=== PATIENT | male | born 1995 | race Caucasian/White ===

== ENCOUNTER 2017-05-26 16:02 | Inpatient (IN) | payer BC, OTHER ==
[~2017-05-26] VITALS: Ht 188 cm; Wt 101.8 kg
[2017-05-26] MEDS ORDERED: ADENOSINE 6 MG/2 ML (ADENOCARD) VIAL IV ONE ×6 (16:09→16:30)
--- OUTSIDE RECORDS SUMMARY | 2017-05-26 16:11 | XMS REPORT | Clinical Summary ---
Author Author Admin, JONA Organization [facility] Address Unknown Phone Unavailable Allergies, Adverse Reactions, Alerts Allergy Name Reaction Description Start Date Severity Status Provider CEPHALOSPORINS Critical Active Dyllan Timmons DO AMOXICILLIN Critical Active Dyllan Timmons DO Conditions or Problems Problem Name Problem Code Onset Date Status Entry Date Provider Comment Standard Description Annotate FOOT PAIN, RIGHT 729.5 Resolved Katie Martell MD PhD Pain in limb PAIN IN JOINT, ANKLE AND FOOT 719.47 Resolved Katie Martell MD PhD Pain in joint involving ankle and foot Sports physical V70.3 Active Dyllan Timmons DO Other general medical examination for administrative purposes Hip pain, left 719.45 Resolved Katie Martell MD PhD Pain in joint involving pelvic region and thigh Elevated blood pressure reading without diagnosis of hypertension 796.2 02/01 Active Dyllan Timmons DO Elevated blood pressure reading without diagnosis of hypertension Pharyngitis-Acute 462 Resolved Katie Martell MD PhD Acute pharyngitis Dyspnea 786.05 Active Katie Martell MD PhD Shortness of breath Cough 786.2 Active Katie Martell MD PhD Cough Bronchitis, acute 466.0 Active Katie Martell MD PhD Acute bronchitis Lumbar strain, acute 847.2 Active Dyllan Timmons DO Lumbar sprain FOOT PAIN, RIGHT ICD-729.5 Inactive Katie Martell MD PhD PAIN IN JOINT, ANKLE AND FOOT ICD-719.47 Inactive Katie Martell MD PhD Hip pain, left ICD-719.45 Inactive Katie Martell MD PhD Pharyngitis-Acute ICD-462 Inactive Katie Martell MD PhD Medication List Medication Instructions Start Date Stop Date Generic Name NDC Status Provider Patient Instruction CYCLOBENZAPRINE HCL 10 MG TABS 1 tablet by mouth at bedtime for back spasm CYCLOBENZAPRINE HCL 57150757710 Active Dyllan Timmons DO Active LEVAQUIN 500 MG TAB 1 tablet by mouth daily LEVOFLOXACIN 65909216891 Active Katie Martell MD PhD Active Immunizations Vaccine Administration Date Value Standard Description dT (Diphtheria and Tetanus) booster given Boostrix Tdap Td(adult ) unspecified formulation DPT immunization #5 DTaP oral polio vaccine (OPV) #4 IPV poliovirus vaccine, unspecified formulation MMR (measles, mumps, rubella) virus immunization #2 MMR DPT immunization #4 DTaP hepatitis B vaccine #3 Historical hepatitis B vaccine, unspecified formulation Hemophilus influenza B immunization #2 Historical Haemophilus influenzae type b vaccine, conjugate unspecified formulation oral polio vaccine (OPV) #3 IPV poliovirus vaccine, unspecified formulation MMR (measles, mumps, rubella) virus immunization #1 MMR DPT immunization #3 DTaP DPT immunization #2 DTaP oral polio vaccine (OPV) #2 IPV poliovirus vaccine, unspecified formulation hepatitis B vaccine #2 given Historical hepatitis B vaccine, unspecified formulation hepatitis B vaccine #1 given Historical hepatitis B vaccine, unspecified formulation DPT immunization #1 DTaP Hemophilus influenza B immunization #1 Historical Haemophilus influenzae type b vaccine, conjugate unspecified formulation oral polio vaccine (OPV) #1 IPV poliovirus vaccine, unspecified formulation Vital Signs Date Name Value Unit Range Description blood pressure, diastolic - 8462-4 66 mm[Hg] BP dimas blood pressure, systolic - 8480-6 113 mm[Hg] BP sys pulse rate E&M - 8867-4 69 /min Heart rate temperature E&M 97.9 [degF] Body temperature weight E&M - 3141-9 220.0 [lb_av] Weight Measured blood pressure, diastolic - 8462-4 68 mm[Hg] BP dimas blood pressure, systolic - 8480-6 121 mm[Hg] BP sys pulse rate E&M - 8867-4 66 /min Heart rate temperature E&M 98.5 [degF] Body temperature weight E&M - 3141-9 220 [lb_av] Weight Measured blood pressure, diastolic - 8462-4 81 mm[Hg] BP dimas blood pressure, systolic - 8480-6 139 mm[Hg] BP sys pulse rate E&M - 8867-4 60 /min Heart rate temperature E&M 98 [degF] Body temperature weight E&M - 3141-9 223 [lb_av] Weight Measured Diagnostic Results Date Name Value Unit Range Description Lab Report: RapidStrep Rflx/Cx - Lab Microbial identification kit, rapid strep method Negative-Throat Culture to Follow Negative Encounters Code Encounter Date Provider Facility CPT-84148 Level 3 Est. Patient 17:12:26 CDT Dyllan Timmons [facility] CPT-13272 Level 3 Est. Patient 10:50:38 CDT Katie Martell MD PhD [facility] CPT-72358 Level 3 Est. Patient 11:01:01 [employer] Dyllan Timmons [facility] CPT-97859 Level 3 Est. Patient 19:21:41 CDT Dyllan Timmons [facility] CPT-30100 Level 2 Est. Patient 08:39:56 [employer] Dyllan Timmons [facility] CPT-32253 Level 3 Est. Patient 22:53:20 CDT Dyllan Timmons [facility] CPT-91526 Level 3 Est. Patient 17:12:13 CDT Dyllan Timmons [facility] Procedures Code Procedure Name Date Entry Date Standard Description CPT-76989 LS spine comp w obliq 17:16:12 CDT CPT-47535 Chest 2V Frontal and Lat 10:23:04 CDT CPT-42342 Foot comp min 3V 17:12:13 CDT
--- OUTSIDE RECORDS SUMMARY | 2017-05-26 16:11 | XMS REPORT | Clinical Summary ---
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 Dyllan Timmons DO Temporomandibular joint disorders, unspecified Palpitations 785.1 Active Butch Felix MD Palpitations Acid reflux 530.81 Active Prisca Burton APRN Esophageal reflux Allergic rhinitis 477.9 Active Prisca Burton APRN Allergic rhinitis, cause unspecified Chest wall pain 786.52 Active Chel Uriostegui [employer]ING [employer] Painful respiration Anxiety 300.00 Active Chel Uriostegui APRN Anxiety state, unspecified Leg pain, bilateral 729.5 Active Butch Felix MD Pain in limb Nerve pain 729.2 Active Alissa Johnson APRN Neuralgia, neuritis, and radiculitis, unspecified Inguinal lymphadenopathy, right 785.6 Active Alissa Johnson [employer]ING [employer] Enlargement of lymph nodes Dysuria 788.1 Active Butch Felix MD Dysuria FOOT PAIN, RIGHT ICD-729.5 Inactive Katie Martell MD PhD PAIN IN JOINT, ANKLE AND FOOT ICD-719.47 Inactive Katie Martell MD PhD Hip pain, left ICD-719.45 Inactive Katie Martell MD PhD Pharyngitis-Acute ICD-462 Inactive Katie Martell MD PhD Cough ICD-786.2 Inactive Butch Felix MD Bronchitis, acute ICD-466.0 Inactive Butch Felix MD Lumbar strain, acute ICD-847.2 Inactive Butch Felix MD Ankle pain, left ICD-719.47 Inactive Butch Felix MD Medication List Medication Instructions Start Date Stop Date Generic Name NDC Status Provider Patient Instruction FLUTICASONE PROPIONATE 50 MCG/ACT SUSP 2 sprays each nostril daily FLUTICASONE PROPIONATE 03457367569 No Longer Active Butch Felix MD Active OMEPRAZOLE 20 MG CPDR 1 tablet by mouth daily OMEPRAZOLE 01400801161 No Longer Active Butch Felix MD Active ALBUTEROL SULFATE (2.5 MG/3ML) 0.083% NEBU 1 in nebulizer four times a day as needed for cough ALBUTEROL SULFATE 08629737171 No Longer Active Prisca Burton APRN Active ASPIRIN 325 MG TAB Take 1 tab p.o. PRN for pain ASPIRIN 39358262265 Active Chel Uriostegui APRN Active MELOXICAM 15 MG TABS 1 po q day for pain with food MELOXICAM 51277610505 No Longer Active Butch Felix MD Active IBUPROFEN 400 MG TAB 1 tab po tid with food, prn IBUPROFEN 89178427537 No Longer Active Butch Felix MD Active CYCLOBENZAPRINE HCL 10 MG TABS 1 tablet by mouth at bedtime for back spasm CYCLOBENZAPRINE HCL 53679885278 No Longer Active Roland Ellis APRN Active LEVAQUIN 500 MG TAB 1 tablet by mouth daily LEVOFLOXACIN 06253408657 No Longer Active Roland Ellis APRN Active LEVAQUIN 500 MG TAB 1 tablet by mouth daily LEVAQUIN 500 MG TAB 334717 LEVOFLOXACIN Inactive CYCLOBENZAPRINE HCL 10 MG TABS 1 tablet by mouth at bedtime for back spasm CYCLOBENZAPRINE HCL 10 MG TABS 444666 CYCLOBENZAPRINE HCL Inactive IBUPROFEN 400 MG TAB 1 tab po tid with food, prn IBUPROFEN 400 MG TAB 074004 IBUPROFEN Inactive MELOXICAM 15 MG TABS 1 po q day for pain with food MELOXICAM 15 MG TABS 562647 MELOXICAM Inactive ALBUTEROL SULFATE (2.5 MG/3ML) 0.083% NEBU 1 in nebulizer four times a day as needed for cough ALBUTEROL SULFATE (2.5 MG/3ML) 0.083% NEBU 594665 ALBUTEROL SULFATE Inactive OMEPRAZOLE 20 MG CPDR 1 tablet by mouth daily OMEPRAZOLE 20 MG CPDR 842636 OMEPRAZOLE Inactive FLUTICASONE PROPIONATE 50 MCG/ACT SUSP 2 sprays each nostril daily FLUTICASONE PROPIONATE 50 MCG/ACT SUSP 860003 FLUTICASONE PROPIONATE Inactive Immunizations Vaccine Administration Date Value Standard Description dT (Diphtheria and Tetanus) booster given Boostrix Tdap Td(adult ) unspecified formulation DPT immunization #5 DTaP oral polio vaccine (OPV) #4 IPV poliovirus vaccine, unspecified formulation MMR (measles, mumps, rubella) virus immunization #2 MMR DPT immunization #4 DTaP Hemophilus influenza B immunization #2 Historical Haemophilus influenzae type b vaccine, conjugate unspecified formulation oral polio vaccine (OPV) #3 IPV poliovirus vaccine, unspecified formulation MMR (measles, mumps, rubella) virus immunization #1 MMR hepatitis B vaccine #3 Historical hepatitis B vaccine, unspecified formulation DPT immunization #3 DTaP oral polio vaccine (OPV) #2 IPV poliovirus vaccine, unspecified formulation DPT immunization #2 DTaP hepatitis B vaccine #2 given Historical hepatitis B vaccine, unspecified formulation Hemophilus influenza B immunization #1 Historical Haemophilus influenzae type b vaccine, conjugate unspecified formulation oral polio vaccine (OPV) #1 IPV poliovirus vaccine, unspecified formulation DPT immunization #1 DTaP hepatitis B vaccine #1 given Historical hepatitis B vaccine, unspecified formulation Vital Signs Date Name Value Unit Range Description blood pressure, diastolic - 8462-4 78 mm[Hg] BP dimas blood pressure, systolic - 8480-6 134 mm[Hg] BP sys pulse rate E&M - 8867-4 82 /min Heart rate temperature E&M 98.3 [degF] Body temperature weight E&M - 3141-9 207 [lb_av] Weight Measured blood pressure, diastolic - 8462-4 82 mm[Hg] BP dimas blood pressure, systolic - 8480-6 143 mm[Hg] BP sys pulse rate E&M - 8867-4 76 /min Heart rate temperature E&M 97.9 [degF] Body temperature weight E&M - 3141-9 205 [lb_av] Weight Measured blood pressure, diastolic - 8462-4 75 mm[Hg] BP dimas blood pressure, systolic - 8480-6 137 mm[Hg] BP sys height E&M - 8302-2 74 [in_us] Bdy height pulse rate E&M - 8867-4 61 /min Heart rate temperature E&M 98.3 [degF] Body temperature weight E&M - 3141-9 203.5 [lb_av] Weight Measured blood pressure, diastolic - 8462-4 73 mm[Hg] BP dimas blood pressure, systolic - 8480-6 136 mm[Hg] BP sys pulse rate E&M - 8867-4 53 /min Heart rate temperature E&M 98.8 [degF] Body temperature weight E&M - 3141-9 210 [lb_av] Weight Measured blood pressure, diastolic - 8462-4 82 mm[Hg] BP dimas blood pressure, systolic - 8480-6 145 mm[Hg] BP sys pulse rate E&M - 8867-4 64 /min Heart rate temperature E&M 97.1 [degF] Body temperature weight E&M - 3141-9 212 [lb_av] Weight Measured blood pressure, diastolic - 8462-4 64 mm[Hg] BP dimas blood pressure, systolic - 8480-6 127 mm[Hg] BP sys pulse rate E&M - 8867-4 57 /min Heart rate temperature E&M 96.7 [degF] Body temperature weight E&M - 3141-9 210 [lb_av] Weight Measured blood pressure, diastolic - 8462-4 81 mm[Hg] BP dimas blood pressure, systolic - 8480-6 133 mm[Hg] BP sys pulse rate E&M - 8867-4 58 /min Heart rate temperature E&M 95.6 [degF] Body temperature weight E&M - 3141-9 211 [lb_av] Weight Measured blood pressure, diastolic - 8462-4 54 mm[Hg] BP dimas blood pressure, systolic - 8480-6 134 mm[Hg] BP sys pulse rate E&M - 8867-4 62 /min Heart rate temperature E&M 98.2 [degF] Body temperature weight E&M - 3141-9 215.6 [lb_av] Weight Measured blood pressure, diastolic - 8462-4 69 mm[Hg] BP dimas blood pressure, systolic - 8480-6 130 mm[Hg] BP sys pulse rate E&M - 8867-4 63 /min Heart rate temperature E&M 97.5 [degF] Body temperature weight E&M - 3141-9 219.50 [lb_av] Weight Measured blood pressure, diastolic - 8462-4 66 mm[Hg] BP dimas blood pressure, systolic - 8480-6 113 mm[Hg] BP sys pulse rate E&M - 8867-4 69 /min Heart rate temperature E&M 97.9 [degF] Body temperature weight E&M - 3141-9 220.0 [lb_av] Weight Measured Diagnostic Results Date Name Value Unit Range Description Lab Report: CBC, Comp. Metabolic Panel - Chemistry sodium, serum 141 mmol/L 288-401 7752/04/05 carbon dioxide, venous blood 31.5 mmol/L 21.0-32.0 potassium, serum 4.5 mmol/L 3.5-5.2 chloride, serum 102 mmol/L 98-107 blood glucose 74 mg/dL 65-110 urea nitrogen, blood 8 mg/dL 7-18 creatinine, serum 0.93 mg/dL 0.55-1.30 alanine aminotransferase (SGPT), serum 30 U/L 12-78 aspartate aminotransferase (SGOT), serum 23 U/L 15-37 calcium, serum 9.3 mg/dL 8.5-10.1 bilirubin, serum, total 0.40 mg/dL 0.00-1.00 Lab Report: CBC, Comp. Metabolic Panel - Hematology leukocyte count, blood 8.7 10^3/MM^3 10*3/mm3 4.6-10.2 erythrocyte (RBC) count 5.46 10^6/MM^3 10*6/mm3 4.69-6.13 hemoglobin, blood 15.3 g/dL 13.5-17.5 hematocrit, blood 44.2 % 41.0-53.0 mean corpuscular volume, RBC 81 fL 80-97 mean corpuscular hemoglobin, RBC 28.0 pg 27.0-31.2 mean corpuscular hemoglobin concentration, RBC 34.6 G/DL % 31.8- 35.4 red blood cell distribution width 14.1 % 11.6-14.8 platelet count 242 10^3/MM^3 10*3/mm3 142-424 Lab Report: Thyroid Stimulating Hormone (L), Basic Metabolic Panel - Chemistry TSH 1.58 m[iU]/mL 0.36-3.74 sodium, serum 140 mmol/L 340-644 3600/03/09 potassium, serum 4.4 mmol/L 3.5-5.2 chloride, serum 102 mmol/L 98-107 carbon dioxide, venous blood 27.3 mmol/L 21.0-32.0 blood glucose 81 mg/dL 65-110 calcium, serum 9.4 mg/dL 8.5-10.1 urea nitrogen, blood 10 mg/dL 7-18 creatinine, serum 1.00 mg/dL 0.55-1.30 Lab Report: Thyroid Stimulating Hormone (L), Basic Metabolic Panel - Hematology leukocyte count, blood 11.4 10^3/MM^3 10*3/mm3 4.6-10.2 neutrophils as percent of blood leukocytes 70.1 % 42.2-75.2 monocytes as percent of blood leukocytes 4.7 % 1.7-9.3 lymphocytes as percent of blood leukocytes 21.0 % 20.5-51.1 erythrocyte (RBC) count 5.62 10^6/MM^3 10*6/mm3 4.69-6.13 hemoglobin, blood 15.8 g/dL 13.5-17.5 hematocrit, blood 45.7 % 41.0-53.0 mean corpuscular volume, RBC 81 fL 80-97 mean corpuscular hemoglobin, RBC 28.2 pg 27.0-31.2 mean corpuscular hemoglobin concentration, RBC 34.6 G/DL % 31.8- 35.4 red blood cell distribution width 14.4 % 11.6-14.8 platelet count 269 10^3/MM^3 10*3/mm3 142-424 Lab Report: UADIP W/MICRO, AUTO - Chemistry protein, total urine random Negative mg/dL Negative RBC, urine, dipstick Negative Negative Lab Report: UADIP W/MICRO, AUTO - Urinalysis urobilinogen, urine, semiquantitative (dipstick) 0.2 Normal leukocyte esterase, urine, by dipstick Negative Negative nitrite, urine, semiquantitative Negative Negative urate crystals, amorphous, urine, semiquantitative Few None seen glucose, urine, semiquantitative Negative Negative ketones, urine, by test strip Negative Negative bilirubin, urine Negative Negative urine color Yellow Colorless;Lightyellow;Straw;Yellow appearance, urine Clear Clear specific gravity, urine <=1.005 1.000-1.030 pH, urine, semiquantitative 7.0 5.0-8.5 Encounters Code Encounter Date Provider Facility CPT-78572 Level 3 Est. Patient 16:34:51 CDT Butch Felix MD [facility] CPT-48103 Level 3 Est. Patient 11:07:07 CDT Alissa Johnson [facility] CPT-34570 Level 3 Est. Patient 09:56:03 CDT Butch Felix MD [facility] CPT-38564 Level 3 Est. Patient 10:09:51 CDT Butch Felix MD [facility] CPT-42900 Level 3 Est. Patient 10:33:59 CDT Chel Uriostegui [facility] CPT-50265 Level 3 Est. Patient 16:17:38 CDT Prisca Burton [facility] CPT-37709 Level 3 Est. Patient 11:06:35 [employer]FORMER [employer] Butch Felix MD [facility] CPT-85396 Level 3 Est. Patient 18:22:20 [employer]ANSFORMER TE[employer] Dyllan Timmons DO [facility] CPT-92828 Level 3 Est. Patient 17:12:26 CDT Dyllan Timmons [facility] CPT-11759 Level 3 Est. Patient 10:50:38 CDT Katie Martell MD PhD [facility] CPT-04271 Level 3 Est. Patient 11:01:01 [employer]FORMER [employer] Dyllan Timmons [facility] CPT-96886 Level 3 Est. Patient 19:21:41 CDT Dyllan Kami Timmons [facility] CPT-52134 Level 2 Est. Patient 08:39:56 [employer]ANSFORMER [employer] Dyllan Mcclure [facility] CPT-89890 Level 3 Est. Patient 22:53:20 CDT Dyllan Kami [facility] CPT-63880 Level 3 Est. Patient 17:12:13 CDT Dyllan Kami [facility] Procedures Code Procedure Name Date Entry Date Standard Description CPT-79203 Event Monitor - [employer] 14:58:02 [employer]ANSFORMER TE[employer] CPT-40283 EKG Trac and Interp 10:58:25 [employer]ANSFORMER TE[employer] CPT-99506 Chest 2V Frontal and Lat 10:58:25 [employer]ANSFORMER TE[employer] CPT-34341 LS spine comp w obliq 17:16:12 CDT CPT-40997 Chest 2V Frontal and Lat 10:23:04 CDT CPT-97311 Foot comp min 3V 17:12:13 CDT
--- OUTSIDE RECORDS SUMMARY | 2017-05-26 16:12 | XMS REPORT | Clinical Summary ---
Author Author Admin, QIE Organization [facility] Address Unknown Phone Unavailable Allergies, Adverse Reactions, Alerts Allergy Name Reaction Description Start Date Severity Status Provider IODINE Mild Active Dyllan Timmons DO CEPHALOSPORINS Critical Active Dyllan Timmons DO AMOXICILLIN [...] Temporomandibular joint disorders, unspecified Palpitations 785.1 Active Buthc Felix MD Palpitations Acid reflux 530.81 Active Prisca Burton APRN Esophageal reflux Allergic rhinitis 477.9 Active Prisca Burton APRN Allergic rhinitis, cause unspecified Chest wall pain 786.52 Active Chel Uriostegui APRN Painful respiration Anxiety 300.00 Active Chel Uriostegui APRN Anxiety state, unspecified Leg pain, bilateral 729.5 Active Butch Felix MD Pain in limb Nerve pain 729.2 Active Alissaeverett Johnson APRN Neuralgia, neuritis, and radiculitis, unspecified Inguinal lymphadenopathy, right 785.6 Active Alissa Johnson APRN Enlargement of lymph nodes Dysuria 788.1 Active Butch Felix MD Dysuria High blood pressure 401.9 Active Dyllan Timmons DO Unspecified essential hypertension Elevated liver enzymes 790.6 Active Dyllan Timmons DO Other abnormal blood chemistry School student exam V70.5 Active Dyllan Timmons DO Health examination of defined subpopulations FOOT PAIN, RIGHT ICD-729.5 Inactive Katie Martell [...] Generic Name NDC Status Provider Patient Instruction PROPRANOLOL HCL 10 MG TAB 1 tablet by mouth twice daily PROPRANOLOL HCL 54045437783 Active Dyllan Timmons DO Active ASPIRIN 325 MG TAB Take 1 tab p.o. PRN for pain ASPIRIN 49623244105 No Longer Active Dyllan Timmons DO Active FLUOXETINE HCL 20 MG CAPS 1 cap by mouth daily FLUOXETINE HCL 02137251749 No Longer Active Dyllan Timmons DO Active FLUTICASONE PROPIONATE 50 MCG/ACT SUSP 2 sprays each nostril daily FLUTICASONE PROPIONATE 55679678093 No Longer Active Butch Felix MD Active OMEPRAZOLE 20 MG CPDR 1 tablet by mouth daily OMEPRAZOLE 79592416647 No Longer Active Butch Felix MD Active ALBUTEROL SULFATE (2.5 MG/3ML) 0.083% NEBU 1 in nebulizer four times a day as needed for cough ALBUTEROL SULFATE 92557930516 No Longer Active Prisca Burton APRN Active MELOXICAM 15 MG TABS 1 po q day for pain with food MELOXICAM 37958016202 No Longer Active Butch Felix MD Active IBUPROFEN 400 MG TAB 1 tab po tid with food, prn IBUPROFEN 75639548649 No Longer Active Butch Felix MD Active CYCLOBENZAPRINE HCL 10 MG TABS 1 tablet by mouth at bedtime for back spasm CYCLOBENZAPRINE HCL 37312114282 No Longer Active Roland Ellis APRN Active LEVAQUIN 500 MG TAB 1 tablet by mouth daily LEVOFLOXACIN 06429026005 No Longer Active Roland Ellis RESEARCH AND DEVELOPMENT DIRECTOR Active LEVAQUIN 500 MG TAB 1 tablet by mouth daily LEVAQUIN 500 MG TAB 354186 LEVOFLOXACIN Inactive CYCLOBENZAPRINE HCL 10 MG TABS 1 tablet by mouth at bedtime for back spasm CYCLOBENZAPRINE HCL 10 MG TABS 038341 CYCLOBENZAPRINE HCL Inactive IBUPROFEN 400 MG TAB 1 tab po tid with food, prn IBUPROFEN 400 MG TAB 177667 IBUPROFEN Inactive MELOXICAM 15 MG TABS 1 po q day for pain with food MELOXICAM 15 MG TABS 997439 MELOXICAM Inactive ALBUTEROL SULFATE (2.5 MG/3ML) 0.083% NEBU 1 in nebulizer four times a day as needed for cough ALBUTEROL SULFATE (2.5 MG/3ML) 0.083% NEBU 147613 ALBUTEROL SULFATE Inactive OMEPRAZOLE 20 MG CPDR 1 tablet by mouth daily OMEPRAZOLE 20 MG CPDR 229414 OMEPRAZOLE Inactive FLUTICASONE PROPIONATE 50 MCG/ACT SUSP 2 sprays each nostril daily FLUTICASONE PROPIONATE 50 MCG/ACT SUSP 0287102 FLUTICASONE PROPIONATE Inactive FLUOXETINE HCL 20 MG CAPS 1 cap by mouth daily FLUOXETINE HCL 20 MG CAPS 980615 FLUOXETINE HCL Inactive ASPIRIN 325 MG TAB Take 1 tab p.o. PRN for pain ASPIRIN 325 MG TAB 316878 ASPIRIN Inactive Immunizations Vaccine Administration Date Value Standard [...] Value Unit Range Description blood pressure, diastolic 85 mm[Hg] BP dimas blood pressure, systolic 153 mm[Hg] BP sys height E&M 74 [in_us] Bdy height pulse rate E&M 70 /min Heart rate temperature E&M 98.2 [degF] Body temperature weight E&M 223.06 [lb_av] Weight Measured Diagnostic Results Date Name Value Unit Range Description Lab Report: Comp. Metabolic Panel - Chemistry sodium, serum 140 mmol/L 648-423 3265/07/06 carbon dioxide, venous blood 29.4 mmol/L 21.0-32.0 potassium, serum 4.4 mmol/L 3.5-5.2 chloride, serum 105 mmol/L 98-107 blood glucose 82 mg/dL 65-110 urea nitrogen, blood 9 mg/dL 7-18 creatinine, serum 1.30 mg/dL 0.60-1.30 alanine aminotransferase (SGPT), serum 53 U/L 12-78 aspartate aminotransferase (SGOT), serum 23 U/L 15-37 calcium, serum 8.9 mg/dL 8.5-10.1 bilirubin, serum, total 0.40 mg/dL 0.00-1.00 Encounters Code Encounter Date Provider Facility CPT-00494 Level 3 Est. Patient 13:07:09 CDT Dyllan Kami Iain [facility] CPT-31592 Level 3 Est. Patient 09:01:12 CDT Dyllan Timmons [facility] CPT-03678 Level 3 Est. Patient 08:29:00 CDT Dyllan Kami [facility] CPT-37561 Level 3 Est. Patient 16:34:51 CDT Butch Felix MD [facility] CPT-31390 Level 3 Est. Patient 11:07:07 CDT Alissa Johnson [facility] CPT-01449 Level 3 Est. Patient 09:56:03 CDT Butch Felix MD [facility] CPT-29365 Level 3 Est. Patient 10:09:51 CDT Butch Felix MD [facility] CPT-67086 Level 3 Est. Patient 10:33:59 CDT Chel Uriostegui [facility] CPT-59074 Level 3 Est. Patient 16:17:38 CDT Prisca Burton [facility] CPT-72017 Level 3 Est. Patient 11:06:35 NETWORK CONTROL SUPERVISOR Butch Felix MD [facility] CPT-68270 Level 3 Est. Patient 18:22:20 NETWORK CONTROL SUPERVISOR Dyllan Timmons [facility] CPT-81452 Level 3 Est. Patient 17:12:26 CDT Dyllan Timmons [facility] CPT-40362 Level 3 Est. Patient 10:50:38 CDT Katie Martell MD PhD [facility] CPT-32943 Level 3 Est. Patient 11:01:01 NETWORK CONTROL SUPERVISOR Dyllan Timmons [facility] CPT-72558 Level 3 Est. Patient 19:21:41 CDT Dyllan Timmons [facility] CPT-16903 Level 2 Est. Patient 08:39:56 NETWORK CONTROL SUPERVISOR Dyllan Timmons [facility] CPT-68261 Level 3 Est. Patient 22:53:20 CDT Dyllan Mcclure [facility] CPT-32194 Level 3 Est. Patient 17:12:13 CDT Dyllan Timmons [facility] Procedures Code Procedure Name Date Entry Date Standard Description CPT-77232 Addl Vx - Ix admin via ID IM or jet injects without counseling by physician 10:39:15 CDT CPT-20755 Gardasil 9 Intramuscular Suspension 10:39:15 CDT 04/15 CPT-15370 First Vx - Ix admin via ID IM or jet injects without counseling by physician 10:39:15 CDT CPT-93738 Havrix Intramuscular Suspension 720 EL U/0.5ML 10:39:15 CDT CPT-64700 Addl Vx - Ix admin via ID IM or jet injects without counseling by physician 14:02:27 CDT CPT-46777 Meningococcal B, recombinant vaccine 14:02:27 CDT 03/27 CPT-14586 First Vx - Ix admin via ID IM or jet injects without counseling by physician 14:02:27 CDT CPT-11586 Menveo Intramuscular Solution Reconstituted 14:02:27 CDT [id number] Event Monitor - MC review and interp 16:30:59 NETWORK CONTROL SUPERVISOR CPT-47812 EKG Trac and Interp - XRAY USE ONLY 10:18:23 CDT 04/10 CPT-57283 Event Monitor - Commercial Ins 14:58:02 NETWORK CONTROL SUPERVISOR CPT-45337 EKG Trac and Interp 10:58:25 NETWORK CONTROL SUPERVISOR CPT-07216 Chest 2V Frontal and Lat 10:58:25 NETWORK CONTROL SUPERVISOR CPT-47302 LS spine comp w obliq 17:16:12 CDT CPT-58856 Chest 2V Frontal and Lat 10:23:04 CDT CPT-26780 Foot comp min 3V 17:12:13 CDT
--- OUTSIDE RECORDS SUMMARY | 2017-05-26 16:12 | XMS REPORT | Clinical Summary ---
Author Author Admin, JONA Organization [facility] Address Unknown Phone Unavailable Allergies, Adverse Reactions, [...] Active Butch Felix MD Pain in limb FOOT PAIN, RIGHT ICD-729.5 Inactive Katie Martell [...] Instructions Start Date Stop Date Generic Name ND Status Provider Patient Instruction FLUTICASONE PROPIONATE 50 MCG/ACT SUSP 2 sprays each nostril daily FLUTICASONE PROPIONATE 16267721084 No Longer Active Butch Felix MD Active OMEPRAZOLE 20 MG CPDR 1 tablet by mouth daily OMEPRAZOLE 74617805336 No Longer Active Butch Felix MD Active ALBUTEROL SULFATE (2.5 MG/3ML) 0.083% NEBU 1 in nebulizer four times a day as needed for cough ALBUTEROL SULFATE 20364359157 No Longer Active Prisca Burton APRN Active ASPIRIN 325 MG TAB Take 1 tab p.o. PRN for pain ASPIRIN 04232374911 Active Chel Uriostegui ANA PAULA Active MELOXICAM 15 MG TABS 1 po q day for pain with food MELOXICAM 46133778797 No Longer Active Butch Felix MD Active IBUPROFEN 400 MG TAB 1 tab po tid with food, prn IBUPROFEN 07410262586 No Longer Active Butch Felix MD Active CYCLOBENZAPRINE HCL 10 MG TABS 1 tablet by mouth at bedtime for back spasm CYCLOBENZAPRINE HCL 65411469565 No Longer Active Jillina Rhonda GOSS Active LEVAQUIN 500 MG TAB 1 tablet by mouth daily LEVOFLOXACIN 88817413809 No Longer Active Jillina Frazell CLICKER OPERATOR Active LEVAQUIN 500 MG TAB 1 tablet by mouth daily LEVAQUIN 500 MG TAB 920745 LEVOFLOXACIN Inactive CYCLOBENZAPRINE HCL 10 MG TABS 1 tablet by mouth at bedtime for back spasm CYCLOBENZAPRINE HCL 10 MG TABS 995972 CYCLOBENZAPRINE HCL Inactive IBUPROFEN 400 MG TAB 1 tab po tid with food, prn IBUPROFEN 400 MG TAB 189375 IBUPROFEN Inactive MELOXICAM 15 MG TABS 1 po q day for pain with food MELOXICAM 15 MG TABS 560632 MELOXICAM Inactive ALBUTEROL SULFATE (2.5 MG/3ML) 0.083% NEBU 1 in nebulizer four times a day as needed for cough ALBUTEROL SULFATE (2.5 MG/3ML) 0.083% NEBU 037160 ALBUTEROL SULFATE Inactive OMEPRAZOLE 20 MG CPDR 1 tablet by mouth daily OMEPRAZOLE 20 MG CPDR 325763 OMEPRAZOLE Inactive FLUTICASONE PROPIONATE 50 MCG/ACT SUSP 2 sprays each nostril daily FLUTICASONE PROPIONATE 50 MCG/ACT SUSP 350453 FLUTICASONE PROPIONATE Inactive Immunizations Vaccine Administration Date [...] Range Description blood pressure, diastolic - 8462-4 75 mm[Hg] [...] Panel - Chemistry sodium, serum 141 mmol/L 943-605 5812/04/05 carbon dioxide, venous blood 31.5 mmol/L 21.0-32.0 [...] 1.58 m[iU]/mL 0.36-3.74 sodium, serum 140 mmol/L 720-113 0087/03/09 potassium, serum 4.4 mmol/L 3.5-5.2 chloride, serum [...] 11.6-14.8 platelet count 269 10^3/MM^3 10*3/mm3 142-424 Encounters Code Encounter Date Provider Facility CPT-10049 Level 3 Est. Patient 09:56:03 CDT Butch Felix MD [facility] CPT-96690 Level 3 Est. Patient 10:09:51 CDT Butch Felix MD [facility] CPT-03242 Level 3 Est. Patient 10:33:59 CDT Chel Uriostegui [facility]-09268 Level 3 Est. Patient 16:17:38 CDT Prisca Burton [facility] CPT-14344 Level 3 Est. Patient 11:06:35 SURVEY COMPILER Butch Felix MD [facility] CPT-06457 Level 3 Est. Patient 18:22:20 SURVEY COMPILER Dyllan Timmons [facility] CPT-73147 Level 3 Est. Patient 17:12:26 CDT Dyllan Timmons [facility] CPT-72294 Level 3 Est. Patient 10:50:38 CDT Katie Martell MD PhD [facility] CPT-91858 Level 3 Est. Patient 11:01:01 SURVEY COMPILER Dyllan Timmons [facility] CPT-39378 Level 3 Est. Patient 19:21:41 CDT Dyllan Timmons [facility] CPT-68788 Level 2 Est. Patient 08:39:56 SURVEY COMPILER Dyllan Timmons [facility] CPT-96976 Level 3 Est. Patient 22:53:20 CDT Dyllan Timmons [facility] CPT-55110 Level 3 Est. Patient 17:12:13 CDT Dyllan Timmons DO [facility] Procedures Code Procedure Name Date Entry Date Standard Description CPT-63564 Event Monitor - Commercial Ins 14:58:02 SURVEY COMPILER CPT-81861 EKG Trac and Interp 10:58:25 SURVEY COMPILER CPT-45357 Chest 2V Frontal and Lat 10:58:25 SURVEY COMPILER CPT-74479 LS spine comp w obliq 17:16:12 CDT CPT-97858 Chest 2V Frontal and Lat 10:23:04 CDT CPT-94003 Foot comp min 3V 17:12:13 CDT
--- OUTSIDE RECORDS SUMMARY | 2017-05-26 16:12 | XMS REPORT | Clinical Summary ---
Author Author Admin, QIE Organization [facility] Address Unknown Phone Unavailable Allergies, Adverse [...] unspecified Chest wall pain 786.52 Active Chel Uriosetgui APRN Painful respiration Anxiety 300.00 Active Chel [...] Generic Name NDC Status Provider Patient Instruction FLUOXETINE HCL 20 MG CAPS 1 cap by mouth daily FLUOXETINE HCL 93281189044 Active Dyllan Timmons DO Active FLUTICASONE PROPIONATE 50 MCG/ACT SUSP 2 sprays each nostril daily FLUTICASONE PROPIONATE 36053516230 No Longer Active Butch Felix MD Active OMEPRAZOLE 20 MG CPDR 1 tablet by mouth daily OMEPRAZOLE 10912259983 No Longer Active Butch Felix MD Active ALBUTEROL SULFATE (2.5 MG/3ML) 0.083% NEBU 1 in nebulizer four times a day as needed for cough ALBUTEROL SULFATE 92219400226 No Longer Active Prisca Burton APRN Active ASPIRIN 325 MG TAB Take 1 tab p.o. PRN for pain ASPIRIN 59409010414 Active Chel Uriostegui APRN Active MELOXICAM 15 MG TABS 1 po q day for pain with food MELOXICAM 83086776322 No Longer Active Butch Felix MD Active IBUPROFEN 400 MG TAB 1 tab po tid with food, prn IBUPROFEN 39232319328 No Longer Active Butch Felix MD Active CYCLOBENZAPRINE HCL 10 MG TABS 1 tablet by mouth at bedtime for back spasm CYCLOBENZAPRINE HCL 14556773517 No Longer Active Roland Ellis APRN Active LEVAQUIN 500 MG TAB 1 tablet by mouth daily LEVOFLOXACIN 34010297830 No Longer Active Jillina Frazell COMPUTER EDUCATION PROFESSOR Active LEVAQUIN 500 MG TAB 1 tablet by mouth daily LEVAQUIN 500 MG TAB 222625 LEVOFLOXACIN Inactive CYCLOBENZAPRINE HCL 10 MG TABS 1 tablet by mouth at bedtime for back spasm CYCLOBENZAPRINE HCL 10 MG TABS 371937 CYCLOBENZAPRINE HCL Inactive IBUPROFEN 400 MG TAB 1 tab po tid with food, prn IBUPROFEN 400 MG TAB 865842 IBUPROFEN Inactive MELOXICAM 15 MG TABS 1 po q day for pain with food MELOXICAM 15 MG TABS 665778 MELOXICAM Inactive ALBUTEROL SULFATE (2.5 MG/3ML) 0.083% NEBU 1 in nebulizer four times a day as needed for cough ALBUTEROL SULFATE (2.5 MG/3ML) 0.083% NEBU 892768 ALBUTEROL SULFATE Inactive OMEPRAZOLE 20 MG CPDR 1 tablet by mouth daily OMEPRAZOLE 20 MG CPDR 116194 OMEPRAZOLE Inactive FLUTICASONE PROPIONATE 50 MCG/ACT SUSP 2 sprays each nostril daily FLUTICASONE PROPIONATE 50 MCG/ACT SUSP 630704 FLUTICASONE PROPIONATE Inactive Immunizations Vaccine Administration Date [...] BP dimas blood pressure, systolic - 8480-6 135 mm[Hg] BP sys pulse rate E&M - 8867-4 62 /min Heart rate temperature E&M 95.8 [degF] Body temperature weight E&M - 3141-9 208 [lb_av] Weight Measured blood pressure, diastolic - 8462-4 78 mm[Hg] [...] Panel - Chemistry sodium, serum 141 mmol/L 851-017 3647/04/05 carbon dioxide, venous blood 31.5 mmol/L 21.0-32.0 [...] 1.58 m[iU]/mL 0.36-3.74 sodium, serum 140 mmol/L 342-219 9822/03/09 potassium, serum 4.4 mmol/L 3.5-5.2 chloride, serum [...] 5.0-8.5 Encounters Code Encounter Date Provider Facility CPT-39396 Level 3 Est. Patient 08:29:00 CDT Dyllan Timmons DO [facility] CPT-43369 Level 3 Est. Patient 16:34:51 CDT Butch Felix MD [facility] CPT-83976 Level 3 Est. Patient 11:07:07 CDT Alissa Johnson APRN [facility] CPT-67910 Level 3 Est. Patient 09:56:03 CDT Butch Felix MD [facility] CPT-48798 Level 3 Est. Patient 10:09:51 CDT Butch Felix MD [facility] CPT-59532 Level 3 Est. Patient 10:33:59 CDT Chel Uriostegui [facility] CPT-68024 Level 3 Est. Patient 16:17:38 CDT Priscaalejandra Burton [facility] CPT-74278 Level 3 Est. Patient 11:06:35 MANAGER ASSET MANAGEMENT Butch Felix MD [facility] CPT-47020 Level 3 Est. Patient 18:22:20 MANAGER ASSET MANAGEMENT Dyllan Timmons [facility] CPT-00441 Level 3 Est. Patient 17:12:26 CDT Dyllan Timmons [facility] CPT-71943 Level 3 Est. Patient 10:50:38 CDT Katie Martell MD PhD [facility] CPT-15262 Level 3 Est. Patient 11:01:01 MANAGER ASSET MANAGEMENT Dyllan Timmons [facility] CPT-51877 Level 3 Est. Patient 19:21:41 CDT Dyllan Timmons [facility] CPT-57209 Level 2 Est. Patient 08:39:56 MANAGER ASSET MANAGEMENT Dyllan Timmons [facility] CPT-88608 Level 3 Est. Patient 22:53:20 CDT Dyllan Timmons [facility] CPT-34034 Level 3 Est. Patient 17:12:13 CDT Dyllan Timmons [facility] Procedures Code Procedure Name Date Entry Date Standard Description CPT-07125 Event Monitor - Commercial Ins 14:58:02 MANAGER ASSET MANAGEMENT CPT-09208 EKG Trac and Interp 10:58:25 MANAGER ASSET MANAGEMENT CPT-43850 Chest 2V Frontal and Lat 10:58:25 MANAGER ASSET MANAGEMENT CPT-32046 LS spine comp w obliq 17:16:12 CDT CPT-20825 Chest 2V Frontal and Lat 10:23:04 CDT CPT-67713 Foot comp min 3V 17:12:13 CDT
--- OUTSIDE RECORDS SUMMARY | 2017-05-26 16:13 | XMS REPORT | Clinical Summary ---
Author Author Admin, JONA Organization [employer] Address Unknown Phone Unavailable Allergies, Adverse Reactions, [...] Chest wall pain 786.52 Active Chel Uriostegui WORKERS COMPENSATION CLAIMS ADJUSTER Painful respiration Anxiety 300.00 Active Chel Uriostegui APRN Anxiety state, unspecified Leg pain, bilateral 729.5 Active Butch Felix MD Pain in limb Nerve pain 729.2 Active Alissa Johnson APRN Neuralgia, neuritis, and radiculitis, unspecified Inguinal lymphadenopathy, right 785.6 Active Alissa Johnson WORKERS COMPENSATION CLAIMS ADJUSTER Enlargement of lymph nodes Dysuria 788.1 Active [...] 2 sprays each nostril daily FLUTICASONE PROPIONATE 62210357059 No Longer Active Butch Felix MD Active OMEPRAZOLE 20 MG CPDR 1 tablet by mouth daily OMEPRAZOLE 61707552796 No Longer Active Butch Felix MD Active ALBUTEROL SULFATE (2.5 MG/3ML) 0.083% NEBU 1 in nebulizer four times a day as needed for cough ALBUTEROL SULFATE 73792882692 No Longer Active Prisca Burton APRN Active ASPIRIN 325 MG TAB Take 1 tab p.o. PRN for pain ASPIRIN 26685944733 Active Chel Uriostegui APRN Active MELOXICAM 15 MG TABS 1 po q day for pain with food MELOXICAM 93879545275 No Longer Active Butch Felix MD Active IBUPROFEN 400 MG TAB 1 tab po tid with food, prn IBUPROFEN 54655480076 No Longer Active Butch Felix MD Active CYCLOBENZAPRINE HCL 10 MG TABS 1 tablet by mouth at bedtime for back spasm CYCLOBENZAPRINE HCL 22729363386 No Longer Active Roland Ellis APRN Active LEVAQUIN 500 MG TAB 1 tablet by mouth daily LEVOFLOXACIN 20680110442 No Longer Active Roland Ellis APRN Active LEVAQUIN 500 MG TAB 1 tablet by mouth daily LEVAQUIN 500 MG TAB 029342 LEVOFLOXACIN Inactive CYCLOBENZAPRINE HCL 10 MG TABS 1 tablet by mouth at bedtime for back spasm CYCLOBENZAPRINE HCL 10 MG TABS 665102 CYCLOBENZAPRINE HCL Inactive IBUPROFEN 400 MG TAB 1 tab po tid with food, prn IBUPROFEN 400 MG TAB 990691 IBUPROFEN Inactive MELOXICAM 15 MG TABS 1 po q day for pain with food MELOXICAM 15 MG TABS 836973 MELOXICAM Inactive ALBUTEROL SULFATE (2.5 MG/3ML) 0.083% NEBU 1 in nebulizer four times a day as needed for cough ALBUTEROL SULFATE (2.5 MG/3ML) 0.083% NEBU 160097 ALBUTEROL SULFATE Inactive OMEPRAZOLE 20 MG CPDR 1 tablet by mouth daily OMEPRAZOLE 20 MG CPDR 425142 OMEPRAZOLE Inactive FLUTICASONE PROPIONATE 50 MCG/ACT SUSP 2 sprays each nostril daily FLUTICASONE PROPIONATE 50 MCG/ACT SUSP 410057 FLUTICASONE PROPIONATE Inactive Immunizations Vaccine Administration Date [...] Range Description blood pressure, diastolic - 8462-4 82 mm[Hg] [...] Panel - Chemistry sodium, serum 141 mmol/L 652-246 1378/04/05 carbon dioxide, venous blood 31.5 mmol/L 21.0-32.0 [...] 1.58 m[iU]/mL 0.36-3.74 sodium, serum 140 mmol/L 157-608 4659/03/09 potassium, serum 4.4 mmol/L 3.5-5.2 chloride, serum [...] 5.0-8.5 Encounters Code Encounter Date Provider Facility CPT-02149 Level 3 Est. Patient 16:34:51 CDT Butch Felix MD [facility]-32926 Level 3 Est. Patient 11:07:07 CDT Alissa Johnson [facility]-44627 Level 3 Est. Patient 09:56:03 CDT Butch Felix MD [facility]-79888 Level 3 Est. Patient 10:09:51 CDT Butch Felix MD [facility]-08878 Level 3 Est. Patient 10:33:59 CDT Chel Uriostegui [facility]-24829 Level 3 Est. Patient 16:17:38 CDT Prisca Burton [facility] CPT-22727 Level 3 Est. Patient 11:06:35 RELEASE COORDINATOR Butch Felix MD [facility]-38296 Level 3 Est. Patient 18:22:20 RELEASE COORDINATOR Dyllan Timmons [facility]-49572 Level 3 Est. Patient 17:12:26 CDT Dyllan Timmons [facility] CPT-26286 Level 3 Est. Patient 10:50:38 CDT Katie Martell MD PhD [facility] CPT-22539 Level 3 Est. Patient 11:01:01 RELEASE COORDINATOR Dyllan Timmons [facility] CPT-23137 Level 3 Est. Patient 19:21:41 CDT Dyllan Mcclure [facility] CPT-39280 Level 2 Est. Patient 08:39:56 RELEASE COORDINATOR Dyllan Timmons [facility] CPT-42293 Level 3 Est. Patient 22:53:20 CDT Dyllan Mcclure [facility] CPT-27587 Level 3 Est. Patient 17:12:13 CDT Dyllan Mcclure [facility] Procedures Code Procedure Name Date Entry Date Standard Description CPT-89209 Event Monitor - Commercial Ins 14:58:02 RELEASE COORDINATOR CPT-27575 EKG Trac and Interp 10:58:25 RELEASE COORDINATOR CPT-32709 Chest 2V Frontal and Lat 10:58:25 RELEASE COORDINATOR CPT-39640 LS spine comp w obliq 17:16:12 CDT CPT-25154 Chest 2V Frontal and Lat 10:23:04 CDT CPT-72494 Foot comp min 3V 17:12:13 CDT
--- OUTSIDE RECORDS SUMMARY | 2017-05-26 16:13 | XMS REPORT | Clinical Summary ---
Author Author Admin, JONA Organization [employer] Address Unknown Phone Unavailable Allergies, Adverse Reactions, [...] Esophageal reflux Allergic rhinitis 477.9 Active Prisca Butron APRN Allergic rhinitis, cause unspecified Chest wall pain 786.52 Active Chel Uriostegui LAW TUTOR Painful respiration Anxiety 300.00 Active Chel Uriostegui APRN Anxiety state, unspecified Leg pain, bilateral 729.5 Active Butch Felix MD Pain in limb Nerve pain 729.2 Active Alissa Johnson APRN Neuralgia, neuritis, and radiculitis, unspecified Inguinal lymphadenopathy, right 785.6 Active Alissa Johnson LAW TUTOR Enlargement of lymph nodes Dysuria 788.1 Active [...] 2 sprays each nostril daily FLUTICASONE PROPIONATE 22245305420 No Longer Active Butch Felix MD Active OMEPRAZOLE 20 MG CPDR 1 tablet by mouth daily OMEPRAZOLE 36569559257 No Longer Active Butch Felix MD Active ALBUTEROL SULFATE (2.5 MG/3ML) 0.083% NEBU 1 in nebulizer four times a day as needed for cough ALBUTEROL SULFATE 94345450910 No Longer Active Prisca Burton APRN Active ASPIRIN 325 MG TAB Take 1 tab p.o. PRN for pain ASPIRIN 47395913678 Active Chel Uriostegui APRN Active MELOXICAM 15 MG TABS 1 po q day for pain with food MELOXICAM 63955250322 No Longer Active Butch Felix MD Active IBUPROFEN 400 MG TAB 1 tab po tid with food, prn IBUPROFEN 91551323766 No Longer Active Butch Felix MD Active CYCLOBENZAPRINE HCL 10 MG TABS 1 tablet by mouth at bedtime for back spasm CYCLOBENZAPRINE HCL 43502485257 No Longer Active Roland Ellis APRN Active LEVAQUIN 500 MG TAB 1 tablet by mouth daily LEVOFLOXACIN 80006318565 No Longer Active Roland Ellis APRN Active LEVAQUIN 500 MG TAB 1 tablet by mouth daily LEVAQUIN 500 MG TAB 920488 LEVOFLOXACIN Inactive CYCLOBENZAPRINE HCL 10 MG TABS 1 tablet by mouth at bedtime for back spasm CYCLOBENZAPRINE HCL 10 MG TABS 576473 CYCLOBENZAPRINE HCL Inactive IBUPROFEN 400 MG TAB 1 tab po tid with food, prn IBUPROFEN 400 MG TAB 664578 IBUPROFEN Inactive MELOXICAM 15 MG TABS 1 po q day for pain with food MELOXICAM 15 MG TABS 893783 MELOXICAM Inactive ALBUTEROL SULFATE (2.5 MG/3ML) 0.083% NEBU 1 in nebulizer four times a day as needed for cough ALBUTEROL SULFATE (2.5 MG/3ML) 0.083% NEBU 652728 ALBUTEROL SULFATE Inactive OMEPRAZOLE 20 MG CPDR 1 tablet by mouth daily OMEPRAZOLE 20 MG CPDR 230032 OMEPRAZOLE Inactive FLUTICASONE PROPIONATE 50 MCG/ACT SUSP 2 sprays each nostril daily FLUTICASONE PROPIONATE 50 MCG/ACT SUSP 849586 FLUTICASONE PROPIONATE Inactive Immunizations Vaccine Administration Date [...] Panel - Chemistry sodium, serum 141 mmol/L 657-877 5998/04/05 carbon dioxide, venous blood 31.5 mmol/L 21.0-32.0 [...] 1.58 m[iU]/mL 0.36-3.74 sodium, serum 140 mmol/L 929-910 3469/03/09 potassium, serum 4.4 mmol/L 3.5-5.2 chloride, serum [...] 5.0-8.5 Encounters Code Encounter Date Provider Facility CPT-17238 Level 3 Est. Patient 16:34:51 CDT Butch Felix MD [facility]-47697 Level 3 Est. Patient 11:07:07 CDT Alissa Johnson [facility]-40862 Level 3 Est. Patient 09:56:03 CDT Butch Felix MD [facility]-23806 Level 3 Est. Patient 10:09:51 CDT Butch Felix MD [facility]-08526 Level 3 Est. Patient 10:33:59 CDT Chel Uriostegui [facility]-63976 Level 3 Est. Patient 16:17:38 CDT Prisca Burton [facility] CPT-09338 Level 3 Est. Patient 11:06:35 METAL BUFFER Butch Felix MD [facility]-43814 Level 3 Est. Patient 18:22:20 METAL BUFFER Dyllan Timmons [facility]-90508 Level 3 Est. Patient 17:12:26 CDT Dyllan Timmons [facility] CPT-28457 Level 3 Est. Patient 10:50:38 CDT Katie Martell MD [facility] CPT-77140 Level 3 Est. Patient 11:01:01 METAL BUFFER Dyllan Timmons [facility] CPT-99860 Level 3 Est. Patient 19:21:41 CDT Dyllan Mcclure [facility] CPT-21326 Level 2 Est. Patient 08:39:56 METAL BUFFER Dyllan Timmons [facility] CPT-46700 Level 3 Est. Patient 22:53:20 CDT Dyllan Mcclure [facility] CPT-00867 Level 3 Est. Patient 17:12:13 CDT Dyllan Mcclure [facility] Procedures Code Procedure Name Date Entry Date Standard Description CPT-24829 Event Monitor - Commercial Ins 14:58:02 METAL BUFFER CPT-67429 EKG Trac and Interp 10:58:25 METAL BUFFER CPT-43706 Chest 2V Frontal and Lat 10:58:25 METAL BUFFER CPT-88813 LS spine comp w obliq 17:16:12 CDT CPT-48873 Chest 2V Frontal and Lat 10:23:04 CDT CPT-82539 Foot comp min 3V 17:12:13 CDT
--- OUTSIDE RECORDS SUMMARY | 2017-05-26 16:14 | XMS REPORT | Clinical Summary ---
Author Author Admin, JONA Organization [employer] Address Unknown Phone Unavailable Allergies, Adverse Reactions, [...] JOINT, ANKLE AND FOOT 719.47 Resolved Katie Mratell MD PhD Pain in joint involving ankle [...] Palpitations 785.1 Active Butch Felix MD Palpitations FOOT PAIN, RIGHT ICD-729.5 Inactive Katie Martell [...] Generic Name NDC Status Provider Patient Instruction ALBUTEROL SULFATE (2.5 MG/3ML) 0.083% NEBU 1 in nebulizer four times a day as needed for cough ALBUTEROL SULFATE 53675961048 Active Butch Felix MD Active MELOXICAM 15 MG TABS 1 po q day for pain with food MELOXICAM 10593182601 No Longer Active Butch Felix MD Active IBUPROFEN 400 MG TAB 1 tab po tid with food, prn IBUPROFEN 52060666999 No Longer Active Butch Felix MD Active CYCLOBENZAPRINE HCL 10 MG TABS 1 tablet by mouth at bedtime for back spasm CYCLOBENZAPRINE HCL 11042679781 No Longer Active Roland Ellis APRN Active LEVAQUIN 500 MG TAB 1 tablet by mouth daily LEVOFLOXACIN 37708345487 No Longer Active Roland Ellis LABORER STEEL HANDLING Active LEVAQUIN 500 MG TAB 1 tablet by mouth daily LEVAQUIN 500 MG TAB 592396 LEVOFLOXACIN Inactive CYCLOBENZAPRINE HCL 10 MG TABS 1 tablet by mouth at bedtime for back spasm CYCLOBENZAPRINE HCL 10 MG TABS 335506 CYCLOBENZAPRINE HCL Inactive IBUPROFEN 400 MG TAB 1 tab po tid with food, prn IBUPROFEN 400 MG TAB 457292 IBUPROFEN Inactive MELOXICAM 15 MG TABS 1 po q day for pain with food MELOXICAM 15 MG TABS 968228 MELOXICAM Inactive Immunizations Vaccine Administration Date Value Standard [...] Range Description blood pressure, diastolic - 8462-4 81 mm[Hg] [...] E&M - 3141-9 220 [lb_av] Weight Measured Diagnostic Results Date Name Value Unit Range Description Lab Report: Thyroid Stimulating Hormone (L), Basic Metabolic Panel - Chemistry TSH 1.58 m[iU]/mL 0.36-3.74 sodium, serum 140 mmol/L 198-509 6010/03/09 potassium, serum 4.4 mmol/L 3.5-5.2 chloride, serum [...] 142-424 Encounters Code Encounter Date Provider Facility CPT-33828 Level 3 Est. Patient 11:06:35 WEED SCIENCE RESEARCH TECHNICIAN Butch Felix MD [facility] CPT-08081 Level 3 Est. Patient 18:22:20 WEED SCIENCE RESEARCH TECHNICIAN Dyllan Mcclure [facility] CPT-17464 Level 3 Est. Patient 17:12:26 CDT Dyllan Mcclure [facility] CPT-06327 Level 3 Est. Patient 10:50:38 CDT Katie Martell MD PhD [facility] CPT-78214 Level 3 Est. Patient 11:01:01 WEED SCIENCE RESEARCH TECHNICIAN Dyllan Kami [facility] CPT-47277 Level 3 Est. Patient 19:21:41 CDT Dyllan Mcclure [facility] CPT-98958 Level 2 Est. Patient 08:39:56 WEED SCIENCE RESEARCH TECHNICIAN Dyllan Mcclure [facility] CPT-72818 Level 3 Est. Patient 22:53:20 CDT Dyllan Mcclure [facility] CPT-55059 Level 3 Est. Patient 17:12:13 CDT Dyllan Mcclure [facility] Procedures Code Procedure Name Date Entry Date Standard Description CPT-21181 Event Monitor - Commercial Ins 14:58:02 WEED SCIENCE RESEARCH TECHNICIAN CPT-94797 EKG Trac and Interp 10:58:25 WEED SCIENCE RESEARCH TECHNICIAN CPT-95187 Chest 2V Frontal and Lat 10:58:25 WEED SCIENCE RESEARCH TECHNICIAN CPT-68975 LS spine comp w obliq 17:16:12 CDT CPT-47409 Chest 2V Frontal and Lat 10:23:04 CDT CPT-47635 Foot comp min 3V 17:12:13 CDT
--- OUTSIDE RECORDS SUMMARY | 2017-05-26 16:14 | XMS REPORT | Clinical Summary ---
Author Author Admin, JONA Organization [facility] Address Unknown Phone Unavailable Allergies, Adverse [...] Active Katie Martell MD PhD Acute bronchitis FOOT PAIN, RIGHT ICD-729.5 Inactive Katie Martell MD PhD PAIN IN JOINT, ANKLE AND FOOT ICD-719.47 Inactive Katie Martell MD PhD Hip pain, left ICD-719.45 Inactive Katie Martell MD PhD Pharyngitis-Acute ICD-462 Inactive Katie Martell MD PhD Medication List Medication Instructions Start Date Stop Date Generic Name NDC Status Provider Patient Instruction LEVAQUIN 500 MG TAB 1 tablet by mouth daily LEVOFLOXACIN 22525572188 Active Katie Martell MD PhD Active Immunizations [...] Range Description blood pressure, diastolic - 8462-4 68 mm[Hg] BP dimsa blood pressure, systolic - 8480-6 121 mm[Hg] [...] E&M - 3141-9 223 [lb_av] Weight Measured blood pressure, diastolic - 8462-4 73 mm[Hg] BP dimas blood pressure, systolic - 8480-6 150 mm[Hg] BP sys height E&M - 8302-2 73 [in_us] Bdy height pulse rate E&M - 8867-4 55 /min Heart rate temperature E&M 97.3 [degF] Body temperature weight E&M - 3141-9 202.25 [lb_av] Weight Measured Diagnostic Results Date Name Value Unit Range Description Lab Report: RapidStrep Rflx/Cx - Lab Microbial identification kit, rapid strep method Negative-Throat Culture to Follow Negative Encounters Code Encounter Date Provider Facility CPT-97765 Level 3 Est. Patient 10:50:38 CDT Katie Martell MD PhD [facility] CPT-90547 Level 3 Est. Patient 11:01:01 HAZMAT TECHNICIAN Dyllan Timmons [facility] CPT-18327 Level 3 Est. Patient 19:21:41 CDT Dyllan Timmons [facility] CPT-87759 Level 2 Est. Patient 08:39:56 HAZMAT TECHNICIAN Dyllan Timmons [facility] CPT-25382 Level 3 Est. Patient 22:53:20 CDT Dyllan Timmons [facility] CPT-06485 Level 3 Est. Patient 17:12:13 CDYolanda Timmons [facility] Procedures Code Procedure Name Date Entry Date Standard Description CPT-58398 Chest 2V Frontal and Lat 10:23:04 CDT CPT-12454 Foot comp min 3V 17:12:13 CDT
--- OUTSIDE RECORDS SUMMARY | 2017-05-26 16:14 | XMS REPORT | Clinical Summary ---
Author Author Admin, JONA Organization [employer] Address Unknown Phone Unavailable Allergies, Adverse Reactions, [...] Generic Name NDC Status Provider Patient Instruction ASPIRIN 325 MG TAB Take 1 tab p.o. PRN for pain ASPIRIN 21318525572 Active Chel Uriostegui APRN Active ALBUTEROL SULFATE (2.5 MG/3ML) 0.083% NEBU 1 in nebulizer four times a day as needed for cough ALBUTEROL SULFATE 98766256872 Active Butch Felix MD Active MELOXICAM 15 MG TABS 1 po q day for pain with food MELOXICAM 67853386090 No Longer Active Butch Felix MD Active IBUPROFEN 400 MG TAB 1 tab po tid with food, prn IBUPROFEN 91202307309 No Longer Active Butch Felix MD Active CYCLOBENZAPRINE HCL 10 MG TABS 1 tablet by mouth at bedtime for back spasm CYCLOBENZAPRINE HCL 83218496142 No Longer Active Roland Ellis NAPHTHA WASHING SYSTEM OPERATOR Active LEVAQUIN 500 MG TAB 1 tablet by mouth daily LEVOFLOXACIN 66090397870 No Longer Active Roland Mcfaddenl NAPHTHA WASHING SYSTEM OPERATOR Active LEVAQUIN 500 MG TAB 1 tablet by mouth daily LEVAQUIN 500 MG TAB 479814 LEVOFLOXACIN Inactive CYCLOBENZAPRINE HCL 10 MG TABS 1 tablet by mouth at bedtime for back spasm CYCLOBENZAPRINE HCL 10 MG TABS 017609 CYCLOBENZAPRINE HCL Inactive IBUPROFEN 400 MG TAB 1 tab po tid with food, prn IBUPROFEN 400 MG TAB 391011 IBUPROFEN Inactive MELOXICAM 15 MG TABS 1 po q day for pain with food MELOXICAM 15 MG TABS 724181 MELOXICAM Inactive Immunizations Vaccine Administration Date Value [...] 1.58 m[iU]/mL 0.36-3.74 sodium, serum 140 mmol/L 818-480 8617/03/09 potassium, serum 4.4 mmol/L 3.5-5.2 chloride, serum [...] 142-424 Encounters Code Encounter Date Provider Facility CPT-91666 Level 3 Est. Patient 11:06:35 PACKAGING MANAGER Butch Felix MD [facility] CPT-62243 Level 3 Est. Patient 18:22:20 PACKAGING MANAGER Dyllan Mcclure [facility] CPT-11814 Level 3 Est. Patient 17:12:26 CDT Dyllan Kami [facility] CPT-30331 Level 3 Est. Patient 10:50:38 CDT Katie Martell MD PhD [facility] CPT-65943 Level 3 Est. Patient 11:01:01 PACKAGING MANAGER Dyllan Mcclure [facility] CPT-32713 Level 3 Est. Patient 19:21:41 CDT Dyllan Mcclure [facility] CPT-15100 Level 2 Est. Patient 08:39:56 PACKAGING MANAGER Dyllan Mcclure [facility] CPT-30050 Level 3 Est. Patient 22:53:20 CDT Dyllan Kami [facility] CPT-32380 Level 3 Est. Patient 17:12:13 CDT Dyllan Mcclure [facility] Procedures Code Procedure Name Date Entry Date Standard Description CPT-83262 Event Monitor - Commercial Ins 14:58:02 PACKAGING MANAGER CPT-47527 EKG Trac and Interp 10:58:25 PACKAGING MANAGER CPT-14265 Chest 2V Frontal and Lat 10:58:25 PACKAGING MANAGER CPT-15370 LS spine comp w obliq 17:16:12 CDT CPT-91092 Chest 2V Frontal and Lat 10:23:04 CDT CPT-61571 Foot comp min 3V 17:12:13 CDT
--- OUTSIDE RECORDS SUMMARY | 2017-05-26 16:14 | XMS REPORT | Clinical Summary ---
Author Author Admin, JONA Organization [facility] Address Unknown Phone Unavailable Allergies, Adverse [...] purposes Hip pain, left 719.45 Resolved Katie Mratell MD PhD Pain in joint involving pelvic [...] TAB 1 tablet by mouth daily LEVOFLOXACIN 67530029623 Active Katie Martell MD PhD Active Immunizations [...] Negative Encounters Code Encounter Date Provider Facility CPT-65001 Level 3 Est. Patient 10:50:38 CDT Katie Martell MD PhD [facility] CPT-80181 Level 3 Est. Patient 11:01:01 WORKFORCE DEVELOPMENT ASSISTANT Dyllan Timmons [facility] CPT-14680 Level 3 Est. Patient 19:21:41 CDT Dyllan Timmons [facility] CPT-40755 Level 2 Est. Patient 08:39:56 WORKFORCE DEVELOPMENT ASSISTANT Dyllan Timmons [facility] CPT-24216 Level 3 Est. Patient 22:53:20 CDT Dyllan Timmons [facility] CPT-28797 Level 3 Est. Patient 17:12:13 CDYolanda Timmons [facility] Procedures Code Procedure Name Date Entry Date Standard Description CPT-79399 Chest 2V Frontal and Lat 10:23:04 CDT CPT-88785 Foot comp min 3V 17:12:13 CDT
--- OUTSIDE RECORDS SUMMARY | 2017-05-26 16:15 | XMS REPORT | Clinical Summary ---
Author Author Admin, JONA Organization [employer] Address Unknown Phone Unavailable Allergies, Adverse Reactions, [...] day as needed for cough ALBUTEROL SULFATE 65057897126 Active Butch Felix MD Active MELOXICAM 15 MG TABS 1 po q day for pain with food MELOXICAM 25557484902 No Longer Active Butch Felix MD Active IBUPROFEN 400 MG TAB 1 tab po tid with food, prn IBUPROFEN 64492096302 No Longer Active Butch Felix MD Active CYCLOBENZAPRINE HCL 10 MG TABS 1 tablet by mouth at bedtime for back spasm CYCLOBENZAPRINE HCL 05056277225 No Longer Active Roland Ellis APRN Active LEVAQUIN 500 MG TAB 1 tablet by mouth daily LEVOFLOXACIN 55589959305 No Longer Active Roland Ellis CERT OCCUPATIONAL THERAPY ASST Active LEVAQUIN 500 MG TAB 1 tablet by mouth daily LEVAQUIN 500 MG TAB 948112 LEVOFLOXACIN Inactive CYCLOBENZAPRINE HCL 10 MG TABS 1 tablet by mouth at bedtime for back spasm CYCLOBENZAPRINE HCL 10 MG TABS 445292 CYCLOBENZAPRINE HCL Inactive IBUPROFEN 400 MG TAB 1 tab po tid with food, prn IBUPROFEN 400 MG TAB 537607 IBUPROFEN Inactive MELOXICAM 15 MG TABS 1 po q day for pain with food MELOXICAM 15 MG TABS 393045 MELOXICAM Inactive Immunizations Vaccine Administration Date Value [...] 1.58 m[iU]/mL 0.36-3.74 sodium, serum 140 mmol/L 423-422 5775/03/09 potassium, serum 4.4 mmol/L 3.5-5.2 chloride, serum [...] 142-424 Encounters Code Encounter Date Provider Facility CPT-99688 Level 3 Est. Patient 11:06:35 CLASS C TRUCK DRIVER Butch Felix MD [facility] CPT-92738 Level 3 Est. Patient 18:22:20 CLASS C TRUCK DRIVER Dyllan Mcclure [facility] CPT-44066 Level 3 Est. Patient 17:12:26 CDT Dyllan Mcclure [facility] CPT-86383 Level 3 Est. Patient 10:50:38 CDT Katie Martell MD PhD [facility] CPT-83085 Level 3 Est. Patient 11:01:01 CLASS C TRUCK DRIVER Dyllan Kami [facility] CPT-78586 Level 3 Est. Patient 19:21:41 CDT Dyllan Mcclure [facility] CPT-99172 Level 2 Est. Patient 08:39:56 CLASS C TRUCK DRIVER Dyllan Mcclure [facility] CPT-26198 Level 3 Est. Patient 22:53:20 CDT Dyllan Mcclure [facility] CPT-35890 Level 3 Est. Patient 17:12:13 CDT Dyllan Mcclure [facility] Procedures Code Procedure Name Date Entry Date Standard Description CPT-94958 Event Monitor - Commercial Ins 14:58:02 CLASS C TRUCK DRIVER CPT-63212 EKG Trac and Interp 10:58:25 CLASS C TRUCK DRIVER CPT-38513 Chest 2V Frontal and Lat 10:58:25 CLASS C TRUCK DRIVER CPT-70693 LS spine comp w obliq 17:16:12 CDT CPT-37312 Chest 2V Frontal and Lat 10:23:04 CDT CPT-88805 Foot comp min 3V 17:12:13 CDT
--- OUTSIDE RECORDS SUMMARY | 2017-05-26 16:15 | XMS REPORT | Clinical Summary ---
Author Author Admin, JONA Organization [employer] Address Unknown Phone Unavailable Allergies, Adverse Reactions, [...] day as needed for cough ALBUTEROL SULFATE 87874587893 Active Butch Felix MD Active MELOXICAM 15 MG TABS 1 po q day for pain with food MELOXICAM 59958651089 No Longer Active Butch Felix MD Active IBUPROFEN 400 MG TAB 1 tab po tid with food, prn IBUPROFEN 18446741342 No Longer Active Butch Felix MD Active CYCLOBENZAPRINE HCL 10 MG TABS 1 tablet by mouth at bedtime for back spasm CYCLOBENZAPRINE HCL 19712948686 No Longer Active Roland Ellis APRN Active LEVAQUIN 500 MG TAB 1 tablet by mouth daily LEVOFLOXACIN 35702291581 No Longer Active Roland Ellis SAMPLE WORKER Active LEVAQUIN 500 MG TAB 1 tablet by mouth daily LEVAQUIN 500 MG TAB 424271 LEVOFLOXACIN Inactive CYCLOBENZAPRINE HCL 10 MG TABS 1 tablet by mouth at bedtime for back spasm CYCLOBENZAPRINE HCL 10 MG TABS 519688 CYCLOBENZAPRINE HCL Inactive IBUPROFEN 400 MG TAB 1 tab po tid with food, prn IBUPROFEN 400 MG TAB 606507 IBUPROFEN Inactive MELOXICAM 15 MG TABS 1 po q day for pain with food MELOXICAM 15 MG TABS 505130 MELOXICAM Inactive Immunizations Vaccine Administration Date Value [...] 1.58 m[iU]/mL 0.36-3.74 sodium, serum 140 mmol/L 538-744 5238/03/09 potassium, serum 4.4 mmol/L 3.5-5.2 chloride, serum [...] 142-424 Encounters Code Encounter Date Provider Facility CPT-18214 Level 3 Est. Patient 11:06:35 EQUIPMENT CLEANER Butch Felix MD [facility] CPT-19371 Level 3 Est. Patient 18:22:20 EQUIPMENT CLEANER Dyllan Mcclure [facility] CPT-74957 Level 3 Est. Patient 17:12:26 CDT Dyllan Mcclure [facility] CPT-66813 Level 3 Est. Patient 10:50:38 CDT Katie Martell MD PhD [facility] CPT-20292 Level 3 Est. Patient 11:01:01 EQUIPMENT CLEANER Dyllan Kami [facility] CPT-28219 Level 3 Est. Patient 19:21:41 CDT Dyllan Mcclure [facility] CPT-90564 Level 2 Est. Patient 08:39:56 EQUIPMENT CLEANER Dyllan Mcclure [facility] CPT-15670 Level 3 Est. Patient 22:53:20 CDT Dyllan Mcclure [facility] CPT-68175 Level 3 Est. Patient 17:12:13 CDT Dyllan Mcclure [facility] Procedures Code Procedure Name Date Entry Date Standard Description CPT-08831 Event Monitor - Commercial Ins 14:58:02 EQUIPMENT CLEANER CPT-94418 EKG Trac and Interp 10:58:25 EQUIPMENT CLEANER CPT-42687 Chest 2V Frontal and Lat 10:58:25 EQUIPMENT CLEANER CPT-85394 LS spine comp w obliq 17:16:12 CDT CPT-10563 Chest 2V Frontal and Lat 10:23:04 CDT CPT-34841 Foot comp min 3V 17:12:13 CDT
--- OUTSIDE RECORDS SUMMARY | 2017-05-26 16:15 | XMS REPORT | Clinical Summary ---
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 Dyllan Timmons DO Temporomandibular joint disorders, unspecified FOOT PAIN, RIGHT ICD-729.5 Inactive Katie Martell MD PhD PAIN IN JOINT, ANKLE AND FOOT ICD-719.47 Inactive Katie Martell MD PhD Hip pain, left ICD-719.45 Inactive Katie Martell MD PhD Pharyngitis-Acute ICD-462 Inactive Katie Martell MD PhD Medication List Medication Instructions Start Date Stop Date Generic Name NDC Status Provider Patient Instruction MELOXICAM 15 MG TABS 1 po q day for pain with food MELOXICAM 75383058595 Active Dyllan Timmons DO Active IBUPROFEN 400 MG TAB 1 tab po tid with food, prn IBUPROFEN 21087711153 Active Jillina Frazell ENVELOPE MAKER Active CYCLOBENZAPRINE HCL 10 MG TABS 1 tablet by mouth at bedtime for back spasm CYCLOBENZAPRINE HCL 12587872015 No Longer Active Jillina Frazell ENVELOPE MAKER Active LEVAQUIN 500 MG TAB 1 tablet by mouth daily LEVOFLOXACIN 81567296118 No Longer Active Jillina Frazell ENVELOPE MAKER Active LEVAQUIN 500 MG TAB 1 tablet by mouth daily LEVAQUIN 500 MG TAB 096960 LEVOFLOXACIN Inactive CYCLOBENZAPRINE HCL 10 MG TABS 1 tablet by mouth at bedtime for back spasm CYCLOBENZAPRINE HCL 10 MG TABS 930573 CYCLOBENZAPRINE HCL Inactive Immunizations Vaccine Administration Date Value Standard [...] Range Description blood pressure, diastolic - 8462-4 54 mm[Hg] [...] E&M - 3141-9 220 [lb_av] Weight Measured Encounters Code Encounter Date Provider Facility CPT-87538 Level 3 Est. Patient 18:22:20 TITLE I ASSISTANT Dyllan Timmons [facility] CPT-42108 Level 3 Est. Patient 17:12:26 CDT Dyllan Mcclure [facility] CPT-36121 Level 3 Est. Patient 10:50:38 CDT Katie Martell MD PhD [facility] CPT-44952 Level 3 Est. Patient 11:01:01 TITLE I ASSISTANT Dyllan Mcclure [facility] CPT-96862 Level 3 Est. Patient 19:21:41 CDT Dyllan Mcclure [facility] CPT-89780 Level 2 Est. Patient 08:39:56 TITLE I ASSISTANT Dyllan Mcclure [facility] CPT-75274 Level 3 Est. Patient 22:53:20 CDT Dyllan Mcclure [facility] CPT-45979 Level 3 Est. Patient 17:12:13 CDT Dyllan Mcclure [facility] Procedures Code Procedure Name Date Entry Date Standard Description CPT-92086 LS spine comp w obliq 17:16:12 CDT CPT-99130 Chest 2V Frontal and Lat 10:23:04 CDT CPT-28466 Foot comp min 3V 17:12:13 CDT
--- OUTSIDE RECORDS SUMMARY | 2017-05-26 16:15 | XMS REPORT | Clinical Summary ---
Author Author Admin, JONA Organization [employer] Address Unknown Phone Unavailable Allergies, Adverse Reactions, [...] PhD Acute pharyngitis Dyspnea 786.05 Active Katie Mratell MD PhD Shortness of breath Cough 786.2 [...] 2 sprays each nostril daily FLUTICASONE PROPIONATE 44462292711 No Longer Active Butch Felix MD Active OMEPRAZOLE 20 MG CPDR 1 tablet by mouth daily OMEPRAZOLE 51854595350 No Longer Active Butch Felix MD Active ALBUTEROL SULFATE (2.5 MG/3ML) 0.083% NEBU 1 in nebulizer four times a day as needed for cough ALBUTEROL SULFATE 53997507293 No Longer Active Prisca Burton APRN Active ASPIRIN 325 MG TAB Take 1 tab p.o. PRN for pain ASPIRIN 26936656657 Active Chel Uriostegui ANA PAULA Active MELOXICAM 15 MG TABS 1 po q day for pain with food MELOXICAM 42679643354 No Longer Active Butch Felix MD Active IBUPROFEN 400 MG TAB 1 tab po tid with food, prn IBUPROFEN 67842988755 No Longer Active Butch Felix MD Active CYCLOBENZAPRINE HCL 10 MG TABS 1 tablet by mouth at bedtime for back spasm CYCLOBENZAPRINE HCL 62934765323 No Longer Active Jillina Rhonda GOSS Active LEVAQUIN 500 MG TAB 1 tablet by mouth daily LEVOFLOXACIN 77038922740 No Longer Active Jillina Frazell CLAIMS EXAMINER Active LEVAQUIN 500 MG TAB 1 tablet by mouth daily LEVAQUIN 500 MG TAB 008656 LEVOFLOXACIN Inactive CYCLOBENZAPRINE HCL 10 MG TABS 1 tablet by mouth at bedtime for back spasm CYCLOBENZAPRINE HCL 10 MG TABS 553865 CYCLOBENZAPRINE HCL Inactive IBUPROFEN 400 MG TAB 1 tab po tid with food, prn IBUPROFEN 400 MG TAB 554934 IBUPROFEN Inactive MELOXICAM 15 MG TABS 1 po q day for pain with food MELOXICAM 15 MG TABS 440813 MELOXICAM Inactive ALBUTEROL SULFATE (2.5 MG/3ML) 0.083% NEBU 1 in nebulizer four times a day as needed for cough ALBUTEROL SULFATE (2.5 MG/3ML) 0.083% NEBU 771965 ALBUTEROL SULFATE Inactive OMEPRAZOLE 20 MG CPDR 1 tablet by mouth daily OMEPRAZOLE 20 MG CPDR 196570 OMEPRAZOLE Inactive FLUTICASONE PROPIONATE 50 MCG/ACT SUSP 2 sprays each nostril daily FLUTICASONE PROPIONATE 50 MCG/ACT SUSP 964837 FLUTICASONE PROPIONATE Inactive Immunizations Vaccine Administration Date [...] Panel - Chemistry sodium, serum 141 mmol/L 654-798 4697/04/05 carbon dioxide, venous blood 31.5 mmol/L 21.0-32.0 [...] 1.58 m[iU]/mL 0.36-3.74 sodium, serum 140 mmol/L 043-847 4987/03/09 potassium, serum 4.4 mmol/L 3.5-5.2 chloride, serum [...] 142-424 Encounters Code Encounter Date Provider Facility CPT-58109 Level 3 Est. Patient 10:09:51 CDT Butch Felix MD [facility] CPT-77744 Level 3 Est. Patient 10:33:59 CDT Chel Uriostegui [facility] CPT-32085 Level 3 Est. Patient 16:17:38 CDT Prisca Burton [facility] CPT-51924 Level 3 Est. Patient 11:06:35 TRANSPORTATION AIDE Butch Felix MD [facility] CPT-99232 Level 3 Est. Patient 18:22:20 TRANSPORTATION AIDE Dyllan Timmons [facility] CPT-47940 Level 3 Est. Patient 17:12:26 CDT Dyllan Mcclure [facility] CPT-22936 Level 3 Est. Patient 10:50:38 CDT Katie Martell MD [facility] CPT-38359 Level 3 Est. Patient 11:01:01 TRANSPORTATION AIDE Dyllan Mcclure [facility] CPT-05828 Level 3 Est. Patient 19:21:41 CDT Dyllan Mcclure [facility] CPT-50349 Level 2 Est. Patient 08:39:56 TRANSPORTATION AIDE Dyllan Timmons [facility] CPT-24542 Level 3 Est. Patient 22:53:20 CDT Dyllan Kami [facility] CPT-84159 Level 3 Est. Patient 17:12:13 CDT Dyllan Mcclure [facility] Procedures Code Procedure Name Date Entry Date Standard Description CPT-77554 Event Monitor - Commercial Ins 14:58:02 TRANSPORTATION AIDE CPT-48186 EKG Trac and Interp 10:58:25 TRANSPORTATION AIDE CPT-74730 Chest 2V Frontal and Lat 10:58:25 TRANSPORTATION AIDE CPT-60895 LS spine comp w obliq 17:16:12 CDT CPT-29756 Chest 2V Frontal and Lat 10:23:04 CDT CPT-63458 Foot comp min 3V 17:12:13 CDT
[2017-05-26] MEDS ORDERED: NS IV 1000 ML 1,000 ML ONE (16:16)
--- OUTSIDE RECORDS SUMMARY | 2017-05-26 16:16 | XMS REPORT | Clinical Summary ---
Author Author Admin, JONA Organization [employer] Address Unknown Phone Unavailable Allergies, Adverse Reactions, [...] PhD Hip pain, left ICD-719.45 Inactive Katie aMrtell MD PhD Pharyngitis-Acute ICD-462 Inactive Katie Martell [...] 2 sprays each nostril daily FLUTICASONE PROPIONATE 27569967470 No Longer Active Butch Felix MD Active OMEPRAZOLE 20 MG CPDR 1 tablet by mouth daily OMEPRAZOLE 86808358684 No Longer Active Butch Felix MD Active ALBUTEROL SULFATE (2.5 MG/3ML) 0.083% NEBU 1 in nebulizer four times a day as needed for cough ALBUTEROL SULFATE 01200281152 No Longer Active Prisca Burton APRN Active ASPIRIN 325 MG TAB Take 1 tab p.o. PRN for pain ASPIRIN 17596827824 Active Chel Uriostegui ANA PAULA Active MELOXICAM 15 MG TABS 1 po q day for pain with food MELOXICAM 81555215815 No Longer Active Butch Felix MD Active IBUPROFEN 400 MG TAB 1 tab po tid with food, prn IBUPROFEN 52251179801 No Longer Active Butch Felix MD Active CYCLOBENZAPRINE HCL 10 MG TABS 1 tablet by mouth at bedtime for back spasm CYCLOBENZAPRINE HCL 93043912362 No Longer Active Jillina Rhonda GOSS Active LEVAQUIN 500 MG TAB 1 tablet by mouth daily LEVOFLOXACIN 66252407979 No Longer Active Jillina Frazell DIGITAL PHOTOGRAPHIC PRINTER Active LEVAQUIN 500 MG TAB 1 tablet by mouth daily LEVAQUIN 500 MG TAB 715548 LEVOFLOXACIN Inactive CYCLOBENZAPRINE HCL 10 MG TABS 1 tablet by mouth at bedtime for back spasm CYCLOBENZAPRINE HCL 10 MG TABS 590676 CYCLOBENZAPRINE HCL Inactive IBUPROFEN 400 MG TAB 1 tab po tid with food, prn IBUPROFEN 400 MG TAB 756531 IBUPROFEN Inactive MELOXICAM 15 MG TABS 1 po q day for pain with food MELOXICAM 15 MG TABS 877981 MELOXICAM Inactive ALBUTEROL SULFATE (2.5 MG/3ML) 0.083% NEBU 1 in nebulizer four times a day as needed for cough ALBUTEROL SULFATE (2.5 MG/3ML) 0.083% NEBU 953765 ALBUTEROL SULFATE Inactive OMEPRAZOLE 20 MG CPDR 1 tablet by mouth daily OMEPRAZOLE 20 MG CPDR 889762 OMEPRAZOLE Inactive FLUTICASONE PROPIONATE 50 MCG/ACT SUSP 2 sprays each nostril daily FLUTICASONE PROPIONATE 50 MCG/ACT SUSP 279906 FLUTICASONE PROPIONATE Inactive Immunizations Vaccine Administration Date [...] Panel - Chemistry sodium, serum 141 mmol/L 005-934 9036/04/05 carbon dioxide, venous blood 31.5 mmol/L 21.0-32.0 [...] 1.58 m[iU]/mL 0.36-3.74 sodium, serum 140 mmol/L 951-795 6482/03/09 potassium, serum 4.4 mmol/L 3.5-5.2 chloride, serum [...] 142-424 Encounters Code Encounter Date Provider Facility CPT-48986 Level 3 Est. Patient 09:56:03 CDT Butch Felix MD [facility] CPT-05127 Level 3 Est. Patient 10:09:51 CDT Butch Felix MD [facility] CPT-85163 Level 3 Est. Patient 10:33:59 CDT Chel Uriostegui [facility]-52528 Level 3 Est. Patient 16:17:38 CDT Prisca Burton [facility] CPT-57375 Level 3 Est. Patient 11:06:35 OIL PIT ATTENDANT Butch Felix MD [facility] CPT-56565 Level 3 Est. Patient 18:22:20 OIL PIT ATTENDANT Dyllan Timmons [facility] CPT-78304 Level 3 Est. Patient 17:12:26 CDT Dyllan Timmons [facility] CPT-08062 Level 3 Est. Patient 10:50:38 CDT Katie Martell MD PhD [facility] CPT-04850 Level 3 Est. Patient 11:01:01 OIL PIT ATTENDANT Dyllan Timmons [facility] CPT-19594 Level 3 Est. Patient 19:21:41 CDT Dyllan Timmons [facility] CPT-66482 Level 2 Est. Patient 08:39:56 OIL PIT ATTENDANT Dyllan Timmons [facility] CPT-45333 Level 3 Est. Patient 22:53:20 CDT Dyllan Timmons [facility] CPT-17488 Level 3 Est. Patient 17:12:13 CDT Dyllan Timmons DO [facility] Procedures Code Procedure Name Date Entry Date Standard Description CPT-54912 Event Monitor - Commercial Ins 14:58:02 OIL PIT ATTENDANT CPT-44753 EKG Trac and Interp 10:58:25 OIL PIT ATTENDANT CPT-71339 Chest 2V Frontal and Lat 10:58:25 OIL PIT ATTENDANT CPT-17366 LS spine comp w obliq 17:16:12 CDT CPT-92338 Chest 2V Frontal and Lat 10:23:04 CDT CPT-28246 Foot comp min 3V 17:12:13 CDT
--- OUTSIDE RECORDS SUMMARY | 2017-05-26 16:16 | XMS REPORT ---
Author Author [facility] Medical Staff Organization [facility] [employer] [facility] Address [address] [id number] Phone [phone] Care Team Providers Care Gravel Truck Driver Name Role Phone CARROLL DO ITZEL PP [phone] Summary purpose TRANSITION OF CARE AUTO GENERATION Chief Complaint and Reason for Visit Admit Diagnosis 1 PHYSICAL THERAPY NEC Problem list No authorized problems tracked for continuity of care are available for this visit. Encounters No authorized problems tracked for encounter diagnoses are available for this visit. Medications No medications recorded for this patient visit Allergies, adverse reactions, alerts No allergy information is available for this patient. Immunizations No immunizations recorded for this patient visit Relevant diagnostic tests and/or laboratory data No authorized results are available for this patient visit History of procedures No procedures recorded for this patient visit. Functional status No functional or cognitive status observations are available for this visit. Vital signs No authorized vital signs are available for this visit. Social history No Social History or smoking status observations were recorded for this visit. ( Unknown if ever smoked.) Treatment Plan No treatment plan text is available for this visit. Hospital discharge instructions No discharge instruction text is available for this visit.
--- OUTSIDE RECORDS SUMMARY | 2017-05-26 16:16 | XMS REPORT | Referral Summary ---
Author Author [facility] Organization [facility] Address Unknown Phone Unavailable Care Team Providers Care Casting Cleaner Name Role Phone Butch Felix PCP Unavailable Encounter [facility] [id number] Date(s): 01/15/16 - 01/15/16 [facility] [address] [place], [place] [address] Discharge Disposition: 01-Home or Self Care Attending Physician: Demetria Serrano MD Admitting Physician: Demetria Serrano MD Vital Signs No data available for this section Problem List No data available for this section Allergies, Adverse Reactions, Alerts No data available for this section Medications No data available for this section Results No data available for this section Immunizations No data available for this section Procedures No data available for this section Social History No data available for this section Assessment and Plan No data available for this section
--- OUTSIDE RECORDS SUMMARY | 2017-05-26 16:16 | XMS REPORT | Clinical Summary ---
Author Author Admin, JONA Organization [employer] Address Unknown Phone Unavailable Allergies, Adverse Reactions, [...] day as needed for cough ALBUTEROL SULFATE 35546532066 Active Butch Felix MD Active MELOXICAM 15 MG TABS 1 po q day for pain with food MELOXICAM 31116684762 No Longer Active Butch Felix MD Active IBUPROFEN 400 MG TAB 1 tab po tid with food, prn IBUPROFEN 56346633139 No Longer Active Butch Felix MD Active CYCLOBENZAPRINE HCL 10 MG TABS 1 tablet by mouth at bedtime for back spasm CYCLOBENZAPRINE HCL 65373899954 No Longer Active Roland Ellis APRN Active LEVAQUIN 500 MG TAB 1 tablet by mouth daily LEVOFLOXACIN 91844381170 No Longer Active Roland Ellis FOOT ROENTGENOLOGIST Active LEVAQUIN 500 MG TAB 1 tablet by mouth daily LEVAQUIN 500 MG TAB 364028 LEVOFLOXACIN Inactive CYCLOBENZAPRINE HCL 10 MG TABS 1 tablet by mouth at bedtime for back spasm CYCLOBENZAPRINE HCL 10 MG TABS 984693 CYCLOBENZAPRINE HCL Inactive IBUPROFEN 400 MG TAB 1 tab po tid with food, prn IBUPROFEN 400 MG TAB 018281 IBUPROFEN Inactive MELOXICAM 15 MG TABS 1 po q day for pain with food MELOXICAM 15 MG TABS 295806 MELOXICAM Inactive Immunizations Vaccine Administration Date Value [...] 1.58 m[iU]/mL 0.36-3.74 sodium, serum 140 mmol/L 541-886 8914/03/09 potassium, serum 4.4 mmol/L 3.5-5.2 chloride, serum [...] 142-424 Encounters Code Encounter Date Provider Facility CPT-82580 Level 3 Est. Patient 11:06:35 EGG FACTORY WORKER Butch Felix MD [facility] CPT-49713 Level 3 Est. Patient 18:22:20 EGG FACTORY WORKER Dyllan Mcclure [facility] CPT-46738 Level 3 Est. Patient 17:12:26 CDT Dyllan Mcclure [facility] CPT-41091 Level 3 Est. Patient 10:50:38 CDT Katie Martell MD PhD [facility] CPT-73665 Level 3 Est. Patient 11:01:01 EGG FACTORY WORKER Dyllan Kami [facility] CPT-09762 Level 3 Est. Patient 19:21:41 CDT Dyllan Mcclure [facility] CPT-95432 Level 2 Est. Patient 08:39:56 EGG FACTORY WORKER Dyllan Mcclure [facility] CPT-89900 Level 3 Est. Patient 22:53:20 CDT Dyllan Mcclure [facility] CPT-49694 Level 3 Est. Patient 17:12:13 CDT Dyllan Mcclure [facility] Procedures Code Procedure Name Date Entry Date Standard Description CPT-64508 Event Monitor - Commercial Ins 14:58:02 EGG FACTORY WORKER CPT-40749 EKG Trac and Interp 10:58:25 EGG FACTORY WORKER CPT-88207 Chest 2V Frontal and Lat 10:58:25 EGG FACTORY WORKER CPT-90053 LS spine comp w obliq 17:16:12 CDT CPT-81465 Chest 2V Frontal and Lat 10:23:04 CDT CPT-57249 Foot comp min 3V 17:12:13 CDT
--- OUTSIDE RECORDS SUMMARY | 2017-05-26 16:16 | XMS REPORT ---
Author Author [facility] [employer] [facility] Medical Staff Organization [facility] [employer] [facility] Address [address] [id number] Phone [phone] Care Team Providers Care Day Care Worker Name Role Phone ITZEL HODGES DO PP [phone] Summary purpose TRANSITION OF CARE AUTO GENERATION [...] for this patient visit History of procedures Procedure Code Code Type Description Date Performed Performing Physician 55092 CPT-4 THERAPEUTIC EXERCISES 05-10-2015 ITZEL HODGES 76427 CPT-4 PT EVALUATION 05-10-2015 ITZEL HODGES 90955 CPT-4 THERAPEUTIC EXERCISES 05-17-2015 ITZEL HODGES Functional status No functional or cognitive status [...]
--- OUTSIDE RECORDS SUMMARY | 2017-05-26 16:16 | XMS REPORT | Clinical Summary ---
Author Author Admin, JONA Organization [facility] Address Unknown Phone Unavailable Allergies, Adverse [...] TAB 1 tablet by mouth daily LEVOFLOXACIN 25694792941 Active Katie Martell MD PhD Active Immunizations [...] Negative Encounters Code Encounter Date Provider Facility CPT-88112 Level 3 Est. Patient 10:50:38 CDT Katie Martell MD PhD [facility] CPT-27821 Level 3 Est. Patient 11:01:01 SERVICE PLUMBER Dyllan Timmons [facility] CPT-70364 Level 3 Est. Patient 19:21:41 CDT Dyllan Timmons [facility] CPT-31724 Level 2 Est. Patient 08:39:56 SERVICE PLUMBER Dyllan Timmons [facility] CPT-29163 Level 3 Est. Patient 22:53:20 CDT Dyllan Timmons [facility] CPT-61168 Level 3 Est. Patient 17:12:13 CDYolanda Timmons [facility] Procedures Code Procedure Name Date Entry Date Standard Description CPT-61533 Chest 2V Frontal and Lat 10:23:04 CDT CPT-81154 Foot comp min 3V 17:12:13 CDT
--- OUTSIDE RECORDS SUMMARY | 2017-05-26 16:17 | XMS REPORT | Clinical Summary ---
Author Author Admin, JONA Organization [employer] Address Unknown Phone Unavailable Allergies, Adverse Reactions, [...] day as needed for cough ALBUTEROL SULFATE 45968622885 Active Butch Felix MD Active MELOXICAM 15 MG TABS 1 po q day for pain with food MELOXICAM 08942777659 No Longer Active Butch Felix MD Active IBUPROFEN 400 MG TAB 1 tab po tid with food, prn IBUPROFEN 04889446732 No Longer Active Butch Felix MD Active CYCLOBENZAPRINE HCL 10 MG TABS 1 tablet by mouth at bedtime for back spasm CYCLOBENZAPRINE HCL 90955590247 No Longer Active Roland Ellis APRN Active LEVAQUIN 500 MG TAB 1 tablet by mouth daily LEVOFLOXACIN 73940423806 No Longer Active Roland Ellis DRAWING PRESS OPERATOR Active LEVAQUIN 500 MG TAB 1 tablet by mouth daily LEVAQUIN 500 MG TAB 387064 LEVOFLOXACIN Inactive CYCLOBENZAPRINE HCL 10 MG TABS 1 tablet by mouth at bedtime for back spasm CYCLOBENZAPRINE HCL 10 MG TABS 817269 CYCLOBENZAPRINE HCL Inactive IBUPROFEN 400 MG TAB 1 tab po tid with food, prn IBUPROFEN 400 MG TAB 523120 IBUPROFEN Inactive MELOXICAM 15 MG TABS 1 po q day for pain with food MELOXICAM 15 MG TABS 514787 MELOXICAM Inactive Immunizations Vaccine Administration Date Value [...] pressure, diastolic - 8462-4 66 mm[Hg] BP dimsa blood pressure, systolic - 8480-6 113 mm[Hg] [...] 1.58 m[iU]/mL 0.36-3.74 sodium, serum 140 mmol/L 229-673 8086/03/09 potassium, serum 4.4 mmol/L 3.5-5.2 chloride, serum [...] 142-424 Encounters Code Encounter Date Provider Facility CPT-66683 Level 3 Est. Patient 11:06:35 MANAGER INSTRUMENTATION Butch Felix MD [facility] CPT-26896 Level 3 Est. Patient 18:22:20 MANAGER INSTRUMENTATION Dyllan Mcclure [facility] CPT-77874 Level 3 Est. Patient 17:12:26 CDT Dyllan Mcclure [facility] CPT-12142 Level 3 Est. Patient 10:50:38 CDT Katie Martell MD PhD [facility] CPT-35847 Level 3 Est. Patient 11:01:01 MANAGER INSTRUMENTATION Dyllan Kami [facility] CPT-47101 Level 3 Est. Patient 19:21:41 CDT Dyllan Mcclure [facility] CPT-42340 Level 2 Est. Patient 08:39:56 MANAGER INSTRUMENTATION Dlylan Mcclure [facility] CPT-10415 Level 3 Est. Patient 22:53:20 CDT Dyllan Mcclure [facility] CPT-17520 Level 3 Est. Patient 17:12:13 CDT Dyllan Mcclure [facility] Procedures Code Procedure Name Date Entry Date Standard Description CPT-41201 Event Monitor - [employer] Ins 14:58:02 MANAGER INSTRUMENTATION CPT-06689 EKG Trac and Interp 10:58:25 MANAGER INSTRUMENTATION CPT-03934 Chest 2V Frontal and Lat 10:58:25 MANAGER INSTRUMENTATION CPT-79054 LS spine comp w obliq 17:16:12 CDT CPT-54680 Chest 2V Frontal and Lat 10:23:04 CDT CPT-20427 Foot comp min 3V 17:12:13 CDT
--- OUTSIDE RECORDS SUMMARY | 2017-05-26 16:17 | XMS REPORT | Clinical Summary ---
Author Author Admin, JONA Organization [employer] Address Unknown Phone Unavailable Allergies, Adverse Reactions, [...] day as needed for cough ALBUTEROL SULFATE 74285167170 Active Butch Felix MD Active MELOXICAM 15 MG TABS 1 po q day for pain with food MELOXICAM 43227049247 No Longer Active Butch Felix MD Active IBUPROFEN 400 MG TAB 1 tab po tid with food, prn IBUPROFEN 14329426601 No Longer Active Butch Felix MD Active CYCLOBENZAPRINE HCL 10 MG TABS 1 tablet by mouth at bedtime for back spasm CYCLOBENZAPRINE HCL 15200378442 No Longer Active Roland Ellis APRN Active LEVAQUIN 500 MG TAB 1 tablet by mouth daily LEVOFLOXACIN 36465089547 No Longer Active Roland Ellis IVORY CARVER Active LEVAQUIN 500 MG TAB 1 tablet by mouth daily LEVAQUIN 500 MG TAB 230831 LEVOFLOXACIN Inactive CYCLOBENZAPRINE HCL 10 MG TABS 1 tablet by mouth at bedtime for back spasm CYCLOBENZAPRINE HCL 10 MG TABS 987853 CYCLOBENZAPRINE HCL Inactive IBUPROFEN 400 MG TAB 1 tab po tid with food, prn IBUPROFEN 400 MG TAB 780479 IBUPROFEN Inactive MELOXICAM 15 MG TABS 1 po q day for pain with food MELOXICAM 15 MG TABS 257470 MELOXICAM Inactive Immunizations Vaccine Administration Date Value [...] 1.58 m[iU]/mL 0.36-3.74 sodium, serum 140 mmol/L 521-336 1767/03/09 potassium, serum 4.4 mmol/L 3.5-5.2 chloride, serum [...] 142-424 Encounters Code Encounter Date Provider Facility CPT-01123 Level 3 Est. Patient 11:06:35 RN CRITICAL CARE Butch Felix MD [facility] CPT-81286 Level 3 Est. Patient 18:22:20 RN CRITICAL CARE Dyllan Mcclure [facility] CPT-89090 Level 3 Est. Patient 17:12:26 CDT Dyllan Mcclure [facility] CPT-72447 Level 3 Est. Patient 10:50:38 CDT Katie Martell MD PhD [facility] CPT-07510 Level 3 Est. Patient 11:01:01 RN CRITICAL CARE Dyllan Kami [facility] CPT-47375 Level 3 Est. Patient 19:21:41 CDT Dyllan Mcclure [facility] CPT-21798 Level 2 Est. Patient 08:39:56 RN CRITICAL CARE Dyllan Mcclure [facility] CPT-48395 Level 3 Est. Patient 22:53:20 CDT Dyllan Mcclure [facility] CPT-67034 Level 3 Est. Patient 17:12:13 CDT Dyllan Mcclure [facility] Procedures Code Procedure Name Date Entry Date Standard Description CPT-45057 Event Monitor - [employer] Ins 14:58:02 RN CRITICAL CARE CPT-36227 EKG Trac and Interp 10:58:25 RN CRITICAL CARE CPT-22701 Chest 2V Frontal and Lat 10:58:25 RN CRITICAL CARE CPT-81234 LS spine comp w obliq 17:16:12 CDT CPT-94531 Chest 2V Frontal and Lat 10:23:04 CDT CPT-17029 Foot comp min 3V 17:12:13 CDT
--- OUTSIDE RECORDS SUMMARY | 2017-05-26 16:17 | XMS REPORT | Clinical Summary ---
Author Author Admin, QIE Organization [facility] Address Unknown Phone Unavailable Allergies, Adverse [...] MD Palpitations Acid reflux 530.81 Active Prisca Butron APRN Esophageal reflux Allergic rhinitis 477.9 Active [...] tablet by mouth twice daily PROPRANOLOL HCL 80693349149 Active Dyllan Timmons DO Active ASPIRIN 325 MG TAB Take 1 tab p.o. PRN for pain ASPIRIN 66609420715 No Longer Active Dyllan Timmons DO Active FLUOXETINE HCL 20 MG CAPS 1 cap by mouth daily FLUOXETINE HCL 28456638754 No Longer Active Dyllan Timmons DO Active FLUTICASONE PROPIONATE 50 MCG/ACT SUSP 2 sprays each nostril daily FLUTICASONE PROPIONATE 60111103308 No Longer Active Butch Felix MD Active OMEPRAZOLE 20 MG CPDR 1 tablet by mouth daily OMEPRAZOLE 04464902787 No Longer Active Butch Felix MD Active ALBUTEROL SULFATE (2.5 MG/3ML) 0.083% NEBU 1 in nebulizer four times a day as needed for cough ALBUTEROL SULFATE 62462599644 No Longer Active Prisca Burton APRN Active MELOXICAM 15 MG TABS 1 po q day for pain with food MELOXICAM 32721628472 No Longer Active Butch Felix MD Active IBUPROFEN 400 MG TAB 1 tab po tid with food, prn IBUPROFEN 90936220240 No Longer Active Butch Felix MD Active CYCLOBENZAPRINE HCL 10 MG TABS 1 tablet by mouth at bedtime for back spasm CYCLOBENZAPRINE HCL 84373763213 No Longer Active Roland Ellis APRN Active LEVAQUIN 500 MG TAB 1 tablet by mouth daily LEVOFLOXACIN 00700460758 No Longer Active Roland Ellis COOK CHIEF Active LEVAQUIN 500 MG TAB 1 tablet by mouth daily LEVAQUIN 500 MG TAB 547295 LEVOFLOXACIN Inactive CYCLOBENZAPRINE HCL 10 MG TABS 1 tablet by mouth at bedtime for back spasm CYCLOBENZAPRINE HCL 10 MG TABS 343486 CYCLOBENZAPRINE HCL Inactive IBUPROFEN 400 MG TAB 1 tab po tid with food, prn IBUPROFEN 400 MG TAB 908584 IBUPROFEN Inactive MELOXICAM 15 MG TABS 1 po q day for pain with food MELOXICAM 15 MG TABS 949206 MELOXICAM Inactive ALBUTEROL SULFATE (2.5 MG/3ML) 0.083% NEBU 1 in nebulizer four times a day as needed for cough ALBUTEROL SULFATE (2.5 MG/3ML) 0.083% NEBU 313056 ALBUTEROL SULFATE Inactive OMEPRAZOLE 20 MG CPDR 1 tablet by mouth daily OMEPRAZOLE 20 MG CPDR 540029 OMEPRAZOLE Inactive FLUTICASONE PROPIONATE 50 MCG/ACT SUSP 2 sprays each nostril daily FLUTICASONE PROPIONATE 50 MCG/ACT SUSP 7666621 FLUTICASONE PROPIONATE Inactive FLUOXETINE HCL 20 MG CAPS 1 cap by mouth daily FLUOXETINE HCL 20 MG CAPS 515433 FLUOXETINE HCL Inactive ASPIRIN 325 MG TAB Take 1 tab p.o. PRN for pain ASPIRIN 325 MG TAB 220753 ASPIRIN Inactive Immunizations Vaccine Administration Date Value [...] temperature weight E&M 223.06 [lb_av] Weight Measured blood pressure, diastolic 77 mm[Hg] BP dimas blood pressure, systolic 141 mm[Hg] BP sys pulse rate E&M 66 /min Heart rate temperature E&M 96.9 [degF] Body temperature weight E&M 214.5 [lb_av] Weight Measured Diagnostic Results Date Name Value Unit Range Description Lab Report: Comp. Metabolic Panel - Chemistry sodium, serum 140 mmol/L 158-937 2869/07/06 carbon dioxide, venous blood 29.4 mmol/L 21.0-32.0 [...] 0.00-1.00 Encounters Code Encounter Date Provider Facility CPT-06083 Level 3 Est. Patient 13:07:09 CDT Dyllan Timmons [facility] CPT-44716 Level 3 Est. Patient 09:01:12 CDT Dyllan Timmons [facility] CPT-11868 Level 3 Est. Patient 08:29:00 CDT Dyllan Timmons [facility] CPT-10392 Level 3 Est. Patient 16:34:51 CDT Butch Felix MD [facility] CPT-66024 Level 3 Est. Patient 11:07:07 CDT Alissa Johnson [facility]-42283 Level 3 Est. Patient 09:56:03 CDT Butch Felix MD [facility] CPT-35866 Level 3 Est. Patient 10:09:51 CDT Butch Felix MD [facility] CPT-24774 Level 3 Est. Patient 10:33:59 CDT Chel Uriostegui [facility] CPT-18908 Level 3 Est. Patient 16:17:38 CDT Prisca Burton [facility] CPT-91482 Level 3 Est. Patient 11:06:35 RECORDIST Butch Felix MD [facility] CPT-65117 Level 3 Est. Patient 18:22:20 RECORDIST Dyllan Timmons [facility] CPT-68608 Level 3 Est. Patient 17:12:26 CDT Dyllan Timmons [facility] CPT-99831 Level 3 Est. Patient 10:50:38 CDT Katie Martell MD PhD [facility] CPT-86883 Level 3 Est. Patient 11:01:01 RECORDIST Dyllan Timmons [facility] CPT-35627 Level 3 Est. Patient 19:21:41 CDT Dyllan Timmons [facility] CPT-04063 Level 2 Est. Patient 08:39:56 RECORDIST Dyllan Timmons [facility] CPT-49249 Level 3 Est. Patient 22:53:20 CDT Dyllan Timmons [facility] CPT-70203 Level 3 Est. Patient 17:12:13 CDT Dyllan Mcclure [facility] Procedures Code Procedure Name Date Entry Date Standard Description CPT-80936 Addl Vx - Ix admin via ID IM or jet injects without counseling by physician 10:39:15 CDT CPT-38893 Gardasil 9 Intramuscular Suspension 10:39:15 CDT 04/15 CPT-92970 First Vx - Ix admin via ID IM or jet injects without counseling by physician 10:39:15 CDT CPT-95769 Havrix Intramuscular Suspension 720 EL U/0.5ML 10:39:15 CDT CPT-13868 Addl Vx - Ix admin via ID IM or jet injects without counseling by physician 14:02:27 CDT CPT-29514 Meningococcal B, recombinant vaccine 14:02:27 CDT 03/27 CPT-23888 First Vx - Ix admin via ID IM or jet injects without counseling by physician 14:02:27 CDT CPT-69974 Menveo Intramuscular Solution Reconstituted 14:02:27 CDT [id number] Event Monitor - MC review and interp 16:30:59 RECORDIST CPT-88952 EKG Trac and Interp - XRAY USE ONLY 10:18:23 CDT 04/10 CPT-68282 Event Monitor - Commercial Ins 14:58:02 RECORDIST CPT-37307 EKG Trac and Interp 10:58:25 RECORDIST CPT-09376 Chest 2V Frontal and Lat 10:58:25 RECORDIST CPT-03823 LS spine comp w obliq 17:16:12 CDT CPT-22296 Chest 2V Frontal and Lat 10:23:04 CDT CPT-41802 Foot comp min 3V 17:12:13 CDT
--- OUTSIDE RECORDS SUMMARY | 2017-05-26 16:18 | XMS REPORT | Clinical Summary ---
Author Author Admin, JONA Organization [facility] Address Unknown Phone Unavailable Allergies, Adverse Reactions, [...] tablet by mouth twice daily PROPRANOLOL HCL 82419852692 Active Dyllan Timmons DO Active ASPIRIN 325 MG TAB Take 1 tab p.o. PRN for pain ASPIRIN 31748547088 No Longer Active Dyllan Timmons DO Active FLUOXETINE HCL 20 MG CAPS 1 cap by mouth daily FLUOXETINE HCL 81122233282 No Longer Active Dyllan Timmons DO Active FLUTICASONE PROPIONATE 50 MCG/ACT SUSP 2 sprays each nostril daily FLUTICASONE PROPIONATE 52603088695 No Longer Active Butch Felix MD Active OMEPRAZOLE 20 MG CPDR 1 tablet by mouth daily OMEPRAZOLE 70105005774 No Longer Active Butch Felix MD Active ALBUTEROL SULFATE (2.5 MG/3ML) 0.083% NEBU 1 in nebulizer four times a day as needed for cough ALBUTEROL SULFATE 14166891109 No Longer Active Prisca Burton APRN Active MELOXICAM 15 MG TABS 1 po q day for pain with food MELOXICAM 92849298892 No Longer Active Butch Felix MD Active IBUPROFEN 400 MG TAB 1 tab po tid with food, prn IBUPROFEN 56360263493 No Longer Active Butch Felix MD Active CYCLOBENZAPRINE HCL 10 MG TABS 1 tablet by mouth at bedtime for back spasm CYCLOBENZAPRINE HCL 01814339190 No Longer Active Roland Ellis APRN Active LEVAQUIN 500 MG TAB 1 tablet by mouth daily LEVOFLOXACIN 11816713229 No Longer Active Roland Ellis HAND EDGER Active LEVAQUIN 500 MG TAB 1 tablet by mouth daily LEVAQUIN 500 MG TAB 800120 LEVOFLOXACIN Inactive CYCLOBENZAPRINE HCL 10 MG TABS 1 tablet by mouth at bedtime for back spasm CYCLOBENZAPRINE HCL 10 MG TABS 405195 CYCLOBENZAPRINE HCL Inactive IBUPROFEN 400 MG TAB 1 tab po tid with food, prn IBUPROFEN 400 MG TAB 466621 IBUPROFEN Inactive MELOXICAM 15 MG TABS 1 po q day for pain with food MELOXICAM 15 MG TABS 440583 MELOXICAM Inactive ALBUTEROL SULFATE (2.5 MG/3ML) 0.083% NEBU 1 in nebulizer four times a day as needed for cough ALBUTEROL SULFATE (2.5 MG/3ML) 0.083% NEBU 641977 ALBUTEROL SULFATE Inactive OMEPRAZOLE 20 MG CPDR 1 tablet by mouth daily OMEPRAZOLE 20 MG CPDR 800386 OMEPRAZOLE Inactive FLUTICASONE PROPIONATE 50 MCG/ACT SUSP 2 sprays each nostril daily FLUTICASONE PROPIONATE 50 MCG/ACT SUSP 7134177 FLUTICASONE PROPIONATE Inactive FLUOXETINE HCL 20 MG CAPS 1 cap by mouth daily FLUOXETINE HCL 20 MG CAPS 945145 FLUOXETINE HCL Inactive ASPIRIN 325 MG TAB Take 1 tab p.o. PRN for pain ASPIRIN 325 MG TAB 070341 ASPIRIN Inactive Immunizations Vaccine Administration Date Value [...] Range Description blood pressure, diastolic - 8462-4 77 mm[Hg] BP dimas blood pressure, systolic - 8480-6 141 mm[Hg] BP sys pulse rate E&M - 8867-4 66 /min Heart rate temperature E&M 96.9 [degF] Body temperature weight E&M - 3141-9 214.5 [lb_av] Weight Measured Encounters Code Encounter Date Provider Facility CPT-38218 Level 3 Est. Patient 13:07:09 CDT Dyllan Timmons [facility] CPT-86543 Level 3 Est. Patient 09:01:12 CDT Dyllan Timmons [facility] CPT-21401 Level 3 Est. Patient 08:29:00 CDT Dyllan Timmons DO [facility] CPT-66779 Level 3 Est. Patient 16:34:51 CDT Butch Felix MD [facility] CPT-60389 Level 3 Est. Patient 11:07:07 CDT Alissa Johnson APRN [facility] CPT-80657 Level 3 Est. Patient 09:56:03 CDT Butch Felix MD [facility] CPT-51260 Level 3 Est. Patient 10:09:51 CDT Butch Felix MD [facility] CPT-40936 Level 3 Est. Patient 10:33:59 CDT Chel Uriostegui [facility] CPT-07781 Level 3 Est. Patient 16:17:38 CDT Priscaalejandra Burton [facility] CPT-59667 Level 3 Est. Patient 11:06:35 DOCUMENT EXAMINER Butch Felix MD [facility] CPT-19848 Level 3 Est. Patient 18:22:20 DOCUMENT EXAMINER Dyllan Timmons [facility] CPT-40281 Level 3 Est. Patient 17:12:26 CDT Dyllan Timmons [facility] CPT-33465 Level 3 Est. Patient 10:50:38 CDT Katie Martell MD PhD [facility] CPT-29193 Level 3 Est. Patient 11:01:01 DOCUMENT EXAMINER Dyllan Timmons [facility] CPT-83484 Level 3 Est. Patient 19:21:41 CDT Dyllan Timmons [facility] CPT-36725 Level 2 Est. Patient 08:39:56 DOCUMENT EXAMINER Dyllan Timmons [facility] CPT-00029 Level 3 Est. Patient 22:53:20 CDT Dyllan Timmons [facility] CPT-28976 Level 3 Est. Patient 17:12:13 CDT Dyllan Timmons [facility] Procedures Code Procedure Name Date Entry Date Standard Description CPT-72683 Addl Vx - Ix admin via ID IM or jet injects without counseling by physician 14:02:27 CDT CPT-74847 Meningococcal B, recombinant vaccine 14:02:27 CDT 03/27 CPT-29697 First Vx - Ix admin via ID IM or jet injects without counseling by physician 14:02:27 CDT CPT-54221 Menveo Intramuscular Solution Reconstituted 14:02:27 CDT [id number] Event Monitor - MC review and interp 16:30:59 DOCUMENT EXAMINER CPT-24601 EKG Trac and Interp - XRAY USE ONLY 10:18:23 CDT 04/10 CPT-81944 Event Monitor - Commercial Ins 14:58:02 DOCUMENT EXAMINER CPT-70820 EKG Trac and Interp 10:58:25 DOCUMENT EXAMINER CPT-24758 Chest 2V Frontal and Lat 10:58:25 DOCUMENT EXAMINER CPT-41801 LS spine comp w obliq 17:16:12 CDT CPT-49229 Chest 2V Frontal and Lat 10:23:04 CDT CPT-35645 Foot comp min 3V 17:12:13 CDT
--- OUTSIDE RECORDS SUMMARY | 2017-05-26 16:18 | XMS REPORT | Clinical Summary ---
Author Author Admin, JONA Organization [facility] Address Unknown Phone Unavailable Allergies, Adverse Reactions, [...] Active Chel Uriostegui APRN Anxiety state, unspecified FOOT PAIN, RIGHT ICD-729.5 Inactive Katie [...] Generic Name NDC Status Provider Patient Instruction OMEPRAZOLE 20 MG CPDR 1 tablet by mouth daily OMEPRAZOLE 25590350339 Active Prisca Burton APRN Active FLUTICASONE PROPIONATE 50 MCG/ACT SUSP 2 sprays each nostril daily FLUTICASONE PROPIONATE 32996191284 Active Prisca Burton APRN Active ALBUTEROL SULFATE (2.5 MG/3ML) 0.083% NEBU 1 in nebulizer four times a day as needed for cough ALBUTEROL SULFATE 13957801729 No Longer Active Prisca Burton GAMBLING MONITOR Active ASPIRIN 325 MG TAB Take 1 tab p.o. PRN for pain ASPIRIN 67445138704 Active Chel Uriostegui GAMBLING MONITOR Active MELOXICAM 15 MG TABS 1 po q day for pain with food MELOXICAM 70558950385 No Longer Active Butch Felix MD Active IBUPROFEN 400 MG TAB 1 tab po tid with food, prn IBUPROFEN 89283847229 No Longer Active Butch Felix MD Active CYCLOBENZAPRINE HCL 10 MG TABS 1 tablet by mouth at bedtime for back spasm CYCLOBENZAPRINE HCL 81517346853 No Longer Active Jillina Frazell GAMBLING MONITOR Active LEVAQUIN 500 MG TAB 1 tablet by mouth daily LEVOFLOXACIN 98761344183 No Longer Active Jillina Frazell GAMBLING MONITOR Active LEVAQUIN 500 MG TAB 1 tablet by mouth daily LEVAQUIN 500 MG TAB 605642 LEVOFLOXACIN Inactive CYCLOBENZAPRINE HCL 10 MG TABS 1 tablet by mouth at bedtime for back spasm CYCLOBENZAPRINE HCL 10 MG TABS 401681 CYCLOBENZAPRINE HCL Inactive IBUPROFEN 400 MG TAB 1 tab po tid with food, prn IBUPROFEN 400 MG TAB 973022 IBUPROFEN Inactive MELOXICAM 15 MG TABS 1 po q day for pain with food MELOXICAM 15 MG TABS 417218 MELOXICAM Inactive ALBUTEROL SULFATE (2.5 MG/3ML) 0.083% NEBU 1 in nebulizer four times a day as needed for cough ALBUTEROL SULFATE (2.5 MG/3ML) 0.083% NEBU 691331 ALBUTEROL SULFATE Inactive Immunizations Vaccine Administration Date Value Standard [...] 1.58 m[iU]/mL 0.36-3.74 sodium, serum 140 mmol/L 741-754 1978/03/09 potassium, serum 4.4 mmol/L 3.5-5.2 chloride, serum [...] 142-424 Encounters Code Encounter Date Provider Facility CPT-83522 Level 3 Est. Patient 10:33:59 CDT Chel Seanrosalind [facility] CPT-10976 Level 3 Est. Patient 16:17:38 CDT Prisca Burton [facility] CPT-51613 Level 3 Est. Patient 11:06:35 PLUG MAKER Butch Felix MD [facility] CPT-08549 Level 3 Est. Patient 18:22:20 PLUG MAKER Dyllan Timmons [facility] CPT-42203 Level 3 Est. Patient 17:12:26 CDT Dyllan Timmons [facility] CPT-13385 Level 3 Est. Patient 10:50:38 CDT Katie Martell MD PhD [facility] CPT-66394 Level 3 Est. Patient 11:01:01 PLUG MAKER Dyllan Timmons [facility] CPT-71284 Level 3 Est. Patient 19:21:41 CDT Dyllan Timmons [facility] CPT-16110 Level 2 Est. Patient 08:39:56 PLUG MAKER Dyllan Mcclure [facility] CPT-23235 Level 3 Est. Patient 22:53:20 CDT Dyllan Mcclure [facility] CPT-16597 Level 3 Est. Patient 17:12:13 CDT Dyllan Mcclure [facility] Procedures Code Procedure Name Date Entry Date Standard Description CPT-53807 Event Monitor - Commercial Ins 14:58:02 PLUG MAKER CPT-76944 EKG Trac and Interp 10:58:25 PLUG MAKER CPT-87531 Chest 2V Frontal and Lat 10:58:25 PLUG MAKER CPT-74533 LS spine comp w obliq 17:16:12 CDT CPT-33152 Chest 2V Frontal and Lat 10:23:04 CDT CPT-67524 Foot comp min 3V 17:12:13 CDT
--- OUTSIDE RECORDS SUMMARY | 2017-05-26 16:18 | XMS REPORT | Clinical Summary ---
Author Author Admin, JONA Organization [facility] Address Unknown Phone Unavailable Allergies, Adverse Reactions, [...] IN JOINT, ANKLE AND FOOT ICD-719.47 Inactive Ktaie Martell MD PhD Hip pain, left ICD-719.45 [...] 1 tab p.o. PRN for pain ASPIRIN 03146774331 Active Chel Uriostegui APRN Active ALBUTEROL SULFATE (2.5 MG/3ML) 0.083% NEBU 1 in nebulizer four times a day as needed for cough ALBUTEROL SULFATE 03572004635 Active Butch Felix MD Active MELOXICAM 15 MG TABS 1 po q day for pain with food MELOXICAM 33735362554 No Longer Active Butch Felix MD Active IBUPROFEN 400 MG TAB 1 tab po tid with food, prn IBUPROFEN 67822595888 No Longer Active Butch Felix MD Active CYCLOBENZAPRINE HCL 10 MG TABS 1 tablet by mouth at bedtime for back spasm CYCLOBENZAPRINE HCL 07824735557 No Longer Active Roland Ellis ERRAND RUNNER Active LEVAQUIN 500 MG TAB 1 tablet by mouth daily LEVOFLOXACIN 14942891607 No Longer Active Roland Mcafddenl ERRAND RUNNER Active LEVAQUIN 500 MG TAB 1 tablet by mouth daily LEVAQUIN 500 MG TAB 084355 LEVOFLOXACIN Inactive CYCLOBENZAPRINE HCL 10 MG TABS 1 tablet by mouth at bedtime for back spasm CYCLOBENZAPRINE HCL 10 MG TABS 512922 CYCLOBENZAPRINE HCL Inactive IBUPROFEN 400 MG TAB 1 tab po tid with food, prn IBUPROFEN 400 MG TAB 310580 IBUPROFEN Inactive MELOXICAM 15 MG TABS 1 po q day for pain with food MELOXICAM 15 MG TABS 499552 MELOXICAM Inactive Immunizations Vaccine Administration Date Value [...] 1.58 m[iU]/mL 0.36-3.74 sodium, serum 140 mmol/L 959-783 2165/03/09 potassium, serum 4.4 mmol/L 3.5-5.2 chloride, serum [...] 142-424 Encounters Code Encounter Date Provider Facility CPT-44234 Level 3 Est. Patient 11:06:35 E/M ENGINEER Butch Felix MD [facility] CPT-69741 Level 3 Est. Patient 18:22:20 E/M ENGINEER Dyllan Mcclure [facility] CPT-38670 Level 3 Est. Patient 17:12:26 CDT Dyllan Kami [facility] CPT-91050 Level 3 Est. Patient 10:50:38 CDT Katie Martell MD PhD [facility] CPT-68919 Level 3 Est. Patient 11:01:01 E/M ENGINEER Dyllan Mcclure [facility] CPT-41016 Level 3 Est. Patient 19:21:41 CDT Dyllan Mcclure [facility] CPT-08626 Level 2 Est. Patient 08:39:56 E/M ENGINEER Dyllan Mcclure [facility] CPT-70069 Level 3 Est. Patient 22:53:20 CDT Dyllan Kami [facility] CPT-68268 Level 3 Est. Patient 17:12:13 CDT Dyllan Mcclure [facility] Procedures Code Procedure Name Date Entry Date Standard Description CPT-18192 Event Monitor - Commercial Ins 14:58:02 E/M ENGINEER CPT-57295 EKG Trac and Interp 10:58:25 E/M ENGINEER CPT-68020 Chest 2V Frontal and Lat 10:58:25 E/M ENGINEER CPT-22900 LS spine comp w obliq 17:16:12 CDT CPT-85069 Chest 2V Frontal and Lat 10:23:04 CDT CPT-50502 Foot comp min 3V 17:12:13 CDT
--- OUTSIDE RECORDS SUMMARY | 2017-05-26 16:19 | XMS REPORT | Clinical Summary ---
Author Author Admin, JONA Organization [employer] Address Unknown Phone Unavailable Allergies, Adverse Reactions, [...] Palpitations Acid reflux 530.81 Active Prisca Burton RADIATION THERAPY TECHNOLOGIST Esophageal reflux Allergic rhinitis 477.9 Active Prisca Burton APRN Allergic rhinitis, cause unspecified Chest wall pain 786.52 Active Chel Uriostegui RADIATION THERAPY TECHNOLOGIST Painful respiration Anxiety 300.00 Active Chel Uriostegui RADIATION THERAPY TECHNOLOGIST Anxiety state, unspecified Leg pain, bilateral 729.5 [...] Generic Name ND Status Provider Patient Instruction FLUOXETINE HCL 20 MG CAPS 1 cap by mouth daily FLUOXETINE HCL 21923895871 Active Dyllan Timmons DO Active FLUTICASONE PROPIONATE 50 MCG/ACT SUSP 2 sprays each nostril daily FLUTICASONE PROPIONATE 45347961593 No Longer Active Butch Felix MD Active OMEPRAZOLE 20 MG CPDR 1 tablet by mouth daily OMEPRAZOLE 94684721073 No Longer Active Butch Felix MD Active ALBUTEROL SULFATE (2.5 MG/3ML) 0.083% NEBU 1 in nebulizer four times a day as needed for cough ALBUTEROL SULFATE 25601619482 No Longer Active Prisca Burton APRN Active ASPIRIN 325 MG TAB Take 1 tab p.o. PRN for pain ASPIRIN 73945623057 Active Chel Uriostegui APRN Active MELOXICAM 15 MG TABS 1 po q day for pain with food MELOXICAM 95117339452 No Longer Active Butch Felix MD Active IBUPROFEN 400 MG TAB 1 tab po tid with food, prn IBUPROFEN 35591354972 No Longer Active Butch Felix MD Active CYCLOBENZAPRINE HCL 10 MG TABS 1 tablet by mouth at bedtime for back spasm CYCLOBENZAPRINE HCL 89758854371 No Longer Active Roland Ellis APRN Active LEVAQUIN 500 MG TAB 1 tablet by mouth daily LEVOFLOXACIN 26654230241 No Longer Active Jillina Marquitazell RADIATION THERAPY TECHNOLOGIST Active LEVAQUIN 500 MG TAB 1 tablet by mouth daily LEVAQUIN 500 MG TAB 335382 LEVOFLOXACIN Inactive CYCLOBENZAPRINE HCL 10 MG TABS 1 tablet by mouth at bedtime for back spasm CYCLOBENZAPRINE HCL 10 MG TABS 161067 CYCLOBENZAPRINE HCL Inactive IBUPROFEN 400 MG TAB 1 tab po tid with food, prn IBUPROFEN 400 MG TAB 566144 IBUPROFEN Inactive MELOXICAM 15 MG TABS 1 po q day for pain with food MELOXICAM 15 MG TABS 219044 MELOXICAM Inactive ALBUTEROL SULFATE (2.5 MG/3ML) 0.083% NEBU 1 in nebulizer four times a day as needed for cough ALBUTEROL SULFATE (2.5 MG/3ML) 0.083% NEBU 921389 ALBUTEROL SULFATE Inactive OMEPRAZOLE 20 MG CPDR 1 tablet by mouth daily OMEPRAZOLE 20 MG CPDR 184657 OMEPRAZOLE Inactive FLUTICASONE PROPIONATE 50 MCG/ACT SUSP 2 sprays each nostril daily FLUTICASONE PROPIONATE 50 MCG/ACT SUSP 590872 FLUTICASONE PROPIONATE Inactive Immunizations Vaccine Administration Date [...] Panel - Chemistry sodium, serum 141 mmol/L 431-627 3373/04/05 carbon dioxide, venous blood 31.5 mmol/L 21.0-32.0 [...] 1.58 m[iU]/mL 0.36-3.74 sodium, serum 140 mmol/L 375-772 3233/03/09 potassium, serum 4.4 mmol/L 3.5-5.2 chloride, serum [...] 5.0-8.5 Encounters Code Encounter Date Provider Facility CPT-26168 Level 3 Est. Patient 08:29:00 CDT Dyllan Timmons DO [facility] CPT-10982 Level 3 Est. Patient 16:34:51 CDT Butch Felix MD [facility] CPT-22522 Level 3 Est. Patient 11:07:07 CDT Alissa Johnson APRN [facility] CPT-76186 Level 3 Est. Patient 09:56:03 CDT Butch Felix MD [facility] CPT-81520 Level 3 Est. Patient 10:09:51 CDT Butch Felix MD [facility] CPT-72498 Level 3 Est. Patient 10:33:59 CDT Chel Uriostegui [facility] CPT-87111 Level 3 Est. Patient 16:17:38 CDT Prisca Burton [facility] CPT-69780 Level 3 Est. Patient 11:06:35 BATCH RECORDS CLERK Butch Felix MD [facility] CPT-89141 Level 3 Est. Patient 18:22:20 BATCH RECORDS CLERK Dyllan Timmons [facility] CPT-68199 Level 3 Est. Patient 17:12:26 CDT Dyllan Timmons [facility] CPT-53979 Level 3 Est. Patient 10:50:38 CDT Katie Martell MD PhD [facility] CPT-63828 Level 3 Est. Patient 11:01:01 BATCH RECORDS CLERK Dyllan Timmons [facility] CPT-04499 Level 3 Est. Patient 19:21:41 CDT Dyllan Timmons [facility] CPT-13212 Level 2 Est. Patient 08:39:56 BATCH RECORDS CLERK Dyllan Timmons [facility] CPT-82178 Level 3 Est. Patient 22:53:20 CDT Dyllan Timmons [facility] CPT-75399 Level 3 Est. Patient 17:12:13 CDT Dyllan Timmons [facility] Procedures Code Procedure Name Date Entry Date Standard Description CPT-92413 EKG Trac and Interp - XRAY USE ONLY 10:18:23 CDT 04/10 CPT-51091 Event Monitor - Commercial Ins 14:58:02 BATCH RECORDS CLERK CPT-33145 EKG Trac and Interp 10:58:25 BATCH RECORDS CLERK CPT-14554 Chest 2V Frontal and Lat 10:58:25 BATCH RECORDS CLERK CPT-67630 LS spine comp w obliq 17:16:12 CDT CPT-17462 Chest 2V Frontal and Lat 10:23:04 CDT CPT-86842 Foot comp min 3V 17:12:13 CDT
--- OUTSIDE RECORDS SUMMARY | 2017-05-26 16:19 | XMS REPORT | Clinical Summary ---
Author Author Admin, JONA Organization [facility] Address Unknown Phone Unavailable Allergies, Adverse Reactions, [...] day as needed for cough ALBUTEROL SULFATE 88861138087 Active Butch Felix MD Active MELOXICAM 15 MG TABS 1 po q day for pain with food MELOXICAM 26553643297 No Longer Active Butch Felix MD Active IBUPROFEN 400 MG TAB 1 tab po tid with food, prn IBUPROFEN 80163233614 No Longer Active Butch Felix MD Active CYCLOBENZAPRINE HCL 10 MG TABS 1 tablet by mouth at bedtime for back spasm CYCLOBENZAPRINE HCL 19634944727 No Longer Active Roland Ellis APRN Active LEVAQUIN 500 MG TAB 1 tablet by mouth daily LEVOFLOXACIN 36551262167 No Longer Active Roland Ellis GENERAL INTERNAL MEDICINE PHYSICIAN Active LEVAQUIN 500 MG TAB 1 tablet by mouth daily LEVAQUIN 500 MG TAB 705928 LEVOFLOXACIN Inactive CYCLOBENZAPRINE HCL 10 MG TABS 1 tablet by mouth at bedtime for back spasm CYCLOBENZAPRINE HCL 10 MG TABS 887783 CYCLOBENZAPRINE HCL Inactive IBUPROFEN 400 MG TAB 1 tab po tid with food, prn IBUPROFEN 400 MG TAB 144355 IBUPROFEN Inactive MELOXICAM 15 MG TABS 1 po q day for pain with food MELOXICAM 15 MG TABS 861810 MELOXICAM Inactive Immunizations Vaccine Administration Date Value [...] 1.58 m[iU]/mL 0.36-3.74 sodium, serum 140 mmol/L 573-148 2003/03/09 potassium, serum 4.4 mmol/L 3.5-5.2 chloride, serum [...] 142-424 Encounters Code Encounter Date Provider Facility CPT-14986 Level 3 Est. Patient 11:06:35 BUSINESS INTELLIGENCE MANAGER Butch Felix MD [facility] CPT-75355 Level 3 Est. Patient 18:22:20 BUSINESS INTELLIGENCE MANAGER Dyllan Mcclure [facility] CPT-44263 Level 3 Est. Patient 17:12:26 CDT Dyllan Mcclure [facility] CPT-09412 Level 3 Est. Patient 10:50:38 CDT Katie Martell MD PhD [facility] CPT-60112 Level 3 Est. Patient 11:01:01 BUSINESS INTELLIGENCE MANAGER Dyllan Kami [facility] CPT-45096 Level 3 Est. Patient 19:21:41 CDT Dyllan Mcclure [facility] CPT-26798 Level 2 Est. Patient 08:39:56 BUSINESS INTELLIGENCE MANAGER Dyllan Mcclure [facility] CPT-75046 Level 3 Est. Patient 22:53:20 CDT Dyllan Mcclure [facility] CPT-94996 Level 3 Est. Patient 17:12:13 CDT Dyllan Mcclure [facility] Procedures Code Procedure Name Date Entry Date Standard Description CPT-68595 Event Monitor - Commercial Ins 14:58:02 BUSINESS INTELLIGENCE MANAGER CPT-72787 EKG Trac and Interp 10:58:25 BUSINESS INTELLIGENCE MANAGER CPT-07896 Chest 2V Frontal and Lat 10:58:25 BUSINESS INTELLIGENCE MANAGER CPT-44187 LS spine comp w obliq 17:16:12 CDT CPT-50224 Chest 2V Frontal and Lat 10:23:04 CDT CPT-11753 Foot comp min 3V 17:12:13 CDT
--- OUTSIDE RECORDS SUMMARY | 2017-05-26 16:19 | XMS REPORT | Clinical Summary ---
Author Author Admin, QIE Organization [facility] Address Unknown Phone Unavailable Allergies, Adverse [...] tablet by mouth twice daily PROPRANOLOL HCL 28236398872 Active Dyllan Timmons DO Active ASPIRIN 325 MG TAB Take 1 tab p.o. PRN for pain ASPIRIN 72768574000 No Longer Active Dyllan Timmons DO Active FLUOXETINE HCL 20 MG CAPS 1 cap by mouth daily FLUOXETINE HCL 56572218461 No Longer Active Dyllan Timmons DO Active FLUTICASONE PROPIONATE 50 MCG/ACT SUSP 2 sprays each nostril daily FLUTICASONE PROPIONATE 44206769648 No Longer Active Butch Felix MD Active OMEPRAZOLE 20 MG CPDR 1 tablet by mouth daily OMEPRAZOLE 94133688174 No Longer Active Butch Felix MD Active ALBUTEROL SULFATE (2.5 MG/3ML) 0.083% NEBU 1 in nebulizer four times a day as needed for cough ALBUTEROL SULFATE 57680171919 No Longer Active Prisca Burton APRN Active MELOXICAM 15 MG TABS 1 po q day for pain with food MELOXICAM 98993707972 No Longer Active Butch Felix MD Active IBUPROFEN 400 MG TAB 1 tab po tid with food, prn IBUPROFEN 69491463354 No Longer Active Butch Felix MD Active CYCLOBENZAPRINE HCL 10 MG TABS 1 tablet by mouth at bedtime for back spasm CYCLOBENZAPRINE HCL 05774400327 No Longer Active Roland Ellis APRN Active LEVAQUIN 500 MG TAB 1 tablet by mouth daily LEVOFLOXACIN 25602958290 No Longer Active Roland Ellis INTEGRATED LOGISTICS PROGRAMS DIRECTOR Active LEVAQUIN 500 MG TAB 1 tablet by mouth daily LEVAQUIN 500 MG TAB 764535 LEVOFLOXACIN Inactive CYCLOBENZAPRINE HCL 10 MG TABS 1 tablet by mouth at bedtime for back spasm CYCLOBENZAPRINE HCL 10 MG TABS 346064 CYCLOBENZAPRINE HCL Inactive IBUPROFEN 400 MG TAB 1 tab po tid with food, prn IBUPROFEN 400 MG TAB 712912 IBUPROFEN Inactive MELOXICAM 15 MG TABS 1 po q day for pain with food MELOXICAM 15 MG TABS 274181 MELOXICAM Inactive ALBUTEROL SULFATE (2.5 MG/3ML) 0.083% NEBU 1 in nebulizer four times a day as needed for cough ALBUTEROL SULFATE (2.5 MG/3ML) 0.083% NEBU 850705 ALBUTEROL SULFATE Inactive OMEPRAZOLE 20 MG CPDR 1 tablet by mouth daily OMEPRAZOLE 20 MG CPDR 606222 OMEPRAZOLE Inactive FLUTICASONE PROPIONATE 50 MCG/ACT SUSP 2 sprays each nostril daily FLUTICASONE PROPIONATE 50 MCG/ACT SUSP 7858034 FLUTICASONE PROPIONATE Inactive FLUOXETINE HCL 20 MG CAPS 1 cap by mouth daily FLUOXETINE HCL 20 MG CAPS 454271 FLUOXETINE HCL Inactive ASPIRIN 325 MG TAB Take 1 tab p.o. PRN for pain ASPIRIN 325 MG TAB 489324 ASPIRIN Inactive Immunizations Vaccine Administration Date Value [...] Range Description blood pressure, diastolic - 8462-4 85 mm[Hg] BP dimas blood pressure, systolic - 8480-6 153 mm[Hg] BP sys height E&M - 8302-2 74 [in_us] Bdy height pulse rate E&M - 8867-4 70 /min Heart rate temperature E&M 98.2 [degF] Body temperature weight E&M - 3141-9 223.06 [lb_av] Weight Measured blood pressure, diastolic - 8462-4 77 mm[Hg] BP dimas blood pressure, systolic - 8480-6 141 mm[Hg] BP sys pulse rate E&M - 8867-4 66 /min Heart rate temperature E&M 96.9 [degF] Body temperature weight E&M - 3141-9 214.5 [lb_av] Weight Measured Encounters Code Encounter Date Provider Facility CPT-92281 Level 3 Est. Patient 13:07:09 CDT Dyllan Timmons DO [facility] CPT-57482 Level 3 Est. Patient 09:01:12 CDT Dyllan Timmons [facility] CPT-51155 Level 3 Est. Patient 08:29:00 CDT Dyllan Timmons [facility] CPT-50608 Level 3 Est. Patient 16:34:51 CDT Butch Felix MD [facility] CPT-97495 Level 3 Est. Patient 11:07:07 CDT Alissa Johnson [facility] CPT-25647 Level 3 Est. Patient 09:56:03 CDT Butch Felix MD [facility] CPT-67028 Level 3 Est. Patient 10:09:51 CDT Butch Felix MD [facility] CPT-00360 Level 3 Est. Patient 10:33:59 CDT Chel Uriostegui [facility] CPT-49721 Level 3 Est. Patient 16:17:38 CDT Prisca Burton [facility] CPT-59789 Level 3 Est. Patient 11:06:35 PHARMACIST MANAGER Butch Felix MD [facility] CPT-16851 Level 3 Est. Patient 18:22:20 PHARMACIST MANAGER Dyllan Timmons [facility] CPT-95033 Level 3 Est. Patient 17:12:26 CDT Dyllan Timmons [facility] CPT-26477 Level 3 Est. Patient 10:50:38 CDT Katie Martell MD PhD [facility] CPT-09241 Level 3 Est. Patient 11:01:01 PHARMACIST MANAGER Dyllan Timmons [facility] CPT-91967 Level 3 Est. Patient 19:21:41 CDT Dyllan Timmons [facility] CPT-04047 Level 2 Est. Patient 08:39:56 PHARMACIST MANAGER Dyllan Timmons [facility] CPT-82984 Level 3 Est. Patient 22:53:20 CDT Dyllan Timmons [facility] CPT-50883 Level 3 Est. Patient 17:12:13 CDT Dyllan Timmons DO [facility] Procedures Code Procedure Name Date Entry Date Standard Description CPT-10734 Addl Vx - Ix admin via ID IM or jet injects without counseling by physician 14:02:27 CDT CPT-68235 Meningococcal B, recombinant vaccine 14:02:27 CDT 03/27 CPT-08822 First Vx - Ix admin via ID IM or jet injects without counseling by physician 14:02:27 CDT CPT-88563 Menveo Intramuscular Solution Reconstituted 14:02:27 CDT [id number] Event Monitor - MC review and interp 16:30:59 PHARMACIST MANAGER CPT-06231 EKG Trac and Interp - XRAY USE ONLY 10:18:23 CDT 04/10 CPT-96833 Event Monitor - Commercial Ins 14:58:02 PHARMACIST MANAGER CPT-90183 EKG Trac and Interp 10:58:25 PHARMACIST MANAGER CPT-18967 Chest 2V Frontal and Lat 10:58:25 PHARMACIST MANAGER CPT-80713 LS spine comp w obliq 17:16:12 CDT CPT-39815 Chest 2V Frontal and Lat 10:23:04 CDT CPT-84015 Foot comp min 3V 17:12:13 CDT
--- OUTSIDE RECORDS SUMMARY | 2017-05-26 16:19 | XMS REPORT ---
Author Author [facility] Medical Staff Organization [facility] Address [address] [id number] Phone [phone] Summary purpose TRANSITION OF CARE AUTO GENERATION Chief Complaint and Reason for Visit No authorized Reason for Visit (Admitting Diagnosis) is available for this visit. Problem list No authorized problems tracked for continuity of care are available for this visit. Encounters No authorized problems tracked for encounter diagnoses are available for this visit. Medications No medications recorded for this patient visit Allergies, adverse reactions, alerts No allergy information is available for this patient. Immunizations No immunizations recorded for this patient visit Relevant diagnostic tests and/or laboratory data RESULTS Reference Lab (Sendout) [id number]:04:00 Result Normal Range Units D-Dimer < 100 0-400 ng/ml History of procedures Procedure Code Code Type Description Date Performed Performing Physician 42421 CPT-4 FIBRIN DEGRADATION QUANT 12-26-2015 FREEMAN LYNNE Functional status No functional or cognitive status [...]
--- OUTSIDE RECORDS SUMMARY | 2017-05-26 16:19 | XMS REPORT ---
Author Author [facility] Medical Staff Organization [email or web address] Address [address] [id number] Phone [phone] Care Team Providers Care Billing Representative Name Role Phone ITZEL HODGES DO PP [phone] Summary purpose TRANSITION OF CARE AUTO GENERATION [...] Code Type Description Date Performed Performing Physician 83965 CPT-4 THERAPEUTIC EXERCISES 05-10-2015 ITZEL HODGES 32473 CPT-4 PT EVALUATION 05-10-2015 ITZEL HODGES 98037 CPT-4 THERAPEUTIC EXERCISES 05-17-2015 ITZEL HODGES Functional [...]
--- OUTSIDE RECORDS SUMMARY | 2017-05-26 16:20 | XMS REPORT | Clinical Summary ---
Author Author Admin, JONA Organization [facility] Address Unknown Phone Unavailable Allergies, Adverse [...] at bedtime for back spasm CYCLOBENZAPRINE HCL 07602703972 Active Dyllan Timmons DO Active LEVAQUIN 500 MG TAB 1 tablet by mouth daily LEVOFLOXACIN 97957731286 Active Katie Martell MD PhD Active Immunizations [...] Negative Encounters Code Encounter Date Provider Facility CPT-20867 Level 3 Est. Patient 17:12:26 CDT Dyllan Timmons [facility] CPT-57161 Level 3 Est. Patient 10:50:38 CDT Katie Martell MD PhD [facility] CPT-40715 Level 3 Est. Patient 11:01:01 SUPERVISOR COATING Dyllan Timmons [facility] CPT-11633 Level 3 Est. Patient 19:21:41 CDT Dyllan Timmons [facility] CPT-59094 Level 2 Est. Patient 08:39:56 SUPERVISOR COATING Dyllan Timmons [facility] CPT-74359 Level 3 Est. Patient 22:53:20 CDT Dyllan Timmons [facility] CPT-44974 Level 3 Est. Patient 17:12:13 CDT Dyllan Timmons [facility] Procedures Code Procedure Name Date Entry Date Standard Description CPT-99906 LS spine comp w obliq 17:16:12 CDT CPT-40369 Chest 2V Frontal and Lat 10:23:04 CDT CPT-83315 Foot comp min 3V 17:12:13 CDT
--- OUTSIDE RECORDS SUMMARY | 2017-05-26 16:20 | XMS REPORT | Clinical Summary ---
Author Author Admin, JONA Organization [facility] Address Unknown Phone Unavailable Allergies, Adverse Reactions, [...] MD PhD Acute pharyngitis Dyspnea 786.05 Active Kaite Martell MD PhD Shortness of breath Cough [...] TAB 1 tablet by mouth daily LEVOFLOXACIN 95377166071 Active Katie Martell MD PhD Active Immunizations [...] Negative Encounters Code Encounter Date Provider Facility CPT-60554 Level 3 Est. Patient 10:50:38 CDT Katie Martell MD PhD [facility] CPT-74518 Level 3 Est. Patient 11:01:01 TREE THINNER Dyllan Timmons [facility] CPT-05551 Level 3 Est. Patient 19:21:41 CDT Dlylan Timmons [facility] CPT-10883 Level 2 Est. Patient 08:39:56 TREE THINNER Dyllan Timmons [facility] CPT-99161 Level 3 Est. Patient 22:53:20 CDT Dyllan Timmons [facility] CPT-48601 Level 3 Est. Patient 17:12:13 CDYolanda Timmons [facility] Procedures Code Procedure Name Date Entry Date Standard Description CPT-00241 Chest 2V Frontal and Lat 10:23:04 CDT CPT-27969 Foot comp min 3V 17:12:13 CDT
--- OUTSIDE RECORDS SUMMARY | 2017-05-26 16:20 | XMS REPORT | Clinical Summary ---
Author Author Admin, JONA Organization [facility] Address Unknown Phone Unavailable Allergies, Adverse Reactions, [...] at bedtime for back spasm CYCLOBENZAPRINE HCL 47638942366 Active Dyllan Timmons DO Active LEVAQUIN 500 MG TAB 1 tablet by mouth daily LEVOFLOXACIN 00057066067 Active Katie Martell MD PhD Active Immunizations [...] Negative Encounters Code Encounter Date Provider Facility CPT-04893 Level 3 Est. Patient 17:12:26 CDT Dyllan Timmons [facility] CPT-07390 Level 3 Est. Patient 10:50:38 CDT Katie Martell MD PhD [facility] CPT-81601 Level 3 Est. Patient 11:01:01 SPECIAL MACHINE STITCHER Dyllan Timmons [facility] CPT-86550 Level 3 Est. Patient 19:21:41 CDT Dyllan Timmons [facility] CPT-34907 Level 2 Est. Patient 08:39:56 SPECIAL MACHINE STITCHER Dyllan Timmons [facility] CPT-29415 Level 3 Est. Patient 22:53:20 CDT Dyllan Timmons [facility] CPT-92929 Level 3 Est. Patient 17:12:13 CDT Dyllan Timmons [facility] Procedures Code Procedure Name Date Entry Date Standard Description CPT-33344 LS spine comp w obliq 17:16:12 CDT CPT-85580 Chest 2V Frontal and Lat 10:23:04 CDT CPT-02468 Foot comp min 3V 17:12:13 CDT
--- OUTSIDE RECORDS SUMMARY | 2017-05-26 16:20 | XMS REPORT | Clinical Summary ---
Author Author Admin, JONA Organization [employer] Address Unknown Phone Unavailable Allergies, Adverse Reactions, Alerts Allergy Name Reaction Description Start Date Severity Status Provider CEPHALOSPORINS Critical Active yDllan Timmons DO AMOXICILLIN Critical Active Dyllan Timmons [...] 2 sprays each nostril daily FLUTICASONE PROPIONATE 79387306406 No Longer Active Butch Felix MD Active OMEPRAZOLE 20 MG CPDR 1 tablet by mouth daily OMEPRAZOLE 31186052930 No Longer Active Butch Felix MD Active ALBUTEROL SULFATE (2.5 MG/3ML) 0.083% NEBU 1 in nebulizer four times a day as needed for cough ALBUTEROL SULFATE 43250530955 No Longer Active Prisca Burton APRN Active ASPIRIN 325 MG TAB Take 1 tab p.o. PRN for pain ASPIRIN 31033164105 Active Chel Uriostegui [facility]ULA Active MELOXICAM 15 MG TABS 1 po q day for pain with food MELOXICAM 40492512609 No Longer Active Butch Felix MD Active IBUPROFEN 400 MG TAB 1 tab po tid with food, prn IBUPROFEN 10239647282 No Longer Active Butch Felix MD Active CYCLOBENZAPRINE HCL 10 MG TABS 1 tablet by mouth at bedtime for back spasm CYCLOBENZAPRINE HCL 79665949269 No Longer Active Jillina Rhonda GOSS Active LEVAQUIN 500 MG TAB 1 tablet by mouth daily LEVOFLOXACIN 49688792438 No Longer Active Jillina Frazell FORMS DESIGNER Active LEVAQUIN 500 MG TAB 1 tablet by mouth daily LEVAQUIN 500 MG TAB 796666 LEVOFLOXACIN Inactive CYCLOBENZAPRINE HCL 10 MG TABS 1 tablet by mouth at bedtime for back spasm CYCLOBENZAPRINE HCL 10 MG TABS 129717 CYCLOBENZAPRINE HCL Inactive IBUPROFEN 400 MG TAB 1 tab po tid with food, prn IBUPROFEN 400 MG TAB 998434 IBUPROFEN Inactive MELOXICAM 15 MG TABS 1 po q day for pain with food MELOXICAM 15 MG TABS 122212 MELOXICAM Inactive ALBUTEROL SULFATE (2.5 MG/3ML) 0.083% NEBU 1 in nebulizer four times a day as needed for cough ALBUTEROL SULFATE (2.5 MG/3ML) 0.083% NEBU 430968 ALBUTEROL SULFATE Inactive OMEPRAZOLE 20 MG CPDR 1 tablet by mouth daily OMEPRAZOLE 20 MG CPDR 491737 OMEPRAZOLE Inactive FLUTICASONE PROPIONATE 50 MCG/ACT SUSP 2 sprays each nostril daily FLUTICASONE PROPIONATE 50 MCG/ACT SUSP 290095 FLUTICASONE PROPIONATE Inactive Immunizations Vaccine Administration Date [...] Panel - Chemistry sodium, serum 141 mmol/L 876-973 2180/04/05 carbon dioxide, venous blood 31.5 mmol/L 21.0-32.0 [...] 1.58 m[iU]/mL 0.36-3.74 sodium, serum 140 mmol/L 630-099 5298/03/09 potassium, serum 4.4 mmol/L 3.5-5.2 chloride, serum [...] 142-424 Encounters Code Encounter Date Provider Facility CPT-93463 Level 3 Est. Patient 10:09:51 CDT Butch Felix MD [facility] CPT-09774 Level 3 Est. Patient 10:33:59 CDT Chel Uriostegui [facility] CPT-15274 Level 3 Est. Patient 16:17:38 CDT Prisca Burton [facility] CPT-33940 Level 3 Est. Patient 11:06:35 DREDGING INSPECTOR Butch Felix MD [facility] CPT-44688 Level 3 Est. Patient 18:22:20 DREDGING INSPECTOR Dyllan Timmons [facility] CPT-56297 Level 3 Est. Patient 17:12:26 CDT Dyllan Mcclure [facility] CPT-34437 Level 3 Est. Patient 10:50:38 CDT Katie Martell MD [facility] CPT-93027 Level 3 Est. Patient 11:01:01 DREDGING INSPECTOR Dyllan Timmons [facility] CPT-54705 Level 3 Est. Patient 19:21:41 CDT Dyllan Mcclure [facility] CPT-88299 Level 2 Est. Patient 08:39:56 DREDGING INSPECTOR Dyllan Timmons [facility] CPT-66965 Level 3 Est. Patient 22:53:20 CDT Dyllan Mcclure [facility] CPT-10444 Level 3 Est. Patient 17:12:13 CDT Dyllan Mcclure [facility] Procedures Code Procedure Name Date Entry Date Standard Description CPT-57761 Event Monitor - Commercial Ins 14:58:02 DREDGING INSPECTOR CPT-46162 EKG Trac and Interp 10:58:25 DREDGING INSPECTOR CPT-70046 Chest 2V Frontal and Lat 10:58:25 DREDGING INSPECTOR CPT-92417 LS spine comp w obliq 17:16:12 CDT CPT-86493 Chest 2V Frontal and Lat 10:23:04 CDT CPT-42466 Foot comp min 3V 17:12:13 CDT
--- OUTSIDE RECORDS SUMMARY | 2017-05-26 16:21 | XMS REPORT | Clinical Summary ---
Author Author Admin, JONA Organization [facility] Address Unknown Phone Unavailable Allergies, Adverse Reactions, [...] administrative purposes Hip pain, left 719.45 Resolved Ktaie Martell MD PhD Pain in joint involving [...] day as needed for cough ALBUTEROL SULFATE 73633920870 Active Butch Felix MD Active MELOXICAM 15 MG TABS 1 po q day for pain with food MELOXICAM 44302636295 No Longer Active Butch Felix MD Active IBUPROFEN 400 MG TAB 1 tab po tid with food, prn IBUPROFEN 75439610452 No Longer Active Butch Felix MD Active CYCLOBENZAPRINE HCL 10 MG TABS 1 tablet by mouth at bedtime for back spasm CYCLOBENZAPRINE HCL 84000755185 No Longer Active Roland Ellis APRN Active LEVAQUIN 500 MG TAB 1 tablet by mouth daily LEVOFLOXACIN 40977812664 No Longer Active Roland Ellis LEAF BINNER Active LEVAQUIN 500 MG TAB 1 tablet by mouth daily LEVAQUIN 500 MG TAB 340529 LEVOFLOXACIN Inactive CYCLOBENZAPRINE HCL 10 MG TABS 1 tablet by mouth at bedtime for back spasm CYCLOBENZAPRINE HCL 10 MG TABS 123754 CYCLOBENZAPRINE HCL Inactive IBUPROFEN 400 MG TAB 1 tab po tid with food, prn IBUPROFEN 400 MG TAB 688951 IBUPROFEN Inactive MELOXICAM 15 MG TABS 1 po q day for pain with food MELOXICAM 15 MG TABS 894314 MELOXICAM Inactive Immunizations Vaccine Administration Date Value [...] 1.58 m[iU]/mL 0.36-3.74 sodium, serum 140 mmol/L 635-118 4107/03/09 potassium, serum 4.4 mmol/L 3.5-5.2 chloride, serum [...] 142-424 Encounters Code Encounter Date Provider Facility CPT-42624 Level 3 Est. Patient 11:06:35 BUSINESS SYSTEMS ADMINISTRATOR Butch Felix MD [facility] CPT-10619 Level 3 Est. Patient 18:22:20 BUSINESS SYSTEMS ADMINISTRATOR Dyllan Mcclure [facility] CPT-12024 Level 3 Est. Patient 17:12:26 CDT Dyllan Mcclure [facility] CPT-33860 Level 3 Est. Patient 10:50:38 CDT Katie Martell MD PhD [facility] CPT-84889 Level 3 Est. Patient 11:01:01 BUSINESS SYSTEMS ADMINISTRATOR Dyllan Kami [facility] CPT-42188 Level 3 Est. Patient 19:21:41 CDT Dyllan Mcclure [facility] CPT-14980 Level 2 Est. Patient 08:39:56 BUSINESS SYSTEMS ADMINISTRATOR Dyllan Mcclure [facility] CPT-67976 Level 3 Est. Patient 22:53:20 CDT Dyllan Mcclure [facility] CPT-08784 Level 3 Est. Patient 17:12:13 CDT Dyllan Mcclure [facility] Procedures Code Procedure Name Date Entry Date Standard Description CPT-74218 Event Monitor - Commercial Ins 14:58:02 BUSINESS SYSTEMS ADMINISTRATOR CPT-82293 EKG Trac and Interp 10:58:25 BUSINESS SYSTEMS ADMINISTRATOR CPT-53544 Chest 2V Frontal and Lat 10:58:25 BUSINESS SYSTEMS ADMINISTRATOR CPT-27137 LS spine comp w obliq 17:16:12 CDT CPT-02058 Chest 2V Frontal and Lat 10:23:04 CDT CPT-23887 Foot comp min 3V 17:12:13 CDT
--- OUTSIDE RECORDS SUMMARY | 2017-05-26 16:21 | XMS REPORT | Clinical Summary ---
Author Author Admin, JONA Organization [employer] Address Unknown Phone Unavailable Allergies, Adverse Reactions, [...] Chest wall pain 786.52 Active Chel Uriostegui HUMAN INTELLIGENCE Painful respiration Anxiety 300.00 Active Chel Uriostegui APRN Anxiety state, unspecified Leg pain, bilateral 729.5 Active Butch Felix MD Pain in limb Nerve pain 729.2 Active Alissa Johnson APRN Neuralgia, neuritis, and radiculitis, unspecified Inguinal lymphadenopathy, right 785.6 Active Alissa Johnson HUMAN INTELLIGENCE Enlargement of lymph nodes Dysuria 788.1 Active Butch Felix MD Dysuria FOOT PAIN, RIGHT ICD-729.5 Inactive Katie Martell MD PhD PAIN IN JOINT, ANKLE AND FOOT ICD-719.47 Inactive Katie Martell MD PhD Hip pain, left ICD-719.45 Inactive Katie Martell MD PhD Pharyngitis-Acute ICD-462 Inactive Katie Maretll MD PhD Cough ICD-786.2 Inactive Butch Felix MD Bronchitis, acute ICD-466.0 Inactive Butch Felix MD Lumbar strain, acute ICD-847.2 Inactive Butch Felix MD Ankle pain, left ICD-719.47 Inactive Butch Felix MD Medication List Medication Instructions Start Date Stop Date Generic Name NDC Status Provider Patient Instruction FLUTICASONE PROPIONATE 50 MCG/ACT SUSP 2 sprays each nostril daily FLUTICASONE PROPIONATE 05354811897 No Longer Active Butch Felix MD Active OMEPRAZOLE 20 MG CPDR 1 tablet by mouth daily OMEPRAZOLE 33091689101 No Longer Active Butch Felix MD Active ALBUTEROL SULFATE (2.5 MG/3ML) 0.083% NEBU 1 in nebulizer four times a day as needed for cough ALBUTEROL SULFATE 39460883377 No Longer Active Prisca Burton APRN Active ASPIRIN 325 MG TAB Take 1 tab p.o. PRN for pain ASPIRIN 73760067173 Active Chel Uriostegui APRN Active MELOXICAM 15 MG TABS 1 po q day for pain with food MELOXICAM 00104303612 No Longer Active Butch Felix MD Active IBUPROFEN 400 MG TAB 1 tab po tid with food, prn IBUPROFEN 48651373193 No Longer Active Butch Felix MD Active CYCLOBENZAPRINE HCL 10 MG TABS 1 tablet by mouth at bedtime for back spasm CYCLOBENZAPRINE HCL 00004988353 No Longer Active Roland Ellis APRN Active LEVAQUIN 500 MG TAB 1 tablet by mouth daily LEVOFLOXACIN 18910741420 No Longer Active Roland Ellis APRN Active LEVAQUIN 500 MG TAB 1 tablet by mouth daily LEVAQUIN 500 MG TAB 213306 LEVOFLOXACIN Inactive CYCLOBENZAPRINE HCL 10 MG TABS 1 tablet by mouth at bedtime for back spasm CYCLOBENZAPRINE HCL 10 MG TABS 731370 CYCLOBENZAPRINE HCL Inactive IBUPROFEN 400 MG TAB 1 tab po tid with food, prn IBUPROFEN 400 MG TAB 158302 IBUPROFEN Inactive MELOXICAM 15 MG TABS 1 po q day for pain with food MELOXICAM 15 MG TABS 062561 MELOXICAM Inactive ALBUTEROL SULFATE (2.5 MG/3ML) 0.083% NEBU 1 in nebulizer four times a day as needed for cough ALBUTEROL SULFATE (2.5 MG/3ML) 0.083% NEBU 705439 ALBUTEROL SULFATE Inactive OMEPRAZOLE 20 MG CPDR 1 tablet by mouth daily OMEPRAZOLE 20 MG CPDR 307467 OMEPRAZOLE Inactive FLUTICASONE PROPIONATE 50 MCG/ACT SUSP 2 sprays each nostril daily FLUTICASONE PROPIONATE 50 MCG/ACT SUSP 814622 FLUTICASONE PROPIONATE Inactive Immunizations Vaccine Administration Date [...] Panel - Chemistry sodium, serum 141 mmol/L 700-444 9936/04/05 carbon dioxide, venous blood 31.5 mmol/L 21.0-32.0 [...] 1.58 m[iU]/mL 0.36-3.74 sodium, serum 140 mmol/L 793-633 0827/03/09 potassium, serum 4.4 mmol/L 3.5-5.2 chloride, serum [...] 5.0-8.5 Encounters Code Encounter Date Provider Facility CPT-68088 Level 3 Est. Patient 16:34:51 CDT Butch Felix MD [facility]-88897 Level 3 Est. Patient 11:07:07 CDT Alissa Johnson [facility]-88077 Level 3 Est. Patient 09:56:03 CDT Butch Felix MD [facility]-52189 Level 3 Est. Patient 10:09:51 CDT Butch Felix MD [facility]-35484 Level 3 Est. Patient 10:33:59 CDT Chel Uriostegui [facility]-61848 Level 3 Est. Patient 16:17:38 CDT Prisca Burton [facility] CPT-32835 Level 3 Est. Patient 11:06:35 EMERGENCY DEPARTMENT DIRECTOR Butch Felix MD [facility]-32451 Level 3 Est. Patient 18:22:20 EMERGENCY DEPARTMENT DIRECTOR Dyllan Timmons [facility]-36033 Level 3 Est. Patient 17:12:26 CDT Dyllan Timmons [facility] CPT-68022 Level 3 Est. Patient 10:50:38 CDT Katie Martell MD PhD [facility] CPT-96668 Level 3 Est. Patient 11:01:01 EMERGENCY DEPARTMENT DIRECTOR Dyllan Timmons [facility] CPT-55613 Level 3 Est. Patient 19:21:41 CDT Dyllan Mcclure [facility] CPT-54939 Level 2 Est. Patient 08:39:56 EMERGENCY DEPARTMENT DIRECTOR Dyllan Timmons [facility] CPT-10629 Level 3 Est. Patient 22:53:20 CDT Dyllan Mcclure [facility] CPT-41088 Level 3 Est. Patient 17:12:13 CDT Dyllan Mcclure [facility] Procedures Code Procedure Name Date Entry Date Standard Description CPT-61110 Event Monitor - Commercial Ins 14:58:02 EMERGENCY DEPARTMENT DIRECTOR CPT-96719 EKG Trac and Interp 10:58:25 EMERGENCY DEPARTMENT DIRECTOR CPT-36157 Chest 2V Frontal and Lat 10:58:25 EMERGENCY DEPARTMENT DIRECTOR CPT-89549 LS spine comp w obliq 17:16:12 CDT CPT-11257 Chest 2V Frontal and Lat 10:23:04 CDT CPT-21532 Foot comp min 3V 17:12:13 CDT
--- OUTSIDE RECORDS SUMMARY | 2017-05-26 16:21 | XMS REPORT | Clinical Summary ---
Author Author Admin, QIE Organization [facility] Address Unknown Phone Unavailable Allergies, Adverse Reactions, [...] Chest wall pain 786.52 Active Chel Uriostegui GEOTHERMAL OPERATIONS ENGINEER Painful respiration Anxiety 300.00 Active Chel [...] Instructions Start Date Stop Date Generic Name [facility] Status Provider Patient Instruction FLUTICASONE PROPIONATE 50 MCG/ACT SUSP 2 sprays each nostril daily FLUTICASONE PROPIONATE 02668158001 No Longer Active Butch Felix MD Active OMEPRAZOLE 20 MG CPDR 1 tablet by mouth daily OMEPRAZOLE 99529692864 No Longer Active Butch Felix MD Active ALBUTEROL SULFATE (2.5 MG/3ML) 0.083% NEBU 1 in nebulizer four times a day as needed for cough ALBUTEROL SULFATE 28850291129 No Longer Active Prisca Burton APRN Active ASPIRIN 325 MG TAB Take 1 tab p.o. PRN for pain ASPIRIN 95862257339 Active Chel Uriostegui APRN Active MELOXICAM 15 MG TABS 1 po q day for pain with food MELOXICAM 06843946571 No Longer Active Butch Felix MD Active IBUPROFEN 400 MG TAB 1 tab po tid with food, prn IBUPROFEN 61962566772 No Longer Active Butch Felix MD Active CYCLOBENZAPRINE HCL 10 MG TABS 1 tablet by mouth at bedtime for back spasm CYCLOBENZAPRINE HCL 65461175194 No Longer Active Roland Ellis APRN Active LEVAQUIN 500 MG TAB 1 tablet by mouth daily LEVOFLOXACIN 96743803176 No Longer Active Roland Ellis APRN Active LEVAQUIN 500 MG TAB 1 tablet by mouth daily LEVAQUIN 500 MG TAB 606478 LEVOFLOXACIN Inactive CYCLOBENZAPRINE HCL 10 MG TABS 1 tablet by mouth at bedtime for back spasm CYCLOBENZAPRINE HCL 10 MG TABS 674033 CYCLOBENZAPRINE HCL Inactive IBUPROFEN 400 MG TAB 1 tab po tid with food, prn IBUPROFEN 400 MG TAB 142511 IBUPROFEN Inactive MELOXICAM 15 MG TABS 1 po q day for pain with food MELOXICAM 15 MG TABS 666054 MELOXICAM Inactive ALBUTEROL SULFATE (2.5 MG/3ML) 0.083% NEBU 1 in nebulizer four times a day as needed for cough ALBUTEROL SULFATE (2.5 MG/3ML) 0.083% NEBU 219805 ALBUTEROL SULFATE Inactive OMEPRAZOLE 20 MG CPDR 1 tablet by mouth daily OMEPRAZOLE 20 MG CPDR 100498 OMEPRAZOLE Inactive FLUTICASONE PROPIONATE 50 MCG/ACT SUSP 2 sprays each nostril daily FLUTICASONE PROPIONATE 50 MCG/ACT SUSP 480904 FLUTICASONE PROPIONATE Inactive Immunizations Vaccine Administration Date [...] Panel - Chemistry sodium, serum 141 mmol/L 128-171 8953/04/05 carbon dioxide, venous blood 31.5 mmol/L 21.0-32.0 [...] 1.58 m[iU]/mL 0.36-3.74 sodium, serum 140 mmol/L 437-682 5657/03/09 potassium, serum 4.4 mmol/L 3.5-5.2 chloride, serum [...] 5.0-8.5 Encounters Code Encounter Date Provider Facility CPT-33983 Level 3 Est. Patient 16:34:51 CDT Butch Felix MD [facility]-79541 Level 3 Est. Patient 11:07:07 CDT Alissa Johnson [facility]-74283 Level 3 Est. Patient 09:56:03 CDT Butch Felix MD [facility]-75909 Level 3 Est. Patient 10:09:51 CDT Butch Felix MD [facility]-31812 Level 3 Est. Patient 10:33:59 CDT Chel Uriostegui [facility]-00662 Level 3 Est. Patient 16:17:38 CDT Prisca Burton [facility]-60691 Level 3 Est. Patient 11:06:35 ELEVATOR ERECTOR HELPER Butch Felix MD [facility]-15016 Level 3 Est. Patient 18:22:20 ELEVATOR ERECTOR HELPER Dyllan Timmons [facility]-40348 Level 3 Est. Patient 17:12:26 CDT Dyllan Timmons [facility] CPT-88116 Level 3 Est. Patient 10:50:38 CDT Katie Martell MD PhD [facility] CPT-43224 Level 3 Est. Patient 11:01:01 ELEVATOR ERECTOR HELPER Dyllan Timmons [facility] CPT-07636 Level 3 Est. Patient 19:21:41 CDT Dyllan Mcclure [facility] CPT-15731 Level 2 Est. Patient 08:39:56 ELEVATOR ERECTOR HELPER Dyllan Mcclure [facility] CPT-84522 Level 3 Est. Patient 22:53:20 CDT Dyllan Mcclure [facility] CPT-35252 Level 3 Est. Patient 17:12:13 CDT Dyllan Mcclure [facility] Procedures Code Procedure Name Date Entry Date Standard Description CPT-99518 Event Monitor - Commercial Ins 14:58:02 ELEVATOR ERECTOR HELPER CPT-22571 EKG Trac and Interp 10:58:25 ELEVATOR ERECTOR HELPER CPT-80150 Chest 2V Frontal and Lat 10:58:25 ELEVATOR ERECTOR HELPER CPT-82774 LS spine comp w obliq 17:16:12 CDT CPT-12501 Chest 2V Frontal and Lat 10:23:04 CDT CPT-46100 Foot comp min 3V 17:12:13 CDT
[2017-05-26] MEDS ORDERED: DILTIAZEM 25 MG/5 ML INJ (CARDIZEM) VIAL ONE (16:22)
--- OUTSIDE RECORDS SUMMARY | 2017-05-26 16:22 | XMS REPORT | Clinical Summary ---
Author Author Admin, JONA Organization [employer] Address Unknown Phone Unavailable Allergies, Adverse Reactions, [...] Timmons DO Health examination of defined subpopulations PAIN IN JOINT, ANKLE AND FOOT ICD-719.47 Inactive Katie Martell MD PhD Hip pain, left ICD-719.45 Inactive Katie Martell MD PhD Pharyngitis-Acute ICD-462 Inactive Katie Martell MD PhD Cough ICD-786.2 Inactive Butch Felix MD Bronchitis, acute ICD-466.0 Inactive Butch Felix MD Lumbar strain, acute ICD-847.2 Inactive Butch Felix MD Ankle pain, left ICD-719.47 Inactive Butch Felix MD FOOT PAIN, RIGHT ICD-729.5 Inactive Katie Martell MD PhD Medication List Medication Instructions Start Date Stop Date Generic Name NDC Status Provider Patient Instruction PROPRANOLOL HCL 10 MG TAB 1 tablet by mouth twice daily PROPRANOLOL HCL 23795570552 Active Dyllan Timmons DO Active ASPIRIN 325 MG TAB Take 1 tab p.o. PRN for pain ASPIRIN 17378365872 No Longer Active Dyllan Timmons DO Active FLUOXETINE HCL 20 MG CAPS 1 cap by mouth daily FLUOXETINE HCL 88931500248 No Longer Active Dyllan Timmons DO Active FLUTICASONE PROPIONATE 50 MCG/ACT SUSP 2 sprays each nostril daily FLUTICASONE PROPIONATE 48125418561 No Longer Active Butch Felix MD Active OMEPRAZOLE 20 MG CPDR 1 tablet by mouth daily OMEPRAZOLE 69940271661 No Longer Active Butch Felix MD Active ALBUTEROL SULFATE (2.5 MG/3ML) 0.083% NEBU 1 in nebulizer four times a day as needed for cough ALBUTEROL SULFATE 59291332442 No Longer Active Prisca Burton APRN Active MELOXICAM 15 MG TABS 1 po q day for pain with food MELOXICAM 77884772336 No Longer Active Butch Felix MD Active IBUPROFEN 400 MG TAB 1 tab po tid with food, prn IBUPROFEN 61652588300 No Longer Active Butch Felix MD Active CYCLOBENZAPRINE HCL 10 MG TABS 1 tablet by mouth at bedtime for back spasm CYCLOBENZAPRINE HCL 11527948663 No Longer Active Roland Ellis APRN Active LEVAQUIN 500 MG TAB 1 tablet by mouth daily LEVOFLOXACIN 58608640316 No Longer Active Roland Ellis IMPORT CUSTOMER SERVICE MANAGER Active LEVAQUIN 500 MG TAB 1 tablet by mouth daily LEVAQUIN 500 MG TAB 134758 LEVOFLOXACIN Inactive CYCLOBENZAPRINE HCL 10 MG TABS 1 tablet by mouth at bedtime for back spasm CYCLOBENZAPRINE HCL 10 MG TABS 185184 CYCLOBENZAPRINE HCL Inactive IBUPROFEN 400 MG TAB 1 tab po tid with food, prn IBUPROFEN 400 MG TAB 539181 IBUPROFEN Inactive MELOXICAM 15 MG TABS 1 po q day for pain with food MELOXICAM 15 MG TABS 203209 MELOXICAM Inactive ALBUTEROL SULFATE (2.5 MG/3ML) 0.083% NEBU 1 in nebulizer four times a day as needed for cough ALBUTEROL SULFATE (2.5 MG/3ML) 0.083% NEBU 396270 ALBUTEROL SULFATE Inactive OMEPRAZOLE 20 MG CPDR 1 tablet by mouth daily OMEPRAZOLE 20 MG CPDR 012887 OMEPRAZOLE Inactive FLUTICASONE PROPIONATE 50 MCG/ACT SUSP 2 sprays each nostril daily FLUTICASONE PROPIONATE 50 MCG/ACT SUSP 6116035 FLUTICASONE PROPIONATE Inactive FLUOXETINE HCL 20 MG CAPS 1 cap by mouth daily FLUOXETINE HCL 20 MG CAPS 056996 FLUOXETINE HCL Inactive ASPIRIN 325 MG TAB Take 1 tab p.o. PRN for pain ASPIRIN 325 MG TAB 036629 ASPIRIN Inactive Immunizations Vaccine Administration Date Value [...] Panel - Chemistry sodium, serum 140 mmol/L 456-198 7427/07/06 carbon dioxide, venous blood 29.4 mmol/L 21.0-32.0 [...] 0.00-1.00 Encounters Code Encounter Date Provider Facility CPT-38773 Level 3 Est. Patient 13:07:09 CDT Dyllan Timmons [facility] CPT-39882 Level 3 Est. Patient 09:01:12 CDT Dyllan Timmons [facility] CPT-70370 Level 3 Est. Patient 08:29:00 CDT Dyllan Timmons [facility] CPT-63555 Level 3 Est. Patient 16:34:51 CDT Butch Felix MD [facility] CPT-73926 Level 3 Est. Patient 11:07:07 CDT Alissa Johnson [facility] CPT-96069 Level 3 Est. Patient 09:56:03 CDT Butch Felix MD [facility] CPT-16058 Level 3 Est. Patient 10:09:51 CDT Butch Felix MD [facility] CPT-12814 Level 3 Est. Patient 10:33:59 CDT Chel Uriostegui [facility] CPT-21226 Level 3 Est. Patient 16:17:38 CDT Prisca Burton [facility] CPT-29934 Level 3 Est. Patient 11:06:35 SALES ASSISTANTS AND SALESPERSONS Butch Felix MD [facility] CPT-48754 Level 3 Est. Patient 18:22:20 SALES ASSISTANTS AND SALESPERSONS Dyllan Timmons [facility] CPT-48220 Level 3 Est. Patient 17:12:26 CDT Dyllan Timmons [facility] CPT-51461 Level 3 Est. Patient 10:50:38 CDT Katie Martell MD PhD [facility] CPT-62165 Level 3 Est. Patient 11:01:01 SALES ASSISTANTS AND SALESPERSONS Dyllan Timmons [facility] CPT-21186 Level 3 Est. Patient 19:21:41 CDT Dyllan Timmons [facility] CPT-27781 Level 2 Est. Patient 08:39:56 SALES ASSISTANTS AND SALESPERSONS Dyllan Timmons [facility] CPT-56552 Level 3 Est. Patient 22:53:20 CDT Dyllan Timmons [facility] CPT-92569 Level 3 Est. Patient 17:12:13 CDT Dyllan Mcclure [facility] Procedures Code Procedure Name Date Entry Date Standard Description CPT-99147 Addl Vx - Ix admin via ID IM or jet injects without counseling by physician 10:39:15 CDT CPT-95730 Gardasil 9 Intramuscular Suspension 10:39:15 CDT 04/15 CPT-45229 First Vx - Ix admin via ID IM or jet injects without counseling by physician 10:39:15 CDT CPT-53181 Havrix Intramuscular Suspension 720 EL U/0.5ML 10:39:15 CDT CPT-03315 Addl Vx - Ix admin via ID IM or jet injects without counseling by physician 14:02:27 CDT CPT-83714 Meningococcal B, recombinant vaccine 14:02:27 CDT 03/27 CPT-57733 First Vx - Ix admin via ID IM or jet injects without counseling by physician 14:02:27 CDT CPT-12857 Menveo Intramuscular Solution Reconstituted 14:02:27 CDT [id number] Event Monitor - MC review and interp 16:30:59 SALES ASSISTANTS AND SALESPERSONS CPT-16152 EKG Trac and Interp - XRAY USE ONLY 10:18:23 CDT 04/10 CPT-02347 Event Monitor - Commercial Ins 14:58:02 SALES ASSISTANTS AND SALESPERSONS CPT-02728 EKG Trac and Interp 10:58:25 SALES ASSISTANTS AND SALESPERSONS CPT-96701 Chest 2V Frontal and Lat 10:58:25 SALES ASSISTANTS AND SALESPERSONS CPT-59439 LS spine comp w obliq 17:16:12 CDT CPT-43377 Chest 2V Frontal and Lat 10:23:04 CDT CPT-85109 Foot comp min 3V 17:12:13 CDT
--- OUTSIDE RECORDS SUMMARY | 2017-05-26 16:22 | XMS REPORT | Clinical Summary ---
Author Author Admin, QIE Organization [facility] Address Unknown Phone Unavailable Allergies, Adverse Reactions, [...] bronchitis Lumbar strain, acute 847.2 Resolved Butch Feilx MD Lumbar sprain Ankle pain, left 719.47 [...] 1 cap by mouth daily FLUOXETINE HCL 18715531068 Active Dyllan Timmons DO Active FLUTICASONE PROPIONATE 50 MCG/ACT SUSP 2 sprays each nostril daily FLUTICASONE PROPIONATE 86622180578 No Longer Active Butch Felix MD Active OMEPRAZOLE 20 MG CPDR 1 tablet by mouth daily OMEPRAZOLE 17146425712 No Longer Active Butch Felix MD Active ALBUTEROL SULFATE (2.5 MG/3ML) 0.083% NEBU 1 in nebulizer four times a day as needed for cough ALBUTEROL SULFATE 66153791538 No Longer Active Prisca Burton APRN Active ASPIRIN 325 MG TAB Take 1 tab p.o. PRN for pain ASPIRIN 87674995187 Active Chel Uriostegui APRN Active MELOXICAM 15 MG TABS 1 po q day for pain with food MELOXICAM 68561253711 No Longer Active Butch Felix MD Active IBUPROFEN 400 MG TAB 1 tab po tid with food, prn IBUPROFEN 42452581990 No Longer Active Butch Felix MD Active CYCLOBENZAPRINE HCL 10 MG TABS 1 tablet by mouth at bedtime for back spasm CYCLOBENZAPRINE HCL 55214067974 No Longer Active Roland Ellis APRN Active LEVAQUIN 500 MG TAB 1 tablet by mouth daily LEVOFLOXACIN 68644792497 No Longer Active Jillina Frazell CLINICAL ENGINEERING MANAGER Active LEVAQUIN 500 MG TAB 1 tablet by mouth daily LEVAQUIN 500 MG TAB 617198 LEVOFLOXACIN Inactive CYCLOBENZAPRINE HCL 10 MG TABS 1 tablet by mouth at bedtime for back spasm CYCLOBENZAPRINE HCL 10 MG TABS 834432 CYCLOBENZAPRINE HCL Inactive IBUPROFEN 400 MG TAB 1 tab po tid with food, prn IBUPROFEN 400 MG TAB 932535 IBUPROFEN Inactive MELOXICAM 15 MG TABS 1 po q day for pain with food MELOXICAM 15 MG TABS 348497 MELOXICAM Inactive ALBUTEROL SULFATE (2.5 MG/3ML) 0.083% NEBU 1 in nebulizer four times a day as needed for cough ALBUTEROL SULFATE (2.5 MG/3ML) 0.083% NEBU 862235 ALBUTEROL SULFATE Inactive OMEPRAZOLE 20 MG CPDR 1 tablet by mouth daily OMEPRAZOLE 20 MG CPDR 618839 OMEPRAZOLE Inactive FLUTICASONE PROPIONATE 50 MCG/ACT SUSP 2 sprays each nostril daily FLUTICASONE PROPIONATE 50 MCG/ACT SUSP 039323 FLUTICASONE PROPIONATE Inactive Immunizations Vaccine Administration Date [...] E&M - 3141-9 214.5 [lb_av] Weight Measured blood pressure, diastolic - [...] E&M - 3141-9 219.50 [lb_av] Weight Measured Diagnostic Results Date Name Value Unit Range Description Lab Report: CBC, Comp. Metabolic Panel - Chemistry sodium, serum 141 mmol/L 290-780 9069/04/05 carbon dioxide, venous blood 31.5 mmol/L 21.0-32.0 [...] 1.58 m[iU]/mL 0.36-3.74 sodium, serum 140 mmol/L 182-884 7931/03/09 potassium, serum 4.4 mmol/L 3.5-5.2 chloride, serum [...] 5.0-8.5 Encounters Code Encounter Date Provider Facility CPT-02704 Level 3 Est. Patient 09:01:12 CDT Dyllan Timmons [facility] CPT-56897 Level 3 Est. Patient 08:29:00 CDT Dyllan Timmons [facility] CPT-71969 Level 3 Est. Patient 16:34:51 CDT Butch Felix MD [facility] CPT-97556 Level 3 Est. Patient 11:07:07 CDT [facility] CPT-87579 Level 3 Est. Patient 09:56:03 CDT Butch Felix MD [facility] CPT-87574 Level 3 Est. Patient 10:09:51 CDT Butch Felix MD [facility] CPT-06015 Level 3 Est. Patient 10:33:59 CDT Chel Uriostegui [facility] CPT-97122 Level 3 Est. Patient 16:17:38 CDT Prisca Micheal [facility] CPT-77455 Level 3 Est. Patient 11:06:35 LOWER SCHOOL SPANISH TEACHER Butch Felix MD [facility] CPT-72994 Level 3 Est. Patient 18:22:20 LOWER SCHOOL SPANISH TEACHER Dyllan Timmons [facility] CPT-53655 Level 3 Est. Patient 17:12:26 CDT Dyllan Timmons [facility] CPT-54322 Level 3 Est. Patient 10:50:38 CDT Katie Martell MD PhD [facility] CPT-68314 Level 3 Est. Patient 11:01:01 LOWER SCHOOL SPANISH TEACHER Dyllan Timmons [facility] CPT-84940 Level 3 Est. Patient 19:21:41 CDT Dyllan Timmons [facility] CPT-75492 Level 2 Est. Patient 08:39:56 LOWER SCHOOL SPANISH TEACHER Dyllan Timmons [facility] CPT-89637 Level 3 Est. Patient 22:53:20 CDT Dyllan Timmons [facility] CPT-18265 Level 3 Est. Patient 17:12:13 CDT Dyllan Timmons [facility] Procedures Code Procedure Name Date Entry Date Standard Description [id number] Event Monitor - MC review and interp 16:30:59 LOWER SCHOOL SPANISH TEACHER CPT-96248 EKG Trac and Interp - XRAY USE ONLY 10:18:23 CDT 04/10 CPT-84679 Event Monitor - Commercial Ins 14:58:02 LOWER SCHOOL SPANISH TEACHER CPT-86680 EKG Trac and Interp 10:58:25 LOWER SCHOOL SPANISH TEACHER CPT-30793 Chest 2V Frontal and Lat 10:58:25 LOWER SCHOOL SPANISH TEACHER CPT-45712 LS spine comp w obliq 17:16:12 CDT CPT-58712 Chest 2V Frontal and Lat 10:23:04 CDT CPT-97287 Foot comp min 3V 17:12:13 CDT
--- OUTSIDE RECORDS SUMMARY | 2017-05-26 16:23 | XMS REPORT | Clinical Summary ---
Author Author Admin, JONA Organization [employer] Address Unknown Phone Unavailable Allergies, Adverse Reactions, [...] day as needed for cough ALBUTEROL SULFATE 98992454260 Active Butch Felix MD Active MELOXICAM 15 MG TABS 1 po q day for pain with food MELOXICAM 09913738213 No Longer Active Butch Felix MD Active IBUPROFEN 400 MG TAB 1 tab po tid with food, prn IBUPROFEN 11032505750 No Longer Active Butch Felix MD Active CYCLOBENZAPRINE HCL 10 MG TABS 1 tablet by mouth at bedtime for back spasm CYCLOBENZAPRINE HCL 19409641811 No Longer Active Roland Ellis APRN Active LEVAQUIN 500 MG TAB 1 tablet by mouth daily LEVOFLOXACIN 68063200433 No Longer Active Roland Ellis PROGRAM ASSISTANT Active LEVAQUIN 500 MG TAB 1 tablet by mouth daily LEVAQUIN 500 MG TAB 441668 LEVOFLOXACIN Inactive CYCLOBENZAPRINE HCL 10 MG TABS 1 tablet by mouth at bedtime for back spasm CYCLOBENZAPRINE HCL 10 MG TABS 379326 CYCLOBENZAPRINE HCL Inactive IBUPROFEN 400 MG TAB 1 tab po tid with food, prn IBUPROFEN 400 MG TAB 630747 IBUPROFEN Inactive MELOXICAM 15 MG TABS 1 po q day for pain with food MELOXICAM 15 MG TABS 872966 MELOXICAM Inactive Immunizations Vaccine Administration Date Value [...] 1.58 m[iU]/mL 0.36-3.74 sodium, serum 140 mmol/L 970-188 0355/03/09 potassium, serum 4.4 mmol/L 3.5-5.2 chloride, serum [...] 142-424 Encounters Code Encounter Date Provider Facility CPT-63251 Level 3 Est. Patient 11:06:35 REPORTER ANCHOR Butch Felix MD [facility] CPT-91982 Level 3 Est. Patient 18:22:20 REPORTER ANCHOR Dyllan Mcclure [facility] CPT-98719 Level 3 Est. Patient 17:12:26 CDT Dyllan Mcclure [facility] CPT-62555 Level 3 Est. Patient 10:50:38 CDT Katie Martell MD PhD [facility] CPT-09551 Level 3 Est. Patient 11:01:01 REPORTER ANCHOR Dyllan Kami [facility] CPT-68000 Level 3 Est. Patient 19:21:41 CDT Dyllan Mcclure [facility] CPT-97130 Level 2 Est. Patient 08:39:56 REPORTER ANCHOR Dyllan Mcclure [facility] CPT-62824 Level 3 Est. Patient 22:53:20 CDT Dyllan Mcclure [facility] CPT-13073 Level 3 Est. Patient 17:12:13 CDT Dyllan Mcclure [facility] Procedures Code Procedure Name Date Entry Date Standard Description CPT-05498 Event Monitor - Commercial Ins 14:58:02 REPORTER ANCHOR CPT-34502 EKG Trac and Interp 10:58:25 REPORTER ANCHOR CPT-96496 Chest 2V Frontal and Lat 10:58:25 REPORTER ANCHOR CPT-36010 LS spine comp w obliq 17:16:12 CDT CPT-63480 Chest 2V Frontal and Lat 10:23:04 CDT CPT-26933 Foot comp min 3V 17:12:13 CDT
--- OUTSIDE RECORDS SUMMARY | 2017-05-26 16:23 | XMS REPORT | Clinical Summary ---
Author Author Admin, JONA Organization [employer] Address Unknown Phone Unavailable Allergies, Adverse Reactions, [...] day as needed for cough ALBUTEROL SULFATE 21264041621 Active Butch Felix MD Active MELOXICAM 15 MG TABS 1 po q day for pain with food MELOXICAM 30528491556 No Longer Active Butch Felix MD Active IBUPROFEN 400 MG TAB 1 tab po tid with food, prn IBUPROFEN 95356870225 No Longer Active Butch Felix MD Active CYCLOBENZAPRINE HCL 10 MG TABS 1 tablet by mouth at bedtime for back spasm CYCLOBENZAPRINE HCL 39415764865 No Longer Active Roland Ellis APRN Active LEVAQUIN 500 MG TAB 1 tablet by mouth daily LEVOFLOXACIN 54163839921 No Longer Active Roland Ellis MANAGING BROKER Active LEVAQUIN 500 MG TAB 1 tablet by mouth daily LEVAQUIN 500 MG TAB 812900 LEVOFLOXACIN Inactive CYCLOBENZAPRINE HCL 10 MG TABS 1 tablet by mouth at bedtime for back spasm CYCLOBENZAPRINE HCL 10 MG TABS 166318 CYCLOBENZAPRINE HCL Inactive IBUPROFEN 400 MG TAB 1 tab po tid with food, prn IBUPROFEN 400 MG TAB 881359 IBUPROFEN Inactive MELOXICAM 15 MG TABS 1 po q day for pain with food MELOXICAM 15 MG TABS 040977 MELOXICAM Inactive Immunizations Vaccine Administration Date Value [...] 1.58 m[iU]/mL 0.36-3.74 sodium, serum 140 mmol/L 720-864 6174/03/09 potassium, serum 4.4 mmol/L 3.5-5.2 chloride, serum [...] 142-424 Encounters Code Encounter Date Provider Facility CPT-38648 Level 3 Est. Patient 11:06:35 TECHNICAL PLANNER Butch Felix MD [facility] CPT-40519 Level 3 Est. Patient 18:22:20 TECHNICAL PLANNER Dyllan Mcclure [facility] CPT-63393 Level 3 Est. Patient 17:12:26 CDT Dyllan Mcclure [facility] CPT-55721 Level 3 Est. Patient 10:50:38 CDT Katie Martell MD PhD [facility] CPT-28091 Level 3 Est. Patient 11:01:01 TECHNICAL PLANNER Dyllan Kami [facility] CPT-50161 Level 3 Est. Patient 19:21:41 CDT Dyllan Mcclure [facility] CPT-41495 Level 2 Est. Patient 08:39:56 TECHNICAL PLANNER Dyllan Mcclure [facility] CPT-66846 Level 3 Est. Patient 22:53:20 CDT Dyllan Mcclure [facility] CPT-70562 Level 3 Est. Patient 17:12:13 CDT Dyllan Mcclure [facility] Procedures Code Procedure Name Date Entry Date Standard Description CPT-17553 Event Monitor - Commercial Ins 14:58:02 TECHNICAL PLANNER CPT-35139 EKG Trac and Interp 10:58:25 TECHNICAL PLANNER CPT-30623 Chest 2V Frontal and Lat 10:58:25 TECHNICAL PLANNER CPT-00634 LS spine comp w obliq 17:16:12 CDT CPT-27439 Chest 2V Frontal and Lat 10:23:04 CDT CPT-42225 Foot comp min 3V 17:12:13 CDT
--- OUTSIDE RECORDS SUMMARY | 2017-05-26 16:23 | XMS REPORT | Clinical Summary ---
Author Author Admin, QIE Organization [facility] Address Unknown Phone Unavailable Allergies, Adverse [...] 1 cap by mouth daily FLUOXETINE HCL 21149345176 Active Dyllan Timmons DO Active FLUTICASONE PROPIONATE 50 MCG/ACT SUSP 2 sprays each nostril daily FLUTICASONE PROPIONATE 94425679455 No Longer Active Butch Felix MD Active OMEPRAZOLE 20 MG CPDR 1 tablet by mouth daily OMEPRAZOLE 79081700159 No Longer Active Butch Felix MD Active ALBUTEROL SULFATE (2.5 MG/3ML) 0.083% NEBU 1 in nebulizer four times a day as needed for cough ALBUTEROL SULFATE 70253672490 No Longer Active Prisca Burton APRN Active ASPIRIN 325 MG TAB Take 1 tab p.o. PRN for pain ASPIRIN 63868912882 Active Chel Uriostegui APRN Active MELOXICAM 15 MG TABS 1 po q day for pain with food MELOXICAM 13393241278 No Longer Active Butch Felix MD Active IBUPROFEN 400 MG TAB 1 tab po tid with food, prn IBUPROFEN 11510072766 No Longer Active Butch Felix MD Active CYCLOBENZAPRINE HCL 10 MG TABS 1 tablet by mouth at bedtime for back spasm CYCLOBENZAPRINE HCL 78013600599 No Longer Active Roland Ellis APRN Active LEVAQUIN 500 MG TAB 1 tablet by mouth daily LEVOFLOXACIN 53748853387 No Longer Active Jillina Frazell ECHO TECHNICIAN Active LEVAQUIN 500 MG TAB 1 tablet by mouth daily LEVAQUIN 500 MG TAB 383436 LEVOFLOXACIN Inactive CYCLOBENZAPRINE HCL 10 MG TABS 1 tablet by mouth at bedtime for back spasm CYCLOBENZAPRINE HCL 10 MG TABS 749836 CYCLOBENZAPRINE HCL Inactive IBUPROFEN 400 MG TAB 1 tab po tid with food, prn IBUPROFEN 400 MG TAB 035524 IBUPROFEN Inactive MELOXICAM 15 MG TABS 1 po q day for pain with food MELOXICAM 15 MG TABS 004105 MELOXICAM Inactive ALBUTEROL SULFATE (2.5 MG/3ML) 0.083% NEBU 1 in nebulizer four times a day as needed for cough ALBUTEROL SULFATE (2.5 MG/3ML) 0.083% NEBU 609532 ALBUTEROL SULFATE Inactive OMEPRAZOLE 20 MG CPDR 1 tablet by mouth daily OMEPRAZOLE 20 MG CPDR 751471 OMEPRAZOLE Inactive FLUTICASONE PROPIONATE 50 MCG/ACT SUSP 2 sprays each nostril daily FLUTICASONE PROPIONATE 50 MCG/ACT SUSP 3009531 FLUTICASONE PROPIONATE Inactive Immunizations Vaccine Administration Date [...] Panel - Chemistry sodium, serum 141 mmol/L 846-990 7692/04/05 carbon dioxide, venous blood 31.5 mmol/L 21.0-32.0 [...] Hormone (L), Basic Metabolic Panel - Chemistry carbon dioxide, venous blood 27.3 mmol/L 21.0-32.0 chloride, serum 102 mmol/L 98-107 potassium, serum 4.4 mmol/L 3.5-5.2 sodium, serum 140 mmol/L 105-434 1766/03/09 TSH 1.58 m[iU]/mL 0.36-3.74 blood glucose 81 mg/dL 65-110 calcium, serum [...] 5.0-8.5 Encounters Code Encounter Date Provider Facility CPT-01161 Level 3 Est. Patient 09:01:12 CDT Dyllan Timmons [facility] CPT-70434 Level 3 Est. Patient 08:29:00 CDT Dyllan Timmons [facility] CPT-23080 Level 3 Est. Patient 16:34:51 CDT Butch Felix MD [facility] CPT-43024 Level 3 Est. Patient 11:07:07 CDT Alissa Elizabeth [facility] CPT-31552 Level 3 Est. Patient 09:56:03 CDT Butch Felix MD [facility] CPT-45691 Level 3 Est. Patient 10:09:51 CDT Butch Felix MD [facility] CPT-88962 Level 3 Est. Patient 10:33:59 CDT Chel Uriostegui [facility] CPT-71684 Level 3 Est. Patient 16:17:38 CDT Prisca Micheal [facility] CPT-39175 Level 3 Est. Patient 11:06:35 MANAGER OF RECRUITING Butch Felix MD [facility] CPT-01577 Level 3 Est. Patient 18:22:20 MANAGER OF RECRUITING Dyllan Timmons [facility] CPT-05433 Level 3 Est. Patient 17:12:26 CDT Dyllan Timmons [facility] CPT-66302 Level 3 Est. Patient 10:50:38 CDT Katie Martell MD PhD [facility] CPT-21877 Level 3 Est. Patient 11:01:01 MANAGER OF RECRUITING Dyllan Timmons [facility] CPT-07630 Level 3 Est. Patient 19:21:41 CDT Dyllan Timmons [facility] CPT-56439 Level 2 Est. Patient 08:39:56 MANAGER OF RECRUITING Dyllan Timmons [facility] CPT-24788 Level 3 Est. Patient 22:53:20 CDT Dyllan Timmons [facility] CPT-20449 Level 3 Est. Patient 17:12:13 CDT Dyllan Timmons [facility] Procedures Code Procedure Name Date Entry Date Standard Description [id number] Event Monitor - MC review and interp 16:30:59 MANAGER OF RECRUITING CPT-47032 EKG Trac and Interp - XRAY USE ONLY 10:18:23 CDT 04/10 CPT-28470 Event Monitor - Commercial Ins 14:58:02 MANAGER OF RECRUITING CPT-42213 EKG Trac and Interp 10:58:25 MANAGER OF RECRUITING CPT-86292 Chest 2V Frontal and Lat 10:58:25 MANAGER OF RECRUITING CPT-09546 LS spine comp w obliq 17:16:12 CDT CPT-74193 Chest 2V Frontal and Lat 10:23:04 CDT CPT-67010 Foot comp min 3V 17:12:13 CDT
--- OUTSIDE RECORDS SUMMARY | 2017-05-26 16:24 | XMS REPORT | Clinical Summary ---
Author Author Admin, JONA Organization [employer] Address Unknown Phone Unavailable Allergies, Adverse Reactions, [...] Palpitations Acid reflux 530.81 Active Prisca Burton CLIMATE CHANGE ANALYST Esophageal reflux Allergic rhinitis 477.9 Active Prisca Burton APRN Allergic rhinitis, cause unspecified Chest wall pain 786.52 Active Chel Uriostegui CLIMATE CHANGE ANALYST Painful respiration Anxiety 300.00 Active Chel Uriostegui CLIMATE CHANGE ANALYST Anxiety state, unspecified Leg pain, bilateral 729.5 Active Butch Felix MD Pain in limb Nerve pain 729.2 Active Alissa Johnson CLIMATE CHANGE ANALYST Neuralgia, neuritis, and radiculitis, unspecified Inguinal lymphadenopathy, right 785.6 Active Alissa Johnson CLIMATE CHANGE ANALYST Enlargement of lymph nodes FOOT PAIN, RIGHT ICD-729.5 Inactive Katie Martell [...] 2 sprays each nostril daily FLUTICASONE PROPIONATE 55875241561 No Longer Active Butch Felix MD Active OMEPRAZOLE 20 MG CPDR 1 tablet by mouth daily OMEPRAZOLE 70451677155 No Longer Active Butch Felix MD Active ALBUTEROL SULFATE (2.5 MG/3ML) 0.083% NEBU 1 in nebulizer four times a day as needed for cough ALBUTEROL SULFATE 50297090334 No Longer Active Prisca Burton APRN Active ASPIRIN 325 MG TAB Take 1 tab p.o. PRN for pain ASPIRIN 01663666322 Active Chel Uriostegui APRN Active MELOXICAM 15 MG TABS 1 po q day for pain with food MELOXICAM 51634375745 No Longer Active Butch Felix MD Active IBUPROFEN 400 MG TAB 1 tab po tid with food, prn IBUPROFEN 60378975172 No Longer Active Butch Felix MD Active CYCLOBENZAPRINE HCL 10 MG TABS 1 tablet by mouth at bedtime for back spasm CYCLOBENZAPRINE HCL 53241969175 No Longer Active Jileonel Ellis APRN Active LEVAQUIN 500 MG TAB 1 tablet by mouth daily LEVOFLOXACIN 99221382312 No Longer Active Jillina Marquitazelselena GOSS Active LEVAQUIN 500 MG TAB 1 tablet by mouth daily LEVAQUIN 500 MG TAB 516902 LEVOFLOXACIN Inactive CYCLOBENZAPRINE HCL 10 MG TABS 1 tablet by mouth at bedtime for back spasm CYCLOBENZAPRINE HCL 10 MG TABS 898891 CYCLOBENZAPRINE HCL Inactive IBUPROFEN 400 MG TAB 1 tab po tid with food, prn IBUPROFEN 400 MG TAB 766068 IBUPROFEN Inactive MELOXICAM 15 MG TABS 1 po q day for pain with food MELOXICAM 15 MG TABS 207139 MELOXICAM Inactive ALBUTEROL SULFATE (2.5 MG/3ML) 0.083% NEBU 1 in nebulizer four times a day as needed for cough ALBUTEROL SULFATE (2.5 MG/3ML) 0.083% NEBU 736664 ALBUTEROL SULFATE Inactive OMEPRAZOLE 20 MG CPDR 1 tablet by mouth daily OMEPRAZOLE 20 MG CPDR 161541 OMEPRAZOLE Inactive FLUTICASONE PROPIONATE 50 MCG/ACT SUSP 2 sprays each nostril daily FLUTICASONE PROPIONATE 50 MCG/ACT SUSP 587728 FLUTICASONE PROPIONATE Inactive Immunizations Vaccine Administration Date [...] Panel - Chemistry sodium, serum 141 mmol/L 373-107 6367/04/05 carbon dioxide, venous blood 31.5 mmol/L 21.0-32.0 [...] 1.58 m[iU]/mL 0.36-3.74 sodium, serum 140 mmol/L 379-711 3181/03/09 potassium, serum 4.4 mmol/L 3.5-5.2 chloride, serum [...] 142-424 Encounters Code Encounter Date Provider Facility CPT-93176 Level 3 Est. Patient 11:07:07 CDT Alissa Johnson APRN [facility] CPT-77274 Level 3 Est. Patient 09:56:03 CDT Butch Felix MD [facility] CPT-30824 Level 3 Est. Patient 10:09:51 CDT Butch Felix MD [facility] CPT-79366 Level 3 Est. Patient 10:33:59 CDT Chel Yokum [facility] CPT-75861 Level 3 Est. Patient 16:17:38 CDT Priscaalejandra Burton [facility] CPT-43104 Level 3 Est. Patient 11:06:35 SUPERINTENDENT PIPELINES Butch Felix MD [facility] CPT-87054 Level 3 Est. Patient 18:22:20 SUPERINTENDENT PIPELINES Dyllan Mcclure [facility] CPT-58390 Level 3 Est. Patient 17:12:26 CDT Dyllan Kami [facility] CPT-83238 Level 3 Est. Patient 10:50:38 CDT Katie Martell MD PhD [facility] CPT-63218 Level 3 Est. Patient 11:01:01 SUPERINTENDENT PIPELINES Dyllan Mcclure [facility] CPT-37850 Level 3 Est. Patient 19:21:41 CDT Dyllan Mcclure [facility] CPT-41111 Level 2 Est. Patient 08:39:56 SUPERINTENDENT PIPELINES Dyllan Kami [facility] CPT-31335 Level 3 Est. Patient 22:53:20 CDT Dyllan Mcclure [facility] CPT-10876 Level 3 Est. Patient 17:12:13 CDT Dyllan Kami [facility] Procedures Code Procedure Name Date Entry Date Standard Description CPT-52328 Event Monitor - Commercial Ins 14:58:02 SUPERINTENDENT PIPELINES CPT-29802 EKG Trac and Interp 10:58:25 SUPERINTENDENT PIPELINES CPT-27027 Chest 2V Frontal and Lat 10:58:25 SUPERINTENDENT PIPELINES CPT-31063 LS spine comp w obliq 17:16:12 CDT CPT-46282 Chest 2V Frontal and Lat 10:23:04 CDT CPT-95406 Foot comp min 3V 17:12:13 CDT
--- OUTSIDE RECORDS SUMMARY | 2017-05-26 16:24 | XMS REPORT | Clinical Summary ---
Author Author Admin, JONA Organization [facility] Address Unknown Phone Unavailable Allergies, Adverse [...] at bedtime for back spasm CYCLOBENZAPRINE HCL 23696401317 Active Dyllan Timmons DO Active LEVAQUIN 500 MG TAB 1 tablet by mouth daily LEVOFLOXACIN 11191396274 Active Katie Martell MD PhD Active Immunizations [...] Negative Encounters Code Encounter Date Provider Facility CPT-05207 Level 3 Est. Patient 17:12:26 CDT Dyllan Timmons [facility] CPT-36135 Level 3 Est. Patient 10:50:38 CDT Katie Martell MD PhD [facility] CPT-01713 Level 3 Est. Patient 11:01:01 REPRODUCER Dyllan Timmons [facility] CPT-61526 Level 3 Est. Patient 19:21:41 CDT Dyllan Timmons [facility] CPT-44755 Level 2 Est. Patient 08:39:56 REPRODUCER Dyllan Timmons [facility] CPT-35729 Level 3 Est. Patient 22:53:20 CDT Dyllan Timmons [facility] CPT-79106 Level 3 Est. Patient 17:12:13 CDT Dyllan Timmons [facility] Procedures Code Procedure Name Date Entry Date Standard Description CPT-16889 LS spine comp w obliq 17:16:12 CDT CPT-66112 Chest 2V Frontal and Lat 10:23:04 CDT CPT-64666 Foot comp min 3V 17:12:13 CDT
--- OUTSIDE RECORDS SUMMARY | 2017-05-26 16:24 | XMS REPORT | Clinical Summary ---
Author Author Admin, JONA Organization [employer] Address Unknown Phone Unavailable Allergies, Adverse Reactions, Alerts Allergy Name Reaction Description Start Date Severity Status Provider CEPHALOSPORINS Critical Active Dyllan Timmosn DO AMOXICILLIN Critical Active Dyllan Timmons DO [...] 1 tab p.o. PRN for pain ASPIRIN 32075136288 Active Chel Uriostegui APRN Active ALBUTEROL SULFATE (2.5 MG/3ML) 0.083% NEBU 1 in nebulizer four times a day as needed for cough ALBUTEROL SULFATE 25333769200 Active Butch Felix MD Active MELOXICAM 15 MG TABS 1 po q day for pain with food MELOXICAM 79354294639 No Longer Active Butch Felix MD Active IBUPROFEN 400 MG TAB 1 tab po tid with food, prn IBUPROFEN 73818285063 No Longer Active Butch Felix MD Active CYCLOBENZAPRINE HCL 10 MG TABS 1 tablet by mouth at bedtime for back spasm CYCLOBENZAPRINE HCL 67901635030 No Longer Active Roland Ellis FUR SORTER Active LEVAQUIN 500 MG TAB 1 tablet by mouth daily LEVOFLOXACIN 61669407864 No Longer Active Roland Mcfaddenl FUR SORTER Active LEVAQUIN 500 MG TAB 1 tablet by mouth daily LEVAQUIN 500 MG TAB 842739 LEVOFLOXACIN Inactive CYCLOBENZAPRINE HCL 10 MG TABS 1 tablet by mouth at bedtime for back spasm CYCLOBENZAPRINE HCL 10 MG TABS 589108 CYCLOBENZAPRINE HCL Inactive IBUPROFEN 400 MG TAB 1 tab po tid with food, prn IBUPROFEN 400 MG TAB 842758 IBUPROFEN Inactive MELOXICAM 15 MG TABS 1 po q day for pain with food MELOXICAM 15 MG TABS 235553 MELOXICAM Inactive Immunizations Vaccine Administration Date Value [...] 1.58 m[iU]/mL 0.36-3.74 sodium, serum 140 mmol/L 345-349 0736/03/09 potassium, serum 4.4 mmol/L 3.5-5.2 chloride, serum [...] 142-424 Encounters Code Encounter Date Provider Facility CPT-25377 Level 3 Est. Patient 11:06:35 MANUAL LATHE MACHINIST Butch Felix MD [facility] CPT-64625 Level 3 Est. Patient 18:22:20 MANUAL LATHE MACHINIST Dyllan Mcclure [facility] CPT-82686 Level 3 Est. Patient 17:12:26 CDT Dyllan Kami [facility] CPT-93311 Level 3 Est. Patient 10:50:38 CDT Katie Martell MD PhD [facility] CPT-72079 Level 3 Est. Patient 11:01:01 MANUAL LATHE MACHINIST Dyllan Mcclure [facility] CPT-90857 Level 3 Est. Patient 19:21:41 CDT Dyllan Mcclure [facility] CPT-94374 Level 2 Est. Patient 08:39:56 MANUAL LATHE MACHINIST Dyllan Mcclure [facility] CPT-66631 Level 3 Est. Patient 22:53:20 CDT Dyllan Kami [facility] CPT-38587 Level 3 Est. Patient 17:12:13 CDT Dyllan Mcclure [facility] Procedures Code Procedure Name Date Entry Date Standard Description CPT-21838 Event Monitor - Commercial Ins 14:58:02 MANUAL LATHE MACHINIST CPT-71334 EKG Trac and Interp 10:58:25 MANUAL LATHE MACHINIST CPT-43359 Chest 2V Frontal and Lat 10:58:25 MANUAL LATHE MACHINIST CPT-38846 LS spine comp w obliq 17:16:12 CDT CPT-74957 Chest 2V Frontal and Lat 10:23:04 CDT CPT-75389 Foot comp min 3V 17:12:13 CDT
[2017-05-26] MEDS ORDERED: DILTIAZEM 100 MG/VIAL (CARDIZEM) ADD-VANTAGE IV ONE (16:25)
--- OUTSIDE RECORDS SUMMARY | 2017-05-26 16:25 | XMS REPORT | Clinical Summary ---
Author Author Admin, JONA Organization [employer] Address Unknown Phone Unavailable Allergies, Adverse Reactions, [...] day as needed for cough ALBUTEROL SULFATE 35131765345 Active Butch Felix MD Active MELOXICAM 15 MG TABS 1 po q day for pain with food MELOXICAM 24168665272 No Longer Active Butch Felix MD Active IBUPROFEN 400 MG TAB 1 tab po tid with food, prn IBUPROFEN 40950601656 No Longer Active Butch Felix MD Active CYCLOBENZAPRINE HCL 10 MG TABS 1 tablet by mouth at bedtime for back spasm CYCLOBENZAPRINE HCL 27219772224 No Longer Active Roland Ellis APRN Active LEVAQUIN 500 MG TAB 1 tablet by mouth daily LEVOFLOXACIN 52089857269 No Longer Active Roland Ellis STAGE SETTINGS PAINTER Active LEVAQUIN 500 MG TAB 1 tablet by mouth daily LEVAQUIN 500 MG TAB 358912 LEVOFLOXACIN Inactive CYCLOBENZAPRINE HCL 10 MG TABS 1 tablet by mouth at bedtime for back spasm CYCLOBENZAPRINE HCL 10 MG TABS 541354 CYCLOBENZAPRINE HCL Inactive IBUPROFEN 400 MG TAB 1 tab po tid with food, prn IBUPROFEN 400 MG TAB 757269 IBUPROFEN Inactive MELOXICAM 15 MG TABS 1 po q day for pain with food MELOXICAM 15 MG TABS 933133 MELOXICAM Inactive Immunizations Vaccine Administration Date Value [...] 1.58 m[iU]/mL 0.36-3.74 sodium, serum 140 mmol/L 161-101 5489/03/09 potassium, serum 4.4 mmol/L 3.5-5.2 chloride, serum [...] 142-424 Encounters Code Encounter Date Provider Facility CPT-64452 Level 3 Est. Patient 11:06:35 PARAPROFESSIONAL AIDE Butch Felix MD [facility] CPT-46092 Level 3 Est. Patient 18:22:20 PARAPROFESSIONAL AIDE Dyllan Mcclure [facility] CPT-57867 Level 3 Est. Patient 17:12:26 CDT Dyllan Mcclure [facility] CPT-26259 Level 3 Est. Patient 10:50:38 CDT Katie Martell MD PhD [facility] CPT-57568 Level 3 Est. Patient 11:01:01 PARAPROFESSIONAL AIDE Dyllan Kami [facility] CPT-59241 Level 3 Est. Patient 19:21:41 CDT Dyllan Mcclure [facility] CPT-29107 Level 2 Est. Patient 08:39:56 PARAPROFESSIONAL AIDE Dyllan Mcclure [facility] CPT-46756 Level 3 Est. Patient 22:53:20 CDT Dyllan Mcclure [facility] CPT-02866 Level 3 Est. Patient 17:12:13 CDT Dyllan Mcclure [facility] Procedures Code Procedure Name Date Entry Date Standard Description CPT-02086 Event Monitor - Commercial Ins 14:58:02 PARAPROFESSIONAL AIDE CPT-55151 EKG Trac and Interp 10:58:25 PARAPROFESSIONAL AIDE CPT-09620 Chest 2V Frontal and Lat 10:58:25 PARAPROFESSIONAL AIDE CPT-81116 LS spine comp w obliq 17:16:12 CDT CPT-57858 Chest 2V Frontal and Lat 10:23:04 CDT CPT-80958 Foot comp min 3V 17:12:13 CDT
--- OUTSIDE RECORDS SUMMARY | 2017-05-26 16:25 | XMS REPORT | Clinical Summary ---
Author Author Admin, QIE Organization [facility] Address Unknown Phone Unavailable Allergies, Adverse Reactions, [...] tablet by mouth twice daily PROPRANOLOL HCL 57547039605 Active Dyllan Timmons DO Active ASPIRIN 325 MG TAB Take 1 tab p.o. PRN for pain ASPIRIN 55142602064 No Longer Active Dyllan Timmons DO Active FLUOXETINE HCL 20 MG CAPS 1 cap by mouth daily FLUOXETINE HCL 02994348254 No Longer Active Dyllan Timmons DO Active FLUTICASONE PROPIONATE 50 MCG/ACT SUSP 2 sprays each nostril daily FLUTICASONE PROPIONATE 08906986886 No Longer Active Butch Felix MD Active OMEPRAZOLE 20 MG CPDR 1 tablet by mouth daily OMEPRAZOLE 61107008429 No Longer Active Butch Felix MD Active ALBUTEROL SULFATE (2.5 MG/3ML) 0.083% NEBU 1 in nebulizer four times a day as needed for cough ALBUTEROL SULFATE 60373275305 No Longer Active Prisca Burton APRN Active MELOXICAM 15 MG TABS 1 po q day for pain with food MELOXICAM 89226145760 No Longer Active Butch Felix MD Active IBUPROFEN 400 MG TAB 1 tab po tid with food, prn IBUPROFEN 59795539371 No Longer Active Butch Felix MD Active CYCLOBENZAPRINE HCL 10 MG TABS 1 tablet by mouth at bedtime for back spasm CYCLOBENZAPRINE HCL 58856586648 No Longer Active Roland Ellis APRN Active LEVAQUIN 500 MG TAB 1 tablet by mouth daily LEVOFLOXACIN 03992545690 No Longer Active Roland Ellis MANAGER CHINESE Active LEVAQUIN 500 MG TAB 1 tablet by mouth daily LEVAQUIN 500 MG TAB 384945 LEVOFLOXACIN Inactive CYCLOBENZAPRINE HCL 10 MG TABS 1 tablet by mouth at bedtime for back spasm CYCLOBENZAPRINE HCL 10 MG TABS 853954 CYCLOBENZAPRINE HCL Inactive IBUPROFEN 400 MG TAB 1 tab po tid with food, prn IBUPROFEN 400 MG TAB 448088 IBUPROFEN Inactive MELOXICAM 15 MG TABS 1 po q day for pain with food MELOXICAM 15 MG TABS 889275 MELOXICAM Inactive ALBUTEROL SULFATE (2.5 MG/3ML) 0.083% NEBU 1 in nebulizer four times a day as needed for cough ALBUTEROL SULFATE (2.5 MG/3ML) 0.083% NEBU 712773 ALBUTEROL SULFATE Inactive OMEPRAZOLE 20 MG CPDR 1 tablet by mouth daily OMEPRAZOLE 20 MG CPDR 021663 OMEPRAZOLE Inactive FLUTICASONE PROPIONATE 50 MCG/ACT SUSP 2 sprays each nostril daily FLUTICASONE PROPIONATE 50 MCG/ACT SUSP 7383916 FLUTICASONE PROPIONATE Inactive FLUOXETINE HCL 20 MG CAPS 1 cap by mouth daily FLUOXETINE HCL 20 MG CAPS 355248 FLUOXETINE HCL Inactive ASPIRIN 325 MG TAB Take 1 tab p.o. PRN for pain ASPIRIN 325 MG TAB 521143 ASPIRIN Inactive Immunizations Vaccine Administration Date Value [...] E&M - 3141-9 214.5 [lb_av] Weight Measured Diagnostic Results Date Name Value Unit Range Description Lab Report: Comp. Metabolic Panel - Chemistry sodium, serum 140 mmol/L 840-254 1996/07/06 carbon dioxide, venous blood 29.4 mmol/L 21.0-32.0 [...] 0.00-1.00 Encounters Code Encounter Date Provider Facility CPT-12174 Level 3 Est. Patient 13:07:09 CDT Dyllan Timmons [facility] CPT-48578 Level 3 Est. Patient 09:01:12 CDT Dyllan Timmons [facility] CPT-70947 Level 3 Est. Patient 08:29:00 CDT Dyllan Mcclure [facility] CPT-81450 Level 3 Est. Patient 16:34:51 CDT Butch Felix MD [facility] CPT-03239 Level 3 Est. Patient 11:07:07 CDT Alissa Johnson [facility] CPT-91939 Level 3 Est. Patient 09:56:03 CDT Butch Felix MD [facility] CPT-82938 Level 3 Est. Patient 10:09:51 CDT Butch Felix MD [facility] CPT-09813 Level 3 Est. Patient 10:33:59 CDT Chel Uriostegui [facility] CPT-87755 Level 3 Est. Patient 16:17:38 CDT Prisca Burton [facility] CPT-28559 Level 3 Est. Patient 11:06:35 SMALL BUSINESS REPRESENTATIVE Butch Felix MD [facility] CPT-44267 Level 3 Est. Patient 18:22:20 SMALL BUSINESS REPRESENTATIVE Dyllan Timmons [facility] CPT-55748 Level 3 Est. Patient 17:12:26 CDT Dyllan Timmons [facility] CPT-23789 Level 3 Est. Patient 10:50:38 CDT Katie Martell MD [facility] CPT-19103 Level 3 Est. Patient 11:01:01 SMALL BUSINESS REPRESENTATIVE Dyllan Timmons [facility] CPT-90599 Level 3 Est. Patient 19:21:41 CDT Dyllan Mcclure [facility] CPT-29754 Level 2 Est. Patient 08:39:56 SMALL BUSINESS REPRESENTATIVE Dyllan Timmons [facility] CPT-48487 Level 3 Est. Patient 22:53:20 CDT Dyllan Mcclure [facility] CPT-95369 Level 3 Est. Patient 17:12:13 CDT Dyllan Mcclure [facility] Procedures Code Procedure Name Date Entry Date Standard Description CPT-28038 Addl Vx - Ix admin via ID IM or jet injects without counseling by physician 14:02:27 CDT CPT-05400 Meningococcal B, recombinant vaccine 14:02:27 CDT 03/27 CPT-96045 First Vx - Ix admin via ID IM or jet injects without counseling by physician 14:02:27 CDT CPT-91423 Menveo Intramuscular Solution Reconstituted 14:02:27 CDT [id number] Event Monitor - MC review and interp 16:30:59 SMALL BUSINESS REPRESENTATIVE CPT-99632 EKG Trac and Interp - XRAY USE ONLY 10:18:23 CDT 04/10 CPT-27335 Event Monitor - Commercial Ins 14:58:02 SMALL BUSINESS REPRESENTATIVE CPT-64910 EKG Trac and Interp 10:58:25 SMALL BUSINESS REPRESENTATIVE CPT-12946 Chest 2V Frontal and Lat 10:58:25 SMALL BUSINESS REPRESENTATIVE CPT-33062 LS spine comp w obliq 17:16:12 CDT CPT-24633 Chest 2V Frontal and Lat 10:23:04 CDT CPT-02721 Foot comp min 3V 17:12:13 CDT
--- OUTSIDE RECORDS SUMMARY | 2017-05-26 16:25 | XMS REPORT | Clinical Summary ---
Author Author Admin, JONA Organization [employer] Address Unknown Phone Unavailable Allergies, Adverse Reactions, [...] JOINT, ANKLE AND FOOT 719.47 Resolved Katie Matrell MD PhD Pain in joint involving ankle [...] 2 sprays each nostril daily FLUTICASONE PROPIONATE 39469455453 No Longer Active Butch Felix MD Active OMEPRAZOLE 20 MG CPDR 1 tablet by mouth daily OMEPRAZOLE 44177969278 No Longer Active Butch Felix MD Active ALBUTEROL SULFATE (2.5 MG/3ML) 0.083% NEBU 1 in nebulizer four times a day as needed for cough ALBUTEROL SULFATE 03651210388 No Longer Active Prisca Burton APRN Active ASPIRIN 325 MG TAB Take 1 tab p.o. PRN for pain ASPIRIN 45933639642 Active Chel Uriostegui [facility] Active MELOXICAM 15 MG TABS 1 po q day for pain with food MELOXICAM 30878840047 No Longer Active Butch Felix MD Active IBUPROFEN 400 MG TAB 1 tab po tid with food, prn IBUPROFEN 12481906775 No Longer Active Butch Felix MD Active CYCLOBENZAPRINE HCL 10 MG TABS 1 tablet by mouth at bedtime for back spasm CYCLOBENZAPRINE HCL 52073662366 No Longer Active Jillina Rhonda GOSS Active LEVAQUIN 500 MG TAB 1 tablet by mouth daily LEVOFLOXACIN 59569308406 No Longer Active Jillina Frazell NON DESTRUCTIVE TESTER Active LEVAQUIN 500 MG TAB 1 tablet by mouth daily LEVAQUIN 500 MG TAB 188490 LEVOFLOXACIN Inactive CYCLOBENZAPRINE HCL 10 MG TABS 1 tablet by mouth at bedtime for back spasm CYCLOBENZAPRINE HCL 10 MG TABS 589778 CYCLOBENZAPRINE HCL Inactive IBUPROFEN 400 MG TAB 1 tab po tid with food, prn IBUPROFEN 400 MG TAB 061820 IBUPROFEN Inactive MELOXICAM 15 MG TABS 1 po q day for pain with food MELOXICAM 15 MG TABS 887292 MELOXICAM Inactive ALBUTEROL SULFATE (2.5 MG/3ML) 0.083% NEBU 1 in nebulizer four times a day as needed for cough ALBUTEROL SULFATE (2.5 MG/3ML) 0.083% NEBU 695223 ALBUTEROL SULFATE Inactive OMEPRAZOLE 20 MG CPDR 1 tablet by mouth daily OMEPRAZOLE 20 MG CPDR 497083 OMEPRAZOLE Inactive FLUTICASONE PROPIONATE 50 MCG/ACT SUSP 2 sprays each nostril daily FLUTICASONE PROPIONATE 50 MCG/ACT SUSP 326104 FLUTICASONE PROPIONATE Inactive Immunizations Vaccine Administration Date [...] Range Description blood pressure, diastolic - 8462-4 64 mm[Hg] [...] Panel - Chemistry sodium, serum 141 mmol/L 453-870 6337/04/05 carbon dioxide, venous blood 31.5 mmol/L 21.0-32.0 [...] 4.4 mmol/L 3.5-5.2 sodium, serum 140 mmol/L 047-773 7755/03/09 TSH 1.58 m[iU]/mL 0.36-3.74 blood glucose 81 [...] 142-424 Encounters Code Encounter Date Provider Facility CPT-57863 Level 3 Est. Patient 10:09:51 CDT Butch Felix MD [facility] CPT-07013 Level 3 Est. Patient 10:33:59 CDT Chel [facility] CPT-96891 Level 3 Est. Patient 16:17:38 CDT Prisca Burton [facility] CPT-43527 Level 3 Est. Patient 11:06:35 VETERINARY MEDICINE DOCTOR Butch Felix MD [facility] CPT-20064 Level 3 Est. Patient 18:22:20 VETERINARY MEDICINE DOCTOR Dyllan Timmons [facility] CPT-44113 Level 3 Est. Patient 17:12:26 CDT Dyllan Mcclure [facility] CPT-91575 Level 3 Est. Patient 10:50:38 CDT Katie Martell MD [facility] CPT-51019 Level 3 Est. Patient 11:01:01 VETERINARY MEDICINE DOCTOR Dyllan Mcclure Iain [facility] CPT-17275 Level 3 Est. Patient 19:21:41 CDT Dyllan Mcclure [facility] CPT-81214 Level 2 Est. Patient 08:39:56 VETERINARY MEDICINE DOCTOR Dyllan Timmons [facility] CPT-92894 Level 3 Est. Patient 22:53:20 CDT Dyllan Kami [facility] CPT-69482 Level 3 Est. Patient 17:12:13 CDT Dyllna Mcclure [facility] Procedures Code Procedure Name Date Entry Date Standard Description CPT-50728 Event Monitor - Commercial Ins 14:58:02 VETERINARY MEDICINE DOCTOR CPT-96940 EKG Trac and Interp 10:58:25 VETERINARY MEDICINE DOCTOR CPT-38008 Chest 2V Frontal and Lat 10:58:25 VETERINARY MEDICINE DOCTOR CPT-54565 LS spine comp w obliq 17:16:12 CDT CPT-28171 Chest 2V Frontal and Lat 10:23:04 CDT CPT-77935 Foot comp min 3V 17:12:13 CDT
[2017-05-26] MEDS ORDERED: SODIUM CHLORIDE (ADD-VANTAGE) 100 ML IV ONE (16:26)
--- OUTSIDE RECORDS SUMMARY | 2017-05-26 16:26 | XMS REPORT | Clinical Summary ---
Author Author Admin, JONA Organization [employer] Address Unknown Phone Unavailable Allergies, Adverse Reactions, [...] JOINT, ANKLE AND FOOT 719.47 Resolved Katie aMrtell MD PhD Pain in joint involving ankle [...] day as needed for cough ALBUTEROL SULFATE 62500319311 Active Butch Felix MD Active MELOXICAM 15 MG TABS 1 po q day for pain with food MELOXICAM 09649339948 No Longer Active Butch Felix MD Active IBUPROFEN 400 MG TAB 1 tab po tid with food, prn IBUPROFEN 95574167884 No Longer Active Butch Felix MD Active CYCLOBENZAPRINE HCL 10 MG TABS 1 tablet by mouth at bedtime for back spasm CYCLOBENZAPRINE HCL 25668496586 No Longer Active Roland Ellis APRN Active LEVAQUIN 500 MG TAB 1 tablet by mouth daily LEVOFLOXACIN 64576409526 No Longer Active Roland Ellis ASSISTANT CENTER DIRECTOR Active LEVAQUIN 500 MG TAB 1 tablet by mouth daily LEVAQUIN 500 MG TAB 988729 LEVOFLOXACIN Inactive CYCLOBENZAPRINE HCL 10 MG TABS 1 tablet by mouth at bedtime for back spasm CYCLOBENZAPRINE HCL 10 MG TABS 788507 CYCLOBENZAPRINE HCL Inactive IBUPROFEN 400 MG TAB 1 tab po tid with food, prn IBUPROFEN 400 MG TAB 691377 IBUPROFEN Inactive MELOXICAM 15 MG TABS 1 po q day for pain with food MELOXICAM 15 MG TABS 834027 MELOXICAM Inactive Immunizations Vaccine Administration Date Value [...] 1.58 m[iU]/mL 0.36-3.74 sodium, serum 140 mmol/L 209-509 5906/03/09 potassium, serum 4.4 mmol/L 3.5-5.2 chloride, serum [...] 142-424 Encounters Code Encounter Date Provider Facility CPT-01401 Level 3 Est. Patient 11:06:35 ADZING AND BORING MACHINE HELPER Butch Felix MD [facility] CPT-29882 Level 3 Est. Patient 18:22:20 ADZING AND BORING MACHINE HELPER Dyllan Mcclure [facility] CPT-72150 Level 3 Est. Patient 17:12:26 CDT Dyllan Mcclure [facility] CPT-01387 Level 3 Est. Patient 10:50:38 CDT Katie Martell MD PhD [facility] CPT-26383 Level 3 Est. Patient 11:01:01 ADZING AND BORING MACHINE HELPER Dyllan Kami [facility] CPT-18036 Level 3 Est. Patient 19:21:41 CDT Dyllan Mcclure [facility] CPT-29422 Level 2 Est. Patient 08:39:56 ADZING AND BORING MACHINE HELPER Dyllan Mcclure [facility] CPT-78260 Level 3 Est. Patient 22:53:20 CDT Dyllan Mcclure [facility] CPT-97816 Level 3 Est. Patient 17:12:13 CDT Dyllan Mcclure [facility] Procedures Code Procedure Name Date Entry Date Standard Description CPT-03081 Event Monitor - Commercial Ins 14:58:02 ADZING AND BORING MACHINE HELPER CPT-60334 EKG Trac and Interp 10:58:25 ADZING AND BORING MACHINE HELPER CPT-81666 Chest 2V Frontal and Lat 10:58:25 ADZING AND BORING MACHINE HELPER CPT-92369 LS spine comp w obliq 17:16:12 CDT CPT-74063 Chest 2V Frontal and Lat 10:23:04 CDT CPT-70560 Foot comp min 3V 17:12:13 CDT
--- OUTSIDE RECORDS SUMMARY | 2017-05-26 16:26 | XMS REPORT | Clinical Summary ---
Author Author Admin, JONA Organization [employer] Address Unknown Phone Unavailable Allergies, Adverse Reactions, [...] 2 sprays each nostril daily FLUTICASONE PROPIONATE 08629559096 No Longer Active Butch Felix MD Active OMEPRAZOLE 20 MG CPDR 1 tablet by mouth daily OMEPRAZOLE 03828517189 No Longer Active Butch Felix MD Active ALBUTEROL SULFATE (2.5 MG/3ML) 0.083% NEBU 1 in nebulizer four times a day as needed for cough ALBUTEROL SULFATE 66464453015 No Longer Active Prisca Burton APRN Active ASPIRIN 325 MG TAB Take 1 tab p.o. PRN for pain ASPIRIN 61843204446 Active Chel Uriostegui ANA PAULA Active MELOXICAM 15 MG TABS 1 po q day for pain with food MELOXICAM 28168063515 No Longer Active Butch Felix MD Active IBUPROFEN 400 MG TAB 1 tab po tid with food, prn IBUPROFEN 67870225774 No Longer Active Butch Felix MD Active CYCLOBENZAPRINE HCL 10 MG TABS 1 tablet by mouth at bedtime for back spasm CYCLOBENZAPRINE HCL 84339756312 No Longer Active Jillina Rhonda GOSS Active LEVAQUIN 500 MG TAB 1 tablet by mouth daily LEVOFLOXACIN 70689652493 No Longer Active Jillina Frazell COVER OPERATOR Active LEVAQUIN 500 MG TAB 1 tablet by mouth daily LEVAQUIN 500 MG TAB 932012 LEVOFLOXACIN Inactive CYCLOBENZAPRINE HCL 10 MG TABS 1 tablet by mouth at bedtime for back spasm CYCLOBENZAPRINE HCL 10 MG TABS 352828 CYCLOBENZAPRINE HCL Inactive IBUPROFEN 400 MG TAB 1 tab po tid with food, prn IBUPROFEN 400 MG TAB 569682 IBUPROFEN Inactive MELOXICAM 15 MG TABS 1 po q day for pain with food MELOXICAM 15 MG TABS 328370 MELOXICAM Inactive ALBUTEROL SULFATE (2.5 MG/3ML) 0.083% NEBU 1 in nebulizer four times a day as needed for cough ALBUTEROL SULFATE (2.5 MG/3ML) 0.083% NEBU 403376 ALBUTEROL SULFATE Inactive OMEPRAZOLE 20 MG CPDR 1 tablet by mouth daily OMEPRAZOLE 20 MG CPDR 688219 OMEPRAZOLE Inactive FLUTICASONE PROPIONATE 50 MCG/ACT SUSP 2 sprays each nostril daily FLUTICASONE PROPIONATE 50 MCG/ACT SUSP 906417 FLUTICASONE PROPIONATE Inactive Immunizations Vaccine Administration Date [...] pressure, diastolic - 8462-4 81 mm[Hg] BP idmas blood pressure, systolic - 8480-6 133 mm[Hg] [...] Panel - Chemistry sodium, serum 141 mmol/L 779-929 2053/04/05 carbon dioxide, venous blood 31.5 mmol/L 21.0-32.0 [...] 1.58 m[iU]/mL 0.36-3.74 sodium, serum 140 mmol/L 764-992 1820/03/09 potassium, serum 4.4 mmol/L 3.5-5.2 chloride, serum [...] 142-424 Encounters Code Encounter Date Provider Facility CPT-74320 Level 3 Est. Patient 09:56:03 CDT Butch Felix MD [facility] CPT-19978 Level 3 Est. Patient 10:09:51 CDT Butch Felix MD [facility] CPT-87420 Level 3 Est. Patient 10:33:59 CDT Chel Uriostegui [facility]-32789 Level 3 Est. Patient 16:17:38 CDT Prisca Burton [facility] CPT-65855 Level 3 Est. Patient 11:06:35 DIRECTOR LOAN Butch Felix MD [facility] CPT-45496 Level 3 Est. Patient 18:22:20 DIRECTOR LOAN Dyllan Timmons [facility] CPT-86405 Level 3 Est. Patient 17:12:26 CDT Dyllan Timmons [facility] CPT-23139 Level 3 Est. Patient 10:50:38 CDT Katie Martell MD PhD [facility] CPT-87327 Level 3 Est. Patient 11:01:01 DIRECTOR LOAN Dyllan Timmons [facility] CPT-76734 Level 3 Est. Patient 19:21:41 CDT Dyllan Timmons [facility] CPT-41608 Level 2 Est. Patient 08:39:56 DIRECTOR LOAN Dyllan Timmons [facility] CPT-23137 Level 3 Est. Patient 22:53:20 CDT Dyllan Timmons [facility] CPT-76498 Level 3 Est. Patient 17:12:13 CDT Dyllan Timmons DO [facility] Procedures Code Procedure Name Date Entry Date Standard Description CPT-18747 Event Monitor - Commercial Ins 14:58:02 DIRECTOR LOAN CPT-27225 EKG Trac and Interp 10:58:25 DIRECTOR LOAN CPT-09568 Chest 2V Frontal and Lat 10:58:25 DIRECTOR LOAN CPT-57050 LS spine comp w obliq 17:16:12 CDT CPT-53350 Chest 2V Frontal and Lat 10:23:04 CDT CPT-72589 Foot comp min 3V 17:12:13 CDT
--- OUTSIDE RECORDS SUMMARY | 2017-05-26 16:26 | XMS REPORT | Clinical Summary ---
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 Dyllan Timmons DO Temporomandibular joint disorders, unspecified Palpitations 785.1 Active Butch Felix MD Palpitations Acid reflux 530.81 Active Prisca Burton BANK CASHIER Esophageal reflux Allergic rhinitis 477.9 Active Prisca Burton APRN Allergic rhinitis, cause unspecified Chest wall pain 786.52 Active Chel Uriostegui BANK CASHIER Painful respiration Anxiety 300.00 Active Chel Uriostegui BANK CASHIER Anxiety state, unspecified Leg pain, bilateral 729.5 Active Butch Felix MD Pain in limb Nerve pain 729.2 Active Alissa Johnson BANK CASHIER Neuralgia, neuritis, and radiculitis, unspecified Inguinal lymphadenopathy, right 785.6 Active Alissa Johnson BANK CASHIER Enlargement of lymph nodes FOOT PAIN, RIGHT ICD-729.5 Inactive Katie Martell MD PhD PAIN IN JOINT, ANKLE AND FOOT ICD-719.47 Inactive Katie Martell MD PhD Hip pain, left ICD-719.45 Inactive Katie Martell MD PhD Pharyngitis-Acute ICD-462 Inactive Katie Martell MD PhD Cough ICD-786.2 Inactive Butch Felix MD Bronchitis, acute ICD-466.0 Inactive Btuch Felix MD Lumbar strain, acute ICD-847.2 Inactive Butch Felix MD Ankle pain, left ICD-719.47 Inactive Butch Felix MD Medication List Medication Instructions Start Date Stop Date Generic Name NDC Status Provider Patient Instruction FLUTICASONE PROPIONATE 50 MCG/ACT SUSP 2 sprays each nostril daily FLUTICASONE PROPIONATE 64646969262 No Longer Active Butch Felix MD Active OMEPRAZOLE 20 MG CPDR 1 tablet by mouth daily OMEPRAZOLE 53886409461 No Longer Active Butch Felix MD Active ALBUTEROL SULFATE (2.5 MG/3ML) 0.083% NEBU 1 in nebulizer four times a day as needed for cough ALBUTEROL SULFATE 98749038717 No Longer Active Prisca Burton APRN Active ASPIRIN 325 MG TAB Take 1 tab p.o. PRN for pain ASPIRIN 47530509987 Active Chel Uriostegui APRN Active MELOXICAM 15 MG TABS 1 po q day for pain with food MELOXICAM 18169851641 No Longer Active Butch Felix MD Active IBUPROFEN 400 MG TAB 1 tab po tid with food, prn IBUPROFEN 28426006068 No Longer Active Butch Felix MD Active CYCLOBENZAPRINE HCL 10 MG TABS 1 tablet by mouth at bedtime for back spasm CYCLOBENZAPRINE HCL 82294969824 No Longer Active Jileonel Ellis APRN Active LEVAQUIN 500 MG TAB 1 tablet by mouth daily LEVOFLOXACIN 70185709971 No Longer Active Jillina Marquitazelselena GOSS Active LEVAQUIN 500 MG TAB 1 tablet by mouth daily LEVAQUIN 500 MG TAB 040757 LEVOFLOXACIN Inactive CYCLOBENZAPRINE HCL 10 MG TABS 1 tablet by mouth at bedtime for back spasm CYCLOBENZAPRINE HCL 10 MG TABS 789567 CYCLOBENZAPRINE HCL Inactive IBUPROFEN 400 MG TAB 1 tab po tid with food, prn IBUPROFEN 400 MG TAB 857601 IBUPROFEN Inactive MELOXICAM 15 MG TABS 1 po q day for pain with food MELOXICAM 15 MG TABS 511163 MELOXICAM Inactive ALBUTEROL SULFATE (2.5 MG/3ML) 0.083% NEBU 1 in nebulizer four times a day as needed for cough ALBUTEROL SULFATE (2.5 MG/3ML) 0.083% NEBU 562197 ALBUTEROL SULFATE Inactive OMEPRAZOLE 20 MG CPDR 1 tablet by mouth daily OMEPRAZOLE 20 MG CPDR 529662 OMEPRAZOLE Inactive FLUTICASONE PROPIONATE 50 MCG/ACT SUSP 2 sprays each nostril daily FLUTICASONE PROPIONATE 50 MCG/ACT SUSP 851725 FLUTICASONE PROPIONATE Inactive Immunizations Vaccine Administration Date [...] Panel - Chemistry sodium, serum 141 mmol/L 954-257 0790/04/05 carbon dioxide, venous blood 31.5 mmol/L 21.0-32.0 [...] 1.58 m[iU]/mL 0.36-3.74 sodium, serum 140 mmol/L 265-742 5298/03/09 potassium, serum 4.4 mmol/L 3.5-5.2 chloride, [...] 142-424 Encounters Code Encounter Date Provider Facility CPT-15072 Level 3 Est. Patient 11:07:07 CDT Alissa Johnson APRN [facility] CPT-44285 Level 3 Est. Patient 09:56:03 CDT Butch Felix MD [facility] CPT-15340 Level 3 Est. Patient 10:09:51 CDT Butch Felix MD [facility] CPT-07133 Level 3 Est. Patient 10:33:59 CDT Chel Yokum [facility] CPT-69897 Level 3 Est. Patient 16:17:38 CDT Priscaalejandra Burton [facility] CPT-31528 Level 3 Est. Patient 11:06:35 WARP YARN SORTER Butch Felix MD [facility] CPT-15976 Level 3 Est. Patient 18:22:20 WARP YARN SORTER Dyllan Mcclure [facility] CPT-28184 Level 3 Est. Patient 17:12:26 CDT Dyllan Kami [facility] CPT-25916 Level 3 Est. Patient 10:50:38 CDT Katie Martell MD PhD [facility] CPT-62950 Level 3 Est. Patient 11:01:01 WARP YARN SORTER Dyllan Mcclure [facility] CPT-69963 Level 3 Est. Patient 19:21:41 CDT Dyllan Mcclure [facility] CPT-20366 Level 2 Est. Patient 08:39:56 WARP YARN SORTER Dyllan Kami [facility] CPT-96918 Level 3 Est. Patient 22:53:20 CDT Dyllan Mcclure [facility] CPT-80926 Level 3 Est. Patient 17:12:13 CDT Dyllan Kami [facility] Procedures Code Procedure Name Date Entry Date Standard Description CPT-51628 Event Monitor - Commercial Ins 14:58:02 WARP YARN SORTER CPT-40574 EKG Trac and Interp 10:58:25 WARP YARN SORTER CPT-01639 Chest 2V Frontal and Lat 10:58:25 WARP YARN SORTER CPT-42688 LS spine comp w obliq 17:16:12 CDT CPT-57199 Chest 2V Frontal and Lat 10:23:04 CDT CPT-90518 Foot comp min 3V 17:12:13 CDT
--- OUTSIDE RECORDS SUMMARY | 2017-05-26 16:27 | XMS REPORT | Clinical Summary ---
Author Author Admin, JONA Organization [employer] Address Unknown Phone Unavailable Allergies, Adverse Reactions, [...] 2 sprays each nostril daily FLUTICASONE PROPIONATE 90859081783 No Longer Active Butch Felix MD Active OMEPRAZOLE 20 MG CPDR 1 tablet by mouth daily OMEPRAZOLE 81971317869 No Longer Active Butch Felix MD Active ALBUTEROL SULFATE (2.5 MG/3ML) 0.083% NEBU 1 in nebulizer four times a day as needed for cough ALBUTEROL SULFATE 77228429331 No Longer Active Prisca Burton APRN Active ASPIRIN 325 MG TAB Take 1 tab p.o. PRN for pain ASPIRIN 64886471503 Active Chel Uriostegui ANA PAULA Active MELOXICAM 15 MG TABS 1 po q day for pain with food MELOXICAM 20676827160 No Longer Active Butch Felix MD Active IBUPROFEN 400 MG TAB 1 tab po tid with food, prn IBUPROFEN 97577233341 No Longer Active Butch Felix MD Active CYCLOBENZAPRINE HCL 10 MG TABS 1 tablet by mouth at bedtime for back spasm CYCLOBENZAPRINE HCL 27256736225 No Longer Active Jillina Rhonda GOSS Active LEVAQUIN 500 MG TAB 1 tablet by mouth daily LEVOFLOXACIN 40053439851 No Longer Active Jillina Frazell PAYROLL AUDITOR Active LEVAQUIN 500 MG TAB 1 tablet by mouth daily LEVAQUIN 500 MG TAB 794985 LEVOFLOXACIN Inactive CYCLOBENZAPRINE HCL 10 MG TABS 1 tablet by mouth at bedtime for back spasm CYCLOBENZAPRINE HCL 10 MG TABS 921665 CYCLOBENZAPRINE HCL Inactive IBUPROFEN 400 MG TAB 1 tab po tid with food, prn IBUPROFEN 400 MG TAB 247744 IBUPROFEN Inactive MELOXICAM 15 MG TABS 1 po q day for pain with food MELOXICAM 15 MG TABS 253304 MELOXICAM Inactive ALBUTEROL SULFATE (2.5 MG/3ML) 0.083% NEBU 1 in nebulizer four times a day as needed for cough ALBUTEROL SULFATE (2.5 MG/3ML) 0.083% NEBU 070117 ALBUTEROL SULFATE Inactive OMEPRAZOLE 20 MG CPDR 1 tablet by mouth daily OMEPRAZOLE 20 MG CPDR 403576 OMEPRAZOLE Inactive FLUTICASONE PROPIONATE 50 MCG/ACT SUSP 2 sprays each nostril daily FLUTICASONE PROPIONATE 50 MCG/ACT SUSP 880100 FLUTICASONE PROPIONATE Inactive Immunizations Vaccine Administration Date [...] Panel - Chemistry sodium, serum 141 mmol/L 384-490 8416/04/05 carbon dioxide, venous blood 31.5 mmol/L 21.0-32.0 [...] 4.4 mmol/L 3.5-5.2 sodium, serum 140 mmol/L 549-148 0083/03/09 TSH 1.58 m[iU]/mL 0.36-3.74 blood glucose 81 [...] 142-424 Encounters Code Encounter Date Provider Facility CPT-49969 Level 3 Est. Patient 09:56:03 CDT Butch Felix MD [facility] CPT-15237 Level 3 Est. Patient 10:09:51 CDT Butch Felix MD [facility] CPT-07564 Level 3 Est. Patient 10:33:59 CDT Chel Uriostegui [facility] CPT-11714 Level 3 Est. Patient 16:17:38 CDT Prisca Burton [facility] CPT-14052 Level 3 Est. Patient 11:06:35 COMPARATOR OPERATOR Butch Felix MD [facility] CPT-14573 Level 3 Est. Patient 18:22:20 COMPARATOR OPERATOR Dyllan Timmons [facility] CPT-23754 Level 3 Est. Patient 17:12:26 CDT Dyllan Timmons [facility] CPT-34728 Level 3 Est. Patient 10:50:38 CDT Katie Martell MD PhD [facility] CPT-13598 Level 3 Est. Patient 11:01:01 COMPARATOR OPERATOR Dyllan Timmons [facility] CPT-56940 Level 3 Est. Patient 19:21:41 CDT Dyllan Timmons [facility] CPT-03932 Level 2 Est. Patient 08:39:56 COMPARATOR OPERATOR Dyllan Timmons [facility] CPT-11019 Level 3 Est. Patient 22:53:20 CDT Dyllan Mcclure [facility] CPT-47273 Level 3 Est. Patient 17:12:13 CDT Dyllan Mcclure [facility] Procedures Code Procedure Name Date Entry Date Standard Description CPT-89064 Event Monitor - Commercial Ins 14:58:02 COMPARATOR OPERATOR CPT-03599 EKG Trac and Interp 10:58:25 COMPARATOR OPERATOR CPT-21973 Chest 2V Frontal and Lat 10:58:25 COMPARATOR OPERATOR CPT-63462 LS spine comp w obliq 17:16:12 CDT CPT-59762 Chest 2V Frontal and Lat 10:23:04 CDT CPT-50691 Foot comp min 3V 17:12:13 CDT
--- OUTSIDE RECORDS SUMMARY | 2017-05-26 16:28 | XMS REPORT ---
Author Author [employer] [facility] Medical Staff Organization [employer] [facility] Address [address] [id number] Phone [phone] Care Team Providers Care Psych Arnp Name Role Phone CARROLL DO ITZEL PP [phone] Summary purpose TRANSITION OF CARE AUTO GENERATION [...]
--- OUTSIDE RECORDS SUMMARY | 2017-05-26 16:28 | XMS REPORT | Clinical Summary ---
Author Author Admin, JONA Organization [employer] Address Unknown Phone Unavailable Allergies, Adverse Reactions, Alerts Allergy Name Reaction Description Start Date Severity Status Provider CEPHALOSPORINS Critical Active Dyllan Timomns DO AMOXICILLIN Critical Active Dyllan Timmons DO [...] 2 sprays each nostril daily FLUTICASONE PROPIONATE 25293258171 No Longer Active Butch Felix MD Active OMEPRAZOLE 20 MG CPDR 1 tablet by mouth daily OMEPRAZOLE 20012312958 No Longer Active Butch Felix MD Active ALBUTEROL SULFATE (2.5 MG/3ML) 0.083% NEBU 1 in nebulizer four times a day as needed for cough ALBUTEROL SULFATE 67974617101 No Longer Active Prisca Burton APRN Active ASPIRIN 325 MG TAB Take 1 tab p.o. PRN for pain ASPIRIN 76187466687 Active Chel Uriostegui ANA PAULA Active MELOXICAM 15 MG TABS 1 po q day for pain with food MELOXICAM 38445171914 No Longer Active Butch Felix MD Active IBUPROFEN 400 MG TAB 1 tab po tid with food, prn IBUPROFEN 37711534924 No Longer Active Butch Felix MD Active CYCLOBENZAPRINE HCL 10 MG TABS 1 tablet by mouth at bedtime for back spasm CYCLOBENZAPRINE HCL 29409658227 No Longer Active Jillina Rhonda GOSS Active LEVAQUIN 500 MG TAB 1 tablet by mouth daily LEVOFLOXACIN 12116206073 No Longer Active Jillina Frazell GOVERNMENT INSTRUCTOR Active LEVAQUIN 500 MG TAB 1 tablet by mouth daily LEVAQUIN 500 MG TAB 120958 LEVOFLOXACIN Inactive CYCLOBENZAPRINE HCL 10 MG TABS 1 tablet by mouth at bedtime for back spasm CYCLOBENZAPRINE HCL 10 MG TABS 607665 CYCLOBENZAPRINE HCL Inactive IBUPROFEN 400 MG TAB 1 tab po tid with food, prn IBUPROFEN 400 MG TAB 006470 IBUPROFEN Inactive MELOXICAM 15 MG TABS 1 po q day for pain with food MELOXICAM 15 MG TABS 566678 MELOXICAM Inactive ALBUTEROL SULFATE (2.5 MG/3ML) 0.083% NEBU 1 in nebulizer four times a day as needed for cough ALBUTEROL SULFATE (2.5 MG/3ML) 0.083% NEBU 261492 ALBUTEROL SULFATE Inactive OMEPRAZOLE 20 MG CPDR 1 tablet by mouth daily OMEPRAZOLE 20 MG CPDR 407445 OMEPRAZOLE Inactive FLUTICASONE PROPIONATE 50 MCG/ACT SUSP 2 sprays each nostril daily FLUTICASONE PROPIONATE 50 MCG/ACT SUSP 457353 FLUTICASONE PROPIONATE Inactive Immunizations Vaccine Administration Date [...] pressure, diastolic - 8462-4 68 mm[Hg] BP diams blood pressure, systolic - 8480-6 121 mm[Hg] BP sys pulse rate E&M - 8867-4 66 /min Heart rate temperature E&M 98.5 [degF] Body temperature weight E&M - 3141-9 220 [lb_av] Weight Measured Diagnostic Results Date Name Value Unit Range Description Lab Report: CBC, Comp. Metabolic Panel - Chemistry sodium, serum 141 mmol/L 999-261 6068/04/05 carbon dioxide, venous blood 31.5 mmol/L 21.0-32.0 [...] 1.58 m[iU]/mL 0.36-3.74 sodium, serum 140 mmol/L 461-807 6306/03/09 potassium, serum 4.4 mmol/L 3.5-5.2 chloride, serum [...] 142-424 Encounters Code Encounter Date Provider Facility CPT-89515 Level 3 Est. Patient 10:09:51 CDT Butch Felxi MD [facility] CPT-20910 Level 3 Est. Patient 10:33:59 CDT Chel Uriostegui [facility] CPT-47505 Level 3 Est. Patient 16:17:38 CDT Prisca Burton [facility] CPT-44801 Level 3 Est. Patient 11:06:35 BURN CREW MEMBER Butch Felix MD [facility] CPT-62784 Level 3 Est. Patient 18:22:20 BURN CREW MEMBER Dyllan Timmons [facility] CPT-01484 Level 3 Est. Patient 17:12:26 CDT Dyllan Mcclure [facility] CPT-08510 Level 3 Est. Patient 10:50:38 CDT Katie Martell MD [facility] CPT-00399 Level 3 Est. Patient 11:01:01 BURN CREW MEMBER Dyllan Timmons [facility] CPT-31272 Level 3 Est. Patient 19:21:41 CDT Dyllan Mcclure [facility] CPT-86301 Level 2 Est. Patient 08:39:56 BURN CREW MEMBER Dyllan Timmons [facility] CPT-64677 Level 3 Est. Patient 22:53:20 CDT Dyllan Mcclure [facility] CPT-27895 Level 3 Est. Patient 17:12:13 CDT Dyllan Mcclure [facility] Procedures Code Procedure Name Date Entry Date Standard Description CPT-02687 Event Monitor - Commercial Ins 14:58:02 BURN CREW MEMBER CPT-82684 EKG Trac and Interp 10:58:25 BURN CREW MEMBER CPT-61363 Chest 2V Frontal and Lat 10:58:25 BURN CREW MEMBER CPT-91147 LS spine comp w obliq 17:16:12 CDT CPT-72573 Chest 2V Frontal and Lat 10:23:04 CDT CPT-19348 Foot comp min 3V 17:12:13 CDT
--- OUTSIDE RECORDS SUMMARY | 2017-05-26 16:28 | XMS REPORT | Clinical Summary ---
Author Author Admin, JONA Organization [employer] Address Unknown Phone Unavailable Allergies, Adverse Reactions, [...] tablet by mouth twice daily PROPRANOLOL HCL 66698836122 Active Dyllan Timmons DO Active ASPIRIN 325 MG TAB Take 1 tab p.o. PRN for pain ASPIRIN 91935830263 No Longer Active Dyllan Timmons DO Active FLUOXETINE HCL 20 MG CAPS 1 cap by mouth daily FLUOXETINE HCL 59780130894 No Longer Active Dyllan Timmons DO Active FLUTICASONE PROPIONATE 50 MCG/ACT SUSP 2 sprays each nostril daily FLUTICASONE PROPIONATE 95438194700 No Longer Active Butch Felix MD Active OMEPRAZOLE 20 MG CPDR 1 tablet by mouth daily OMEPRAZOLE 94932566003 No Longer Active Butch Felix MD Active ALBUTEROL SULFATE (2.5 MG/3ML) 0.083% NEBU 1 in nebulizer four times a day as needed for cough ALBUTEROL SULFATE 46937174320 No Longer Active Prisca Burton APRN Active MELOXICAM 15 MG TABS 1 po q day for pain with food MELOXICAM 34019459568 No Longer Active Butch Felix MD Active IBUPROFEN 400 MG TAB 1 tab po tid with food, prn IBUPROFEN 94319522553 No Longer Active Butch Felix MD Active CYCLOBENZAPRINE HCL 10 MG TABS 1 tablet by mouth at bedtime for back spasm CYCLOBENZAPRINE HCL 23848451188 No Longer Active Roland Ellis APRN Active LEVAQUIN 500 MG TAB 1 tablet by mouth daily LEVOFLOXACIN 64599118547 No Longer Active Roland Ellis ADVERTISING COPYWRITER Active LEVAQUIN 500 MG TAB 1 tablet by mouth daily LEVAQUIN 500 MG TAB 970557 LEVOFLOXACIN Inactive CYCLOBENZAPRINE HCL 10 MG TABS 1 tablet by mouth at bedtime for back spasm CYCLOBENZAPRINE HCL 10 MG TABS 366272 CYCLOBENZAPRINE HCL Inactive IBUPROFEN 400 MG TAB 1 tab po tid with food, prn IBUPROFEN 400 MG TAB 670421 IBUPROFEN Inactive MELOXICAM 15 MG TABS 1 po q day for pain with food MELOXICAM 15 MG TABS 016988 MELOXICAM Inactive ALBUTEROL SULFATE (2.5 MG/3ML) 0.083% NEBU 1 in nebulizer four times a day as needed for cough ALBUTEROL SULFATE (2.5 MG/3ML) 0.083% NEBU 434614 ALBUTEROL SULFATE Inactive OMEPRAZOLE 20 MG CPDR 1 tablet by mouth daily OMEPRAZOLE 20 MG CPDR 193874 OMEPRAZOLE Inactive FLUTICASONE PROPIONATE 50 MCG/ACT SUSP 2 sprays each nostril daily FLUTICASONE PROPIONATE 50 MCG/ACT SUSP 4977954 FLUTICASONE PROPIONATE Inactive FLUOXETINE HCL 20 MG CAPS 1 cap by mouth daily FLUOXETINE HCL 20 MG CAPS 268098 FLUOXETINE HCL Inactive ASPIRIN 325 MG TAB Take 1 tab p.o. PRN for pain ASPIRIN 325 MG TAB 244973 ASPIRIN Inactive Immunizations Vaccine Administration Date Value [...] Panel - Chemistry sodium, serum 140 mmol/L 248-333 2974/07/06 carbon dioxide, venous blood 29.4 mmol/L 21.0-32.0 [...] 0.00-1.00 Encounters Code Encounter Date Provider Facility CPT-27575 Level 3 Est. Patient 13:07:09 CDT Dyllan Timmons [facility] CPT-72222 Level 3 Est. Patient 09:01:12 CDT Dyllan Timmons [facility] CPT-73678 Level 3 Est. Patient 08:29:00 CDT Dyllan Timmons [facility] CPT-90192 Level 3 Est. Patient 16:34:51 CDT Butch Felix MD [facility] CPT-19753 Level 3 Est. Patient 11:07:07 CDT Alissa Johnson [facility] CPT-06816 Level 3 Est. Patient 09:56:03 CDT Butch Felix MD [facility] CPT-90697 Level 3 Est. Patient 10:09:51 CDT Butch Felix MD [facility] CPT-11211 Level 3 Est. Patient 10:33:59 CDT Chel Uriostegui [facility] CPT-70031 Level 3 Est. Patient 16:17:38 CDT Prisca Burton [facility] CPT-31184 Level 3 Est. Patient 11:06:35 SET UP TECHNICIAN Butch Felix MD [facility] CPT-97924 Level 3 Est. Patient 18:22:20 SET UP TECHNICIAN Dyllan Timmons [facility] CPT-58635 Level 3 Est. Patient 17:12:26 CDT Dyllan Timmons [facility] CPT-03333 Level 3 Est. Patient 10:50:38 CDT Katie Martell MD PhD [facility] CPT-88161 Level 3 Est. Patient 11:01:01 SET UP TECHNICIAN Dyllan iTmmons [facility] CPT-17451 Level 3 Est. Patient 19:21:41 CDT Dyllan Timmons [facility] CPT-01775 Level 2 Est. Patient 08:39:56 SET UP TECHNICIAN Dyllan Timmons [facility] CPT-56104 Level 3 Est. Patient 22:53:20 CDT Dyllan Timmons [facility] CPT-75179 Level 3 Est. Patient 17:12:13 CDT Dyllan Mcclure [facility] Procedures Code Procedure Name Date Entry Date Standard Description CPT-57543 Addl Vx - Ix admin via ID IM or jet injects without counseling by physician 10:39:15 CDT CPT-53200 Gardasil 9 Intramuscular Suspension 10:39:15 CDT 04/15 CPT-50511 First Vx - Ix admin via ID IM or jet injects without counseling by physician 10:39:15 CDT CPT-96228 Havrix Intramuscular Suspension 720 EL U/0.5ML 10:39:15 CDT CPT-10507 Addl Vx - Ix admin via ID IM or jet injects without counseling by physician 14:02:27 CDT CPT-99297 Meningococcal B, recombinant vaccine 14:02:27 CDT 03/27 CPT-47128 First Vx - Ix admin via ID IM or jet injects without counseling by physician 14:02:27 CDT CPT-50081 Menveo Intramuscular Solution Reconstituted 14:02:27 CDT BTO-51094-52 Event Monitor - MC review and interp 16:30:59 SET UP TECHNICIAN CPT-17568 EKG Trac and Interp - XRAY USE ONLY 10:18:23 CDT 04/10 CPT-28154 Event Monitor - Commercial Ins 14:58:02 SET UP TECHNICIAN CPT-96587 EKG Trac and Interp 10:58:25 SET UP TECHNICIAN CPT-25632 Chest 2V Frontal and Lat 10:58:25 SET UP TECHNICIAN CPT-86169 LS spine comp w obliq 17:16:12 CDT CPT-10285 Chest 2V Frontal and Lat 10:23:04 CDT CPT-50604 Foot comp min 3V 17:12:13 CDT
--- OUTSIDE RECORDS SUMMARY | 2017-05-26 16:28 | XMS REPORT | Clinical Summary ---
Author Author Admin, JONA Organization [facility] Address Unknown Phone Unavailable [...] Ankle pain, left 719.47 Active Roland Ellis FREIGHT BREAKER Pain in joint involving ankle and foot [...] q day for pain with food MELOXICAM 11200891031 Active Dyllan Timmons DO Active IBUPROFEN 400 MG TAB 1 tab po tid with food, prn IBUPROFEN 08837287308 Active Jillina Frazell FREIGHT BREAKER Active CYCLOBENZAPRINE HCL 10 MG TABS 1 tablet by mouth at bedtime for back spasm CYCLOBENZAPRINE HCL 20815980716 No Longer Active Jillina Frazell FREIGHT BREAKER Active LEVAQUIN 500 MG TAB 1 tablet by mouth daily LEVOFLOXACIN 44213366080 No Longer Active Jillina Frazell FREIGHT BREAKER Active LEVAQUIN 500 MG TAB 1 tablet by mouth daily LEVAQUIN 500 MG TAB 107386 LEVOFLOXACIN Inactive CYCLOBENZAPRINE HCL 10 MG TABS 1 tablet by mouth at bedtime for back spasm CYCLOBENZAPRINE HCL 10 MG TABS 741959 CYCLOBENZAPRINE HCL Inactive Immunizations Vaccine Administration Date [...] Measured Encounters Code Encounter Date Provider Facility CPT-45104 Level 3 Est. Patient 18:22:20 PROCESS IMPROVEMENT SPECIALIST Dyllan Timmons [facility] CPT-38409 Level 3 Est. Patient 17:12:26 CDT Dyllan Mcclure [facility] CPT-22237 Level 3 Est. Patient 10:50:38 CDT Katie Martell MD PhD [facility] CPT-50006 Level 3 Est. Patient 11:01:01 PROCESS IMPROVEMENT SPECIALIST Dyllan Mcclure [facility] CPT-15479 Level 3 Est. Patient 19:21:41 CDT Dyllan Mcclure [facility] CPT-70189 Level 2 Est. Patient 08:39:56 PROCESS IMPROVEMENT SPECIALIST Dyllan Mcclure [facility] CPT-82586 Level 3 Est. Patient 22:53:20 CDT Dyllan Mcclure [facility] CPT-26203 Level 3 Est. Patient 17:12:13 CDT Dyllan Mcclure [facility] Procedures Code Procedure Name Date Entry Date Standard Description CPT-33744 LS spine comp w obliq 17:16:12 CDT CPT-16994 Chest 2V Frontal and Lat 10:23:04 CDT CPT-26557 Foot comp min 3V 17:12:13 CDT
--- OUTSIDE RECORDS SUMMARY | 2017-05-26 16:29 | XMS REPORT | Clinical Summary ---
Author Author Admin, JONA Organization [employer] Address Unknown Phone Unavailable Allergies, Adverse Reactions, [...] Dysuria 788.1 Active Butch Felix MD Dysuria PAIN IN JOINT, ANKLE AND FOOT ICD-719.47 [...] 1 cap by mouth daily FLUOXETINE HCL 35476758166 Active Dyllan Timmons DO Active FLUTICASONE PROPIONATE 50 MCG/ACT SUSP 2 sprays each nostril daily FLUTICASONE PROPIONATE 54706053839 No Longer Active Butch Felix MD Active OMEPRAZOLE 20 MG CPDR 1 tablet by mouth daily OMEPRAZOLE 05709163062 No Longer Active Butch Felix MD Active ALBUTEROL SULFATE (2.5 MG/3ML) 0.083% NEBU 1 in nebulizer four times a day as needed for cough ALBUTEROL SULFATE 61984959670 No Longer Active Prisca Burton APRN Active ASPIRIN 325 MG TAB Take 1 tab p.o. PRN for pain ASPIRIN 25686208316 Active Chel Uriostegui APRN Active MELOXICAM 15 MG TABS 1 po q day for pain with food MELOXICAM 67154754191 No Longer Active Butch Felix MD Active IBUPROFEN 400 MG TAB 1 tab po tid with food, prn IBUPROFEN 72431737643 No Longer Active Butch Felix MD Active CYCLOBENZAPRINE HCL 10 MG TABS 1 tablet by mouth at bedtime for back spasm CYCLOBENZAPRINE HCL 42077063914 No Longer Active Roland Ellis APRN Active LEVAQUIN 500 MG TAB 1 tablet by mouth daily LEVOFLOXACIN 79885118514 No Longer Active Jillina Marquitazell PLANT MAINTENANCE ENGINEER Active LEVAQUIN 500 MG TAB 1 tablet by mouth daily LEVAQUIN 500 MG TAB 847863 LEVOFLOXACIN Inactive CYCLOBENZAPRINE HCL 10 MG TABS 1 tablet by mouth at bedtime for back spasm CYCLOBENZAPRINE HCL 10 MG TABS 201970 CYCLOBENZAPRINE HCL Inactive IBUPROFEN 400 MG TAB 1 tab po tid with food, prn IBUPROFEN 400 MG TAB 152916 IBUPROFEN Inactive MELOXICAM 15 MG TABS 1 po q day for pain with food MELOXICAM 15 MG TABS 676025 MELOXICAM Inactive ALBUTEROL SULFATE (2.5 MG/3ML) 0.083% NEBU 1 in nebulizer four times a day as needed for cough ALBUTEROL SULFATE (2.5 MG/3ML) 0.083% NEBU 828097 ALBUTEROL SULFATE Inactive OMEPRAZOLE 20 MG CPDR 1 tablet by mouth daily OMEPRAZOLE 20 MG CPDR 536899 OMEPRAZOLE Inactive FLUTICASONE PROPIONATE 50 MCG/ACT SUSP 2 sprays each nostril daily FLUTICASONE PROPIONATE 50 MCG/ACT SUSP 323504 FLUTICASONE PROPIONATE Inactive Immunizations Vaccine Administration Date [...] Panel - Chemistry sodium, serum 141 mmol/L 231-932 3542/04/05 carbon dioxide, venous blood 31.5 mmol/L 21.0-32.0 [...] 4.4 mmol/L 3.5-5.2 sodium, serum 140 mmol/L 742-961 5020/03/09 TSH 1.58 m[iU]/mL 0.36-3.74 blood glucose 81 [...] 5.0-8.5 Encounters Code Encounter Date Provider Facility CPT-71827 Level 3 Est. Patient 09:01:12 CDT Dyllan Timmons [facility] CPT-32541 Level 3 Est. Patient 08:29:00 CDT Dyllan Timmons [facility] CPT-45585 Level 3 Est. Patient 16:34:51 CDT Butch Felix MD [facility] CPT-96694 Level 3 Est. Patient 11:07:07 CDT Alissa Elizabeth [facility] CPT-14148 Level 3 Est. Patient 09:56:03 CDT Butch Felix MD [facility] CPT-34511 Level 3 Est. Patient 10:09:51 CDT Butch Felix MD [facility] CPT-51598 Level 3 Est. Patient 10:33:59 CDT Chel Uriostegui [facility] CPT-29556 Level 3 Est. Patient 16:17:38 CDT Prisca Micheal [facility] CPT-40894 Level 3 Est. Patient 11:06:35 BLOOD BANK TECHNICIAN Butch Felix MD [facility] CPT-64635 Level 3 Est. Patient 18:22:20 BLOOD BANK TECHNICIAN Dyllan Timmons [facility] CPT-48209 Level 3 Est. Patient 17:12:26 CDT Dyllan Timmons [facility] CPT-78269 Level 3 Est. Patient 10:50:38 CDT Katie Martell MD PhD [facility] CPT-77250 Level 3 Est. Patient 11:01:01 BLOOD BANK TECHNICIAN Dyllan Timmons [facility] CPT-97781 Level 3 Est. Patient 19:21:41 CDT Dyllan Timmons [facility] CPT-09073 Level 2 Est. Patient 08:39:56 BLOOD BANK TECHNICIAN Dyllan Timmons [facility] CPT-97558 Level 3 Est. Patient 22:53:20 CDT Dyllan Timmons [facility] CPT-80130 Level 3 Est. Patient 17:12:13 CDT Dyllan Timmons [facility] Procedures Code Procedure Name Date Entry Date Standard Description [id number] Event Monitor - review and interp 16:30:59 BLOOD BANK TECHNICIAN CPT-65606 EKG Trac and Interp - XRAY USE ONLY 10:18:23 CDT 04/10 CPT-04078 Event Monitor - Commercial Ins 14:58:02 BLOOD BANK TECHNICIAN CPT-02854 EKG Trac and Interp 10:58:25 BLOOD BANK TECHNICIAN CPT-38978 Chest 2V Frontal and Lat 10:58:25 BLOOD BANK TECHNICIAN CPT-57106 LS spine comp w obliq 17:16:12 CDT CPT-25734 Chest 2V Frontal and Lat 10:23:04 CDT CPT-35052 Foot comp min 3V 17:12:13 CDT
--- OUTSIDE RECORDS SUMMARY | 2017-05-26 16:30 | XMS REPORT ---
Author Author [email or web address] [facility] Medical Staff Organization [facility] Address [address] [id number] Phone [phone] Summary purpose TRANSITION OF CARE AUTO GENERATION [...] Code Type Description Date Performed Performing Physician [id number] CPT-4 TTE W/DOPPLER, COMPLETE 12-28-2015 FREEMAN LYNNE Functional status No functional or [...]
--- OUTSIDE RECORDS SUMMARY | 2017-05-26 16:30 | XMS REPORT | Clinical Summary ---
Author Author Admin, QIE Organization [facility] Address Unknown Phone Unavailable Allergies, Adverse Reactions, [...] 1 cap by mouth daily FLUOXETINE HCL 48637211771 Active Dyllan Timmons DO Active FLUTICASONE PROPIONATE 50 MCG/ACT SUSP 2 sprays each nostril daily FLUTICASONE PROPIONATE 09386895212 No Longer Active Butch Felix MD Active OMEPRAZOLE 20 MG CPDR 1 tablet by mouth daily OMEPRAZOLE 26721073002 No Longer Active Butch Felix MD Active ALBUTEROL SULFATE (2.5 MG/3ML) 0.083% NEBU 1 in nebulizer four times a day as needed for cough ALBUTEROL SULFATE 56297029090 No Longer Active Prisca Burton APRN Active ASPIRIN 325 MG TAB Take 1 tab p.o. PRN for pain ASPIRIN 32404121933 Active Chel Uriostegui APRN Active MELOXICAM 15 MG TABS 1 po q day for pain with food MELOXICAM 89481266109 No Longer Active Butch Felix MD Active IBUPROFEN 400 MG TAB 1 tab po tid with food, prn IBUPROFEN 00593627722 No Longer Active Butch Felix MD Active CYCLOBENZAPRINE HCL 10 MG TABS 1 tablet by mouth at bedtime for back spasm CYCLOBENZAPRINE HCL 62383210826 No Longer Active Roland Ellis APRN Active LEVAQUIN 500 MG TAB 1 tablet by mouth daily LEVOFLOXACIN 30138030049 No Longer Active Jillina Frazell [employer] ME[employer]IC [employer] Active LEVAQUIN 500 MG TAB 1 tablet by mouth daily LEVAQUIN 500 MG TAB 298386 LEVOFLOXACIN Inactive CYCLOBENZAPRINE HCL 10 MG TABS 1 tablet by mouth at bedtime for back spasm CYCLOBENZAPRINE HCL 10 MG TABS 353644 CYCLOBENZAPRINE HCL Inactive IBUPROFEN 400 MG TAB 1 tab po tid with food, prn IBUPROFEN 400 MG TAB 693060 IBUPROFEN Inactive MELOXICAM 15 MG TABS 1 po q day for pain with food MELOXICAM 15 MG TABS 146631 MELOXICAM Inactive ALBUTEROL SULFATE (2.5 MG/3ML) 0.083% NEBU 1 in nebulizer four times a day as needed for cough ALBUTEROL SULFATE (2.5 MG/3ML) 0.083% NEBU 191227 ALBUTEROL SULFATE Inactive OMEPRAZOLE 20 MG CPDR 1 tablet by mouth daily OMEPRAZOLE 20 MG CPDR 996867 OMEPRAZOLE Inactive FLUTICASONE PROPIONATE 50 MCG/ACT SUSP 2 sprays each nostril daily FLUTICASONE PROPIONATE 50 MCG/ACT SUSP 187709 FLUTICASONE PROPIONATE Inactive Immunizations Vaccine Administration Date [...] Panel - Chemistry sodium, serum 141 mmol/L 876-277 9823/04/05 carbon dioxide, venous blood 31.5 mmol/L 21.0-32.0 [...] 1.58 m[iU]/mL 0.36-3.74 sodium, serum 140 mmol/L 302-989 8110/03/09 potassium, serum 4.4 mmol/L 3.5-5.2 chloride, serum [...] 5.0-8.5 Encounters Code Encounter Date Provider Facility CPT-77647 Level 3 Est. Patient 08:29:00 CDT Dyllan Timmons DO [facility] CPT-67310 Level 3 Est. Patient 16:34:51 CDT Butch Felix MD [facility] CPT-55303 Level 3 Est. Patient 11:07:07 CDT Alissa Johnson APRN [facility] CPT-18006 Level 3 Est. Patient 09:56:03 CDT Butch Felix MD [facility] CPT-44399 Level 3 Est. Patient 10:09:51 CDT Butch Felix MD [facility] CPT-86846 Level 3 Est. Patient 10:33:59 CDT Chel Uriostegui [facility] CPT-82561 Level 3 Est. Patient 16:17:38 CDT Priscaalejandra Burton [facility] CPT-43497 Level 3 Est. Patient 11:06:35 CONTROLLER OPERATIONS AND HR MANAGER Butch Felix MD [facility] CPT-46405 Level 3 Est. Patient 18:22:20 CONTROLLER OPERATIONS AND HR MANAGER Dyllan Timmons [facility] CPT-21296 Level 3 Est. Patient 17:12:26 CDT Dyllan Timmons [facility] CPT-16664 Level 3 Est. Patient 10:50:38 CDT Katie Martell MD PhD [facility] CPT-25575 Level 3 Est. Patient 11:01:01 CONTROLLER OPERATIONS AND HR MANAGER Dyllan Timmons [facility] CPT-67967 Level 3 Est. Patient 19:21:41 CDT Dyllan Timmons [facility] CPT-53997 Level 2 Est. Patient 08:39:56 CONTROLLER OPERATIONS AND HR MANAGER Dyllan Timmons [facility] CPT-95040 Level 3 Est. Patient 22:53:20 CDT Dyllan Timmons [facility] CPT-06106 Level 3 Est. Patient 17:12:13 CDT Dyllan Timmons [facility] Procedures Code Procedure Name Date Entry Date Standard Description CPT-54767 Event Monitor - Commercial Ins 14:58:02 CONTROLLER OPERATIONS AND HR MANAGER CPT-00464 EKG Trac and Interp 10:58:25 CONTROLLER OPERATIONS AND HR MANAGER CPT-54187 Chest 2V Frontal and Lat 10:58:25 CONTROLLER OPERATIONS AND HR MANAGER CPT-96652 LS spine comp w obliq 17:16:12 CDT CPT-83825 Chest 2V Frontal and Lat 10:23:04 CDT CPT-01134 Foot comp min 3V 17:12:13 CDT
--- OUTSIDE RECORDS SUMMARY | 2017-05-26 16:30 | XMS REPORT | Clinical Summary ---
Author Author Admin, JONA Organization [employer] Address Unknown Phone Unavailable Allergies, Adverse Reactions, [...] 2 sprays each nostril daily FLUTICASONE PROPIONATE 46988430826 No Longer Active Butch Felix MD Active OMEPRAZOLE 20 MG CPDR 1 tablet by mouth daily OMEPRAZOLE 05510513347 No Longer Active Butch Felix MD Active ALBUTEROL SULFATE (2.5 MG/3ML) 0.083% NEBU 1 in nebulizer four times a day as needed for cough ALBUTEROL SULFATE 59839072029 No Longer Active Prisca Burton APRN Active ASPIRIN 325 MG TAB Take 1 tab p.o. PRN for pain ASPIRIN 16939250868 Active Chel Uriostegui ANA PAULA Active MELOXICAM 15 MG TABS 1 po q day for pain with food MELOXICAM 90850643555 No Longer Active Butch Felix MD Active IBUPROFEN 400 MG TAB 1 tab po tid with food, prn IBUPROFEN 24746501720 No Longer Active Butch Felix MD Active CYCLOBENZAPRINE HCL 10 MG TABS 1 tablet by mouth at bedtime for back spasm CYCLOBENZAPRINE HCL 24248084048 No Longer Active Jillina Rhonda GOSS Active LEVAQUIN 500 MG TAB 1 tablet by mouth daily LEVOFLOXACIN 23332678503 No Longer Active Jillina Frazell POCKET FLAP CREASING MACHINE OPERATOR Active LEVAQUIN 500 MG TAB 1 tablet by mouth daily LEVAQUIN 500 MG TAB 869165 LEVOFLOXACIN Inactive CYCLOBENZAPRINE HCL 10 MG TABS 1 tablet by mouth at bedtime for back spasm CYCLOBENZAPRINE HCL 10 MG TABS 217421 CYCLOBENZAPRINE HCL Inactive IBUPROFEN 400 MG TAB 1 tab po tid with food, prn IBUPROFEN 400 MG TAB 574982 IBUPROFEN Inactive MELOXICAM 15 MG TABS 1 po q day for pain with food MELOXICAM 15 MG TABS 784673 MELOXICAM Inactive ALBUTEROL SULFATE (2.5 MG/3ML) 0.083% NEBU 1 in nebulizer four times a day as needed for cough ALBUTEROL SULFATE (2.5 MG/3ML) 0.083% NEBU 144384 ALBUTEROL SULFATE Inactive OMEPRAZOLE 20 MG CPDR 1 tablet by mouth daily OMEPRAZOLE 20 MG CPDR 037751 OMEPRAZOLE Inactive FLUTICASONE PROPIONATE 50 MCG/ACT SUSP 2 sprays each nostril daily FLUTICASONE PROPIONATE 50 MCG/ACT SUSP 555687 FLUTICASONE PROPIONATE Inactive Immunizations Vaccine Administration Date Value Standard Description dT (Diphtheria and Tetanus) booster given Boostrix Tdap Td(adult ) unspecified formulation oral polio vaccine (OPV) #4 IPV poliovirus vaccine, unspecified formulation MMR (measles, mumps, rubella) virus immunization #2 MMR DPT immunization #5 DTaP DPT immunization #4 DTaP oral polio vaccine (OPV) #3 IPV poliovirus vaccine, unspecified formulation MMR (measles, mumps, rubella) virus immunization #1 MMR hepatitis B vaccine #3 Historical hepatitis B vaccine, unspecified formulation Hemophilus influenza B immunization #2 Historical Haemophilus influenzae type b vaccine, conjugate unspecified formulation DPT immunization #3 DTaP DPT immunization #2 DTaP oral polio vaccine (OPV) #2 IPV poliovirus vaccine, unspecified formulation hepatitis B vaccine #2 given Historical hepatitis B vaccine, unspecified formulation DPT immunization #1 DTaP hepatitis B vaccine #1 given Historical hepatitis B vaccine, unspecified formulation oral polio vaccine (OPV) #1 IPV poliovirus vaccine, unspecified formulation Hemophilus influenza B immunization #1 Historical Haemophilus influenzae type b vaccine, conjugate unspecified formulation Vital Signs Date Name Value [...] Panel - Chemistry sodium, serum 141 mmol/L 681-122 6205/04/05 carbon dioxide, venous blood 31.5 mmol/L 21.0-32.0 [...] 4.4 mmol/L 3.5-5.2 sodium, serum 140 mmol/L 671-169 9697/03/09 TSH 1.58 m[iU]/mL 0.36-3.74 blood glucose 81 [...] 142-424 Encounters Code Encounter Date Provider Facility CPT-77216 Level 3 Est. Patient 09:56:03 CDT Butch Felix MD [facility] CPT-59970 Level 3 Est. Patient 10:09:51 CDT Butch Felix MD [facility] CPT-38703 Level 3 Est. Patient 10:33:59 CDT Chel Uriostegui [facility] CPT-62281 Level 3 Est. Patient 16:17:38 CDT Prisca Burton [facility] CPT-54878 Level 3 Est. Patient 11:06:35 STITCH WELDER Butch Felix MD [facility] CPT-95749 Level 3 Est. Patient 18:22:20 STITCH WELDER yDllan Timmons [facility] CPT-06304 Level 3 Est. Patient 17:12:26 CDT Dyllan Timmons [facility] CPT-21340 Level 3 Est. Patient 10:50:38 CDT Katie Martell MD PhD [facility] CPT-20682 Level 3 Est. Patient 11:01:01 STITCH WELDER Dyllan Timmons [facility] CPT-15484 Level 3 Est. Patient 19:21:41 CDT Dyllan Timmons [facility] CPT-34070 Level 2 Est. Patient 08:39:56 STITCH WELDER Dyllan Timmons [facility] CPT-34435 Level 3 Est. Patient 22:53:20 CDT Dyllan Mcclure [facility] CPT-89008 Level 3 Est. Patient 17:12:13 CDT Dyllan Mcclure [facility] Procedures Code Procedure Name Date Entry Date Standard Description CPT-03456 Event Monitor - Commercial Ins 14:58:02 STITCH WELDER CPT-95270 EKG Trac and Interp 10:58:25 STITCH WELDER CPT-14422 Chest 2V Frontal and Lat 10:58:25 STITCH WELDER CPT-65440 LS spine comp w obliq 17:16:12 CDT CPT-42436 Chest 2V Frontal and Lat 10:23:04 CDT CPT-84883 Foot comp min 3V 17:12:13 CDT
--- OUTSIDE RECORDS SUMMARY | 2017-05-26 16:30 | XMS REPORT | Clinical Summary ---
Author Author Admin, JONA Organization [facility] Address Unknown Phone Unavailable Allergies, Adverse [...] TAB 1 tablet by mouth daily LEVOFLOXACIN 37506336358 Active Katie Martell MD PhD Active Immunizations [...] Negative Encounters Code Encounter Date Provider Facility CPT-11288 Level 3 Est. Patient 10:50:38 CDT Katie Martell MD PhD [facility] CPT-10297 Level 3 Est. Patient 11:01:01 INFANTRY SENIOR SERGEANT Dyllan Timmons [facility] CPT-90011 Level 3 Est. Patient 19:21:41 CDT Dyllan Timmons [facility] CPT-27651 Level 2 Est. Patient 08:39:56 INFANTRY SENIOR SERGEANT Dyllan Timmons [facility] CPT-34209 Level 3 Est. Patient 22:53:20 CDT Dyllan Timmons [facility] CPT-23282 Level 3 Est. Patient 17:12:13 CDYolanda Timmons [facility] Procedures Code Procedure Name Date Entry Date Standard Description CPT-91495 Chest 2V Frontal and Lat 10:23:04 CDT CPT-92250 Foot comp min 3V 17:12:13 CDT
--- OUTSIDE RECORDS SUMMARY | 2017-05-26 16:31 | XMS REPORT | Clinical Summary ---
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 PRN for pain ASPIRIN 87286968458 No Longer Active Dyllan Timmons DO Active FLUOXETINE HCL 20 MG CAPS 1 cap by mouth daily FLUOXETINE HCL 51766573498 No Longer Active Dyllan Timmons DO Active FLUTICASONE PROPIONATE 50 MCG/ACT SUSP 2 sprays each nostril daily FLUTICASONE PROPIONATE 51715023043 No Longer Active Butch Felix MD Active OMEPRAZOLE 20 MG CPDR 1 tablet by mouth daily OMEPRAZOLE 69375222662 No Longer Active Butch Felix MD Active ALBUTEROL SULFATE (2.5 MG/3ML) 0.083% NEBU 1 in nebulizer four times a day as needed for cough ALBUTEROL SULFATE 23513784918 No Longer Active Prisca Burton APRN Active MELOXICAM 15 MG TABS 1 po q day for pain with food MELOXICAM 06442273309 No Longer Active Butch Felix MD Active IBUPROFEN 400 MG TAB 1 tab po tid with food, prn IBUPROFEN 68652986281 No Longer Active Butch Felix MD Active CYCLOBENZAPRINE HCL 10 MG TABS 1 tablet by mouth at bedtime for back spasm CYCLOBENZAPRINE HCL 39997330186 No Longer Active Roland Ellis APRN Active LEVAQUIN 500 MG TAB 1 tablet by mouth daily LEVOFLOXACIN 66909097164 No Longer Active Roland Ellis GIS PROGRAMMER Active LEVAQUIN 500 MG TAB 1 tablet by mouth daily LEVAQUIN 500 MG TAB 366551 LEVOFLOXACIN Inactive CYCLOBENZAPRINE HCL 10 MG TABS 1 tablet by mouth at bedtime for back spasm CYCLOBENZAPRINE HCL 10 MG TABS 442562 CYCLOBENZAPRINE HCL Inactive IBUPROFEN 400 MG TAB 1 tab po tid with food, prn IBUPROFEN 400 MG TAB 088160 IBUPROFEN Inactive MELOXICAM 15 MG TABS 1 po q day for pain with food MELOXICAM 15 MG TABS 666162 MELOXICAM Inactive ALBUTEROL SULFATE (2.5 MG/3ML) 0.083% NEBU 1 in nebulizer four times a day as needed for cough ALBUTEROL SULFATE (2.5 MG/3ML) 0.083% NEBU 758791 ALBUTEROL SULFATE Inactive OMEPRAZOLE 20 MG CPDR 1 tablet by mouth daily OMEPRAZOLE 20 MG CPDR 454779 OMEPRAZOLE Inactive FLUTICASONE PROPIONATE 50 MCG/ACT SUSP 2 sprays each nostril daily FLUTICASONE PROPIONATE 50 MCG/ACT SUSP 9644652 FLUTICASONE PROPIONATE Inactive FLUOXETINE HCL 20 MG CAPS 1 cap by mouth daily FLUOXETINE HCL 20 MG CAPS 302588 FLUOXETINE HCL Inactive ASPIRIN 325 MG TAB Take 1 tab p.o. PRN for pain ASPIRIN 325 MG TAB 980619 ASPIRIN Inactive Immunizations Vaccine Administration Date Value [...] Measured Encounters Code Encounter Date Provider Facility CPT-13171 Level 3 Est. Patient 13:07:09 CDT Dyllan Timmons DO [facility] CPT-54925 Level 3 Est. Patient 09:01:12 CDT Dyllan Timmons [facility] CPT-02388 Level 3 Est. Patient 08:29:00 CDT Dyllan Timmons [facility] CPT-54041 Level 3 Est. Patient 16:34:51 CDT Butch Felix MD [facility] CPT-39395 Level 3 Est. Patient 11:07:07 CDT Alissa Johnson [facility] CPT-52022 Level 3 Est. Patient 09:56:03 CDT Butch Felix MD [facility] CPT-71447 Level 3 Est. Patient 10:09:51 CDT Butch Felix MD [facility] CPT-01009 Level 3 Est. Patient 10:33:59 CDT Chel Uriostegui [facility] CPT-45293 Level 3 Est. Patient 16:17:38 CDT Prisca Burton [facility] CPT-13442 Level 3 Est. Patient 11:06:35 PACKAGE SEALER MACHINE Butch Felix MD [facility] CPT-61763 Level 3 Est. Patient 18:22:20 PACKAGE SEALER MACHINE Dyllan Timmons [facility] CPT-57034 Level 3 Est. Patient 17:12:26 CDT Dyllan Timmons [facility] CPT-06634 Level 3 Est. Patient 10:50:38 CDT Katie Martell MD PhD [facility] CPT-55319 Level 3 Est. Patient 11:01:01 PACKAGE SEALER MACHINE Dyllan Timmons [facility] CPT-33531 Level 3 Est. Patient 19:21:41 CDT Dyllan Timmons [facility] CPT-17937 Level 2 Est. Patient 08:39:56 PACKAGE SEALER MACHINE Dyllan Timmons [facility] CPT-27461 Level 3 Est. Patient 22:53:20 CDT Dyllan Timmons [facility] CPT-68145 Level 3 Est. Patient 17:12:13 CDT Dyllan Timmons DO [facility] Procedures Code Procedure Name Date Entry Date Standard Description CPT-47800 Addl Vx - Ix admin via ID IM or jet injects without counseling by physician 14:02:27 CDT CPT-77666 Meningococcal B, recombinant vaccine 14:02:27 CDT 03/27 CPT-70395 First Vx - Ix admin via ID IM or jet injects without counseling by physician 14:02:27 CDT CPT-30922 Menveo Intramuscular Solution Reconstituted 14:02:27 CDT [id number] Event Monitor - MC review and interp 16:30:59 PACKAGE SEALER MACHINE CPT-33160 EKG Trac and Interp - XRAY USE ONLY 10:18:23 CDT 04/10 CPT-89507 Event Monitor - Commercial Ins 14:58:02 PACKAGE SEALER MACHINE CPT-74141 EKG Trac and Interp 10:58:25 PACKAGE SEALER MACHINE CPT-17274 Chest 2V Frontal and Lat 10:58:25 PACKAGE SEALER MACHINE CPT-24257 LS spine comp w obliq 17:16:12 CDT CPT-55309 Chest 2V Frontal and Lat 10:23:04 CDT CPT-89752 Foot comp min 3V 17:12:13 CDT
--- OUTSIDE RECORDS SUMMARY | 2017-05-26 16:32 | XMS REPORT | Clinical Summary ---
Author Author Admin, JONA Organization [employer] Address Unknown Phone Unavailable Allergies, Adverse Reactions, [...] day as needed for cough ALBUTEROL SULFATE 71301707969 Active Butch Felix MD Active MELOXICAM 15 MG TABS 1 po q day for pain with food MELOXICAM 08180312470 No Longer Active Butch Felix MD Active IBUPROFEN 400 MG TAB 1 tab po tid with food, prn IBUPROFEN 89827393417 No Longer Active Bucth Felix MD Active CYCLOBENZAPRINE HCL 10 MG TABS 1 tablet by mouth at bedtime for back spasm CYCLOBENZAPRINE HCL 86149423303 No Longer Active Roland Ellis APRN Active LEVAQUIN 500 MG TAB 1 tablet by mouth daily LEVOFLOXACIN 06102599413 No Longer Active Roland Ellis GENERAL FORECASTER Active LEVAQUIN 500 MG TAB 1 tablet by mouth daily LEVAQUIN 500 MG TAB 088433 LEVOFLOXACIN Inactive CYCLOBENZAPRINE HCL 10 MG TABS 1 tablet by mouth at bedtime for back spasm CYCLOBENZAPRINE HCL 10 MG TABS 068571 CYCLOBENZAPRINE HCL Inactive IBUPROFEN 400 MG TAB 1 tab po tid with food, prn IBUPROFEN 400 MG TAB 110531 IBUPROFEN Inactive MELOXICAM 15 MG TABS 1 po q day for pain with food MELOXICAM 15 MG TABS 323673 MELOXICAM Inactive Immunizations Vaccine Administration Date Value [...] 1.58 m[iU]/mL 0.36-3.74 sodium, serum 140 mmol/L 151-047 2123/03/09 potassium, serum 4.4 mmol/L 3.5-5.2 chloride, serum [...] 142-424 Encounters Code Encounter Date Provider Facility CPT-84162 Level 3 Est. Patient 11:06:35 POSTBED STITCHER Butch Felix MD [facility] CPT-59874 Level 3 Est. Patient 18:22:20 POSTBED STITCHER Dyllan Mcclure [facility] CPT-96521 Level 3 Est. Patient 17:12:26 CDT Dyllan Mcclure [facility] CPT-56712 Level 3 Est. Patient 10:50:38 CDT Katie Martell MD PhD [facility] CPT-37450 Level 3 Est. Patient 11:01:01 POSTBED STITCHER Dyllan Kami [facility] CPT-00859 Level 3 Est. Patient 19:21:41 CDT Dyllan Mcclure [facility] CPT-81300 Level 2 Est. Patient 08:39:56 POSTBED STITCHER Dyllan Mcclure [facility] CPT-18758 Level 3 Est. Patient 22:53:20 CDT Dyllan Mcclure [facility] CPT-86898 Level 3 Est. Patient 17:12:13 CDT Dyllan Mcclure [facility] Procedures Code Procedure Name Date Entry Date Standard Description CPT-72157 Event Monitor - Commercial Ins 14:58:02 POSTBED STITCHER CPT-50110 EKG Trac and Interp 10:58:25 POSTBED STITCHER CPT-49887 Chest 2V Frontal and Lat 10:58:25 POSTBED STITCHER CPT-84350 LS spine comp w obliq 17:16:12 CDT CPT-13171 Chest 2V Frontal and Lat 10:23:04 CDT CPT-02711 Foot comp min 3V 17:12:13 CDT
--- OUTSIDE RECORDS SUMMARY | 2017-05-26 16:32 | XMS REPORT | Clinical Summary ---
Author Author Admin, JONA Organization [employer] Address Unknown Phone Unavailable Allergies, Adverse Reactions, [...] APRN Esophageal reflux Allergic rhinitis 477.9 Active Prsica Burton APRN Allergic rhinitis, cause unspecified Chest [...] 2 sprays each nostril daily FLUTICASONE PROPIONATE 42797489102 No Longer Active Butch Felix MD Active OMEPRAZOLE 20 MG CPDR 1 tablet by mouth daily OMEPRAZOLE 94310556529 No Longer Active Butch Felix MD Active ALBUTEROL SULFATE (2.5 MG/3ML) 0.083% NEBU 1 in nebulizer four times a day as needed for cough ALBUTEROL SULFATE 84416255309 No Longer Active Prisca Burton APRN Active ASPIRIN 325 MG TAB Take 1 tab p.o. PRN for pain ASPIRIN 33403450448 Active Chel Uriostegui ANA PAULA Active MELOXICAM 15 MG TABS 1 po q day for pain with food MELOXICAM 36521053258 No Longer Active Butch Felix MD Active IBUPROFEN 400 MG TAB 1 tab po tid with food, prn IBUPROFEN 27679616516 No Longer Active Btuch Felix MD Active CYCLOBENZAPRINE HCL 10 MG TABS 1 tablet by mouth at bedtime for back spasm CYCLOBENZAPRINE HCL 19547187101 No Longer Active Jillina Rhonda GOSS Active LEVAQUIN 500 MG TAB 1 tablet by mouth daily LEVOFLOXACIN 89381286356 No Longer Active Jillina Frazell TELEGRAPH REPEATER INSTALLER Active LEVAQUIN 500 MG TAB 1 tablet by mouth daily LEVAQUIN 500 MG TAB 166258 LEVOFLOXACIN Inactive CYCLOBENZAPRINE HCL 10 MG TABS 1 tablet by mouth at bedtime for back spasm CYCLOBENZAPRINE HCL 10 MG TABS 476830 CYCLOBENZAPRINE HCL Inactive IBUPROFEN 400 MG TAB 1 tab po tid with food, prn IBUPROFEN 400 MG TAB 106157 IBUPROFEN Inactive MELOXICAM 15 MG TABS 1 po q day for pain with food MELOXICAM 15 MG TABS 075023 MELOXICAM Inactive ALBUTEROL SULFATE (2.5 MG/3ML) 0.083% NEBU 1 in nebulizer four times a day as needed for cough ALBUTEROL SULFATE (2.5 MG/3ML) 0.083% NEBU 236522 ALBUTEROL SULFATE Inactive OMEPRAZOLE 20 MG CPDR 1 tablet by mouth daily OMEPRAZOLE 20 MG CPDR 925577 OMEPRAZOLE Inactive FLUTICASONE PROPIONATE 50 MCG/ACT SUSP 2 sprays each nostril daily FLUTICASONE PROPIONATE 50 MCG/ACT SUSP 371897 FLUTICASONE PROPIONATE Inactive Immunizations Vaccine Administration Date [...] Panel - Chemistry sodium, serum 141 mmol/L 890-506 4420/04/05 carbon dioxide, venous blood 31.5 mmol/L 21.0-32.0 [...] 1.58 m[iU]/mL 0.36-3.74 sodium, serum 140 mmol/L 393-504 4682/03/09 potassium, serum 4.4 mmol/L 3.5-5.2 chloride, serum [...] 142-424 Encounters Code Encounter Date Provider Facility CPT-89712 Level 3 Est. Patient 10:09:51 CDT Butch Felix MD [facility] CPT-72618 Level 3 Est. Patient 10:33:59 CDT Chel Uriostegui [facility] CPT-52922 Level 3 Est. Patient 16:17:38 CDT Prisca Burton [facility] CPT-90270 Level 3 Est. Patient 11:06:35 TERMINAL OPERATOR Butch Felix MD [facility] CPT-62928 Level 3 Est. Patient 18:22:20 TERMINAL OPERATOR Dyllan Timmons [facility] CPT-44106 Level 3 Est. Patient 17:12:26 CDT Dyllan Mcclure [facility] CPT-01715 Level 3 Est. Patient 10:50:38 CDT Katie Martell MD [facility] CPT-57072 Level 3 Est. Patient 11:01:01 TERMINAL OPERATOR Dyllan Mcclure Iain [facility] CPT-26480 Level 3 Est. Patient 19:21:41 CDT Dyllan Mcclure [facility] CPT-12575 Level 2 Est. Patient 08:39:56 TERMINAL OPERATOR Dyllan Timmons [facility] CPT-82870 Level 3 Est. Patient 22:53:20 CDT Dyllan Kami [facility] CPT-87141 Level 3 Est. Patient 17:12:13 CDT Dyllan Mcclure [facility] Procedures Code Procedure Name Date Entry Date Standard Description CPT-42681 Event Monitor - Commercial Ins 14:58:02 TERMINAL OPERATOR CPT-81763 EKG Trac and Interp 10:58:25 TERMINAL OPERATOR CPT-98216 Chest 2V Frontal and Lat 10:58:25 TERMINAL OPERATOR CPT-85692 LS spine comp w obliq 17:16:12 CDT CPT-09003 Chest 2V Frontal and Lat 10:23:04 CDT CPT-06280 Foot comp min 3V 17:12:13 CDT
--- OUTSIDE RECORDS SUMMARY | 2017-05-26 16:32 | XMS REPORT | Clinical Summary ---
Author Author Admin, JONA Organization [employer] Address Unknown Phone Unavailable Allergies, Adverse Reactions, [...] Chest wall pain 786.52 Active Chel Uriostegui MARKETING ACCOUNT EXECUTIVE Painful respiration Anxiety 300.00 Active Chel Uriostegui APRN Anxiety state, unspecified Leg pain, bilateral 729.5 Active Butch Felix MD Pain in limb Nerve pain 729.2 Active Alissa Johnson APRN Neuralgia, neuritis, and radiculitis, unspecified Inguinal lymphadenopathy, right 785.6 Active Alissa Johnson MARKETING ACCOUNT EXECUTIVE Enlargement of lymph nodes Dysuria 788.1 Active [...] 2 sprays each nostril daily FLUTICASONE PROPIONATE 41651222787 No Longer Active Butch Felix MD Active OMEPRAZOLE 20 MG CPDR 1 tablet by mouth daily OMEPRAZOLE 64277128372 No Longer Active Butch Felix MD Active ALBUTEROL SULFATE (2.5 MG/3ML) 0.083% NEBU 1 in nebulizer four times a day as needed for cough ALBUTEROL SULFATE 22943500334 No Longer Active Prisca Burton APRN Active ASPIRIN 325 MG TAB Take 1 tab p.o. PRN for pain ASPIRIN 92354371147 Active Chel Uriostegui APRN Active MELOXICAM 15 MG TABS 1 po q day for pain with food MELOXICAM 96677718025 No Longer Active Butch Felix MD Active IBUPROFEN 400 MG TAB 1 tab po tid with food, prn IBUPROFEN 85364830441 No Longer Active Butch Felix MD Active CYCLOBENZAPRINE HCL 10 MG TABS 1 tablet by mouth at bedtime for back spasm CYCLOBENZAPRINE HCL 77566931793 No Longer Active Roland Ellis APRN Active LEVAQUIN 500 MG TAB 1 tablet by mouth daily LEVOFLOXACIN 08910120452 No Longer Active Roland Ellis APRN Active LEVAQUIN 500 MG TAB 1 tablet by mouth daily LEVAQUIN 500 MG TAB 977272 LEVOFLOXACIN Inactive CYCLOBENZAPRINE HCL 10 MG TABS 1 tablet by mouth at bedtime for back spasm CYCLOBENZAPRINE HCL 10 MG TABS 245434 CYCLOBENZAPRINE HCL Inactive IBUPROFEN 400 MG TAB 1 tab po tid with food, prn IBUPROFEN 400 MG TAB 683590 IBUPROFEN Inactive MELOXICAM 15 MG TABS 1 po q day for pain with food MELOXICAM 15 MG TABS 427712 MELOXICAM Inactive ALBUTEROL SULFATE (2.5 MG/3ML) 0.083% NEBU 1 in nebulizer four times a day as needed for cough ALBUTEROL SULFATE (2.5 MG/3ML) 0.083% NEBU 943968 ALBUTEROL SULFATE Inactive OMEPRAZOLE 20 MG CPDR 1 tablet by mouth daily OMEPRAZOLE 20 MG CPDR 217656 OMEPRAZOLE Inactive FLUTICASONE PROPIONATE 50 MCG/ACT SUSP 2 sprays each nostril daily FLUTICASONE PROPIONATE 50 MCG/ACT SUSP 047975 FLUTICASONE PROPIONATE Inactive Immunizations Vaccine Administration Date [...] Panel - Chemistry sodium, serum 141 mmol/L 867-395 4142/04/05 carbon dioxide, venous blood 31.5 mmol/L 21.0-32.0 [...] 4.4 mmol/L 3.5-5.2 sodium, serum 140 mmol/L 079-324 3475/03/09 TSH 1.58 m[iU]/mL 0.36-3.74 blood glucose 81 [...] 142-424 Encounters Code Encounter Date Provider Facility CPT-65692 Level 3 Est. Patient 16:34:51 CDT Butch Felix MD [facility] CPT-21691 Level 3 Est. Patient 11:07:07 CDT Alissa Johnson APRN [facility] CPT-59798 Level 3 Est. Patient 09:56:03 CDT Butch Felix MD [facility] CPT-47845 Level 3 Est. Patient 10:09:51 CDT Butch Felix MD [facility] CPT-96267 Level 3 Est. Patient 10:33:59 CDT Chel Uriostegui [facility] CPT-78825 Level 3 Est. Patient 16:17:38 CDT Prisca Burton [facility] CPT-68418 Level 3 Est. Patient 11:06:35 MILL HAND Butch Felix MD [facility] CPT-10035 Level 3 Est. Patient 18:22:20 MILL HAND Dyllan Mcclure [facility] CPT-52990 Level 3 Est. Patient 17:12:26 CDT Dyllan Timmons [facility] CPT-14900 Level 3 Est. Patient 10:50:38 CDT Katie Martell MD PhD [facility] CPT-06923 Level 3 Est. Patient 11:01:01 MILL HAND Dyllan Timmons [facility] CPT-24174 Level 3 Est. Patient 19:21:41 CDT Dyllan Mcclure [facility] CPT-38944 Level 2 Est. Patient 08:39:56 MILL HAND Dyllan Timmons [facility] CPT-74721 Level 3 Est. Patient 22:53:20 CDT Dyllan Mcclure [facility] CPT-42285 Level 3 Est. Patient 17:12:13 CDT Dyllan Timmons [facility] Procedures Code Procedure Name Date Entry Date Standard Description CPT-91607 Event Monitor - Commercial Ins 14:58:02 MILL HAND CPT-81144 EKG Trac and Interp 10:58:25 MILL HAND CPT-65254 Chest 2V Frontal and Lat 10:58:25 MILL HAND CPT-78989 LS spine comp w obliq 17:16:12 CDT CPT-05460 Chest 2V Frontal and Lat 10:23:04 CDT CPT-79546 Foot comp min 3V 17:12:13 CDT
--- OUTSIDE RECORDS SUMMARY | 2017-05-26 16:33 | XMS REPORT | Clinical Summary ---
Author Author Admin, QIE Organization [facility] Address Unknown Phone Unavailable Allergies, Adverse [...] tablet by mouth twice daily PROPRANOLOL HCL 72978265252 Active Dyllan Timmons DO Active ASPIRIN 325 MG TAB Take 1 tab p.o. PRN for pain ASPIRIN 40083345924 No Longer Active Dyllan Timmons DO Active FLUOXETINE HCL 20 MG CAPS 1 cap by mouth daily FLUOXETINE HCL 15966629065 No Longer Active Dyllan Timmons DO Active FLUTICASONE PROPIONATE 50 MCG/ACT SUSP 2 sprays each nostril daily FLUTICASONE PROPIONATE 16208629253 No Longer Active Butch Felix MD Active OMEPRAZOLE 20 MG CPDR 1 tablet by mouth daily OMEPRAZOLE 44916513499 No Longer Active Butch Felix MD Active ALBUTEROL SULFATE (2.5 MG/3ML) 0.083% NEBU 1 in nebulizer four times a day as needed for cough ALBUTEROL SULFATE 56219597906 No Longer Active Prisca Burton APRN Active MELOXICAM 15 MG TABS 1 po q day for pain with food MELOXICAM 46589469961 No Longer Active Butch Felix MD Active IBUPROFEN 400 MG TAB 1 tab po tid with food, prn IBUPROFEN 34417883281 No Longer Active Butch Felix MD Active CYCLOBENZAPRINE HCL 10 MG TABS 1 tablet by mouth at bedtime for back spasm CYCLOBENZAPRINE HCL 49325889743 No Longer Active Roland Ellis APRN Active LEVAQUIN 500 MG TAB 1 tablet by mouth daily LEVOFLOXACIN 44843589978 No Longer Active Roland Ellis FRAMING MACHINE TENDER Active LEVAQUIN 500 MG TAB 1 tablet by mouth daily LEVAQUIN 500 MG TAB 265950 LEVOFLOXACIN Inactive CYCLOBENZAPRINE HCL 10 MG TABS 1 tablet by mouth at bedtime for back spasm CYCLOBENZAPRINE HCL 10 MG TABS 200101 CYCLOBENZAPRINE HCL Inactive IBUPROFEN 400 MG TAB 1 tab po tid with food, prn IBUPROFEN 400 MG TAB 271878 IBUPROFEN Inactive MELOXICAM 15 MG TABS 1 po q day for pain with food MELOXICAM 15 MG TABS 622045 MELOXICAM Inactive ALBUTEROL SULFATE (2.5 MG/3ML) 0.083% NEBU 1 in nebulizer four times a day as needed for cough ALBUTEROL SULFATE (2.5 MG/3ML) 0.083% NEBU 168528 ALBUTEROL SULFATE Inactive OMEPRAZOLE 20 MG CPDR 1 tablet by mouth daily OMEPRAZOLE 20 MG CPDR 305870 OMEPRAZOLE Inactive FLUTICASONE PROPIONATE 50 MCG/ACT SUSP 2 sprays each nostril daily FLUTICASONE PROPIONATE 50 MCG/ACT SUSP 0680730 FLUTICASONE PROPIONATE Inactive FLUOXETINE HCL 20 MG CAPS 1 cap by mouth daily FLUOXETINE HCL 20 MG CAPS 204371 FLUOXETINE HCL Inactive ASPIRIN 325 MG TAB Take 1 tab p.o. PRN for pain ASPIRIN 325 MG TAB 359535 ASPIRIN Inactive Immunizations Vaccine Administration Date Value [...] Description blood pressure, diastolic 85 mm[Hg] BP dmias blood pressure, systolic 153 mm[Hg] BP sys [...] Panel - Chemistry sodium, serum 140 mmol/L 960-755 4072/07/06 carbon dioxide, venous blood 29.4 mmol/L 21.0-32.0 [...] 0.00-1.00 Encounters Code Encounter Date Provider Facility CPT-28721 Level 3 Est. Patient 13:07:[address] [facility] CPT-97099 Level 3 Est. Patient 09:01:[address] [facility] CPT-68889 Level 3 Est. Patient 08:29:[address] [facility] CPT-35263 Level 3 Est. Patient 16:34:51 CDT Butch Felix MD [facility] CPT-52641 Level 3 Est. Patient 11:07:07 CDT Alissa Johnson [facility]-11687 Level 3 Est. Patient 09:56:03 CDT Butch Felix MD [facility] CPT-77649 Level 3 Est. Patient 10:09:51 CDT Butch Felix MD [facility] CPT-33754 Level 3 Est. Patient 10:33:59 CDT Chel Uriostegui [facility] CPT-95228 Level 3 Est. Patient 16:17:38 CDT Prisca Burton [facility] CPT-20313 Level 3 Est. Patient 11:06:35 PROFESSOR OF RADIOLOGY Butch Felix MD [facility] CPT-39701 Level 3 Est. Patient 18:22:20 PROFESSOR OF RADIOLOGY Dyllan Timmons [facility] CPT-10412 Level 3 Est. Patient 17:12:26 CDT Dyllan Timmons [facility] CPT-20632 Level 3 Est. Patient 10:50:38 CDT Katie Martell MD PhD [facility] CPT-34790 Level 3 Est. Patient 11:01:01 PROFESSOR OF RADIOLOGY Dyllan Timmons [facility] CPT-84558 Level 3 Est. Patient 19:21:41 CDT Dyllan Timmons [facility] CPT-33630 Level 2 Est. Patient 08:39:56 PROFESSOR OF RADIOLOGY Dyllan Timmons [facility] CPT-11542 Level 3 Est. Patient 22:53:20 CDT Dyllan Timmons [facility] CPT-17377 Level 3 Est. Patient 17:12:13 CDT Dyllan Mcclure [facility] Procedures Code Procedure Name Date Entry Date Standard Description CPT-48874 Addl Vx - Ix admin via ID IM or jet injects without counseling by physician 10:39:15 CDT CPT-01614 Gardasil 9 Intramuscular Suspension 10:39:15 CDT 04/15 CPT-82357 First Vx - Ix admin via ID IM or jet injects without counseling by physician 10:39:15 CDT CPT-32727 Havrix Intramuscular Suspension 720 EL U/0.5ML 10:39:15 CDT CPT-01380 Addl Vx - Ix admin via ID IM or jet injects without counseling by physician 14:02:27 CDT CPT-56958 Meningococcal B, recombinant vaccine 14:02:27 CDT 03/27 CPT-59502 First Vx - Ix admin via ID IM or jet injects without counseling by physician 14:02:27 CDT CPT-89774 Menveo Intramuscular Solution Reconstituted 14:02:27 CDT VCT-12893-21 Event Monitor - MC review and interp 16:30:59 PROFESSOR OF RADIOLOGY CPT-24775 EKG Trac and Interp - XRAY USE ONLY 10:18:23 CDT 04/10 CPT-55800 Event Monitor - Commercial Ins 14:58:02 PROFESSOR OF RADIOLOGY CPT-13660 EKG Trac and Interp 10:58:25 PROFESSOR OF RADIOLOGY CPT-51433 Chest 2V Frontal and Lat 10:58:25 PROFESSOR OF RADIOLOGY CPT-42600 LS spine comp w obliq 17:16:12 CDT CPT-57981 Chest 2V Frontal and Lat 10:23:04 CDT CPT-22379 Foot comp min 3V 17:12:13 CDT
--- OUTSIDE RECORDS SUMMARY | 2017-05-26 16:34 | XMS REPORT | Clinical Summary ---
Author Author Admin, JONA Organization [employer] Address Unknown Phone Unavailable Allergies, Adverse Reactions, [...] 2 sprays each nostril daily FLUTICASONE PROPIONATE 27060138776 No Longer Active Butch Felix MD Active OMEPRAZOLE 20 MG CPDR 1 tablet by mouth daily OMEPRAZOLE 92404943274 No Longer Active Butch Felix MD Active ALBUTEROL SULFATE (2.5 MG/3ML) 0.083% NEBU 1 in nebulizer four times a day as needed for cough ALBUTEROL SULFATE 09113783585 No Longer Active Prisca Burton APRN Active ASPIRIN 325 MG TAB Take 1 tab p.o. PRN for pain ASPIRIN 78624774223 Active Chel Uriostegui ANA PAULA Active MELOXICAM 15 MG TABS 1 po q day for pain with food MELOXICAM 26079731733 No Longer Active Butch Felix MD Active IBUPROFEN 400 MG TAB 1 tab po tid with food, prn IBUPROFEN 72085321507 No Longer Active Butch Felix MD Active CYCLOBENZAPRINE HCL 10 MG TABS 1 tablet by mouth at bedtime for back spasm CYCLOBENZAPRINE HCL 96490236591 No Longer Active Jillina Rhonda GOSS Active LEVAQUIN 500 MG TAB 1 tablet by mouth daily LEVOFLOXACIN 45819234903 No Longer Active Jillina Frazell AUDIO VISUAL COLLECTIONS COORDINATOR Active LEVAQUIN 500 MG TAB 1 tablet by mouth daily LEVAQUIN 500 MG TAB 607745 LEVOFLOXACIN Inactive CYCLOBENZAPRINE HCL 10 MG TABS 1 tablet by mouth at bedtime for back spasm CYCLOBENZAPRINE HCL 10 MG TABS 259283 CYCLOBENZAPRINE HCL Inactive IBUPROFEN 400 MG TAB 1 tab po tid with food, prn IBUPROFEN 400 MG TAB 837142 IBUPROFEN Inactive MELOXICAM 15 MG TABS 1 po q day for pain with food MELOXICAM 15 MG TABS 481078 MELOXICAM Inactive ALBUTEROL SULFATE (2.5 MG/3ML) 0.083% NEBU 1 in nebulizer four times a day as needed for cough ALBUTEROL SULFATE (2.5 MG/3ML) 0.083% NEBU 199421 ALBUTEROL SULFATE Inactive OMEPRAZOLE 20 MG CPDR 1 tablet by mouth daily OMEPRAZOLE 20 MG CPDR 042791 OMEPRAZOLE Inactive FLUTICASONE PROPIONATE 50 MCG/ACT SUSP 2 sprays each nostril daily FLUTICASONE PROPIONATE 50 MCG/ACT SUSP 105300 FLUTICASONE PROPIONATE Inactive Immunizations Vaccine Administration Date [...] Panel - Chemistry sodium, serum 141 mmol/L 691-611 6220/04/05 carbon dioxide, venous blood 31.5 mmol/L 21.0-32.0 [...] 1.58 m[iU]/mL 0.36-3.74 sodium, serum 140 mmol/L 022-425 7404/03/09 potassium, serum 4.4 mmol/L 3.5-5.2 chloride, serum [...] 142-424 Encounters Code Encounter Date Provider Facility CPT-77125 Level 3 Est. Patient 10:09:51 CDT Butch Felix MD [facility] CPT-80646 Level 3 Est. Patient 10:33:59 CDT Chel Uriostegui [facility] CPT-92448 Level 3 Est. Patient 16:17:38 CDT Prisca Burton [facility] CPT-63618 Level 3 Est. Patient 11:06:35 WINDOW AIR CONDITIONER INSTALLER Butch Felix MD [facility] CPT-31353 Level 3 Est. Patient 18:22:20 WINDOW AIR CONDITIONER INSTALLER Dyllan Timmons [facility] CPT-25078 Level 3 Est. Patient 17:12:26 CDT Dyllan Mcclure [facility] CPT-84048 Level 3 Est. Patient 10:50:38 CDT Katie Martell MD [facility] CPT-13490 Level 3 Est. Patient 11:01:01 WINDOW AIR CONDITIONER INSTALLER Dyllan Mcclure [facility] CPT-52964 Level 3 Est. Patient 19:21:41 CDT Dyllan Mcclure [facility] CPT-44563 Level 2 Est. Patient 08:39:56 WINDOW AIR CONDITIONER INSTALLER Dyllan Timmons [facility] CPT-40634 Level 3 Est. Patient 22:53:20 CDT Dyllan Kami [facility] CPT-23349 Level 3 Est. Patient 17:12:13 CDT Dyllan Mcclure [facility] Procedures Code Procedure Name Date Entry Date Standard Description CPT-43422 Event Monitor - Commercial Ins 14:58:02 WINDOW AIR CONDITIONER INSTALLER CPT-49832 EKG Trac and Interp 10:58:25 WINDOW AIR CONDITIONER INSTALLER CPT-98413 Chest 2V Frontal and Lat 10:58:25 WINDOW AIR CONDITIONER INSTALLER CPT-98086 LS spine comp w obliq 17:16:12 CDT CPT-03539 Chest 2V Frontal and Lat 10:23:04 CDT CPT-54015 Foot comp min 3V 17:12:13 CDT
--- OUTSIDE RECORDS SUMMARY | 2017-05-26 16:34 | XMS REPORT | Clinical Summary ---
Author Author Admin, JONA Organization [employer] Address Unknown Phone Unavailable Allergies, Adverse Reactions, [...] Palpitations Acid reflux 530.81 Active Prisca Burton SUPERVISING FILM OR VIDEOTAPE EDITOR Esophageal reflux Allergic rhinitis 477.9 Active Prisca Burton APRN Allergic rhinitis, cause unspecified Chest wall pain 786.52 Active Chel Uriostegui SUPERVISING FILM OR VIDEOTAPE EDITOR Painful respiration Anxiety 300.00 Active Chel Uriostegui SUPERVISING FILM OR VIDEOTAPE EDITOR Anxiety state, unspecified Leg pain, bilateral 729.5 [...] 1 cap by mouth daily FLUOXETINE HCL 32875589733 Active Dyllan Timmons DO Active FLUTICASONE PROPIONATE 50 MCG/ACT SUSP 2 sprays each nostril daily FLUTICASONE PROPIONATE 31067732812 No Longer Active Butch Felix MD Active OMEPRAZOLE 20 MG CPDR 1 tablet by mouth daily OMEPRAZOLE 68544816881 No Longer Active Butch Felix MD Active ALBUTEROL SULFATE (2.5 MG/3ML) 0.083% NEBU 1 in nebulizer four times a day as needed for cough ALBUTEROL SULFATE 22212791302 No Longer Active Prisca Burton APRN Active ASPIRIN 325 MG TAB Take 1 tab p.o. PRN for pain ASPIRIN 85648946230 Active Chel Uriostegui APRN Active MELOXICAM 15 MG TABS 1 po q day for pain with food MELOXICAM 49547404053 No Longer Active Butch Felix MD Active IBUPROFEN 400 MG TAB 1 tab po tid with food, prn IBUPROFEN 84568156673 No Longer Active Butch Felix MD Active CYCLOBENZAPRINE HCL 10 MG TABS 1 tablet by mouth at bedtime for back spasm CYCLOBENZAPRINE HCL 87927157928 No Longer Active Roland Ellis APRN Active LEVAQUIN 500 MG TAB 1 tablet by mouth daily LEVOFLOXACIN 23842531752 No Longer Active Jillina Marquitazell SUPERVISING FILM OR VIDEOTAPE EDITOR Active LEVAQUIN 500 MG TAB 1 tablet by mouth daily LEVAQUIN 500 MG TAB 676504 LEVOFLOXACIN Inactive CYCLOBENZAPRINE HCL 10 MG TABS 1 tablet by mouth at bedtime for back spasm CYCLOBENZAPRINE HCL 10 MG TABS 398623 CYCLOBENZAPRINE HCL Inactive IBUPROFEN 400 MG TAB 1 tab po tid with food, prn IBUPROFEN 400 MG TAB 774841 IBUPROFEN Inactive MELOXICAM 15 MG TABS 1 po q day for pain with food MELOXICAM 15 MG TABS 149308 MELOXICAM Inactive ALBUTEROL SULFATE (2.5 MG/3ML) 0.083% NEBU 1 in nebulizer four times a day as needed for cough ALBUTEROL SULFATE (2.5 MG/3ML) 0.083% NEBU 932720 ALBUTEROL SULFATE Inactive OMEPRAZOLE 20 MG CPDR 1 tablet by mouth daily OMEPRAZOLE 20 MG CPDR 152221 OMEPRAZOLE Inactive FLUTICASONE PROPIONATE 50 MCG/ACT SUSP 2 sprays each nostril daily FLUTICASONE PROPIONATE 50 MCG/ACT SUSP 9060295 FLUTICASONE PROPIONATE Inactive Immunizations Vaccine Administration Date [...] Panel - Chemistry sodium, serum 141 mmol/L 161-693 4964/04/05 carbon dioxide, venous blood 31.5 mmol/L 21.0-32.0 [...] 4.4 mmol/L 3.5-5.2 sodium, serum 140 mmol/L 370-423 5854/03/09 TSH 1.58 m[iU]/mL 0.36-3.74 blood glucose 81 [...] 5.0-8.5 Encounters Code Encounter Date Provider Facility CPT-03924 Level 3 Est. Patient 09:01:12 CDT Dyllan Timmons [facility] CPT-50560 Level 3 Est. Patient 08:29:00 CDT Dyllan Timmons [facility] CPT-10386 Level 3 Est. Patient 16:34:51 CDT Butch Felix MD [facility] CPT-70341 Level 3 Est. Patient 11:07:07 CDT Alissa Elizabeth [facility] CPT-18047 Level 3 Est. Patient 09:56:03 CDT Butch Felix MD [facility] CPT-74472 Level 3 Est. Patient 10:09:51 CDT Butch Felix MD [facility] CPT-60172 Level 3 Est. Patient 10:33:59 CDT Chel Uriostegui [facility] CPT-04442 Level 3 Est. Patient 16:17:38 CDT Prisca Micheal [facility] CPT-02743 Level 3 Est. Patient 11:06:35 OCCUPATIONAL THERAPY ASST Butch Felix MD [facility] CPT-26321 Level 3 Est. Patient 18:22:20 OCCUPATIONAL THERAPY ASST Dyllan Timmons [facility] CPT-45424 Level 3 Est. Patient 17:12:26 CDT Dyllan Timmons [facility] CPT-90565 Level 3 Est. Patient 10:50:38 CDT Katie Martell MD PhD [facility] CPT-59942 Level 3 Est. Patient 11:01:01 OCCUPATIONAL THERAPY ASST Dyllan Timmons [facility] CPT-63775 Level 3 Est. Patient 19:21:41 CDT Dyllan Timmons [facility] CPT-20572 Level 2 Est. Patient 08:39:56 OCCUPATIONAL THERAPY ASST Dyllan Timmons [facility] CPT-25466 Level 3 Est. Patient 22:53:20 CDT Dyllan Timmons [facility] CPT-44562 Level 3 Est. Patient 17:12:13 CDT Dyllan Timmons [facility] Procedures Code Procedure Name Date Entry Date Standard Description [id number] Event Monitor - review and interp 16:30:59 OCCUPATIONAL THERAPY ASST CPT-99674 EKG Trac and Interp - XRAY USE ONLY 10:18:23 CDT 04/10 CPT-13002 Event Monitor - Commercial Ins 14:58:02 OCCUPATIONAL THERAPY ASST CPT-50027 EKG Trac and Interp 10:58:25 OCCUPATIONAL THERAPY ASST CPT-15943 Chest 2V Frontal and Lat 10:58:25 OCCUPATIONAL THERAPY ASST CPT-54754 LS spine comp w obliq 17:16:12 CDT CPT-96359 Chest 2V Frontal and Lat 10:23:04 CDT CPT-01855 Foot comp min 3V 17:12:13 CDT
--- OUTSIDE RECORDS SUMMARY | 2017-05-26 16:34 | XMS REPORT | Clinical Summary ---
Author Author Admin, JONA Organization [facility] Address Unknown Phone Unavailable Allergies, Adverse Reactions, [...] Ankle pain, left 719.47 Active Roland Ellis APRN Pain in joint involving ankle and foot FOOT PAIN, RIGHT ICD-729.5 Inactive Katie Martell MD PhD PAIN IN JOINT, ANKLE AND FOOT ICD-719.47 Inactive Katie Martell MD PhD Hip pain, left ICD-719.45 Inactive Katie Martell MD PhD Pharyngitis-Acute ICD-462 Inactive Katie Martell MD PhD Medication List Medication Instructions Start Date Stop Date Generic Name NDC Status Provider Patient Instruction IBUPROFEN 400 MG TAB 1 tab po tid with food, prn IBUPROFEN 60668481738 Active Jillina Frazell SIGN FABRICATOR Active CYCLOBENZAPRINE HCL 10 MG TABS 1 tablet by mouth at bedtime for back spasm CYCLOBENZAPRINE HCL 94167316192 No Longer Active Jillina Frazell SIGN FABRICATOR Active LEVAQUIN 500 MG TAB 1 tablet by mouth daily LEVOFLOXACIN 04354160660 No Longer Active Jillina Frazell SIGN FABRICATOR Active LEVAQUIN 500 MG TAB 1 tablet by mouth daily LEVAQUIN 500 MG TAB 288403 LEVOFLOXACIN Inactive CYCLOBENZAPRINE HCL 10 MG TABS 1 tablet by mouth at bedtime for back spasm CYCLOBENZAPRINE HCL 10 MG TABS 351770 CYCLOBENZAPRINE HCL Inactive Immunizations Vaccine Administration Date [...] Range Description blood pressure, diastolic - 8462-4 69 mm[Hg] [...] Negative Encounters Code Encounter Date Provider Facility CPT-71914 Level 3 Est. Patient 17:12:26 CDT Dyllan Mcclure [facility] CPT-64621 Level 3 Est. Patient 10:50:38 CDT Katie Martell MD [facility] CPT-36799 Level 3 Est. Patient 11:01:01 TEXTILE SCRAP SALVAGER Dyllan Mcclure [facility] CPT-75167 Level 3 Est. Patient 19:21:41 CDT Dyllan Mcclure [facility] CPT-76553 Level 2 Est. Patient 08:39:56 TEXTILE SCRAP SALVAGER Dyllan Mcclure [facility] CPT-18612 Level 3 Est. Patient 22:53:20 CDT Dyllan Mcclure [facility] CPT-09437 Level 3 Est. Patient 17:12:13 CDT Dyllan Mcclure [facility] Procedures Code Procedure Name Date Entry Date Standard Description CPT-91650 LS spine comp w obliq 17:16:12 CDT CPT-85439 Chest 2V Frontal and Lat 10:23:04 CDT CPT-37785 Foot comp min 3V 17:12:13 CDT
[2017-05-26 16:35] LABS: BASOPHILS % (AUTO) 0 % (0-10); EOSINOPHILS # (AUTO) 0.2 10^3/uL (0.0-0.3); EOSINOPHILS % (AUTO) 2 % (0-10); LYMPHOCYTES % (AUTO) 25 % (12-44); MEAN CORPUSCULAR HEMOGLOBIN 28 PG (25-34); MEAN CORPUSCULAR HGB CONC 36 G/DL (32-36); MEAN CORPUSCULAR VOLUME 77 FL (80-99); MEAN PLATELET VOLUME 10.4 FL (7.4-10.4); MONOCYTES # (AUTO) 1.1 X 10^3 (0.0-1.0); MONOCYTES % (AUTO) 9 % (0-12); NEUTROPHILS # (AUTO) 7.6 X 10^3 (1.8-7.8); NEUTROPHILS % (AUTO) 64 % (42-75); PLATELET COUNT 298 10^3/uL (130-400); RED BLOOD COUNT 5.56 10^6/uL (4.35-5.85); RED CELL DISTRIBUTION WIDTH 13.6 % (10.0-14.5); WHITE BLOOD COUNT 11.9 10^3/uL (4.3-11.0)
--- OUTSIDE RECORDS SUMMARY | 2017-05-26 16:35 | XMS REPORT | Clinical Summary ---
Author Author Admin, JONA Organization [facility] Address Unknown Phone Unavailable Allergies, Adverse [...] tab po tid with food, prn IBUPROFEN 54256553447 Active Jillina Frazell LOADING SUPERVISOR Active CYCLOBENZAPRINE HCL 10 MG TABS 1 tablet by mouth at bedtime for back spasm CYCLOBENZAPRINE HCL 35375124068 No Longer Active Jillina Frazell LOADING SUPERVISOR Active LEVAQUIN 500 MG TAB 1 tablet by mouth daily LEVOFLOXACIN 98650420441 No Longer Active Jillina Frazell LOADING SUPERVISOR Active LEVAQUIN 500 MG TAB 1 tablet by mouth daily LEVAQUIN 500 MG TAB 811963 LEVOFLOXACIN Inactive CYCLOBENZAPRINE HCL 10 MG TABS 1 tablet by mouth at bedtime for back spasm CYCLOBENZAPRINE HCL 10 MG TABS 087002 CYCLOBENZAPRINE HCL Inactive Immunizations Vaccine Administration Date [...] Negative Encounters Code Encounter Date Provider Facility CPT-98105 Level 3 Est. Patient 17:12:26 CDT Dyllan Mcclure [facility] CPT-33399 Level 3 Est. Patient 10:50:38 CDT Katie Martell MD [facility] CPT-42552 Level 3 Est. Patient 11:01:01 ACID PLANT HELPER Dyllan Mcclure [facility] CPT-72492 Level 3 Est. Patient 19:21:41 CDT Dyllan Mcclure [facility] CPT-61069 Level 2 Est. Patient 08:39:56 ACID PLANT HELPER Dyllan Mcclure [facility] CPT-41854 Level 3 Est. Patient 22:53:20 CDT Dyllan Mcclure [facility] CPT-65862 Level 3 Est. Patient 17:12:13 CDT Dyllan Mcclure [facility] Procedures Code Procedure Name Date Entry Date Standard Description CPT-28304 LS spine comp w obliq 17:16:12 CDT CPT-05986 Chest 2V Frontal and Lat 10:23:04 CDT CPT-98764 Foot comp min 3V 17:12:13 CDT
--- OUTSIDE RECORDS SUMMARY | 2017-05-26 16:35 | XMS REPORT | Clinical Summary ---
Author Author Admin, JONA Organization [employer] Address Unknown Phone Unavailable Allergies, Adverse Reactions, [...] day as needed for cough ALBUTEROL SULFATE 87508439507 Active Butch Felix MD Active MELOXICAM 15 MG TABS 1 po q day for pain with food MELOXICAM 54469559863 No Longer Active Butch Felix MD Active IBUPROFEN 400 MG TAB 1 tab po tid with food, prn IBUPROFEN 75948776479 No Longer Active Butch Felix MD Active CYCLOBENZAPRINE HCL 10 MG TABS 1 tablet by mouth at bedtime for back spasm CYCLOBENZAPRINE HCL 44272289012 No Longer Active Roland Ellis APRN Active LEVAQUIN 500 MG TAB 1 tablet by mouth daily LEVOFLOXACIN 73759006588 No Longer Active Roland Ellis AIRCRAFT ENGINE MECHANIC OVERHAUL Active LEVAQUIN 500 MG TAB 1 tablet by mouth daily LEVAQUIN 500 MG TAB 521489 LEVOFLOXACIN Inactive CYCLOBENZAPRINE HCL 10 MG TABS 1 tablet by mouth at bedtime for back spasm CYCLOBENZAPRINE HCL 10 MG TABS 594053 CYCLOBENZAPRINE HCL Inactive IBUPROFEN 400 MG TAB 1 tab po tid with food, prn IBUPROFEN 400 MG TAB 446991 IBUPROFEN Inactive MELOXICAM 15 MG TABS 1 po q day for pain with food MELOXICAM 15 MG TABS 080964 MELOXICAM Inactive Immunizations Vaccine Administration Date Value [...] 1.58 m[iU]/mL 0.36-3.74 sodium, serum 140 mmol/L 474-300 8821/03/09 potassium, serum 4.4 mmol/L 3.5-5.2 chloride, serum [...] 142-424 Encounters Code Encounter Date Provider Facility CPT-66625 Level 3 Est. Patient 11:06:35 FABRIC WORKER FITTER Butch Felix MD [facility] CPT-81497 Level 3 Est. Patient 18:22:20 FABRIC WORKER FITTER Dyllan Mcclure [facility] CPT-86225 Level 3 Est. Patient 17:12:26 CDT Dyllan Mcclure [facility] CPT-13052 Level 3 Est. Patient 10:50:38 CDT Katie Martell MD PhD [facility] CPT-86606 Level 3 Est. Patient 11:01:01 FABRIC WORKER FITTER Dyllan Kami [facility] CPT-19266 Level 3 Est. Patient 19:21:41 CDT Dyllan Mcclure [facility] CPT-56280 Level 2 Est. Patient 08:39:56 FABRIC WORKER FITTER Dyllan Mcclure [facility] CPT-69110 Level 3 Est. Patient 22:53:20 CDT Dyllan Mcclure [facility] CPT-50647 Level 3 Est. Patient 17:12:13 CDT Dyllan Mcclure [facility] Procedures Code Procedure Name Date Entry Date Standard Description CPT-95887 Event Monitor - Commercial Ins 14:58:02 FABRIC WORKER FITTER CPT-35021 EKG Trac and Interp 10:58:25 FABRIC WORKER FITTER CPT-55706 Chest 2V Frontal and Lat 10:58:25 FABRIC WORKER FITTER CPT-64566 LS spine comp w obliq 17:16:12 CDT CPT-06394 Chest 2V Frontal and Lat 10:23:04 CDT CPT-99659 Foot comp min 3V 17:12:13 CDT
--- OUTSIDE RECORDS SUMMARY | 2017-05-26 16:36 | XMS REPORT | Clinical Summary ---
Author Author Admin, QIE Organization [facility] Address Unknown [...] 1 cap by mouth daily FLUOXETINE HCL 28571650948 Active Dyllan Timmons DO Active FLUTICASONE PROPIONATE 50 MCG/ACT SUSP 2 sprays each nostril daily FLUTICASONE PROPIONATE 67493928155 No Longer Active Butch Felix MD Active OMEPRAZOLE 20 MG CPDR 1 tablet by mouth daily OMEPRAZOLE 17374939624 No Longer Active Butch Felix MD Active ALBUTEROL SULFATE (2.5 MG/3ML) 0.083% NEBU 1 in nebulizer four times a day as needed for cough ALBUTEROL SULFATE 11374429154 No Longer Active Prisca Burton APRN Active ASPIRIN 325 MG TAB Take 1 tab p.o. PRN for pain ASPIRIN 06402004435 Active Chel Uriostegui APRN Active MELOXICAM 15 MG TABS 1 po q day for pain with food MELOXICAM 32518102082 No Longer Active Butch Felix MD Active IBUPROFEN 400 MG TAB 1 tab po tid with food, prn IBUPROFEN 28904065498 No Longer Active Butch Felix MD Active CYCLOBENZAPRINE HCL 10 MG TABS 1 tablet by mouth at bedtime for back spasm CYCLOBENZAPRINE HCL 34173074539 No Longer Active Roland Ellis APRN Active LEVAQUIN 500 MG TAB 1 tablet by mouth daily LEVOFLOXACIN 25006399828 No Longer Active Jillina Frazell LOAD DISPATCHER Active LEVAQUIN 500 MG TAB 1 tablet by mouth daily LEVAQUIN 500 MG TAB 754708 LEVOFLOXACIN Inactive CYCLOBENZAPRINE HCL 10 MG TABS 1 tablet by mouth at bedtime for back spasm CYCLOBENZAPRINE HCL 10 MG TABS 452035 CYCLOBENZAPRINE HCL Inactive IBUPROFEN 400 MG TAB 1 tab po tid with food, prn IBUPROFEN 400 MG TAB 357571 IBUPROFEN Inactive MELOXICAM 15 MG TABS 1 po q day for pain with food MELOXICAM 15 MG TABS 878936 MELOXICAM Inactive ALBUTEROL SULFATE (2.5 MG/3ML) 0.083% NEBU 1 in nebulizer four times a day as needed for cough ALBUTEROL SULFATE (2.5 MG/3ML) 0.083% NEBU 310929 ALBUTEROL SULFATE Inactive OMEPRAZOLE 20 MG CPDR 1 tablet by mouth daily OMEPRAZOLE 20 MG CPDR 444121 OMEPRAZOLE Inactive FLUTICASONE PROPIONATE 50 MCG/ACT SUSP 2 sprays each nostril daily FLUTICASONE PROPIONATE 50 MCG/ACT SUSP 496790 FLUTICASONE PROPIONATE Inactive Immunizations Vaccine Administration Date [...] Panel - Chemistry sodium, serum 141 mmol/L 149-692 4780/04/05 carbon dioxide, venous blood 31.5 mmol/L 21.0-32.0 [...] 1.58 m[iU]/mL 0.36-3.74 sodium, serum 140 mmol/L 484-599 4996/03/09 potassium, serum 4.4 mmol/L 3.5-5.2 chloride, serum [...] 5.0-8.5 Encounters Code Encounter Date Provider Facility CPT-03206 Level 3 Est. Patient 09:01:12 CDT Dyllan Timmons [facility] CPT-90041 Level 3 Est. Patient 08:29:00 CDT Dyllan Timmons [facility] CPT-40725 Level 3 Est. Patient 16:34:51 CDT Butch Felix MD [facility] CPT-14056 Level 3 Est. Patient 11:07:07 CDT Alissa Elizabeth [facility] CPT-58651 Level 3 Est. Patient 09:56:03 CDT Butch Felix MD [facility] CPT-52764 Level 3 Est. Patient 10:09:51 CDT Butch Felix MD [facility] CPT-10655 Level 3 Est. Patient 10:33:59 CDT Chel Uriostegui [facility] CPT-25662 Level 3 Est. Patient 16:17:38 CDT Prisca Micheal [facility] CPT-83734 Level 3 Est. Patient 11:06:35 GUT CLEANER Butch Felix MD [facility] CPT-74850 Level 3 Est. Patient 18:22:20 GUT CLEANER Dyllan Timmons [facility] CPT-96919 Level 3 Est. Patient 17:12:26 CDT Dyllan Timmons [facility] CPT-53119 Level 3 Est. Patient 10:50:38 CDT Katie Martell MD PhD [facility] CPT-20014 Level 3 Est. Patient 11:01:01 GUT CLEANER Dyllan Timmons [facility] CPT-54188 Level 3 Est. Patient 19:21:41 CDT Dyllan Timmons [facility] CPT-02236 Level 2 Est. Patient 08:39:56 GUT CLEANER Dyllan Timmons [facility] CPT-68193 Level 3 Est. Patient 22:53:20 CDT Dyllan Timmons [facility] CPT-27540 Level 3 Est. Patient 17:12:13 CDT Dyllan Timmons [facility] Procedures Code Procedure Name Date Entry Date Standard Description [id number] Event Monitor - MC review and interp 16:30:59 GUT CLEANER CPT-98084 EKG Trac and Interp - XRAY USE ONLY 10:18:23 CDT 04/10 CPT-58700 Event Monitor - Commercial Ins 14:58:02 GUT CLEANER CPT-74158 EKG Trac and Interp 10:58:25 GUT CLEANER CPT-54016 Chest 2V Frontal and Lat 10:58:25 GUT CLEANER CPT-60371 LS spine comp w obliq 17:16:12 CDT CPT-51771 Chest 2V Frontal and Lat 10:23:04 CDT CPT-00749 Foot comp min 3V 17:12:13 CDT
--- OUTSIDE RECORDS SUMMARY | 2017-05-26 16:36 | XMS REPORT | Clinical Summary ---
Author Author Admin, JONA Organization [employer] Address Unknown Phone Unavailable Allergies, Adverse Reactions, Alerts Allergy Name Reaction Description Start Date Severity Status Provider IODINE Mild Active Dyllan Timmons DO CEPHALOSPORINS Critical Active Dlylan Timmons DO AMOXICILLIN Critical Active Dyllan Timmons DO Conditions or Problems Problem Name Problem Code Onset Date Status Entry Date Provider Comment Standard Description Annotate FOOT PAIN, RIGHT 729.5 Resolved Katie Martell MD PhD Pain in limb PAIN IN JOINT, ANKLE AND FOOT 719.47 Resolved Katie Martell MD PhD Pain in joint involving ankle and foot Sports physical V70.3 Active Dyllan Timmnos DO Other general medical examination for administrative [...] tablet by mouth twice daily PROPRANOLOL HCL 16172057709 Active Dyllan Timmons DO Active ASPIRIN 325 MG TAB Take 1 tab p.o. PRN for pain ASPIRIN 89302763195 No Longer Active Dyllan Timmons DO Active FLUOXETINE HCL 20 MG CAPS 1 cap by mouth daily FLUOXETINE HCL 14782584271 No Longer Active Dyllan Timmons DO Active FLUTICASONE PROPIONATE 50 MCG/ACT SUSP 2 sprays each nostril daily FLUTICASONE PROPIONATE 56125217720 No Longer Active Butch Felix MD Active OMEPRAZOLE 20 MG CPDR 1 tablet by mouth daily OMEPRAZOLE 51137569829 No Longer Active Butch Felix MD Active ALBUTEROL SULFATE (2.5 MG/3ML) 0.083% NEBU 1 in nebulizer four times a day as needed for cough ALBUTEROL SULFATE 33356839766 No Longer Active Prisca Burton APRN Active MELOXICAM 15 MG TABS 1 po q day for pain with food MELOXICAM 07112823736 No Longer Active Butch Felix MD Active IBUPROFEN 400 MG TAB 1 tab po tid with food, prn IBUPROFEN 89312391462 No Longer Active Butch Felix MD Active CYCLOBENZAPRINE HCL 10 MG TABS 1 tablet by mouth at bedtime for back spasm CYCLOBENZAPRINE HCL 56771915352 No Longer Active Roland Ellis APRN Active LEVAQUIN 500 MG TAB 1 tablet by mouth daily LEVOFLOXACIN 60640694993 No Longer Active Roland Ellis AREA COORDINATOR Active LEVAQUIN 500 MG TAB 1 tablet by mouth daily LEVAQUIN 500 MG TAB 700177 LEVOFLOXACIN Inactive CYCLOBENZAPRINE HCL 10 MG TABS 1 tablet by mouth at bedtime for back spasm CYCLOBENZAPRINE HCL 10 MG TABS 698748 CYCLOBENZAPRINE HCL Inactive IBUPROFEN 400 MG TAB 1 tab po tid with food, prn IBUPROFEN 400 MG TAB 630009 IBUPROFEN Inactive MELOXICAM 15 MG TABS 1 po q day for pain with food MELOXICAM 15 MG TABS 012487 MELOXICAM Inactive ALBUTEROL SULFATE (2.5 MG/3ML) 0.083% NEBU 1 in nebulizer four times a day as needed for cough ALBUTEROL SULFATE (2.5 MG/3ML) 0.083% NEBU 945597 ALBUTEROL SULFATE Inactive OMEPRAZOLE 20 MG CPDR 1 tablet by mouth daily OMEPRAZOLE 20 MG CPDR 415656 OMEPRAZOLE Inactive FLUTICASONE PROPIONATE 50 MCG/ACT SUSP 2 sprays each nostril daily FLUTICASONE PROPIONATE 50 MCG/ACT SUSP 8256774 FLUTICASONE PROPIONATE Inactive FLUOXETINE HCL 20 MG CAPS 1 cap by mouth daily FLUOXETINE HCL 20 MG CAPS 664072 FLUOXETINE HCL Inactive ASPIRIN 325 MG TAB Take 1 tab p.o. PRN for pain ASPIRIN 325 MG TAB 598724 ASPIRIN Inactive Immunizations Vaccine Administration Date Value [...] Panel - Chemistry sodium, serum 140 mmol/L 610-580 6886/07/06 carbon dioxide, venous blood 29.4 mmol/L 21.0-32.0 [...] 0.00-1.00 Encounters Code Encounter Date Provider Facility CPT-08940 Level 3 Est. Patient 13:07:09 CDT Dyllan Timmosn [facility] CPT-50080 Level 3 Est. Patient 09:01:12 CDT Dyllan Timmons [facility] CPT-67977 Level 3 Est. Patient 08:29:00 CDT Dyllan Timmons [facility] CPT-90436 Level 3 Est. Patient 16:34:51 CDT Butch Felix MD [facility] CPT-60828 Level 3 Est. Patient 11:07:07 CDT Alissa Johnson [facility] CPT-69305 Level 3 Est. Patient 09:56:03 CDT Butch Felix MD [facility] CPT-78535 Level 3 Est. Patient 10:09:51 CDT Butch Felix MD [facility] CPT-53937 Level 3 Est. Patient 10:33:59 CDT Chel Uriostegui [facility] CPT-64325 Level 3 Est. Patient 16:17:38 CDT Prisca Burton [facility] CPT-52340 Level 3 Est. Patient 11:06:35 FISHING TOOL TECHNICIAN OIL WELL Butch Felix MD [facility] CPT-13630 Level 3 Est. Patient 18:22:20 FISHING TOOL TECHNICIAN OIL WELL Dyllan Timmons [facility] CPT-93261 Level 3 Est. Patient 17:12:26 CDT Dyllan Timmons [facility] CPT-95245 Level 3 Est. Patient 10:50:38 CDT Katie Martell MD PhD [facility] CPT-76977 Level 3 Est. Patient 11:01:01 FISHING TOOL TECHNICIAN OIL WELL Dyllan Timmons [facility] CPT-98238 Level 3 Est. Patient 19:21:41 CDT Dyllan Timmons [facility] CPT-94357 Level 2 Est. Patient 08:39:56 FISHING TOOL TECHNICIAN OIL WELL Dyllan Timmons [facility] CPT-51435 Level 3 Est. Patient 22:53:20 CDT Dyllan Timmons [facility] CPT-35082 Level 3 Est. Patient 17:12:13 CDT Dyllan Mcclure [facility] Procedures Code Procedure Name Date Entry Date Standard Description CPT-32277 Addl Vx - Ix admin via ID IM or jet injects without counseling by physician 10:39:15 CDT CPT-66817 Gardasil 9 Intramuscular Suspension 10:39:15 CDT 04/15 CPT-82386 First Vx - Ix admin via ID IM or jet injects without counseling by physician 10:39:15 CDT CPT-90467 Havrix Intramuscular Suspension 720 EL U/0.5ML 10:39:15 CDT CPT-52355 Addl Vx - Ix admin via ID IM or jet injects without counseling by physician 14:02:27 CDT CPT-05423 Meningococcal B, recombinant vaccine 14:02:27 CDT 03/27 CPT-27317 First Vx - Ix admin via ID IM or jet injects without counseling by physician 14:02:27 CDT CPT-40279 Menveo Intramuscular Solution Reconstituted 14:02:27 CDT [id number] Event Monitor - MC review and interp 16:30:59 FISHING TOOL TECHNICIAN OIL WELL CPT-03654 EKG Trac and Interp - XRAY USE ONLY 10:18:23 CDT 04/10 CPT-86785 Event Monitor - Commercial Ins 14:58:02 FISHING TOOL TECHNICIAN OIL WELL CPT-23828 EKG Trac and Interp 10:58:25 FISHING TOOL TECHNICIAN OIL WELL CPT-83142 Chest 2V Frontal and Lat 10:58:25 FISHING TOOL TECHNICIAN OIL WELL CPT-24357 LS spine comp w obliq 17:16:12 CDT CPT-25021 Chest 2V Frontal and Lat 10:23:04 CDT CPT-18405 Foot comp min 3V 17:12:13 CDT
--- OUTSIDE RECORDS SUMMARY | 2017-05-26 16:37 | XMS REPORT | Clinical Summary ---
Author Author Admin, JONA Organization [employer] Address Unknown Phone Unavailable Allergies, Adverse Reactions, [...] Pharyngitis-Acute ICD-462 Inactive Katie Martell MD PhD FOOT PAIN, RIGHT ICD-729.5 Inactive Katie Martell MD PhD Lumbar strain, acute ICD-847.2 Inactive Butch Felix MD Cough ICD-786.2 Inactive Butch Felix MD Bronchitis, acute ICD-466.0 Inactive Butch Felix MD Ankle pain, left ICD-719.47 Inactive Butch Felix MD Medication List Medication Instructions Start Date Stop Date Generic Name NDC Status Provider Patient Instruction PROPRANOLOL HCL 10 MG TAB 1 tablet by mouth twice daily PROPRANOLOL HCL 82519330838 Active Dyllan Timmons DO Active ASPIRIN 325 MG TAB Take 1 tab p.o. PRN for pain ASPIRIN 51318293496 No Longer Active Dyllan Timmons DO Active FLUOXETINE HCL 20 MG CAPS 1 cap by mouth daily FLUOXETINE HCL 70238978950 No Longer Active Dyllan Timmons DO Active FLUTICASONE PROPIONATE 50 MCG/ACT SUSP 2 sprays each nostril daily FLUTICASONE PROPIONATE 92804577561 No Longer Active Butch Felix MD Active OMEPRAZOLE 20 MG CPDR 1 tablet by mouth daily OMEPRAZOLE 93007881631 No Longer Active Butch Felix MD Active ALBUTEROL SULFATE (2.5 MG/3ML) 0.083% NEBU 1 in nebulizer four times a day as needed for cough ALBUTEROL SULFATE 32317471492 No Longer Active Prisca Burton APRN Active MELOXICAM 15 MG TABS 1 po q day for pain with food MELOXICAM 91293839810 No Longer Active Butch Felix MD Active IBUPROFEN 400 MG TAB 1 tab po tid with food, prn IBUPROFEN 77807963164 No Longer Active Butch Felix MD Active CYCLOBENZAPRINE HCL 10 MG TABS 1 tablet by mouth at bedtime for back spasm CYCLOBENZAPRINE HCL 45582750023 No Longer Active Roland Ellis APRN Active LEVAQUIN 500 MG TAB 1 tablet by mouth daily LEVOFLOXACIN 06563412359 No Longer Active Roland Ellis WASHER AND CAPPER MACHINE OPERATOR Active LEVAQUIN 500 MG TAB 1 tablet by mouth daily LEVAQUIN 500 MG TAB 565303 LEVOFLOXACIN Inactive CYCLOBENZAPRINE HCL 10 MG TABS 1 tablet by mouth at bedtime for back spasm CYCLOBENZAPRINE HCL 10 MG TABS 686823 CYCLOBENZAPRINE HCL Inactive IBUPROFEN 400 MG TAB 1 tab po tid with food, prn IBUPROFEN 400 MG TAB 608874 IBUPROFEN Inactive MELOXICAM 15 MG TABS 1 po q day for pain with food MELOXICAM 15 MG TABS 637262 MELOXICAM Inactive ALBUTEROL SULFATE (2.5 MG/3ML) 0.083% NEBU 1 in nebulizer four times a day as needed for cough ALBUTEROL SULFATE (2.5 MG/3ML) 0.083% NEBU 066040 ALBUTEROL SULFATE Inactive OMEPRAZOLE 20 MG CPDR 1 tablet by mouth daily OMEPRAZOLE 20 MG CPDR 659729 OMEPRAZOLE Inactive FLUTICASONE PROPIONATE 50 MCG/ACT SUSP 2 sprays each nostril daily FLUTICASONE PROPIONATE 50 MCG/ACT SUSP 8060868 FLUTICASONE PROPIONATE Inactive FLUOXETINE HCL 20 MG CAPS 1 cap by mouth daily FLUOXETINE HCL 20 MG CAPS 562152 FLUOXETINE HCL Inactive ASPIRIN 325 MG TAB Take 1 tab p.o. PRN for pain ASPIRIN 325 MG TAB 879258 ASPIRIN Inactive Immunizations Vaccine Administration Date Value [...] Panel - Chemistry sodium, serum 140 mmol/L 477-037 1588/07/06 carbon dioxide, venous blood 29.4 mmol/L 21.0-32.0 [...] 0.00-1.00 Encounters Code Encounter Date Provider Facility CPT-54111 Level 3 Est. Patient 13:07:09 CDT Dyllan Timmons [facility] CPT-01229 Level 3 Est. Patient 09:01:12 CDT Dyllan Timmons [facility]-01252 Level 3 Est. Patient 08:29:00 CDT Dyllan Mcclure [facility] CPT-57136 Level 3 Est. Patient 16:34:51 CDT Butch Felix MD [facility]-05856 Level 3 Est. Patient 11:07:07 CDT Alissa Johnson [facility] CPT-76211 Level 3 Est. Patient 09:56:03 CDT Butch Felix MD [facility]-54848 Level 3 Est. Patient 10:09:51 CDT Butch Felix MD [facility] CPT-27747 Level 3 Est. Patient 10:33:59 CDT Chel Uriostegui [facility]-89904 Level 3 Est. Patient 16:17:38 CDT Prisca Burton [facility]-14799 Level 3 Est. Patient 11:06:35 CREATIVE INTERN Butch Felix MD [facility] CPT-02045 Level 3 Est. Patient 18:22:20 CREATIVE INTERN Dyllan Timmons [facility] CPT-17216 Level 3 Est. Patient 17:12:26 CDT Dyllan Timmons [facility] CPT-32583 Level 3 Est. Patient 10:50:38 CDT Katie Martell MD [facility] CPT-20147 Level 3 Est. Patient 11:01:01 CREATIVE INTERN Dyllan Timmons [facility] CPT-12480 Level 3 Est. Patient 19:21:41 CDT Dyllan Mcclure [facility] CPT-55096 Level 2 Est. Patient 08:39:56 CREATIVE INTERN Dyllan Timmons [facility] CPT-78125 Level 3 Est. Patient 22:53:20 CDT Dyllan Mcclure [facility] CPT-92972 Level 3 Est. Patient 17:12:13 CDT Dyllan Mcclure [facility] Procedures Code Procedure Name Date Entry Date Standard Description CPT-26137 Addl Vx - Ix admin via ID IM or jet injects without counseling by physician 14:02:27 CDT CPT-08013 Meningococcal B, recombinant vaccine 14:02:27 CDT 03/27 CPT-34757 First Vx - Ix admin via ID IM or jet injects without counseling by physician 14:02:27 CDT CPT-19869 Menveo Intramuscular Solution Reconstituted 14:02:27 CDT [id number] Event Monitor - MC review and interp 16:30:59 CREATIVE INTERN CPT-22956 EKG Trac and Interp - XRAY USE ONLY 10:18:23 CDT 04/10 CPT-51129 Event Monitor - Commercial Ins 14:58:02 CREATIVE INTERN CPT-62575 EKG Trac and Interp 10:58:25 CREATIVE INTERN CPT-80834 Chest 2V Frontal and Lat 10:58:25 CREATIVE INTERN CPT-75475 LS spine comp w obliq 17:16:12 CDT CPT-56331 Chest 2V Frontal and Lat 10:23:04 CDT CPT-42815 Foot comp min 3V 17:12:13 CDT
--- OUTSIDE RECORDS SUMMARY | 2017-05-26 16:37 | XMS REPORT ---
Author Author [facility] Medical Staff Organization [facility] Address [address] [id number] Phone [phone] Summary purpose TRANSITION OF CARE AUTO GENERATION [...]
--- OUTSIDE RECORDS SUMMARY | 2017-05-26 16:37 | XMS REPORT | Clinical Summary ---
Author Author Admin, JONA Organization [employer] Address Unknown Phone Unavailable Allergies, Adverse Reactions, [...] Felix MD Bronchitis, acute ICD-466.0 Inactive Butch eFlix MD Lumbar strain, acute ICD-847.2 Inactive Butch Felix MD Ankle pain, left ICD-719.47 Inactive Butch Felix MD Medication List Medication Instructions Start Date Stop Date Generic Name NDC Status Provider Patient Instruction ALBUTEROL SULFATE (2.5 MG/3ML) 0.083% NEBU 1 in nebulizer four times a day as needed for cough ALBUTEROL SULFATE 06588183764 Active Butch Felix MD Active MELOXICAM 15 MG TABS 1 po q day for pain with food MELOXICAM 78941141241 No Longer Active Butch Felix MD Active IBUPROFEN 400 MG TAB 1 tab po tid with food, prn IBUPROFEN 38950923249 No Longer Active Butch Felix MD Active CYCLOBENZAPRINE HCL 10 MG TABS 1 tablet by mouth at bedtime for back spasm CYCLOBENZAPRINE HCL 76833636048 No Longer Active Roland Ellis APRN Active LEVAQUIN 500 MG TAB 1 tablet by mouth daily LEVOFLOXACIN 07144849302 No Longer Active Roland Ellis STARCH DUMPER Active LEVAQUIN 500 MG TAB 1 tablet by mouth daily LEVAQUIN 500 MG TAB 834398 LEVOFLOXACIN Inactive CYCLOBENZAPRINE HCL 10 MG TABS 1 tablet by mouth at bedtime for back spasm CYCLOBENZAPRINE HCL 10 MG TABS 587352 CYCLOBENZAPRINE HCL Inactive IBUPROFEN 400 MG TAB 1 tab po tid with food, prn IBUPROFEN 400 MG TAB 710547 IBUPROFEN Inactive MELOXICAM 15 MG TABS 1 po q day for pain with food MELOXICAM 15 MG TABS 278639 MELOXICAM Inactive Immunizations Vaccine Administration Date Value [...] 1.58 m[iU]/mL 0.36-3.74 sodium, serum 140 mmol/L 475-652 4334/03/09 potassium, serum 4.4 mmol/L 3.5-5.2 chloride, serum [...] 142-424 Encounters Code Encounter Date Provider Facility CPT-22070 Level 3 Est. Patient 11:06:35 TOP LIFT COMPRESSOR Butch Felix MD [facility] CPT-67086 Level 3 Est. Patient 18:22:20 TOP LIFT COMPRESSOR Dyllan Mcclure [facility] CPT-69607 Level 3 Est. Patient 17:12:26 CDT Dyllan Mcclure [facility] CPT-46945 Level 3 Est. Patient 10:50:38 CDT Katie Martell MD PhD [facility] CPT-23918 Level 3 Est. Patient 11:01:01 TOP LIFT COMPRESSOR Dyllan Kami [facility] CPT-46746 Level 3 Est. Patient 19:21:41 CDT Dyllan Mcclure [facility] CPT-39603 Level 2 Est. Patient 08:39:56 TOP LIFT COMPRESSOR Dyllan Mcclure [facility] CPT-06510 Level 3 Est. Patient 22:53:20 CDT Dyllan Mcclure [facility] CPT-26398 Level 3 Est. Patient 17:12:13 CDT Dyllan Mcclure [facility] Procedures Code Procedure Name Date Entry Date Standard Description CPT-90751 Event Monitor - Commercial Ins 14:58:02 TOP LIFT COMPRESSOR CPT-24867 EKG Trac and Interp 10:58:25 TOP LIFT COMPRESSOR CPT-78508 Chest 2V Frontal and Lat 10:58:25 TOP LIFT COMPRESSOR CPT-99466 LS spine comp w obliq 17:16:12 CDT CPT-01320 Chest 2V Frontal and Lat 10:23:04 CDT CPT-14928 Foot comp min 3V 17:12:13 CDT
--- OUTSIDE RECORDS SUMMARY | 2017-05-26 16:37 | XMS REPORT ---
Author Author [facility] Medical Staff Organization [facility] Address [address] [id number] Phone [phone] Summary purpose TRANSITION OF CARE AUTO GENERATION [...] and/or laboratory data RESULTS Reference Lab (Sendout) [id number]:[id number] Result Normal Range Units D-Dimer < 100 0-400 ng/ml History of procedures Procedure Code Code Type Description Date Performed Performing Physician 42706 CPT-4 FIBRIN DEGRADATION QUANT 12-26-2015 FREEMAN LYNNE [...]
--- OUTSIDE RECORDS SUMMARY | 2017-05-26 16:38 | XMS REPORT | Clinical Summary ---
Author Author Admin, JONA Organization [employer] Address Unknown Phone Unavailable Allergies, Adverse Reactions, [...] Palpitations Acid reflux 530.81 Active Prisca Burton MICROBIOLOGY DIRECTOR Esophageal reflux Allergic rhinitis 477.9 Active Prisca Burton APRN Allergic rhinitis, cause unspecified Chest wall pain 786.52 Active Chel Uriostegui MICROBIOLOGY DIRECTOR Painful respiration Anxiety 300.00 Active Chel Uriostegui MICROBIOLOGY DIRECTOR Anxiety state, unspecified Leg pain, bilateral 729.5 Active Butch Felix MD Pain in limb Nerve pain 729.2 Active Alissa Johnson APRN Neuralgia, neuritis, and radiculitis, unspecified Inguinal lymphadenopathy, right 785.6 Active Alissa Johnson APRN Enlargement of lymph nodes Dysuria 788.1 Active uBtch Felix MD Dysuria FOOT PAIN, RIGHT ICD-729.5 [...] 1 cap by mouth daily FLUOXETINE HCL 73061488891 Active Dyllan Timmons DO Active FLUTICASONE PROPIONATE 50 MCG/ACT SUSP 2 sprays each nostril daily FLUTICASONE PROPIONATE 61097109470 No Longer Active Butch Felix MD Active OMEPRAZOLE 20 MG CPDR 1 tablet by mouth daily OMEPRAZOLE 52491801134 No Longer Active Butch Fleix MD Active ALBUTEROL SULFATE (2.5 MG/3ML) 0.083% NEBU 1 in nebulizer four times a day as needed for cough ALBUTEROL SULFATE 84229194142 No Longer Active Prisca Burton APRN Active ASPIRIN 325 MG TAB Take 1 tab p.o. PRN for pain ASPIRIN 09956224796 Active Chel Uriostegui APRN Active MELOXICAM 15 MG TABS 1 po q day for pain with food MELOXICAM 52968224406 No Longer Active Butch Felix MD Active IBUPROFEN 400 MG TAB 1 tab po tid with food, prn IBUPROFEN 03501180991 No Longer Active Butch Felix MD Active CYCLOBENZAPRINE HCL 10 MG TABS 1 tablet by mouth at bedtime for back spasm CYCLOBENZAPRINE HCL 25547143903 No Longer Active Roland Ellis APRN Active LEVAQUIN 500 MG TAB 1 tablet by mouth daily LEVOFLOXACIN 38193614206 No Longer Active Jillina Marquitazell MICROBIOLOGY DIRECTOR Active LEVAQUIN 500 MG TAB 1 tablet by mouth daily LEVAQUIN 500 MG TAB 197360 LEVOFLOXACIN Inactive CYCLOBENZAPRINE HCL 10 MG TABS 1 tablet by mouth at bedtime for back spasm CYCLOBENZAPRINE HCL 10 MG TABS 768375 CYCLOBENZAPRINE HCL Inactive IBUPROFEN 400 MG TAB 1 tab po tid with food, prn IBUPROFEN 400 MG TAB 377685 IBUPROFEN Inactive MELOXICAM 15 MG TABS 1 po q day for pain with food MELOXICAM 15 MG TABS 622205 MELOXICAM Inactive ALBUTEROL SULFATE (2.5 MG/3ML) 0.083% NEBU 1 in nebulizer four times a day as needed for cough ALBUTEROL SULFATE (2.5 MG/3ML) 0.083% NEBU 067772 ALBUTEROL SULFATE Inactive OMEPRAZOLE 20 MG CPDR 1 tablet by mouth daily OMEPRAZOLE 20 MG CPDR 645529 OMEPRAZOLE Inactive FLUTICASONE PROPIONATE 50 MCG/ACT SUSP 2 sprays each nostril daily FLUTICASONE PROPIONATE 50 MCG/ACT SUSP 6240312 FLUTICASONE PROPIONATE Inactive Immunizations Vaccine Administration Date [...] Panel - Chemistry sodium, serum 141 mmol/L 739-128 9059/04/05 carbon dioxide, venous blood 31.5 mmol/L 21.0-32.0 [...] 1.58 m[iU]/mL 0.36-3.74 sodium, serum 140 mmol/L 851-735 2285/03/09 potassium, serum 4.4 mmol/L 3.5-5.2 chloride, serum [...] 5.0-8.5 Encounters Code Encounter Date Provider Facility CPT-99540 Level 3 Est. Patient 09:01:12 CDT Dyllan Timmons [facility] CPT-43762 Level 3 Est. Patient 08:29:00 CDT Dyllan Timmons [facility] CPT-07908 Level 3 Est. Patient 16:34:51 CDT Butch Felix MD [facility] CPT-57669 Level 3 Est. Patient 11:07:07 CDT Alissa Elizabeth [facility] CPT-88538 Level 3 Est. Patient 09:56:03 CDT Butch Felix MD [facility] CPT-24151 Level 3 Est. Patient 10:09:51 CDT Butch Felix MD [facility] CPT-44861 Level 3 Est. Patient 10:33:59 CDT Chel Uriostegui [facility] CPT-93024 Level 3 Est. Patient 16:17:38 CDT Prisca Micheal [facility] CPT-93644 Level 3 Est. Patient 11:06:35 CALL CENTER SUPPORT CONSULTANT Butch Felix MD [facility] CPT-55787 Level 3 Est. Patient 18:22:20 CALL CENTER SUPPORT CONSULTANT Dyllan Timmons [facility] CPT-91016 Level 3 Est. Patient 17:12:26 CDT Dyllan Timmons [facility] CPT-46172 Level 3 Est. Patient 10:50:38 CDT Katie Martell MD PhD [facility] CPT-38811 Level 3 Est. Patient 11:01:01 CALL CENTER SUPPORT CONSULTANT Dyllan Timmons [facility] CPT-53075 Level 3 Est. Patient 19:21:41 CDT Dyllan Timmons [facility] CPT-10356 Level 2 Est. Patient 08:39:56 CALL CENTER SUPPORT CONSULTANT Dyllan Timmons [facility] CPT-51678 Level 3 Est. Patient 22:53:20 CDT Dyllan Timmons [facility] CPT-34135 Level 3 Est. Patient 17:12:13 CDT Dyllan Timmons [facility] Procedures Code Procedure Name Date Entry Date Standard Description [id number] Event Monitor - review and interp 16:30:59 CALL CENTER SUPPORT CONSULTANT CPT-76923 EKG Trac and Interp - XRAY USE ONLY 10:18:23 CDT 04/10 CPT-23367 Event Monitor - Commercial Ins 14:58:02 CALL CENTER SUPPORT CONSULTANT CPT-12348 EKG Trac and Interp 10:58:25 CALL CENTER SUPPORT CONSULTANT CPT-24428 Chest 2V Frontal and Lat 10:58:25 CALL CENTER SUPPORT CONSULTANT CPT-37911 LS spine comp w obliq 17:16:12 CDT CPT-80760 Chest 2V Frontal and Lat 10:23:04 CDT CPT-71663 Foot comp min 3V 17:12:13 CDT
--- OUTSIDE RECORDS SUMMARY | 2017-05-26 16:39 | XMS REPORT | Clinical Summary ---
Author Author Admin, QIE Organization [facility] Address Unknown Phone Unavailable Allergies, Adverse [...] MD Cough Bronchitis, acute 466.0 Resolved Butch Felxi MD Acute bronchitis Lumbar strain, acute 847.2 [...] 1 cap by mouth daily FLUOXETINE HCL 81972251272 Active Dyllan Timmons DO Active FLUTICASONE PROPIONATE 50 MCG/ACT SUSP 2 sprays each nostril daily FLUTICASONE PROPIONATE 61085131295 No Longer Active Butch Felix MD Active OMEPRAZOLE 20 MG CPDR 1 tablet by mouth daily OMEPRAZOLE 32940952809 No Longer Active Butch Felix MD Active ALBUTEROL SULFATE (2.5 MG/3ML) 0.083% NEBU 1 in nebulizer four times a day as needed for cough ALBUTEROL SULFATE 66368062214 No Longer Active Prisca Burton APRN Active ASPIRIN 325 MG TAB Take 1 tab p.o. PRN for pain ASPIRIN 40150305457 Active Chel Uriostegui APRN Active MELOXICAM 15 MG TABS 1 po q day for pain with food MELOXICAM 29356902789 No Longer Active Butch Felix MD Active IBUPROFEN 400 MG TAB 1 tab po tid with food, prn IBUPROFEN 55220731647 No Longer Active Butch Felix MD Active CYCLOBENZAPRINE HCL 10 MG TABS 1 tablet by mouth at bedtime for back spasm CYCLOBENZAPRINE HCL 12526263533 No Longer Active Roland Ellis APRN Active LEVAQUIN 500 MG TAB 1 tablet by mouth daily LEVOFLOXACIN 83305061265 No Longer Active Jillina Frazell INJURY/SAFETY HAZARD ASSESSMENT Active LEVAQUIN 500 MG TAB 1 tablet by mouth daily LEVAQUIN 500 MG TAB 164814 LEVOFLOXACIN Inactive CYCLOBENZAPRINE HCL 10 MG TABS 1 tablet by mouth at bedtime for back spasm CYCLOBENZAPRINE HCL 10 MG TABS 407478 CYCLOBENZAPRINE HCL Inactive IBUPROFEN 400 MG TAB 1 tab po tid with food, prn IBUPROFEN 400 MG TAB 409724 IBUPROFEN Inactive MELOXICAM 15 MG TABS 1 po q day for pain with food MELOXICAM 15 MG TABS 200588 MELOXICAM Inactive ALBUTEROL SULFATE (2.5 MG/3ML) 0.083% NEBU 1 in nebulizer four times a day as needed for cough ALBUTEROL SULFATE (2.5 MG/3ML) 0.083% NEBU 915722 ALBUTEROL SULFATE Inactive OMEPRAZOLE 20 MG CPDR 1 tablet by mouth daily OMEPRAZOLE 20 MG CPDR 278175 OMEPRAZOLE Inactive FLUTICASONE PROPIONATE 50 MCG/ACT SUSP 2 sprays each nostril daily FLUTICASONE PROPIONATE 50 MCG/ACT SUSP 623430 FLUTICASONE PROPIONATE Inactive Immunizations Vaccine Administration Date [...] Panel - Chemistry sodium, serum 141 mmol/L 563-512 5620/04/05 carbon dioxide, venous blood 31.5 mmol/L 21.0-32.0 [...] 1.58 m[iU]/mL 0.36-3.74 sodium, serum 140 mmol/L 970-747 1705/03/09 potassium, serum 4.4 mmol/L 3.5-5.2 chloride, serum [...] 5.0-8.5 Encounters Code Encounter Date Provider Facility CPT-17008 Level 3 Est. Patient 08:29:00 CDT Dyllan Timmons DO [facility] CPT-93516 Level 3 Est. Patient 16:34:51 CDT Butch Felix MD [facility] CPT-76115 Level 3 Est. Patient 11:07:07 CDT Alissa Johnson [facility] CPT-90174 Level 3 Est. Patient 09:56:03 CDT Butch Felix MD [facility] CPT-57521 Level 3 Est. Patient 10:09:51 CDT Butch Felix MD [facility] CPT-88852 Level 3 Est. Patient 10:33:59 CDT Chel Uriostegui [facility] CPT-71734 Level 3 Est. Patient 16:17:38 CDT Pirsca Burton [facility] CPT-39743 Level 3 Est. Patient 11:06:35 FINISHING SUPERVISOR Butch Felix MD [facility] CPT-72102 Level 3 Est. Patient 18:22:20 FINISHING SUPERVISOR Dyllan Timmons [facility] CPT-76780 Level 3 Est. Patient 17:12:26 CDT Dyllan Timmons [facility] CPT-77918 Level 3 Est. Patient 10:50:38 CDT Katie Martell MD PhD [facility] CPT-28307 Level 3 Est. Patient 11:01:01 FINISHING SUPERVISOR Dyllan Timmons [facility] CPT-13489 Level 3 Est. Patient 19:21:41 CDT Dyllan Timmons [facility] CPT-12178 Level 2 Est. Patient 08:39:56 FINISHING SUPERVISOR Dyllan Timmons [facility] CPT-44701 Level 3 Est. Patient 22:53:20 CDT Dyllan Timmons [facility] CPT-82328 Level 3 Est. Patient 17:12:13 CDT Dyllan Mcclure [facility] Procedures Code Procedure Name Date Entry Date Standard Description [id number] Event Monitor - MC review and interp 16:30:59 FINISHING SUPERVISOR CPT-67677 EKG Trac and Interp - XRAY USE ONLY 10:18:23 CDT 04/10 CPT-32623 Event Monitor - Commercial Ins 14:58:02 FINISHING SUPERVISOR CPT-97249 EKG Trac and Interp 10:58:25 FINISHING SUPERVISOR CPT-42626 Chest 2V Frontal and Lat 10:58:25 FINISHING SUPERVISOR CPT-50614 LS spine comp w obliq 17:16:12 CDT CPT-05069 Chest 2V Frontal and Lat 10:23:04 CDT CPT-96928 Foot comp min 3V 17:12:13 CDT
--- OUTSIDE RECORDS SUMMARY | 2017-05-26 16:39 | XMS REPORT | Clinical Summary ---
Author Author Admin, JONA Organization [employer] Address Unknown Phone Unavailable Allergies, Adverse Reactions, [...] ankle and foot Sports physical V70.3 Active Dlylan Timmons DO Other general medical examination for [...] tablet by mouth twice daily PROPRANOLOL HCL 18597044626 Active Dyllan Timmons DO Active ASPIRIN 325 MG TAB Take 1 tab p.o. PRN for pain ASPIRIN 47203756968 No Longer Active Dyllan Timmons DO Active FLUOXETINE HCL 20 MG CAPS 1 cap by mouth daily FLUOXETINE HCL 19152883039 No Longer Active Dyllan Timmons DO Active FLUTICASONE PROPIONATE 50 MCG/ACT SUSP 2 sprays each nostril daily FLUTICASONE PROPIONATE 13019014806 No Longer Active uBtch Felix MD Active OMEPRAZOLE 20 MG CPDR 1 tablet by mouth daily OMEPRAZOLE 33199853291 No Longer Active Butch Felix MD Active ALBUTEROL SULFATE (2.5 MG/3ML) 0.083% NEBU 1 in nebulizer four times a day as needed for cough ALBUTEROL SULFATE 49474607072 No Longer Active Prisca Burton APRN Active MELOXICAM 15 MG TABS 1 po q day for pain with food MELOXICAM 42859708797 No Longer Active Butch Felix MD Active IBUPROFEN 400 MG TAB 1 tab po tid with food, prn IBUPROFEN 75691963469 No Longer Active Butch Felix MD Active CYCLOBENZAPRINE HCL 10 MG TABS 1 tablet by mouth at bedtime for back spasm CYCLOBENZAPRINE HCL 63006663606 No Longer Active Roland Ellis APRN Active LEVAQUIN 500 MG TAB 1 tablet by mouth daily LEVOFLOXACIN 82655398629 No Longer Active Roland Ellis ALEMITE OPERATOR Active LEVAQUIN 500 MG TAB 1 tablet by mouth daily LEVAQUIN 500 MG TAB 793329 LEVOFLOXACIN Inactive CYCLOBENZAPRINE HCL 10 MG TABS 1 tablet by mouth at bedtime for back spasm CYCLOBENZAPRINE HCL 10 MG TABS 669743 CYCLOBENZAPRINE HCL Inactive IBUPROFEN 400 MG TAB 1 tab po tid with food, prn IBUPROFEN 400 MG TAB 079763 IBUPROFEN Inactive MELOXICAM 15 MG TABS 1 po q day for pain with food MELOXICAM 15 MG TABS 229933 MELOXICAM Inactive ALBUTEROL SULFATE (2.5 MG/3ML) 0.083% NEBU 1 in nebulizer four times a day as needed for cough ALBUTEROL SULFATE (2.5 MG/3ML) 0.083% NEBU 459307 ALBUTEROL SULFATE Inactive OMEPRAZOLE 20 MG CPDR 1 tablet by mouth daily OMEPRAZOLE 20 MG CPDR 117199 OMEPRAZOLE Inactive FLUTICASONE PROPIONATE 50 MCG/ACT SUSP 2 sprays each nostril daily FLUTICASONE PROPIONATE 50 MCG/ACT SUSP 8140604 FLUTICASONE PROPIONATE Inactive FLUOXETINE HCL 20 MG CAPS 1 cap by mouth daily FLUOXETINE HCL 20 MG CAPS 532211 FLUOXETINE HCL Inactive ASPIRIN 325 MG TAB Take 1 tab p.o. PRN for pain ASPIRIN 325 MG TAB 676428 ASPIRIN Inactive Immunizations Vaccine Administration Date Value [...] Panel - Chemistry sodium, serum 140 mmol/L 456-796 7991/07/06 carbon dioxide, venous blood 29.4 mmol/L 21.0-32.0 [...] 0.00-1.00 Encounters Code Encounter Date Provider Facility CPT-49347 Level 3 Est. Patient 13:07:09 CDT Dyllan Timmons [facility] CPT-78164 Level 3 Est. Patient 09:01:12 CDT Dyllan Timmons [facility] CPT-18026 Level 3 Est. Patient 08:29:00 CDT Dyllan Timmons [facility] CPT-24242 Level 3 Est. Patient 16:34:51 CDT Butch Felix MD [facility] CPT-97918 Level 3 Est. Patient 11:07:07 CDT Alissa Johnson [facility] CPT-35606 Level 3 Est. Patient 09:56:03 CDT Butch Felix MD [facility] CPT-93323 Level 3 Est. Patient 10:09:51 CDT Butch Felix MD [facility] CPT-33345 Level 3 Est. Patient 10:33:59 CDT Chel Uriostegui [facility] CPT-54952 Level 3 Est. Patient 16:17:38 CDT Prisca Burton [facility] CPT-29083 Level 3 Est. Patient 11:06:35 DRAMA DIRECTOR Butch Felix MD [facility] CPT-87994 Level 3 Est. Patient 18:22:20 DRAMA DIRECTOR Dyllan Timmons [facility] CPT-53850 Level 3 Est. Patient 17:12:26 CDT Dyllan Timmons [facility] CPT-54189 Level 3 Est. Patient 10:50:38 CDT Katie Martell MD PhD [facility] CPT-01208 Level 3 Est. Patient 11:01:01 DRAMA DIRECTOR Dyllan Timmons [facility] CPT-30282 Level 3 Est. Patient 19:21:41 CDT Dyllan Timmons [facility] CPT-72439 Level 2 Est. Patient 08:39:56 DRAMA DIRECTOR Dyllan Timmons [facility] CPT-05482 Level 3 Est. Patient 22:53:20 CDT Dyllan Timmons [facility] CPT-54068 Level 3 Est. Patient 17:12:13 CDT Dyllan Mcclure [facility] Procedures Code Procedure Name Date Entry Date Standard Description CPT-93908 Addl Vx - Ix admin via ID IM or jet injects without counseling by physician 10:39:15 CDT CPT-89456 Gardasil 9 Intramuscular Suspension 10:39:15 CDT 04/15 CPT-25341 First Vx - Ix admin via ID IM or jet injects without counseling by physician 10:39:15 CDT CPT-18078 Havrix Intramuscular Suspension 720 EL U/0.5ML 10:39:15 CDT CPT-55234 Addl Vx - Ix admin via ID IM or jet injects without counseling by physician 14:02:27 CDT CPT-06944 Meningococcal B, recombinant vaccine 14:02:27 CDT 03/27 CPT-25092 First Vx - Ix admin via ID IM or jet injects without counseling by physician 14:02:27 CDT CPT-94151 Menveo Intramuscular Solution Reconstituted 14:02:27 CDT [id number] Event Monitor - MC review and interp 16:30:59 DRAMA DIRECTOR CPT-13732 EKG Trac and Interp - XRAY USE ONLY 10:18:23 CDT 04/10 CPT-84695 Event Monitor - Commercial Ins 14:58:02 DRAMA DIRECTOR CPT-36651 EKG Trac and Interp 10:58:25 DRAMA DIRECTOR CPT-80717 Chest 2V Frontal and Lat 10:58:25 DRAMA DIRECTOR CPT-26770 LS spine comp w obliq 17:16:12 CDT CPT-59268 Chest 2V Frontal and Lat 10:23:04 CDT CPT-44025 Foot comp min 3V 17:12:13 CDT
--- OUTSIDE RECORDS SUMMARY | 2017-05-26 16:40 | XMS REPORT | Clinical Summary ---
Author Author Admin, JONA Organization [employer] Address Unknown Phone Unavailable Allergies, Adverse Reactions, [...] tablet by mouth twice daily PROPRANOLOL HCL 03848041245 Active Dyllan Timmons DO Active ASPIRIN 325 MG TAB Take 1 tab p.o. PRN for pain ASPIRIN 27659773402 No Longer Active Dyllan Timmons DO Active FLUOXETINE HCL 20 MG CAPS 1 cap by mouth daily FLUOXETINE HCL 39184541286 No Longer Active Dyllan Timmons DO Active FLUTICASONE PROPIONATE 50 MCG/ACT SUSP 2 sprays each nostril daily FLUTICASONE PROPIONATE 87736427408 No Longer Active Butch Felix MD Active OMEPRAZOLE 20 MG CPDR 1 tablet by mouth daily OMEPRAZOLE 04625572309 No Longer Active Butch Felix MD Active ALBUTEROL SULFATE (2.5 MG/3ML) 0.083% NEBU 1 in nebulizer four times a day as needed for cough ALBUTEROL SULFATE 07676820484 No Longer Active Prisca Burton APRN Active MELOXICAM 15 MG TABS 1 po q day for pain with food MELOXICAM 88534211647 No Longer Active Butch Feilx MD Active IBUPROFEN 400 MG TAB 1 tab po tid with food, prn IBUPROFEN 19135891988 No Longer Active Butch Felix MD Active CYCLOBENZAPRINE HCL 10 MG TABS 1 tablet by mouth at bedtime for back spasm CYCLOBENZAPRINE HCL 69826587560 No Longer Active Roland Ellis APRN Active LEVAQUIN 500 MG TAB 1 tablet by mouth daily LEVOFLOXACIN 73624305561 No Longer Active Roland Ellis LEASE ADMINISTRATION ANALYST Active LEVAQUIN 500 MG TAB 1 tablet by mouth daily LEVAQUIN 500 MG TAB 779605 LEVOFLOXACIN Inactive CYCLOBENZAPRINE HCL 10 MG TABS 1 tablet by mouth at bedtime for back spasm CYCLOBENZAPRINE HCL 10 MG TABS 511443 CYCLOBENZAPRINE HCL Inactive IBUPROFEN 400 MG TAB 1 tab po tid with food, prn IBUPROFEN 400 MG TAB 213584 IBUPROFEN Inactive MELOXICAM 15 MG TABS 1 po q day for pain with food MELOXICAM 15 MG TABS 612242 MELOXICAM Inactive ALBUTEROL SULFATE (2.5 MG/3ML) 0.083% NEBU 1 in nebulizer four times a day as needed for cough ALBUTEROL SULFATE (2.5 MG/3ML) 0.083% NEBU 619023 ALBUTEROL SULFATE Inactive OMEPRAZOLE 20 MG CPDR 1 tablet by mouth daily OMEPRAZOLE 20 MG CPDR 740557 OMEPRAZOLE Inactive FLUTICASONE PROPIONATE 50 MCG/ACT SUSP 2 sprays each nostril daily FLUTICASONE PROPIONATE 50 MCG/ACT SUSP 1590374 FLUTICASONE PROPIONATE Inactive FLUOXETINE HCL 20 MG CAPS 1 cap by mouth daily FLUOXETINE HCL 20 MG CAPS 118275 FLUOXETINE HCL Inactive ASPIRIN 325 MG TAB Take 1 tab p.o. PRN for pain ASPIRIN 325 MG TAB 992695 ASPIRIN Inactive Immunizations Vaccine Administration Date Value [...] Panel - Chemistry sodium, serum 140 mmol/L 385-979 5873/07/06 carbon dioxide, venous blood 29.4 mmol/L 21.0-32.0 [...] 0.00-1.00 Encounters Code Encounter Date Provider Facility CPT-76716 Level 3 Est. Patient 13:07:09 CDT Dyllan Timmons [facility] CPT-03100 Level 3 Est. Patient 09:01:12 CDT Dyllan Timmons [facility]-56217 Level 3 Est. Patient 08:29:00 CDT Dyllan Mcclure [facility] CPT-21799 Level 3 Est. Patient 16:34:51 CDT Butch Felix MD [facility]-15651 Level 3 Est. Patient 11:07:07 CDT Alissa Johnson [facility] CPT-61774 Level 3 Est. Patient 09:56:03 CDT Butch Felix MD [facility]-63896 Level 3 Est. Patient 10:09:51 CDT Butch Felix MD [facility] CPT-98811 Level 3 Est. Patient 10:33:59 CDT Chel Uriostegui [facility]-58589 Level 3 Est. Patient 16:17:38 CDT Prisca Burton [facility]-84152 Level 3 Est. Patient 11:06:35 LEATHER LEVELER Butch Felix MD [facility] CPT-18474 Level 3 Est. Patient 18:22:20 LEATHER LEVELER Dyllan Timmons [facility] CPT-42909 Level 3 Est. Patient 17:12:26 CDT Dyllan Timmons [facility] CPT-24686 Level 3 Est. Patient 10:50:38 CDT Katie Martell MD [facility] CPT-26157 Level 3 Est. Patient 11:01:01 LEATHER LEVELER Dyllan Timmons [facility] CPT-51708 Level 3 Est. Patient 19:21:41 CDT Dyllan Mcclure [facility] CPT-98416 Level 2 Est. Patient 08:39:56 LEATHER LEVELER Dyllan Timmons [facility] CPT-42028 Level 3 Est. Patient 22:53:20 CDT Dyllan Mcclure [facility] CPT-37420 Level 3 Est. Patient 17:12:13 CDT Dyllan Mcclure [facility] Procedures Code Procedure Name Date Entry Date Standard Description CPT-69057 Addl Vx - Ix admin via ID IM or jet injects without counseling by physician 14:02:27 CDT CPT-18168 Meningococcal B, recombinant vaccine 14:02:27 CDT 03/27 CPT-30979 First Vx - Ix admin via ID IM or jet injects without counseling by physician 14:02:27 CDT CPT-27242 Menveo Intramuscular Solution Reconstituted 14:02:27 CDT [id number] Event Monitor - MC review and interp 16:30:59 LEATHER LEVELER CPT-86203 EKG Trac and Interp - XRAY USE ONLY 10:18:23 CDT 04/10 CPT-08142 Event Monitor - Commercial Ins 14:58:02 LEATHER LEVELER CPT-53906 EKG Trac and Interp 10:58:25 LEATHER LEVELER CPT-88169 Chest 2V Frontal and Lat 10:58:25 LEATHER LEVELER CPT-85933 LS spine comp w obliq 17:16:12 CDT CPT-58739 Chest 2V Frontal and Lat 10:23:04 CDT CPT-71738 Foot comp min 3V 17:12:13 CDT
--- OUTSIDE RECORDS SUMMARY | 2017-05-26 16:40 | XMS REPORT | Clinical Summary ---
Author Author Admin, JONA Organization [employer] Address Unknown Phone Unavailable Allergies, Adverse Reactions, [...] 2 sprays each nostril daily FLUTICASONE PROPIONATE 47035817183 No Longer Active Butch Felix MD Active OMEPRAZOLE 20 MG CPDR 1 tablet by mouth daily OMEPRAZOLE 16186514347 No Longer Active Butch Felix MD Active ALBUTEROL SULFATE (2.5 MG/3ML) 0.083% NEBU 1 in nebulizer four times a day as needed for cough ALBUTEROL SULFATE 63746897930 No Longer Active Prisca Burton APRN Active ASPIRIN 325 MG TAB Take 1 tab p.o. PRN for pain ASPIRIN 53858213522 Active Chel Uriostegui ANA PAULA Active MELOXICAM 15 MG TABS 1 po q day for pain with food MELOXICAM 28047885498 No Longer Active Butch Felix MD Active IBUPROFEN 400 MG TAB 1 tab po tid with food, prn IBUPROFEN 83577598041 No Longer Active Butch Felix MD Active CYCLOBENZAPRINE HCL 10 MG TABS 1 tablet by mouth at bedtime for back spasm CYCLOBENZAPRINE HCL 10132182509 No Longer Active Jillina Rhonda GOSS Active LEVAQUIN 500 MG TAB 1 tablet by mouth daily LEVOFLOXACIN 03827192666 No Longer Active Jillina Frazell MANAGER [employer]ION[employer] SALES Active LEVAQUIN 500 MG TAB 1 tablet by mouth daily LEVAQUIN 500 MG TAB 792444 LEVOFLOXACIN Inactive CYCLOBENZAPRINE HCL 10 MG TABS 1 tablet by mouth at bedtime for back spasm CYCLOBENZAPRINE HCL 10 MG TABS 069538 CYCLOBENZAPRINE HCL Inactive IBUPROFEN 400 MG TAB 1 tab po tid with food, prn IBUPROFEN 400 MG TAB 666500 IBUPROFEN Inactive MELOXICAM 15 MG TABS 1 po q day for pain with food MELOXICAM 15 MG TABS 037803 MELOXICAM Inactive ALBUTEROL SULFATE (2.5 MG/3ML) 0.083% NEBU 1 in nebulizer four times a day as needed for cough ALBUTEROL SULFATE (2.5 MG/3ML) 0.083% NEBU 815308 ALBUTEROL SULFATE Inactive OMEPRAZOLE 20 MG CPDR 1 tablet by mouth daily OMEPRAZOLE 20 MG CPDR 519789 OMEPRAZOLE Inactive FLUTICASONE PROPIONATE 50 MCG/ACT SUSP 2 sprays each nostril daily FLUTICASONE PROPIONATE 50 MCG/ACT SUSP 531740 FLUTICASONE PROPIONATE Inactive Immunizations Vaccine Administration Date [...] Panel - Chemistry sodium, serum 141 mmol/L 862-062 4899/04/05 carbon dioxide, venous blood 31.5 mmol/L 21.0-32.0 [...] Hormone (L), Basic Metabolic Panel - Chemistry creatinine, serum 1.00 mg/dL 0.55-1.30 urea nitrogen, blood 10 mg/dL 7-18 calcium, serum 9.4 mg/dL 8.5-10.1 blood glucose 81 mg/dL 65-110 carbon dioxide, venous blood 27.3 mmol/L 21.0-32.0 chloride, serum 102 mmol/L 98-107 potassium, serum 4.4 mmol/L 3.5-5.2 sodium, serum 140 mmol/L 460-163 4319/03/09 TSH 1.58 m[iU]/mL 0.36-3.74 Lab Report: Thyroid Stimulating Hormone (L), Basic [...] 142-424 Encounters Code Encounter Date Provider Facility CPT-17344 Level 3 Est. Patient 09:56:03 CDT Butch Felix MD [facility] CPT-57448 Level 3 Est. Patient 10:09:51 CDT Butch Felix MD [facility] CPT-20402 Level 3 Est. Patient 10:33:59 CDT Chel Uriostegui [facility] CPT-58804 Level 3 Est. Patient 16:17:38 CDT Prisca Burton [facility] CPT-19473 Level 3 Est. Patient 11:06:35 STATEMENT CLERKS SUPERVISOR Butch Fleix MD [facility] CPT-29928 Level 3 Est. Patient 18:22:20 STATEMENT CLERKS SUPERVISOR Dyllan Timmons [facility] CPT-17998 Level 3 Est. Patient 17:12:26 CDT Dyllan Timmons [facility] CPT-18677 Level 3 Est. Patient 10:50:38 CDT Katie Martell MD PhD [facility] CPT-40344 Level 3 Est. Patient 11:01:01 STATEMENT CLERKS SUPERVISOR Dyllan Timmons [facility] CPT-39605 Level 3 Est. Patient 19:21:41 CDT Dyllan Timmons [facility] CPT-89694 Level 2 Est. Patient 08:39:56 STATEMENT CLERKS SUPERVISOR Dyllan Timmons [facility] CPT-50325 Level 3 Est. Patient 22:53:20 CDT Dyllan Mcclure [facility] CPT-38029 Level 3 Est. Patient 17:12:13 CDT Dyllan Mcclure [facility] Procedures Code Procedure Name Date Entry Date Standard Description CPT-11217 Event Monitor - Commercial Ins 14:58:02 STATEMENT CLERKS SUPERVISOR CPT-76374 EKG Trac and Interp 10:58:25 STATEMENT CLERKS SUPERVISOR CPT-87566 Chest 2V Frontal and Lat 10:58:25 STATEMENT CLERKS SUPERVISOR CPT-53850 LS spine comp w obliq 17:16:12 CDT CPT-98502 Chest 2V Frontal and Lat 10:23:04 CDT CPT-36131 Foot comp min 3V 17:12:13 CDT
--- OUTSIDE RECORDS SUMMARY | 2017-05-26 16:41 | XMS REPORT | Clinical Summary ---
Author Author Admin, JONA Organization [employer] Address Unknown Phone Unavailable Allergies, Adverse Reactions, [...] Palpitations Acid reflux 530.81 Active Prisca Burton POSTAL SORTING OFFICER Esophageal reflux Allergic rhinitis 477.9 Active Prisca Burton APRN Allergic rhinitis, cause unspecified Chest wall pain 786.52 Active Chel Uriostegui POSTAL SORTING OFFICER Painful respiration Anxiety 300.00 Active Chel Uriostegui POSTAL SORTING OFFICER Anxiety state, unspecified Leg pain, bilateral 729.5 [...] 1 cap by mouth daily FLUOXETINE HCL 86694585637 Active Dyllan Timmons DO Active FLUTICASONE PROPIONATE 50 MCG/ACT SUSP 2 sprays each nostril daily FLUTICASONE PROPIONATE 18638939907 No Longer Active Butch Felix MD Active OMEPRAZOLE 20 MG CPDR 1 tablet by mouth daily OMEPRAZOLE 76916553308 No Longer Active Butch Felix MD Active ALBUTEROL SULFATE (2.5 MG/3ML) 0.083% NEBU 1 in nebulizer four times a day as needed for cough ALBUTEROL SULFATE 32755935034 No Longer Active Prisca Burton APRN Active ASPIRIN 325 MG TAB Take 1 tab p.o. PRN for pain ASPIRIN 75117774493 Active Chel Uriostegui APRN Active MELOXICAM 15 MG TABS 1 po q day for pain with food MELOXICAM 34974765429 No Longer Active Butch Felix MD Active IBUPROFEN 400 MG TAB 1 tab po tid with food, prn IBUPROFEN 95135901737 No Longer Active Butch Felix MD Active CYCLOBENZAPRINE HCL 10 MG TABS 1 tablet by mouth at bedtime for back spasm CYCLOBENZAPRINE HCL 28772328127 No Longer Active Roland Ellis APRN Active LEVAQUIN 500 MG TAB 1 tablet by mouth daily LEVOFLOXACIN 91899786186 No Longer Active Jillina Marquitazell POSTAL SORTING OFFICER Active LEVAQUIN 500 MG TAB 1 tablet by mouth daily LEVAQUIN 500 MG TAB 491844 LEVOFLOXACIN Inactive CYCLOBENZAPRINE HCL 10 MG TABS 1 tablet by mouth at bedtime for back spasm CYCLOBENZAPRINE HCL 10 MG TABS 538961 CYCLOBENZAPRINE HCL Inactive IBUPROFEN 400 MG TAB 1 tab po tid with food, prn IBUPROFEN 400 MG TAB 914630 IBUPROFEN Inactive MELOXICAM 15 MG TABS 1 po q day for pain with food MELOXICAM 15 MG TABS 798763 MELOXICAM Inactive ALBUTEROL SULFATE (2.5 MG/3ML) 0.083% NEBU 1 in nebulizer four times a day as needed for cough ALBUTEROL SULFATE (2.5 MG/3ML) 0.083% NEBU 696891 ALBUTEROL SULFATE Inactive OMEPRAZOLE 20 MG CPDR 1 tablet by mouth daily OMEPRAZOLE 20 MG CPDR 196969 OMEPRAZOLE Inactive FLUTICASONE PROPIONATE 50 MCG/ACT SUSP 2 sprays each nostril daily FLUTICASONE PROPIONATE 50 MCG/ACT SUSP 292652 FLUTICASONE PROPIONATE Inactive Immunizations Vaccine Administration Date [...] Panel - Chemistry sodium, serum 141 mmol/L 011-539 3175/04/05 carbon dioxide, venous blood 31.5 mmol/L 21.0-32.0 [...] 1.58 m[iU]/mL 0.36-3.74 sodium, serum 140 mmol/L 623-041 1909/03/09 potassium, serum 4.4 mmol/L 3.5-5.2 chloride, serum [...] 5.0-8.5 Encounters Code Encounter Date Provider Facility CPT-87510 Level 3 Est. Patient 08:29:00 CDT Dyllan Timmons DO [facility] CPT-43165 Level 3 Est. Patient 16:34:51 CDT Butch Felix MD [facility] CPT-04500 Level 3 Est. Patient 11:07:07 CDT Alissa Johnson APRN [facility] CPT-23582 Level 3 Est. Patient 09:56:03 CDT Butch Felix MD [facility] CPT-07012 Level 3 Est. Patient 10:09:51 CDT Butch Felix MD [facility] CPT-68529 Level 3 Est. Patient 10:33:59 CDT Chel Uriostegui [facility] CPT-13447 Level 3 Est. Patient 16:17:38 CDT Prisca Burton [facility] CPT-06965 Level 3 Est. Patient 11:06:35 TRAINING FACILITATOR Butch Felix MD [facility] CPT-29158 Level 3 Est. Patient 18:22:20 TRAINING FACILITATOR Dyllan Timmons [facility] CPT-85774 Level 3 Est. Patient 17:12:26 CDT Dyllan Timmons [facility] CPT-28984 Level 3 Est. Patient 10:50:38 CDT Katie Martell MD PhD [facility] CPT-90208 Level 3 Est. Patient 11:01:01 TRAINING FACILITATOR Dyllan Timmons [facility] CPT-01791 Level 3 Est. Patient 19:21:41 CDT Dyllan Timmons [facility] CPT-29440 Level 2 Est. Patient 08:39:56 TRAINING FACILITATOR Dyllan Timmons [facility] CPT-30068 Level 3 Est. Patient 22:53:20 CDT Dyllan Timmons [facility] CPT-96459 Level 3 Est. Patient 17:12:13 CDT Dyllan Timmons [facility] Procedures Code Procedure Name Date Entry Date Standard Description CPT-15125 EKG Trac and Interp - XRAY USE ONLY 10:18:23 CDT 04/10 CPT-33902 Event Monitor - Commercial Ins 14:58:02 TRAINING FACILITATOR CPT-56025 EKG Trac and Interp 10:58:25 TRAINING FACILITATOR CPT-59622 Chest 2V Frontal and Lat 10:58:25 TRAINING FACILITATOR CPT-67198 LS spine comp w obliq 17:16:12 CDT CPT-79936 Chest 2V Frontal and Lat 10:23:04 CDT CPT-61302 Foot comp min 3V 17:12:13 CDT
--- OUTSIDE RECORDS SUMMARY | 2017-05-26 16:42 | XMS REPORT | Clinical Summary ---
Author Author Admin, JONA Organization [employer] Address Unknown Phone Unavailable Allergies, Adverse Reactions, [...] 2 sprays each nostril daily FLUTICASONE PROPIONATE 24119156652 No Longer Active Butch Felix MD Active OMEPRAZOLE 20 MG CPDR 1 tablet by mouth daily OMEPRAZOLE 06870822090 No Longer Active Butch Felix MD Active ALBUTEROL SULFATE (2.5 MG/3ML) 0.083% NEBU 1 in nebulizer four times a day as needed for cough ALBUTEROL SULFATE 13517580759 No Longer Active Prisca Burton APRN Active ASPIRIN 325 MG TAB Take 1 tab p.o. PRN for pain ASPIRIN 79518752533 Active Chel Uriostegui ANA PAULA Active MELOXICAM 15 MG TABS 1 po q day for pain with food MELOXICAM 55332001911 No Longer Active Butch Felix MD Active IBUPROFEN 400 MG TAB 1 tab po tid with food, prn IBUPROFEN 64726376243 No Longer Active Butch Felix MD Active CYCLOBENZAPRINE HCL 10 MG TABS 1 tablet by mouth at bedtime for back spasm CYCLOBENZAPRINE HCL 13120386457 No Longer Active Jillina Rhonda GOSS Active LEVAQUIN 500 MG TAB 1 tablet by mouth daily LEVOFLOXACIN 10487245700 No Longer Active Jillina Frazell CHILD MONITOR Active LEVAQUIN 500 MG TAB 1 tablet by mouth daily LEVAQUIN 500 MG TAB 553286 LEVOFLOXACIN Inactive CYCLOBENZAPRINE HCL 10 MG TABS 1 tablet by mouth at bedtime for back spasm CYCLOBENZAPRINE HCL 10 MG TABS 822281 CYCLOBENZAPRINE HCL Inactive IBUPROFEN 400 MG TAB 1 tab po tid with food, prn IBUPROFEN 400 MG TAB 619546 IBUPROFEN Inactive MELOXICAM 15 MG TABS 1 po q day for pain with food MELOXICAM 15 MG TABS 804986 MELOXICAM Inactive ALBUTEROL SULFATE (2.5 MG/3ML) 0.083% NEBU 1 in nebulizer four times a day as needed for cough ALBUTEROL SULFATE (2.5 MG/3ML) 0.083% NEBU 551827 ALBUTEROL SULFATE Inactive OMEPRAZOLE 20 MG CPDR 1 tablet by mouth daily OMEPRAZOLE 20 MG CPDR 697277 OMEPRAZOLE Inactive FLUTICASONE PROPIONATE 50 MCG/ACT SUSP 2 sprays each nostril daily FLUTICASONE PROPIONATE 50 MCG/ACT SUSP 076294 FLUTICASONE PROPIONATE Inactive Immunizations Vaccine Administration Date [...] Panel - Chemistry sodium, serum 141 mmol/L 131-438 3251/04/05 carbon dioxide, venous blood 31.5 mmol/L 21.0-32.0 [...] 4.4 mmol/L 3.5-5.2 sodium, serum 140 mmol/L 714-568 9832/03/09 TSH 1.58 m[iU]/mL 0.36-3.74 blood glucose 81 [...] 142-424 Encounters Code Encounter Date Provider Facility CPT-65683 Level 3 Est. Patient 09:56:03 CDT Butch Felix MD [facility] CPT-45022 Level 3 Est. Patient 10:09:51 CDT Butch Felix MD [facility] CPT-97977 Level 3 Est. Patient 10:33:59 CDT Chel Uriostegui [facility] CPT-63248 Level 3 Est. Patient 16:17:38 CDT Prisca Burton [facility] CPT-44324 Level 3 Est. Patient 11:06:35 SWITCHBOARD OPERATOR Butch Felix MD [facility] CPT-09304 Level 3 Est. Patient 18:22:20 SWITCHBOARD OPERATOR Dyllan Timmons [facility] CPT-59625 Level 3 Est. Patient 17:12:26 CDT Dyllan Timmons [facility] CPT-00976 Level 3 Est. Patient 10:50:38 CDT Katie Martell MD PhD [facility] CPT-81311 Level 3 Est. Patient 11:01:01 SWITCHBOARD OPERATOR Dyllan Timmons [facility] CPT-88827 Level 3 Est. Patient 19:21:41 CDT Dyllan Timmons [facility] CPT-37665 Level 2 Est. Patient 08:39:56 SWITCHBOARD OPERATOR Dyllan Timmons [facility] CPT-54170 Level 3 Est. Patient 22:53:20 CDT Dyllan Mcclure [facility] CPT-10181 Level 3 Est. Patient 17:12:13 CDT Dyllan Mcclure [facility] Procedures Code Procedure Name Date Entry Date Standard Description CPT-84962 Event Monitor - Commercial Ins 14:58:02 SWITCHBOARD OPERATOR CPT-04951 EKG Trac and Interp 10:58:25 SWITCHBOARD OPERATOR CPT-95955 Chest 2V Frontal and Lat 10:58:25 SWITCHBOARD OPERATOR CPT-55563 LS spine comp w obliq 17:16:12 CDT CPT-11695 Chest 2V Frontal and Lat 10:23:04 CDT CPT-04845 Foot comp min 3V 17:12:13 CDT
--- OUTSIDE RECORDS SUMMARY | 2017-05-26 16:42 | XMS REPORT | Clinical Summary ---
Author Author Admin, QIE Organization [facility] Address Unknown Phone Unavailable Allergies, Adverse Reactions, [...] Chest wall pain 786.52 Active Chel Uriostegui MANUFACTURING PRODUCTION MANAGER Painful respiration Anxiety 300.00 Active Chel Uriostegui [...] Instructions Start Date Stop Date Generic Name [facility] Status Provider Patient Instruction FLUTICASONE PROPIONATE 50 MCG/ACT SUSP 2 sprays each nostril daily FLUTICASONE PROPIONATE 84198504766 No Longer Active Butch Felix MD Active OMEPRAZOLE 20 MG CPDR 1 tablet by mouth daily OMEPRAZOLE 20648800843 No Longer Active Butch Felix MD Active ALBUTEROL SULFATE (2.5 MG/3ML) 0.083% NEBU 1 in nebulizer four times a day as needed for cough ALBUTEROL SULFATE 54571755853 No Longer Active Prisca Burton APRN Active ASPIRIN 325 MG TAB Take 1 tab p.o. PRN for pain ASPIRIN 86659831568 Active Chel Uriostegui APRN Active MELOXICAM 15 MG TABS 1 po q day for pain with food MELOXICAM 36407127561 No Longer Active Butch Felix MD Active IBUPROFEN 400 MG TAB 1 tab po tid with food, prn IBUPROFEN 35640110938 No Longer Active Butch Felix MD Active CYCLOBENZAPRINE HCL 10 MG TABS 1 tablet by mouth at bedtime for back spasm CYCLOBENZAPRINE HCL 99665211136 No Longer Active Roland Ellis APRN Active LEVAQUIN 500 MG TAB 1 tablet by mouth daily LEVOFLOXACIN 78549840604 No Longer Active Roland Ellis APRN Active LEVAQUIN 500 MG TAB 1 tablet by mouth daily LEVAQUIN 500 MG TAB 726234 LEVOFLOXACIN Inactive CYCLOBENZAPRINE HCL 10 MG TABS 1 tablet by mouth at bedtime for back spasm CYCLOBENZAPRINE HCL 10 MG TABS 450152 CYCLOBENZAPRINE HCL Inactive IBUPROFEN 400 MG TAB 1 tab po tid with food, prn IBUPROFEN 400 MG TAB 238567 IBUPROFEN Inactive MELOXICAM 15 MG TABS 1 po q day for pain with food MELOXICAM 15 MG TABS 376834 MELOXICAM Inactive ALBUTEROL SULFATE (2.5 MG/3ML) 0.083% NEBU 1 in nebulizer four times a day as needed for cough ALBUTEROL SULFATE (2.5 MG/3ML) 0.083% NEBU 028879 ALBUTEROL SULFATE Inactive OMEPRAZOLE 20 MG CPDR 1 tablet by mouth daily OMEPRAZOLE 20 MG CPDR 295064 OMEPRAZOLE Inactive FLUTICASONE PROPIONATE 50 MCG/ACT SUSP 2 sprays each nostril daily FLUTICASONE PROPIONATE 50 MCG/ACT SUSP 329503 FLUTICASONE PROPIONATE Inactive Immunizations Vaccine Administration Date [...] Panel - Chemistry sodium, serum 141 mmol/L 893-993 2940/04/05 carbon dioxide, venous blood 31.5 mmol/L 21.0-32.0 [...] 1.58 m[iU]/mL 0.36-3.74 sodium, serum 140 mmol/L 480-380 4316/03/09 potassium, serum 4.4 mmol/L 3.5-5.2 chloride, serum [...] 5.0-8.5 Encounters Code Encounter Date Provider Facility CPT-23063 Level 3 Est. Patient 16:34:51 CDT Butch Felix MD [facility]-59901 Level 3 Est. Patient 11:07:07 CDT Alissa Johnson [facility]-87284 Level 3 Est. Patient 09:56:03 CDT Butch Felix MD [facility]-60492 Level 3 Est. Patient 10:09:51 CDT Butch Felix MD [facility]-99682 Level 3 Est. Patient 10:33:59 CDT Chel Uriostegui [facility]-17025 Level 3 Est. Patient 16:17:38 CDT Prisca Burton [facility]-69006 Level 3 Est. Patient 11:06:35 LABORER BROODER FARM Butch Felix MD [facility]-13648 Level 3 Est. Patient 18:22:20 LABORER BROODER FARM Dyllan Timmons [facility]-44321 Level 3 Est. Patient 17:12:26 CDT Dyllan Timmons [facility] CPT-01849 Level 3 Est. Patient 10:50:38 CDT Katie Martell MD PhD [facility] CPT-95375 Level 3 Est. Patient 11:01:01 LABORER BROODER FARM Dyllan Timmons [facility] CPT-92864 Level 3 Est. Patient 19:21:[address] [facility] CPT-02166 Level 2 Est. Patient 08:39:56 LABORER BROODER FARM Dyllan Mcclure [facility] CPT-82967 Level 3 Est. Patient 22:53:[address] [facility] CPT-37925 Level 3 Est. Patient 17:12:[address] [facility] Procedures Code Procedure Name Date Entry Date Standard Description CPT-73246 Event Monitor - Commercial Ins 14:58:02 LABORER BROODER FARM CPT-52130 EKG Trac and Interp 10:58:25 LABORER BROODER FARM CPT-49781 Chest 2V Frontal and Lat 10:58:25 LABORER BROODER FARM CPT-24804 LS spine comp w obliq 17:16:12 CDT CPT-02184 Chest 2V Frontal and Lat 10:23:04 CDT CPT-74892 Foot comp min 3V 17:12:13 CDT
--- OUTSIDE RECORDS SUMMARY | 2017-05-26 16:42 | XMS REPORT | Clinical Summary ---
Author Author Admin, JONA Organization [facility] Address Unknown Phone Unavailable Allergies, [...] at bedtime for back spasm CYCLOBENZAPRINE HCL 43538020708 Active Dyllan Timmons DO Active LEVAQUIN 500 MG TAB 1 tablet by mouth daily LEVOFLOXACIN 43776406931 Active Katie Martell MD PhD Active Immunizations [...] Negative Encounters Code Encounter Date Provider Facility CPT-24876 Level 3 Est. Patient 17:12:26 CDT Dyllan Timmons [facility] CPT-97553 Level 3 Est. Patient 10:50:38 CDT Katie Martell MD PhD [facility] CPT-90282 Level 3 Est. Patient 11:01:01 EQUIPMENT ENGINEERING TECHNICIAN Dyllan Timmons [facility] CPT-58474 Level 3 Est. Patient 19:21:41 CDT Dyllan Timmons [facility] CPT-40798 Level 2 Est. Patient 08:39:56 EQUIPMENT ENGINEERING TECHNICIAN Dyllan Timmons [facility] CPT-64863 Level 3 Est. Patient 22:53:20 CDT Dyllan Timmons [facility] CPT-64610 Level 3 Est. Patient 17:12:13 CDT Dyllan Timmons [facility] Procedures Code Procedure Name Date Entry Date Standard Description CPT-28047 LS spine comp w obliq 17:16:12 CDT CPT-17554 Chest 2V Frontal and Lat 10:23:04 CDT CPT-00888 Foot comp min 3V 17:12:13 CDT
[2017-05-26 16:43] LABS: PROTHROMBIN TIME PATIENT 13.4 SEC (12.2-14.7)
--- OUTSIDE RECORDS SUMMARY | 2017-05-26 16:43 | XMS REPORT | Clinical Summary ---
Author Author Admin, JONA Organization [employer] Address Unknown Phone Unavailable Allergies, Adverse Reactions, [...] 2 sprays each nostril daily FLUTICASONE PROPIONATE 47574435440 No Longer Active Butch Felix MD Active OMEPRAZOLE 20 MG CPDR 1 tablet by mouth daily OMEPRAZOLE 27050396558 No Longer Active Butch Felix MD Active ALBUTEROL SULFATE (2.5 MG/3ML) 0.083% NEBU 1 in nebulizer four times a day as needed for cough ALBUTEROL SULFATE 84726300242 No Longer Active Prisca Burotn APRN Active ASPIRIN 325 MG TAB Take 1 tab p.o. PRN for pain ASPIRIN 78180471838 Active Chel Uriostegui ANA PAULA Active MELOXICAM 15 MG TABS 1 po q day for pain with food MELOXICAM 08658535973 No Longer Active Butch Felix MD Active IBUPROFEN 400 MG TAB 1 tab po tid with food, prn IBUPROFEN 97159862802 No Longer Active Butch Felix MD Active CYCLOBENZAPRINE HCL 10 MG TABS 1 tablet by mouth at bedtime for back spasm CYCLOBENZAPRINE HCL 53498723168 No Longer Active Jillina Rhonda GOSS Active LEVAQUIN 500 MG TAB 1 tablet by mouth daily LEVOFLOXACIN 34747387569 No Longer Active Jillina Frazell PROFESSIONAL EMPLOYER CONSULTANT Active LEVAQUIN 500 MG TAB 1 tablet by mouth daily LEVAQUIN 500 MG TAB 818110 LEVOFLOXACIN Inactive CYCLOBENZAPRINE HCL 10 MG TABS 1 tablet by mouth at bedtime for back spasm CYCLOBENZAPRINE HCL 10 MG TABS 280300 CYCLOBENZAPRINE HCL Inactive IBUPROFEN 400 MG TAB 1 tab po tid with food, prn IBUPROFEN 400 MG TAB 126675 IBUPROFEN Inactive MELOXICAM 15 MG TABS 1 po q day for pain with food MELOXICAM 15 MG TABS 309625 MELOXICAM Inactive ALBUTEROL SULFATE (2.5 MG/3ML) 0.083% NEBU 1 in nebulizer four times a day as needed for cough ALBUTEROL SULFATE (2.5 MG/3ML) 0.083% NEBU 993387 ALBUTEROL SULFATE Inactive OMEPRAZOLE 20 MG CPDR 1 tablet by mouth daily OMEPRAZOLE 20 MG CPDR 768223 OMEPRAZOLE Inactive FLUTICASONE PROPIONATE 50 MCG/ACT SUSP 2 sprays each nostril daily FLUTICASONE PROPIONATE 50 MCG/ACT SUSP 143990 FLUTICASONE PROPIONATE Inactive Immunizations Vaccine Administration Date [...] Panel - Chemistry sodium, serum 141 mmol/L 886-068 1219/04/05 carbon dioxide, venous blood 31.5 mmol/L 21.0-32.0 [...] 1.58 m[iU]/mL 0.36-3.74 sodium, serum 140 mmol/L 694-355 4288/03/09 potassium, serum 4.4 mmol/L 3.5-5.2 chloride, serum [...] 142-424 Encounters Code Encounter Date Provider Facility CPT-54791 Level 3 Est. Patient 09:56:03 CDT Butch Felix MD [facility] CPT-15867 Level 3 Est. Patient 10:09:51 CDT Butch Felix MD [facility] CPT-39290 Level 3 Est. Patient 10:33:59 CDT Chel Uriostegui [facility] CPT-51646 Level 3 Est. Patient 16:17:38 CDT Prisca Burton [facility] CPT-81613 Level 3 Est. Patient 11:06:35 SUPPORT SERVICES COORDINATOR Butch Felix MD [facility] CPT-62940 Level 3 Est. Patient 18:22:20 SUPPORT SERVICES COORDINATOR Dyllan Timmons [facility] CPT-91196 Level 3 Est. Patient 17:12:26 CDT Dyllan Timmons [facility] CPT-62610 Level 3 Est. Patient 10:50:38 CDT Katie Martell MD PhD [facility] CPT-11774 Level 3 Est. Patient 11:01:01 SUPPORT SERVICES COORDINATOR Dyllan Timmons [facility] CPT-01377 Level 3 Est. Patient 19:21:41 CDT Dyllan Timmons [facility] CPT-60257 Level 2 Est. Patient 08:39:56 SUPPORT SERVICES COORDINATOR Dyllan Timmons [facility] CPT-58300 Level 3 Est. Patient 22:53:20 CDT Dyllan Mcclure [facility] CPT-08456 Level 3 Est. Patient 17:12:13 CDT Dyllan Mcclure [facility] Procedures Code Procedure Name Date Entry Date Standard Description CPT-25612 Event Monitor - Commercial Ins 14:58:02 SUPPORT SERVICES COORDINATOR CPT-10037 EKG Trac and Interp 10:58:25 SUPPORT SERVICES COORDINATOR CPT-84755 Chest 2V Frontal and Lat 10:58:25 SUPPORT SERVICES COORDINATOR CPT-73279 LS spine comp w obliq 17:16:12 CDT CPT-64760 Chest 2V Frontal and Lat 10:23:04 CDT CPT-54023 Foot comp min 3V 17:12:13 CDT
--- OUTSIDE RECORDS SUMMARY | 2017-05-26 16:43 | XMS REPORT | Clinical Summary ---
Author Author Admin, JONA Organization [facility] Address Unknown Phone Unavailable [...] at bedtime for back spasm CYCLOBENZAPRINE HCL 89427417955 Active Dyllan Timmons DO Active LEVAQUIN 500 MG TAB 1 tablet by mouth daily LEVOFLOXACIN 11903652975 Active Katie Martell MD PhD Active Immunizations [...] Negative Encounters Code Encounter Date Provider Facility CPT-02479 Level 3 Est. Patient 17:12:26 CDT Dyllan Timmons [facility] CPT-43884 Level 3 Est. Patient 10:50:38 CDT Katie Martell MD PhD [facility] CPT-53388 Level 3 Est. Patient 11:01:01 CYTOLOGY TEACHER Dyllan Timmons [facility] CPT-64191 Level 3 Est. Patient 19:21:41 CDT Dyllan Timmons [facility] CPT-68032 Level 2 Est. Patient 08:39:56 CYTOLOGY TEACHER Dyllan Timmons [facility] CPT-35583 Level 3 Est. Patient 22:53:20 CDT Dyllan Timmons [facility] CPT-41361 Level 3 Est. Patient 17:12:13 CDT Dyllan Timmons [facility] Procedures Code Procedure Name Date Entry Date Standard Description CPT-63835 LS spine comp w obliq 17:16:12 CDT CPT-94380 Chest 2V Frontal and Lat 10:23:04 CDT CPT-61610 Foot comp min 3V 17:12:13 CDT
--- OUTSIDE RECORDS SUMMARY | 2017-05-26 16:43 | XMS REPORT | Clinical Summary ---
Author Author Admin, JONA Organization [facility] Address Unknown Phone Unavailable Allergies, Adverse [...] 786.2 Active Katie Martell MD PhD Cough FOOT PAIN, RIGHT ICD-729.5 Inactive Katie Martell MD PhD PAIN IN JOINT, ANKLE AND FOOT ICD-719.47 Inactive Katie Martell MD PhD Hip pain, left ICD-719.45 Inactive Katie Martell MD PhD Pharyngitis-Acute ICD-462 Inactive Katie Martell MD PhD Medication List Medication Instructions Start Date Stop Date Generic Name NDC Status Provider Patient Instruction No Drug Therapy Prescribed - none known did ask Odalis Maguire RPT,RMA Immunizations Vaccine Administration Date Value Standard Description [...] Negative Encounters Code Encounter Date Provider Facility CPT-06475 Level 3 Est. Patient 11:01:01 CAMP DISHWASHER Dyllan Timmons [facility] CPT-89899 Level 3 Est. Patient 19:21:41 CDT Dyllan Mcclure [facility] CPT-94287 Level 2 Est. Patient 08:39:56 CAMP DISHWASHER Dyllan Mcclure [facility] CPT-45528 Level 3 Est. Patient 22:53:20 CDT Dyllan Mcclure [facility] CPT-79076 Level 3 Est. Patient 17:12:13 CDT Dyllan Mcclure [facility] Procedures Code Procedure Name Date Entry Date Standard Description CPT-53222 Chest 2V Frontal and Lat 10:23:04 CDT CPT-93036 Foot comp min 3V 17:12:13 CDT
--- OUTSIDE RECORDS SUMMARY | 2017-05-26 16:44 | XMS REPORT | Clinical Summary ---
Author Author Admin, JONA Organization [employer] Address Unknown Phone Unavailable Allergies, Adverse Reactions, [...] without diagnosis of hypertension 796.2 02/01 Active Dlylan Timmons DO Elevated blood pressure reading without [...] day as needed for cough ALBUTEROL SULFATE 21377783172 Active Butch Felix MD Active MELOXICAM 15 MG TABS 1 po q day for pain with food MELOXICAM 96470594370 No Longer Active Butch Felix MD Active IBUPROFEN 400 MG TAB 1 tab po tid with food, prn IBUPROFEN 44806515964 No Longer Active Butch Felix MD Active CYCLOBENZAPRINE HCL 10 MG TABS 1 tablet by mouth at bedtime for back spasm CYCLOBENZAPRINE HCL 36582667401 No Longer Active Roland Ellis APRN Active LEVAQUIN 500 MG TAB 1 tablet by mouth daily LEVOFLOXACIN 03551018994 No Longer Active Roland Ellis GROOVING MACHINE OPERATOR Active LEVAQUIN 500 MG TAB 1 tablet by mouth daily LEVAQUIN 500 MG TAB 703638 LEVOFLOXACIN Inactive CYCLOBENZAPRINE HCL 10 MG TABS 1 tablet by mouth at bedtime for back spasm CYCLOBENZAPRINE HCL 10 MG TABS 800363 CYCLOBENZAPRINE HCL Inactive IBUPROFEN 400 MG TAB 1 tab po tid with food, prn IBUPROFEN 400 MG TAB 137995 IBUPROFEN Inactive MELOXICAM 15 MG TABS 1 po q day for pain with food MELOXICAM 15 MG TABS 559800 MELOXICAM Inactive Immunizations Vaccine Administration Date Value [...] 1.58 m[iU]/mL 0.36-3.74 sodium, serum 140 mmol/L 343-644 5457/03/09 potassium, serum 4.4 mmol/L 3.5-5.2 chloride, serum [...] 142-424 Encounters Code Encounter Date Provider Facility CPT-95938 Level 3 Est. Patient 11:06:35 BUCKET CHUCKER Butch Felix MD [facility] CPT-61148 Level 3 Est. Patient 18:22:20 BUCKET CHUCKER Dyllan Mcclure [facility] CPT-87466 Level 3 Est. Patient 17:12:26 CDT Dyllan Mcclure [facility] CPT-40402 Level 3 Est. Patient 10:50:38 CDT Katie Martell MD PhD [facility] CPT-10741 Level 3 Est. Patient 11:01:01 BUCKET CHUCKER Dyllan Kami [facility] CPT-37827 Level 3 Est. Patient 19:21:41 CDT Dyllan Mcclure [facility] CPT-35237 Level 2 Est. Patient 08:39:56 BUCKET CHUCKER Dyllan Mcclure [facility] CPT-10026 Level 3 Est. Patient 22:53:20 CDT Dyllan Mcclure [facility] CPT-86972 Level 3 Est. Patient 17:12:13 CDT Dyllan Mcclure [facility] Procedures Code Procedure Name Date Entry Date Standard Description CPT-18813 Event Monitor - [employer] 14:58:02 BUCKET CHUCKER CPT-98475 EKG Trac and Interp 10:58:25 BUCKET CHUCKER CPT-29077 Chest 2V Frontal and Lat 10:58:25 BUCKET CHUCKER CPT-36673 LS spine comp w obliq 17:16:12 CDT CPT-89669 Chest 2V Frontal and Lat 10:23:04 CDT CPT-65460 Foot comp min 3V 17:12:13 CDT
--- OUTSIDE RECORDS SUMMARY | 2017-05-26 16:44 | XMS REPORT | Clinical Summary ---
Author Author Admin, QIE Organization [facility] Address Unknown Phone Unavailable Allergies, Adverse Reactions, [...] PhD Shortness of breath Cough 786.2 Resolved uBtch Felix MD Cough Bronchitis, acute 466.0 Resolved [...] pain, left ICD-719.47 Inactive Butch Felix MD Cough ICD-786.2 Inactive Butch Felix MD Bronchitis, acute ICD-466.0 Inactive Butch Felix MD Medication List Medication Instructions Start Date Stop Date Generic Name NDC Status Provider Patient Instruction PROPRANOLOL HCL 10 MG TAB 1 tablet by mouth twice daily PROPRANOLOL HCL 10664893605 Active Dyllan Timmons DO Active ASPIRIN 325 MG TAB Take 1 tab p.o. PRN for pain ASPIRIN 77154118181 No Longer Active Dyllan Timmons DO Active FLUOXETINE HCL 20 MG CAPS 1 cap by mouth daily FLUOXETINE HCL 98725008031 No Longer Active Dyllan Timmons DO Active FLUTICASONE PROPIONATE 50 MCG/ACT SUSP 2 sprays each nostril daily FLUTICASONE PROPIONATE 32879536450 No Longer Active Butch Felix MD Active OMEPRAZOLE 20 MG CPDR 1 tablet by mouth daily OMEPRAZOLE 25452432748 No Longer Active Butch Felix MD Active ALBUTEROL SULFATE (2.5 MG/3ML) 0.083% NEBU 1 in nebulizer four times a day as needed for cough ALBUTEROL SULFATE 59801370019 No Longer Active Prisca Burton APRN Active MELOXICAM 15 MG TABS 1 po q day for pain with food MELOXICAM 54103726815 No Longer Active Butch Felix MD Active IBUPROFEN 400 MG TAB 1 tab po tid with food, prn IBUPROFEN 25300387428 No Longer Active Butch Felix MD Active CYCLOBENZAPRINE HCL 10 MG TABS 1 tablet by mouth at bedtime for back spasm CYCLOBENZAPRINE HCL 69292020575 No Longer Active Roland Ellis APRN Active LEVAQUIN 500 MG TAB 1 tablet by mouth daily LEVOFLOXACIN 12263459466 No Longer Active Roland Ellis NURSE REVIEWER Active LEVAQUIN 500 MG TAB 1 tablet by mouth daily LEVAQUIN 500 MG TAB 646717 LEVOFLOXACIN Inactive CYCLOBENZAPRINE HCL 10 MG TABS 1 tablet by mouth at bedtime for back spasm CYCLOBENZAPRINE HCL 10 MG TABS 452826 CYCLOBENZAPRINE HCL Inactive IBUPROFEN 400 MG TAB 1 tab po tid with food, prn IBUPROFEN 400 MG TAB 284668 IBUPROFEN Inactive MELOXICAM 15 MG TABS 1 po q day for pain with food MELOXICAM 15 MG TABS 105742 MELOXICAM Inactive ALBUTEROL SULFATE (2.5 MG/3ML) 0.083% NEBU 1 in nebulizer four times a day as needed for cough ALBUTEROL SULFATE (2.5 MG/3ML) 0.083% NEBU 832832 ALBUTEROL SULFATE Inactive OMEPRAZOLE 20 MG CPDR 1 tablet by mouth daily OMEPRAZOLE 20 MG CPDR 093707 OMEPRAZOLE Inactive FLUTICASONE PROPIONATE 50 MCG/ACT SUSP 2 sprays each nostril daily FLUTICASONE PROPIONATE 50 MCG/ACT SUSP 0630994 FLUTICASONE PROPIONATE Inactive FLUOXETINE HCL 20 MG CAPS 1 cap by mouth daily FLUOXETINE HCL 20 MG CAPS 364421 FLUOXETINE HCL Inactive ASPIRIN 325 MG TAB Take 1 tab p.o. PRN for pain ASPIRIN 325 MG TAB 716080 ASPIRIN Inactive Immunizations Vaccine Administration Date Value [...] Panel - Chemistry sodium, serum 140 mmol/L 174-375 3898/07/06 carbon dioxide, venous blood 29.4 mmol/L 21.0-32.0 [...] 0.00-1.00 Encounters Code Encounter Date Provider Facility CPT-21773 Level 3 Est. Patient 13:07:09 CDT Dyllan Timmons [facility] CPT-55706 Level 3 Est. Patient 09:01:12 CDT Dyllan Timmons [facility] CPT-21293 Level 3 Est. Patient 08:29:00 CDT Dyllan Timmons [facility] CPT-28934 Level 3 Est. Patient 16:34:51 CDT Butch Felix MD [facility] CPT-62458 Level 3 Est. Patient 11:07:07 CDT Alissa Johnson [facility]-28270 Level 3 Est. Patient 09:56:03 CDT Butch Felix MD [facility] CPT-17050 Level 3 Est. Patient 10:09:51 CDT Butch Felix MD [facility] CPT-30252 Level 3 Est. Patient 10:33:59 CDT Chel Uriostegui [facility] CPT-55869 Level 3 Est. Patient 16:17:38 CDT Prisca Burton [facility] CPT-43288 Level 3 Est. Patient 11:06:35 MOLDING ASSOCIATE Butch Felix MD [facility] CPT-13729 Level 3 Est. Patient 18:22:20 MOLDING ASSOCIATE Dyllan Timmons [facility] CPT-71980 Level 3 Est. Patient 17:12:26 CDT Dyllan Timmons [facility] CPT-86654 Level 3 Est. Patient 10:50:38 CDT Katie Martell MD PhD [facility] CPT-49307 Level 3 Est. Patient 11:01:01 MOLDING ASSOCIATE Dyllan Timmons [facility] CPT-35404 Level 3 Est. Patient 19:21:41 CDT Dyllan Timmons [facility] CPT-55962 Level 2 Est. Patient 08:39:56 MOLDING ASSOCIATE Dyllan Timmons [facility] CPT-60281 Level 3 Est. Patient 22:53:20 CDT Dyllan Timmons [facility] CPT-39559 Level 3 Est. Patient 17:12:13 CDT Dyllan Mcclure [facility] Procedures Code Procedure Name Date Entry Date Standard Description CPT-58611 Addl Vx - Ix admin via ID IM or jet injects without counseling by physician 10:39:15 CDT CPT-27896 Gardasil 9 Intramuscular Suspension 10:39:15 CDT 04/15 CPT-08351 First Vx - Ix admin via ID IM or jet injects without counseling by physician 10:39:15 CDT CPT-06521 Havrix Intramuscular Suspension 720 EL U/0.5ML 10:39:15 CDT CPT-94278 Addl Vx - Ix admin via ID IM or jet injects without counseling by physician 14:02:27 CDT CPT-66716 Meningococcal B, recombinant vaccine 14:02:27 CDT 03/27 CPT-67881 First Vx - Ix admin via ID IM or jet injects without counseling by physician 14:02:27 CDT CPT-62713 Menveo Intramuscular Solution Reconstituted 14:02:27 CDT [id number] Event Monitor - MC review and interp 16:30:59 MOLDING ASSOCIATE CPT-19450 EKG Trac and Interp - XRAY USE ONLY 10:18:23 CDT 04/10 CPT-03819 Event Monitor - Commercial Ins 14:58:02 MOLDING ASSOCIATE CPT-56658 EKG Trac and Interp 10:58:25 MOLDING ASSOCIATE CPT-03597 Chest 2V Frontal and Lat 10:58:25 MOLDING ASSOCIATE CPT-97697 LS spine comp w obliq 17:16:12 CDT CPT-04428 Chest 2V Frontal and Lat 10:23:04 CDT CPT-79062 Foot comp min 3V 17:12:13 CDT
[2017-05-26] MEDS ORDERED: DILTIAZEM DRIP 100 MG in SODIUM CHLORIDE (ADD-VANTAGE) 100 ML IV SCH (16:45)
[2017-05-26] MEDS ORDERED: DILTIAZEM 25 MG/5 ML INJ (CARDIZEM) VIAL IVP ONE (16:45)
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
[2017-05-26 16:51] LABS: ALANINE AMINOTRANSFERASE 21 U/L (0-55); ALBUMIN 4.9 GM/DL (3.2-4.5); ANION GAP 15 MMOL/L (5-14); ASPARTATE AMINO TRANSFERASE 22 U/L (5-34); BILIRUBIN,TOTAL 0.5 MG/DL (0.1-1.0); BLOOD UREA NITROGEN 8 MG/DL (7-18); BUN/CREATININE RATIO 8; CALCIUM 9.7 MG/DL (8.5-10.1); CARBON DIOXIDE 22 MMOL/L (21-32); CHLORIDE 105 MMOL/L (98-107); CREATININE SERUM 0.95 MG/DL (0.60-1.30); GFR ESTIMATED > 60; GLUCOSE 86 MG/DL (70-105); LIPASE 24 U/L (8-78); MAGNESIUM 2.4 MG/DL (1.8-2.4); POTASSIUM 3.5 MMOL/L (3.6-5.0); SODIUM 142 MMOL/L (135-145)
[2017-05-26 17:23] LABS: MYOGLOBIN SERUM 45.3 NG/ML (10.0-92.0)
--- NOTE | 2017-05-26 17:33 | Diagnostic Imaging Report ---
EXAM: Portable chest. INDICATION: Tachycardia. COMPARISON: CT angiogram of the chest from January 15, 2016. FINDINGS: The lungs appear clear without focal infiltrate or evidence of effusion. There is no pneumothorax. The heart size and mediastinal contours are appropriate. Pulmonary vascularity is within normal limits. No acute osseous abnormality is demonstrated. IMPRESSION: No radiographic evidence of an acute cardiopulmonary process. Dictated by: Dictated on workstation # [id number]
[2017-05-26 17:47] LABS: BILIRUBIN,URINE NEGATIVE (NEGATIVE); KETONES,URINE NEGATIVE (NEGATIVE); LEUKOCYTE ESTERASE ,URINE NEGATIVE (NEGATIVE); NITRITE,URINE NEGATIVE (NEGATIVE); PH,URINE 8 (5-9); PROTEIN,URINE NEGATIVE (NEGATIVE); UROBILINOGEN,URINE NORMAL (NORMAL)
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
[2017-05-26 19:00] VITALS: BP 137/71
[2017-05-26 20:00] VITALS: BP 138/74
[2017-05-26 21:00] VITALS: BP 135/72
[2017-05-26] MEDS ORDERED: KCL 20 MEQ TAB (K-DUR) PO ONE (21:15)
[2017-05-26] MEDS ORDERED: CATHETER FLUSH 10 ML SYR IV PRN (21:30)
[2017-05-26] MEDS ORDERED: DILTIAZEM DRIP 100 MG/NS 100 ML IV PRN ×2 (21:30)
[2017-05-26] MEDS: CATHETER FLUSH 10 ML SYR IV SCH (21:45)
[2017-05-26] MEDS: NS IV 1000 ML 1,000 ML IV SCH (21:46)
[2017-05-26 22:00] VITALS: BP 149/65
[2017-05-26 23:00] VITALS: BP 129/61
[2017-05-27] VITALS (13 sets, daily range): BP systolic 95–143; BP diastolic 54–76
[2017-05-27] MEDS: CATHETER FLUSH 10 ML SYR IV SCH ×2 (05:36→14:35)
[2017-05-27 06:10] LABS: BASOPHILS % (AUTO) 0 % (0-10); EOSINOPHILS # (AUTO) 0.3 10^3/uL (0.0-0.3); EOSINOPHILS % (AUTO) 3 % (0-10); LYMPHOCYTES # (AUTO) 2.7 X 10^3 (1.0-4.0); LYMPHOCYTES % (AUTO) 27 % (12-44); MEAN CORPUSCULAR HEMOGLOBIN 28 PG (25-34); MEAN CORPUSCULAR HGB CONC 35 G/DL (32-36); MEAN CORPUSCULAR VOLUME 78 FL (80-99); MEAN PLATELET VOLUME 10.5 FL (7.4-10.4); MONOCYTES # (AUTO) 0.5 X 10^3 (0.0-1.0); MONOCYTES % (AUTO) 5 % (0-12); NEUTROPHILS # (AUTO) 6.5 X 10^3 (1.8-7.8); NEUTROPHILS % (AUTO) 65 % (42-75); PLATELET COUNT 232 10^3/uL (130-400); RED CELL DISTRIBUTION WIDTH 13.6 % (10.0-14.5)
[2017-05-27] MEDS: NS IV 1000 ML 1,000 ML IV SCH ×2 (06:27→14:34)
[2017-05-27 06:28] LABS: CHOLESTEROL 116 MG/DL (< 200); DIRECT LDL 85 MG/DL (1-129); TRIGLYCERIDES 134 MG/DL (<150); VLDL CHOLESTEROL 27 MG/DL (5-40)
[2017-05-27 06:34] LABS: ALANINE AMINOTRANSFERASE 17 U/L (0-55); ALBUMIN 4.2 GM/DL (3.2-4.5); ANION GAP 13 MMOL/L (5-14); ASPARTATE AMINO TRANSFERASE 19 U/L (5-34); BILIRUBIN,TOTAL 0.4 MG/DL (0.1-1.0); BLOOD UREA NITROGEN 7 MG/DL (7-18); BUN/CREATININE RATIO 8; CALCIUM 9.1 MG/DL (8.5-10.1); CARBON DIOXIDE 20 MMOL/L (21-32); CHLORIDE 108 MMOL/L (98-107); CREATININE SERUM 0.87 MG/DL (0.60-1.30); GFR ESTIMATED > 60; GLUCOSE 141 MG/DL (70-105); POTASSIUM 3.8 MMOL/L (3.6-5.0); SODIUM 141 MMOL/L (135-145); TOTAL PROTEIN 6.7 GM/DL (6.4-8.2)
[2017-05-27 06:41] LABS: TROPONIN I < 0.30 NG/ML (<0.30)
[2017-05-27] MEDS ORDERED: DILTIAZEM 120 MG (CARDIZEM CD) CAP PO ONE (14:22)
[2017-05-27] MEDS ORDERED: DILTIAZEM 60 MG (CARDIZEM) TAB PO NR (14:30)
--- NOTE | 2017-05-27 14:43 | Discharge Summary-Hospitalist ---
Diagnosis/Chief Complaint Date of Admission May 26, 2017 at 17:15 Date of Discharge 05/27/17 Discharge Date: May 27, 2017 Admission Diagnosis SVT Discharge Diagnosis SVT (1) Supraventricular tachycardia Status: Acute Assessment & Plan: Very resistant to treatment, failed adenosine 3x in ED Was placed on Cardizem gtt and converted, now on PO Cardizem Electrolytes, TSH, and UDS normal echo and carotid doppler: normal (2) Elevated blood pressure reading Status: Chronic Assessment & Plan: Reports history of elevated blood pressures and previously on a beta block but was allergic on no medications currently Started on Cardizem PO per Cards (3) Hypokalemia Status: Acute Assessment & Plan: Very mild and unlikely to be reason for SVT but will replace to decrease propensity for arrhythmia Check magnesium as well (4) Polyuria Status: Acute Assessment & Plan: Increasing polyuria and polydipsia Normal UA and a1c, will need to follow as outpatient (5) Prophylactic measure Assessment & Plan: Low risk for DVT will advise ambulation and SCDs Saline Lock No indication for GI ppx Discharge Summary Consultations Cardiology Discharge Physical Examination Allergies: Coded Allergies: Cephalosporins (Verified Allergy, Unknown, 05/26/17) Penicillins (Verified Allergy, Unknown, 05/26/17) Vitals & I&Os Vital Signs Date Time Temp Pulse Resp B/P (MAP) Pulse Ox O2 Delivery O2 Flow Rate FiO2 05/27/17 12:48 98.9 05/27/17 12:00 100 Room Air 05/27/17 11:00 60 13 129/75 General Appearance: Alert, Oriented X3 HEENT: Atraumatic, Mucous Memb Moist/Novice Respiratory: Clear to Auscultation Cardiovascular: Regular Rate, No Murmurs Abdominal: Normal Bowel Sounds, Soft, No Tenderness Extremities: No Edema, Normal Pulses Skin: No Rashes, No Significant Lesion Neuro: Normal Gait, Normal Speech Psych/Mental Status: Mental Status NL Hospital Course Armaan was admitted follow acute onset of palpitations and was found to be in SVT. He was refractory to vagal maneuvers, adenosine x3 doses and initially cardizem. Just prior to defibrillation while still on cardizem gtt he spontaneously converted to NSR. He remained on cardizem gtt overnight and maintained NSR overnight. Cardiology was consulted and recommended PO Cardizem and to follow up with them as outpatient. He also had an echo which showed no structural heart defects. Labs (last 24 hrs) Laboratory Tests 05/26/17 16:18: White Blood Count 11.9H, Red Blood Count 5.56, Hemoglobin 15.4, Hematocrit 43, Mean Corpuscular Volume 77L, Mean Corpuscular Hemoglobin 28, Mean Corpuscular Hemoglobin Concent 36, Red Cell Distribution Width 13.6, Platelet Count 298, Mean Platelet Volume 10.4, Neutrophils (%) (Auto) 64, Lymphocytes (%) (Auto) 25 , Monocytes (%) (Auto) 9, Eosinophils (%) (Auto) 2, Basophils (%) (Auto) 0, Neutrophils # (Auto) 7.6, Lymphocytes # (Auto) 3.0, Monocytes # (Auto) 1.1H, Eosinophils # (Auto) 0.2, Basophils # (Auto) 0.0, Prothrombin Time 13.4, INR Comment 1.0, Activated Partial Thromboplast Time 29, Sodium Level 142, Potassium Level 3.5L, Chloride Level 105, Carbon Dioxide Level 22, Anion Gap 15H , Blood Urea Nitrogen 8, Creatinine 0.95, Estimat Glomerular Filtration Rate > 60, BUN/Creatinine Ratio 8, Glucose Level 86, Hemoglobin A1c 4.9, Calcium Level 9.7, Magnesium Level 2.4, Total Bilirubin 0.5, Aspartate Amino Transf (AST/SGOT ) 22, Alanine Aminotransferase (ALT/SGPT) 21, Alkaline Phosphatase 72, Myoglobin 45.3, Troponin I < 0.30, Total Protein 8.0, Albumin 4.9H, Lipase 24, Thyroid Stimulating Hormone (TSH) 1.87 05/26/17 17:40: Urine Color YELLOW, Urine Clarity CLEAR, Urine pH 8, Urine Specific [place]ck[place] 1.010L, Urine Protein NEGATIVE, Urine Glucose (UA) NEGATIVE, Urine Ketones NEGATIVE, Urine Nitrite NEGATIVE, Urine Bilirubin NEGATIVE, Urine Urobilinogen NORMAL, Urine Leukocyte Esterase NEGATIVE, Urine RBC (Auto) NEGATIVE, Urine RBC NONE, Urine WBC NONE, Urine Crystals NONE, Urine Bacteria NEGATIVE, Urine Casts NONE, Urine Mucus NEGATIVE, Urine Culture Indicated NO, Urine Opiates Screen NEGATIVE, Urine Oxycodone Screen NEGATIVE, Urine Methadone Screen NEGATIVE, Urine Propoxyphene Screen NEGATIVE, Urine Barbiturates Screen NEGATIVE, Ur Tricyclic Antidepressants Screen NEGATIVE, Urine Phencyclidine Screen NEGATIVE, Urine Amphetamines Screen NEGATIVE, Urine Methamphetamines Screen NEGATIVE, Urine Benzodiazepines Screen NEGATIVE, Urine Cocaine Screen NEGATIVE, Urine Cannabinoids Screen NEGATIVE 05/26/17 22:11: Troponin I 0.30 05/27/17 05:47: White Blood Count 10.0, Red Blood Count 5.20, Hemoglobin 14.3, Hematocrit 40, Mean Corpuscular Volume 78L, Mean Corpuscular Hemoglobin 28, Mean Corpuscular Hemoglobin Concent 35, Red Cell Distribution Width 13.6, Platelet Count 232, Mean Platelet Volume 10.5H, Neutrophils (%) (Auto) 65, Lymphocytes (%) (Auto) 27 , Monocytes (%) (Auto) 5, Eosinophils (%) (Auto) 3, Basophils (%) (Auto) 0, Neutrophils # (Auto) 6.5, Lymphocytes # (Auto) 2.7, Monocytes # (Auto) 0.5, Eosinophils # (Auto) 0.3, Basophils # (Auto) 0.0, Sodium Level 141, Potassium Level 3.8, Chloride Level 108H, Carbon Dioxide Level 20L, Anion Gap 13, Blood Urea Nitrogen 7, Creatinine 0.87, Estimat Glomerular Filtration Rate > 60, BUN/ Creatinine Ratio 8, Glucose Level 141H, Calcium Level 9.1, Total Bilirubin 0.4, Aspartate Amino Transf (AST/SGOT) 19, Alanine Aminotransferase (ALT/SGPT) 17, Alkaline Phosphatase 64, Troponin I < 0.30, Total Protein 6.7, Albumin 4.2, Triglycerides Level 134, Cholesterol Level 116, LDL Cholesterol Direct 85, VLDL Cholesterol 27, HDL Cholesterol 30L Discussion & Recommendations Please follow up with Dr. Spivey in 2 weeks and with your PCP in 1 week to follow up this hospital stay. Should your symptoms return or worsen please return to the ER for evaluation. Discharge Home Medications: Active Scripts Active Cardizem Cd (Diltiazem HCl) 120 Mg Cap.er.24h 120 Mg PO DAILY 60 Days Instructions to patient/family Please see electronic discharge instructions given to patient. Clinical Quality Measures AMI/AHF: ASA po Prior to arrival: No DVT/VTE Risk/Contraindication: RFS Level Per Nursing on Admit: 0=No Risk/No VTE PPX Copy Copies To 1: Gonzales SPIVEY MD, KATELYN M MD May 27, 2017 14:43
[2017-05-27] MEDS ORDERED: DILT120C82 PO ×2 (14:46→15:05)
--- NOTE | 2017-05-27 14:49 | Consultation-Cardiology ---
HPI-Cardiology Cardiology Consultation: Date of Consultation 05/27/17 Date of Admission Attending Physician Marlyn Angulo MD Admitting Physician Dyllan Timmons DO Consulting Physician Gonzales SPIVEY MD HPI: Time Seen by Provider: 13:40 Chief Complaint: Palpitations This is a 21-year-old gentleman with history of recurrent palpitations. He presented with a prolonged episode of palpitation. Occasional dizziness. No syncope or near syncope. No family history of sudden cardiac or arrhythmias. The patient has no history of drug abuse. He does not have any previous history of cardiac disorders. Review of Systems-Cardiology Review of Systems Constitutional: No As described under HPI, No no symptoms reported, No chills, No fever, No lightheadedness, No malaise, No tiredness, No weight loss, No weight gain, No other Eyes: No As described under HPI, No no symptoms reported, No blindness, No blurred vision, No contact lenses, No drainage, No decreased acuity, No foreign body sensation, No glasses, No inflammation, No pain, No photophobia, No previous injury, No shadows, No tunnel vision, No other, No vision change Ears/Nose/Throat: No As described under HPI, No no symptoms reported, No chronic hearing loss, No epistaxis, No ear discharge, No ear pain, No loose teeth, No mouth pain, No mouth swelling, No nasal drainage, No nose pain, No recent hearing loss, No throat pain, No throat swelling, No ulcerations, No other Respiratory: No no symptoms reported, No As described under HPI, No cough, No orthopnea, No shortness of breath, No SOB with excertion, No SOB at rest, No stridor, No wheezing, No other Cardiovascular: palpitations Gastrointestinal: No no symptoms reported, No As described under HPI, No abdomen distended, No abdominal pain, No blood streaked bowels, No constipation , No diarrhea, No difficulty swallowing, No nausea, No poor appetite, No poor fluid intake, No rectal bleeding, No vomiting, No other, No nausea/vomiting/ diarrhea, No stool coloration changes Genitourinary: No no symptoms reported, No As described under HPI, No burning, No dysuria, No discharge, No frequency, No flank pain, No hematuria, No incontinence, No pain, No urgency, No other, No urine frequency changes, No urine coloration changes Musculoskeletal: No no symptoms reported, No As describe under HPI, No back pain, No gout, No joint pain, No joint swelling, No muscle pain, No muscle stiffness, No neck pain, No other Skin: No no symptoms reported, No As described under HPI, No change in color, No change in hair/nails, No dryness, No lesions, No lumps, No rash, No other, No skin related problems, No ulcerations, No rash on exposed areas, No ulcerations on exposed areas Psychiatric/Neurological: No no symptoms reported, No As described under HPI, No anxiety, No depression, No emotional problems, No headache, No numbness, No pre-existing deficit, No seizure, No tingling, No tremors, No weakness, No other , No focal weakness, No syncope Hematologic: No no symptoms reported, No As described under HPI, No anemia, No blood clots, No easy bleeding, No easy bruising, No swollen glands, No other, No bleeding abnormalities All Other Systems Reviewed Negative Unless Noted: Yes LBA-Gbfswr-Rzbwen Hx Patient Social History Marrital Status: single Employed/Student: student, full-time Alcohol Use: Denies Use Recreational Drug Use: No Smoking Status: Never a Smoker Recent Foreign Travel: No Recent Infectious Disease Expo: No Physical Abuse Screen: No Sexual Abuse: No Past Medical History PMH As described under Assessment. Allergies and Home Medications Allergies Coded Allergies: Cephalosporins (Verified Allergy, Unknown, 05/26/17) Penicillins (Verified Allergy, Unknown, 05/26/17) Home Medications Diltiazem HCl 120 Mg Cap.er.24h, 120 MG PO DAILY for 60 Days Prescribed by: AARTI QUIROS on 05/27/17 1505 Physical Exam-Cardiology Physical Exam Vital Signs/I&O Vital Sign - Last 12Hours 05/27/17 05/27/17 05/27/17 05/27/17 11:48 12:00 12:48 15:00 Temp 98.9 98.9 Pulse 68 Resp 18 B/P (MAP) 143/73 Pulse Ox 100 98 O2 Delivery Room Air Room Air Intake and Output 05/28/17 00:00 Intake Total 800 ml Balance 800 ml Capillary Refill : Less Than 3 Seconds Constitutional: No appears stated age, No AAO x 3, No apparent distress, No PERRL, No well-developed, No well-nourished, No other HEENT: No PERRL, No normal ENT inspection, No TMs normal, No pharynx normal, No scleral icterus (R), No scleral icterus (L), No pale conjunctivae (R), No pale conjunctivae (L), No photophobia, No TM abnormal (R), No TM abnormal (L), No pharyngeal erythema, No tonsillar exudate, No other, No discharge, No EOMI, No hearing is well preserved, No hard of hearing, No oral hygience is good, No ulceration, No xanthelasmas are seen Neck: No non-tender, No full range of motion, No supple, No normal inspection, No carotid bruit, No limited range of motion, No lymphadenopathy (R), No lymphadenopathy (L), No tender lateral, No tender midline, No thyromegaly, No other, No carotid pulses are 2 + bilaterally, No with good upstrokes Respiratory: No accessory muscle use, No respiratory distress, No chest tender , No chest expansion is symmetric, No chest is bilaterally symmetric, No lungs clear to percussion, No lungs clear to auscultation, No crackles, No rhonchi, No rales, No stridor, No wheezing, No pleural rub, No other Cardiovascular: No regular rate-rhythm, No irregularly irregular, No extra beats, No parasternal heave is noted, No JVD, No edema, No bradycardia, No tachycardia, No point of maximal impulse, No cardiac thrills are palpable, No S1 and S2, No gallop/S3, No gallop/S4, No diastolic murmur, No systolic murmur, No friction rub, No click, No other Gastrointestinal: No tender, No soft, No round, No distended, No pulsatile mass , No organomegaly, No guarding, No rebound, No tenderness, No hernia, No mass, No audible bowel sounds, No abnormal bowel sounds, No abdominal bruits, No spleenomegaly, No other Rectal: deferred Extremities: No normal range of motion, No non-tender, No normal inspection, No pedal edema, No calf tenderness, No normal capillary refill, No pelvis stable , No calf tenderness, No inflammation, No pedal edema, No slow capillary refill , No swelling, No other, No abrasion, No clubbing, No cyanosis, No ecchymosis, No laceration, No no lower extremity edema bilateral, No significant edema, No tenderness, No wound Neurologic/Psychiatric: No missile tracking technician II-XII nml as tested, No no motor/sensory deficits, No alert, No normal mood/affect, No oriented x 3, No abnormal cerebellar tests, No abnormal missile tracking technician II-XII, No abnormal gait, No aphasia, No EOM palsy, No facial droop, No motor weakness, No sensory deficit, No depressed affect, No disoriented x 3, No other, No grossly intact, No power is 5/5 both on sides Skin: No normal color, No warm/dry, No cyanosis, No cool, No diaphoresis, No damp, No ecchymosis, No jaundice, No mottled, No pallor, No rash, No tattoos/ piercings, No ulcerations, No rash on exposed areas, No ulcerations on exposed areas, No other Data Review Labs Laboratory Tests 05/27/17 05:47: White Blood Count 10.0, Red Blood Count 5.20, Hemoglobin 14.3, Hematocrit 40, Mean Corpuscular Volume 78L, Mean Corpuscular Hemoglobin 28, Mean Corpuscular Hemoglobin Concent 35, Red Cell Distribution Width 13.6, Platelet Count 232, Mean Platelet Volume 10.5H, Neutrophils (%) (Auto) 65, Lymphocytes (%) (Auto) 27 , Monocytes (%) (Auto) 5, Eosinophils (%) (Auto) 3, Basophils (%) (Auto) 0, Neutrophils # (Auto) 6.5, Lymphocytes # (Auto) 2.7, Monocytes # (Auto) 0.5, Eosinophils # (Auto) 0.3, Basophils # (Auto) 0.0, Sodium Level 141, Potassium Level 3.8, Chloride Level 108H, Carbon Dioxide Level 20L, Anion Gap 13, Blood Urea Nitrogen 7, Creatinine 0.87, Estimat Glomerular Filtration Rate > 60, BUN/ Creatinine Ratio 8, Glucose Level 141H, Calcium Level 9.1, Total Bilirubin 0.4, Aspartate Amino Transf (AST/SGOT) 19, Alanine Aminotransferase (ALT/SGPT) 17, Alkaline Phosphatase 64, Troponin I < 0.30, Total Protein 6.7, Albumin 4.2, Triglycerides Level 134, Cholesterol Level 116, LDL Cholesterol Direct 85, VLDL Cholesterol 27, HDL Cholesterol 30L ECG Impression ECG Initial ECG Rhythm: SVT A/P-Cardiology Assessment/Admission Diagnosis PSVT Plan PSVT: dc cardizem gtt. start po cardizem 120mg daily. dc home with follow up in office in two to three weeks. education done. if episodes refractory to medical therapy, briefly discussed EP study with ablation. I told him to seek immediate medical attention if syncope or near syncope occurs. vagal maneuvers discussed. Echo: no abnormality noted. PA pressure mildly elevated. Thank you for your consultation. Please call me if you have any questions. Corwin Spivey MD, FACP, FACC, FSCAI, FHRS, CCDS Interventional Cardiology Cardiac Electrophysiology Vascular Medicine and Endovascular Interventions Clinical Quality Measures AMI/AHF: ASA po Prior to arrival: No DVT/VTE Risk/Contraindication: RFS Level Per Nursing on Admit: 0=No Risk/No VTE PPX Gonzales SPIVEY MD May 27, 2017 14:49
== END 2017-05-27 15:08 | disposition home or self-care (01) | DRG 310 ==
LOC: ER 16:06 → ICU 17:15 → UNDOADMOB 17:15 → OBSVTOIN 17:15 → INTOOBSV 17:15 → ICU 17:15 → UNDODISIN 05-27 15:08
PROVIDERS: ADMIT Family Medicine; ATTEND Family Medicine
DX: I47.1 Supraventricular tachycardia (principal); I10 Essential (primary) hypertension; E87.6 Hypokalemia; R35.8 Other polyuria
CPT/HCPCS: 36415; 71010; 80053; 80061; 80306; 81000; 83036; 83690; 83735; 83874; 84443; 84484; 85025; 85610; 85730; 93005; 93041; 93306; 96361; 96365; 96366; 96375

== ENCOUNTER 2020-06-15 15:00 | Outpatient (RCR) | payer BC ==
[~2020-06-15 15:00] MED LIST: DILT120C82 PO
== END 2020-09-13 | disposition home or self-care (01) ==
LOC: CARD 15:00
PROVIDERS: ATTEND Internal Medicine Interventional Cardiology
DX: I47.1 Supraventricular tachycardia (principal); I10 Essential (primary) hypertension; I27.20 Pulmonary hypertension, unspecified
CPT/HCPCS: 93306